=== PATIENT | male | born 1985 | race Caucasian/White ===

== ENCOUNTER → 2024-01-26 | Outpatient (CLI) | payer BC, SELFPAY ==
[2024-01-26 09:16] LABS: Absolute Lymphocyte Count 1.68 X10^3/uL (0.83-4.51); Absolute Neutrophil Count 4.3 X10^3/uL (2.0-7.7); Basophil# 0.05 X10^3/uL; Basophil% 0.7 % (0-1); Eosinophils% 2.9 % (0-5); Erythrocyte Sedimentation Rate 33 mm/hr (0-20); Hematocrit 37.2 % (40-54); Hemoglobin 11.2 g/dL (13.0-16.5); Lymphocyte # 1.68 X10^3/ul (0.83-4.51); Lymphocyte % 24.8 % (19-41); Mean Corp Hgb Conc 30.1 g/dL (32-36); Mean Corpuscular Volume 76.4 fL (80-94); Mean Platelet Vol. 9.8 fl (6.2-12.0); Monocyte# 0.53 X10^3/uL; Monocyte% 7.8 % (0-10); NRBC Flagged by Analyzer 0 % (0-5); Neutrophil # 4.29 X10^3/uL (2.7-7.7); Neutrophil % 63.4 % (47-70); Platelet Count 320 K/mm3 (150-450); RBC Distribution Width CV 13.9 % (11.6-14.6); RBC Distribution Width SD 38.4 fl (35.1-43.9); Red Blood Count 4.87 M/mm3 (4.6-6.2); White Blood Count 6.8 K/mm3 (4.4-11.0)
[2024-01-26 09:47] LABS: Vitamin B12 481 pg/mL (211-911); Vitamin D,25 Hydroxy 28.1 ng/mL
[2024-01-26 09:57] LABS: ALB/GLOB Ratio 0.8 RATIO (0.9-2.4); AST(SGOT) 20 U/L (15-37); Alanine Aminotransfer ALT/SGPT 22 U/L (16-61); Albumin, Serum 3.5 g/dL (3.2-5.0); Alkaline Phosphatase 97 U/L (45-117); Anion Gap 5 (5-15); BUN 12 mg/dL (7-18); BUN/Creat Ratio 10.9 RATIO (10-20); CRP 4.67 mg/L (0.0-3.0); Calcium,Total 9.1 mg/dL (8.5-10.1); Chloride 104 mmol/L (98-107); EST Glomerular Filtration Rate 79 mL/min (>60); Est Glom Filt Rate - Afr Amer 95 mL/min (>60); Ferritin 3 ng/mL (26-388); Globulin 4.4 g/dL (2.2-4.2); Glucose 112 mg/dL (74-106); Iron 34 ug/dL (65-175); Iron Binding Capacity,Total 415 ug/dL (250-450); Potassium 3.6 mmol/L (3.5-5.1); Protein, Total 7.9 g/dL (6.4-8.2); Sodium Level 139 mmol/L (136-145)
[2024-01-29 15:08] LABS: Vitamin D 1,25-Dihydroxy 61.1 pg/mL (24.8-81.5)
[2024-01-30 08:11] LABS: ACCA 247 units (0-90); ALCA 6 units (0-60); AMCA 60 units (0-100); Cytoplasmic Ab (C-ANCA) <1:20 titer (Neg:<1:20); Perinuclear Ab (P-ANCA) <1:20 titer (Neg:<1:20); gASCA 102 units (0-50)
== END | disposition home or self-care (01) ==
PROVIDERS: PCP Family Medicine; Referring Provider Student in an Organized Health Care Education/Training Program; Visit Provider Student in an Organized Health Care Education/Training Program
DX: K50.811 Crohn's disease of both small and large intestine with rectal bleeding (principal)
CPT/HCPCS: 36415; 80053; 82306; 82607; 82652; 82728; 82746; 83516; 83540; 83550; 85025; 85652; 86036; 86140; 86256; 86671

== ENCOUNTER 2024-08-26 09:21 | Day surgery (SDC) | payer BC, SELFPAY ==
[2024-08-26] VITALS (9 sets, daily range): BP systolic 103–140; BP diastolic 62–97; PULSE 64–85; RESP 16; TEMP 36.3–36.7; O2SAT 92–100; BMI 37.3
--- NOTE | 2024-08-26 09:47 | HP.PCM_ITS ---
HPI - General General Date of Admission: 08/26/24 Date of Service: 08/26/24 Chief Complaint: crohns HPI Narrative BARBIE FINK, is a 39 M who presents for the evaluation of Crohn's disease. Biochemical 2017 A1c, celiac WNL. IBD ([facility]) Crohn?s +, CRP H3.68 Colonoscopy 6.26.17 TI shallow ulcerations, active colitis with focal cryptitis and glandular distortion; internal hemorrhoids. OV 8..24 f/u for Crohns. Feeling weel with no symtosm. Notes a flare in November 2023. Not on medication for CRohns *Declined daily medications, blood work, stool testing, no hx of MR enterography Biochemical work up 8..24; hgb L 11.2, ESR 33 H, iron 34 L, CRp 4.67, IBD panel indicating aggressive Crohn Colonoscopy scheduled but not completed OV 2 Pt has been doing well since his last visit. He does not recall any flares of diarrhea. He is having 2-3 bm per day. He avoids foods that cause flares like lettuce and acidic foods. He has a colonoscopy coming up in August 2024. [facility] Medical History Alcohol use History of ulceration Gastric reflux Chewing tobacco dependence HTN (hypertension) PLEVA (pityriasis lichenoides et varioliformis acuta) Diminished hearing Anxiety Crohn disease Home Medications ?Medication ?Instructions ?Recorded ?Last Taken ?Type hydrochlorothiazide 25 mg tablet 25 mg PO DAILY Unknown History lisinopril 20 mg tablet 20 mg PO DAILY 11/09/2208/04 History omeprazole 40 mg capsule,delayed 40 mg PO QDAY #60 cap s 07/23/24 Unknown Rx release Allergy/AdvReac Type Severity Reaction Status Date / Time amoxicillin Allergy Intermediate Other Verified 08/26/24 09:39 cefaclor (From Ceclor) Allergy Intermediate Other Verified 08/26/24 09:39 Family History Father Hypertension Surgical History History of esophagogastroduodenoscopy (EGD) Hx of colonoscopy Hx of wisdom tooth extraction H/O inguinal hernia repair S/P orchiectomy Social History Smoking Status: Never smoker Smokeless tobacco user: chewing tobacco alcohol intake: current ROS Constitutional Constitutional: Denies fatigue, fever(s), poor appetite, weight gain or weight loss Gastrointestinal Gastrointestinal: Denies belching, bloating, change in bowel habits, change in stool character, chewing difficulty, coffee ground emesis, constipation, 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, diarrhea, dyspepsia, dysphagia, early satiety, excessive flatus, fecal incontinence, heartburn, hematemesis, hematochezia, hemorrhoids, loose stools, melena, nausea, odynophagia, rectal bleeding, tenesmus, vomiting or weight changes Vital Signs Vital Signs Vital Signs: 08/26/24 09:43 08/26/24 09:43 Temperature 98.1 F Temperature Source Temporal Pulse Rate 85 Respiratory Rate 16 Respiratory Pattern Normal Blood Pressure 140/97 H Blood Pressure Mean 111 Blood Pressure Source Monitor Blood Pressure Position Semi-Fowlers Blood Pressure Location Right Arm Pulse Ox 100 Oxygen Delivery Method Room Air Weight Weight: 290 lb 12.635 oz Body Mass Index (BMI) 37.3 Physical Exam Const alert, oriented x3, no apparent distress and healthy appearing General Appearance: cooperative GI normal to inspection, nondistended, normoactive bowel sounds, soft to palpation, non-tender and non-distended Percussion: normal to percussion Rectal Exam: deferred Assessment & Plan Assessment/Plan (1) Crohn disease: QUALIFIERS: Gastrointestinal tract location: small and large intestine Digestive disease complication type: with rectal bleeding Qualified Code(s): K50.811 - Crohn's disease of both small and large intestine with rectal bleeding PLAN: Assessment and Plan Assessment and Plan (1) Crohn disease: Status: Acute Qualifiers: Gastrointestinal tract location: small and large intestine Digestive disease complication type: with rectal bleeding Qualified Code(s): K50.811 - Crohn's disease of both small and large intestine with rectal bleeding Plan: Pt is a 39 yo male pt here today for f/u. Pt has a diagnosis of Crohns disease that is not treated medically due to his personal choice. He has not had a colonoscopy in over 5 years per his report. He is scheduled for one coming up in a month. Following this, will consider treatment for IBD. Blood work form 2023 showing inflammation in the blood. He has some heartburn lately. He will start omeprazole 40 mg daily. -Colonoscopy -Start omeprazole 40 mg daily -Consider treatment for Crohns Medications: New omeprazole 40 mg PO QDAY 60 caps 1RF
--- NOTE | 2024-08-26 10:02 | PRE.ANES_ITS ---
ASA Classification* ASA Classification ASA Classification: 2 Assessment & Plan Anesthesia* Anesthesia Assessment Anesthesia Assessment: Discussed sedation and/or anesthesia options, risks, benefits, and alternatives with patient/parents/legal guardian/POA. Questions invited. The patient/parents/legal guardian/POA seems to understand and agrees to proceed with anesthesia plan. Reviewed the physical assessment, medical history, allergy history and patient home medications list prior to surgery/procedure/anesthetic and documented any changes. Performed airway and anesthesia risk assessments. Anesthesia Type Anesthesia Type: MAC History Source History Obtained from:: Patient and Chart Anesthesia Focused Assessment* Temperature: 98.1 F Pulse Rate: 85 Blood Pressure: 140/97 Respiratory Rate: 16 Pulse Ox: 100 Oxygen Delivery Method: Room Air Airway Assessment Mouth opens: >3 cm Mallampati Score: III Teeth Condition: Chipped/Broken (Patient has a chipped right upper molar. Rest are tight.) Neck Range of motion (ROM): Full ROM Focused Labs Anesthesia Preop lab: CBC WBC 6.8 K/mm3 (4.4-11.0) 01/26/24 08:57 01/26/24 RBC 4.87 M/mm3 (4.6-6.2) 01/26/24 08:57 01/26/24 Hgb 11.2 g/dL (13.0-16.5) L 01/26/24 08:57 4 Hct 37.2 % (40-54) L 01/26/24 08:57 01/26/24 Plt Count 320 K/mm3 (150-450) 01/26/24 08:57 01/26/24 CHEMISTRY Potassium 3.6 mmol/L (3.5-5.1) 01/26/24 08:57 01/26/24 Sodium 139 mmol/L (136-145) 01/26/24 08:57 01/26/24 BUN 12 mg/dL (7-18) 01/26/24 08:57 01/26/24 Creatinine 1.10 mg/dL (0.70-1.30) 01/26/24 08:57 01/26/24 Glucose 112 mg/dL (74-106) H 01/26/24 08:57 01/26/24 COAG Pre-Assessment Diagnosis/Proposed Procedure Planned Operative Procedure(s): COLONOSCOPY Anesthesia History Anesthesia History - drafter electronic: Anesthesia History - drafter electronic Hx Hospitalization No 08/21/24 09:56 Any Problems With Anesthesia No 08/21/24 09:56 Cholinesterase deficiency No 08/21/24 09:56 You/Your Family Experience No 08/21/24 09:56 fever (hyperthermia) with Relationship Recent Exposure to Contagious No 08/26/24 09:43 Disease Does patient have nerve No 08/21/24 09:56 stimulator Patient instructed to have device shut off --Does patient have Pacemaker No 08/26/24 09:43 or ICD? When Was Last Pacemaker Check QUESTION #4 FULL TEXT: You/Your Family Experience fever (hyperthermia) with Anesthesia Last Oral Intake Last Oral intake: Last Oral Intake NPO since 07:00 08/26/24 09:43 Meds taken in AM with sips of water? Meds patient instructed to take am of surgery Any additional information?: Yes NPO since: 07:15 (Patient finished prep and some Sprite at 7:15 AM.) PONV PONV - drafter electronic: PONV - drafter electronic Female No 08/21/24 09:56 HX of Motion Sickness Yes 08/21/24 09:56 HX of N/V After Surgery No 08/21/24 09:56 Non-Smoker No 08/21/24 09:56 Duration of Surgery greater No 08/21/24 09:56 than 60 minutes Number of Risk Factors 1 08/21/24 09:56 PONV Score Low Risk 08/21/24 09:56 Height & Weight Height & Weight: Anesthesia: Height & Weight Height 6 ft 2 in 08/26/24 09:43 Weight: 131.9 kg 08/26/24 09:43 Body Mass Index (BMI) 37.3 08/26/24 09:43 Respiratory Assessment Respiratory Assessment - drafter electronic: Respiratory Tract Infection Hx - drafter electronic Hx Respiratory Tract Infection No 08/21/24 09:56 STOP Sleep Apnea STOP Sleep Apnea - drafter electronic: STOP Sleep Apnea - drafter electronic Hx Hypertension Yes: CONTROLLED ON MED 08/21/24 09:56 Hx Sleep Apnea No 08/21/24 09:56 CPAP BIPAP Do you snore loudly (louder No 08/21/24 09:56 than talking or can be heard Do you often feel tired/ No 08/21/24 09:56 fatigued/ sleepy during daytime? Has anyone observed you stop No 08/21/24 09:56 breathing during sleep? STOP Results Negative 08/21/24 09:56 QUESTION #5 FULL TEXT : Do you snore loudly (louder than talking or can be heard through closed doors)? 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 Specify any problems Hx of Preganancy in last 3 N/A 08/21/24 09:56 Months Nurse Filling Out Transfusion VCHRISTIN 08/21/24 09:56 & Questions: Date: 08/21/24 08/21/24 09:56 Time: 09:57 08/21/24 09:56 Patient unable to answer at this time (ie. confused, unrespo /Reproduction History /Reproductive History - drafter electronic: /Reproductive Hx- drafter electronic Hx Now Gestational Age (in weeks): EDC: Hx Hx Para Hx Section SAB PFSH Medical History Alcohol use History of ulceration Gastric reflux Chewing tobacco dependence HTN (hypertension) PLEVA (pityriasis lichenoides et varioliformis acuta) Diminished hearing Anxiety Crohn disease Home Medications ?Medication ?Instructions ?Recorded ?Last Taken ?Type hydrochlorothiazide 25 mg tablet 25 mg PO DAILY Unknown History lisinopril 20 mg tablet 20 mg PO DAILY 11/09/2208/04 History omeprazole 40 mg capsule,delayed 40 mg PO QDAY #60 cap s 07/23/24 Unknown Rx release Allergy/AdvReac Type Severity Reaction Status Date / Time amoxicillin Allergy Intermediate Other Verified 08/26/24 09:39 cefaclor (From Ceclor) Allergy Intermediate Other Verified 08/26/24 09:39 Family History Father Hypertension Surgical History History of esophagogastroduodenoscopy (EGD) Hx of colonoscopy Hx of wisdom tooth extraction H/O inguinal hernia repair S/P orchiectomy Social History Smoking Status: Never smoker Smokeless tobacco user: chewing tobacco alcohol intake: current Review of Systems (Anesthesia) ROS Narrative System reviewed and no additional complaints, except as documented.
--- NOTE | 2024-08-26 10:30 | COLBX_PTH ---
PATIENT: BARBIE FINK LOC: EN U#:[id number] AGE/SX: 39/M ROOM: RE08/26/[address]: Dr. Babar Hernández DO : 1985 BED: DIS: 08/26/2024 SPEC #: [id number] RECD: 08/27/24 13:59 STATUS: NIKA REAdams #: [id number] ETHEL: 08/26/24 10:[address]: Babar Hernández DEPT: SURGICAL PATHOLOGY RECD BY: Renato Charles ENTERED: 08/27/24 13:59 SP TYPE: COLON BX OTHR DR: Dr. Chris Mckeon MD Tissues: A - Ileum, NOS B - COLON BIOPSY C - Sigmoid colon biopsy D - Rectum, NOS Procedures: Surgery Specimen Level IV HEADER OPERATION: Colonoscopy with biopsies PRE-OP DIAGNOSIS: Crohn disease TISSUE SUBMITTED: A- Terminal ileum biopsy, B- Random colon biopsy, C- Sigmoid biopsy, D- Rectum biopsy MICROSCOPIC DIAGNOSIS A. TERMINAL ILEUM, BIOPSY: -ACTIVE CHRONIC ILEITIS. -NO GRANULOMAS OR DYSPLASIA SEEN. B. RANDOM COLON, COLON BIOPSY: -FOCAL ACTIVE COLITIS WITHOUT CRYPT DISTORTION. - NO GRANULOMAS OR DYSPLASIA SEEN. C. SIGMOID COLON, BIOPSY: -MILDLY ACTIVE CHRONIC COLITIS. - NO GRANULOMSASOR DYSPLASIA SEEN. D. RECTUM, BIOPSY: - MILDLY ACTIVE CHRONIC COLITIS. - NO GRANULOMAS OR DYSPLASIA SEEN. MICROSCOPIC DESCRIPTION Slides are reviewed. GROSS DESCRIPTION A. Received in fixative is one container labeled with the patient's name and designated Terminal ileum biopsy. The specimen consists of two irregular fragments of light [place] soft tissue that in aggregate measure 0.9 x 0.2 x 0.2 cm. The specimen is totally submitted in one cassette. B. Received in fixative is one container labeled with the patient's name and designated Random colon biopsy. The specimen consists of multiple irregular fragments of light [place] soft tissue that in aggregate measure 1.6 x 0.2 x 0.2 cm. The specimen is totally submitted in one cassette. C. Received in fixative is one container labeled with the patient's name and designated Sigmoid biopsy. The specimen consists of two irregular fragments of light [place] soft tissue that in aggregate measure 0.7 x 0.2 x 0.2 cm. The specimen is totally submitted in one cassette. D. Received in fixative is one container labeled with the patient's name and designated Rectum biopsy. The specimen consists of multiple irregular fragments of light [place] soft tissue that in aggregate measure 1.4 x 0.2 x 0.2 cm. The specimen is totally submitted in one cassette. [email or web address] 08/27/2024 CPT:30343r1
--- NOTE | 2024-08-26 11:15 | OP.CCLET_ITS ---
08/26/2024 Chris Mckeon Re : Colonoscopy procedure for Thien Levin Dear Mike This procedure was performed on Monday, August 26, 2024. My impressions and recommendations are as follows: Impressions : - Simple Endoscopic Score for Crohn's Disease: 10, mucosal inflammatory changes secondary to Crohn's disease. - No specimens collected. Recommendations : - Discharge patient to home. - Resume previous diet. - Continue present medications. - Await pathology results. - Repeat colonoscopy. - Return to GI office. My findings are described in the full procedure note, which is enclosed. If I can be of further assistance, please feel free to contact me at . Sincerely, Babar Hernández, 08/26/2024 11:14:51 AM This report has been signed electronically.
--- NOTE | 2024-08-26 11:15 | OP.COLON_ITS ---
Patient Name: Thien Levin Procedure Date: 08/26/2024 10:41 AM Date of : 1985 Age: 39 Procedure: Colonoscopy Indications: Crohn's disease of the small bowel and colon Providers: Babar Hernández DO Medicines: Monitored Anesthesia Care Patient Profile: This is a 39 year old male. Refer to note in patient chart for documentation of history and physical. Last Colonoscopy: 3 years ago. Complications: No immediate complications. Procedure: Pre-Anesthesia Assessment: - Prior to the procedure, a History and Physical was performed, and patient medications and allergies were reviewed. The patient is competent. The risks and benefits of the procedure and the sedation options and risks were discussed with the patient. All questions were answered and informed consent was obtained. Patient identification and proposed procedure were verified by the physician in the pre-procedure area. Mental Status Examination: alert and oriented. Airway Examination: normal oropharyngeal airway and neck mobility. Respiratory Examination: clear to auscultation. CV Examination: normal. ASA Grade Assessment: II - A patient with mild systemic disease. After reviewing the risks and benefits, the patient was deemed in satisfactory condition to undergo the procedure. The anesthesia plan was to use monitored anesthesia care (MAC). Immediately prior to administration of medications, the patient was re-assessed for adequacy to receive sedatives. The heart rate, respiratory rate, oxygen saturations, blood pressure, adequacy of pulmonary ventilation, and response to care were monitored throughout the procedure. The physical status of the patient was re-assessed after the procedure. After I obtained informed consent, the scope was passed under direct vision. Throughout the procedure, the patient's blood pressure, pulse, and oxygen saturations were monitored continuously. The Colonoscope was introduced through the anus and advanced to the terminal ileum. The colonoscopy was performed without difficulty. The patient tolerated the procedure well. The quality of the bowel preparation was adequate. The terminal ileum, ileocecal valve, appendiceal orifice, and rectum were photographed. Scope In: 10:51:38 AM Scope Withdrawal Time 0 hours 9 minutes 10 seconds Scope Out: 11:05:32 AM Total Procedure Duration Time 0 hours 13 minutes 54 seconds Findings: The perianal and digital rectal examinations were normal. The Simple Endoscopic Score for Crohn's Disease was determined based on the endoscopic appearance of the mucosa in the following segments: - Ileum: Findings include large ulcers 0.5-2 cm in size, 10-30% ulcerated surfaces, no affected surfaces, no narrowings and no ulcers present, no ulcerated surfaces, no affected surfaces and no narrowings. Segment score: 4. - Right Colon: Findings include no ulcers present, no ulcerated surfaces, no affected surfaces, no narrowings and no ulcers present, no ulcerated surfaces, no affected surfaces and no narrowings. Segment score: 0. - Transverse Colon: Findings include no ulcers present, no ulcerated surfaces, no affected surfaces and no narrowings. Segment score: 0. - Left Colon: Findings include aphthous ulcers less than 0.5 cm in size, less than 10% ulcerated surfaces, less than 50% of surfaces affected and no narrowings. Segment score: 3. - Rectum: Findings include aphthous ulcers less than 0.5 cm in size, less than 10% ulcerated surfaces, less than 50% of surfaces affected, no narrowings and no ulcers present, no ulcerated surfaces, no affected surfaces and no narrowings. Segment score: 3. - Total SES-CD aggregate score: 10. Impression: - Simple Endoscopic Score for Crohn's Disease: 10, mucosal inflammatory changes secondary to Crohn's disease. - No specimens collected. Recommendation: - Discharge patient to home. - Resume previous diet. - Continue present medications. - Await pathology results. - Repeat colonoscopy. - Return to GI office. Procedure Code(s): --- Professional --- 03885, Colonoscopy, flexible; diagnostic, including collection of specimen(s) by brushing or washing, when performed (separate procedure) CPT copyright 2021 [employer]. All rights reserved. The codes documented in this report are preliminary and upon braille coder review may be revised to meet current compliance requirements. Babar Hernández DO 08/26/2024 11:14:51 AM This report has been signed electronically. Number of Addenda: 0 Note Initiated On: 08/26/2024 10:41 AM
--- NOTE | 2024-08-26 11:15 | PCM.POST.ANE ---
Anesthesia: Postop Eval I Current Vital Signs Temperature: 97.4 F Pulse Rate: 74 Blood Pressure: 107/63 Respiratory Rate: 16 Pulse Ox: 94 Oxygen Delivery Method: Room Air Assessment Airway patent: Yes Spontaneous unlabored respirations: Yes Mental status: Asleep nausea: No Vomiting: No Anesthesia Complication: No Fluid Hydration Crystalloid volume administer (ml): 50 Total IV fluid infused: 50 Progress Note Anesthesia document: Postop Eval 1 completed: Yes
--- NOTE | 2024-08-26 13:52 | PCM.POSTANE2 ---
Anesthesia Postop Eval I Sum Postop Eval Completion status Anesthesia document: Postop Eval 1 completed: Yes Anesthesia Postop Eval I Summary Anesthesia Postop Eval I Summary: Anesthesia Postop Eval I: Assessment Summary Airway patent Yes 08/26/24 11:16 [email or web address] Spontaneous unlabored Yes 08/26/24 11:16 [email or web address] respirations Mental status Asleep 08/26/24 11:16 [email or web address] nausea No 08/26/24 11:16 [email or web address] Vomiting No 08/26/24 11:16 [email or web address] Anesthesia Postop Eval I: Fluid Summary Crystalloid volume administer 50 08/26/24 11:16 [email or web address] (ml) Colloids volume administered ( ml) Blood Product volume administered (ml) Total IV fluid infused 50 08/26/24 11:16 [email or web address] Anesthesia Postop Eval I: Summary Notes Anesthesia Complication No 08/26/24 11:16 [email or web address] Anesthesia Complication Comment: Post-operative progress note Anesthesia: Postop Eval II Evaluation Mental status: Awake Pain Level: 0 nausea: No Vomiting: No
== END 2024-08-26 12:11 | disposition home or self-care (01) ==
LOC: EN 09:24 → AC 09:25
PROVIDERS: PCP Family Medicine; Referring Provider Family Medicine; Visit Provider Internal Medicine Gastroenterology
PROC: 0DJD8ZZ Inspection of Lower Intestinal Tract, Via Natural or Artificial Opening Endoscopic (ICD-10-PCS; CPT 45378; principal; 2024-08-26 10:25)
DX: K50.811 Crohn's disease of both small and large intestine with rectal bleeding (principal); I10 Essential (primary) hypertension; K21.9 Gastro-esophageal reflux disease without esophagitis; K64.8 Other hemorrhoids; F17.220 Nicotine dependence, chewing tobacco, uncomplicated
CPT/HCPCS: 45378; 88305; A4216; J2405

== ENCOUNTER → 2024-12-13 | Outpatient (CLI) | payer BC, SELFPAY ==
[2024-12-13 16:27] LABS: Hematocrit 34.2 % (40-54); Hemoglobin 10.4 g/dL (13.0-16.5); Immature Granulocytes Count 0.020 X10^3/uL (0.0-0.0); Mean Corp Hgb Conc 30.4 g/dL (32-36); Mean Corpuscular Volume 77.2 fL (80-94); Mean Platelet Vol. 10.3 fl (6.2-12.0); NRBC Flagged by Analyzer 0 % (0-5); Platelet Count 320 K/mm3 (150-450); RBC Distribution Width CV 15.7 % (11.6-14.6); RBC Distribution Width SD 44.3 fl (35.1-43.9); Red Blood Count 4.43 M/mm3 (4.6-6.2); White Blood Count 9.1 K/mm3 (4.4-11.0)
[2024-12-13 17:06] LABS: AST(SGOT) 18 U/L (<=37); Alanine Aminotransfer ALT/SGPT 16 U/L (<=46); Albumin, Serum 3.8 g/dL (3.5-5.0); Alkaline Phosphatase 97 U/L (40-129); Anion Gap 12 (5-15); BUN 13 mg/dL (4-19); BUN/Creat Ratio 12.4 RATIO (10-20); CRP 32.40 mg/L (0.0-3.0); Calcium,Total 9.0 mg/dL (7.6-11.0); Carbon Dioxide 28.4 mmol/L (21.0-32.0); Chloride 100 mmol/L (98-108); Globulin 3.3 g/dL (2.2-4.2); Glucose 87 mg/dL (70-99); Potassium 3.4 mmol/L (3.3-5.1)
== END | disposition home or self-care (01) ==
LOC: LAB 15:27
PROVIDERS: PCP Family Medicine; Referring Provider Student in an Organized Health Care Education/Training Program; Visit Provider Student in an Organized Health Care Education/Training Program
DX: K50.811 Crohn's disease of both small and large intestine with rectal bleeding (principal)
CPT/HCPCS: 36415; 80053; 85025; 85652; 86140

== ENCOUNTER 2025-01-16 06:20 | Inpatient (IN) | payer BC, SELFPAY ==
[2025-01-16] VITALS (9 sets, daily range): BP systolic 113–137; BP diastolic 55–89; PULSE 60–103; RESP 14–30; TEMP 36.4–38.3; O2SAT 96–98; BMI 37.1; BMI 35.2
--- NOTE | 2025-01-16 06:29 | EX.ED.DYSGE1 ---
HPI <Dr. German Chavarria DO - Last Filed: 01/16/25 07:46> History of Present Illness Chief Complaint: Syncope Informant: patient Onset/Context/Timing Onset: Days Context: Gradual Onset Timing: Continuous Quality: Dull Location: Lower abdomen Worsened by: Nothing Relieved by: Passing gas Narrative Narrative: Patient presents with a near syncopal episode that occurred today. Patient states that he has been feeling hot and dizzy over the past couple days. Patient states he has been having some pain in his lower abdomen. Patient states it did get better after he was able to pass some gas. Patient states that this morning he felt dizzy and hot. Patient states he has some tinnitus in his ear. Patient states he felt like he was going to pass out. states patient nearly passed out but did not lose consciousness. Patient states she has been having a cough recently. Patient denies any sputum. Patient states he has been having some shortness of breath with this. [facility] <Dr. German Chavarria DO - Last Filed: 01/16/25 07:46> [facility] Medical History Alcohol use History of ulceration Gastric reflux Chewing tobacco dependence HTN (hypertension) PLEVA (pityriasis lichenoides et varioliformis acuta) Diminished hearing Anxiety Crohn disease Home Medications ?Medication ?Instructions ?Recorded ?Last Taken ?Type hydrochlorothiazide 25 mg tablet 25 mg PO DAILY 11/09/22 Unknown History lisinopril 20 mg tablet 20 mg PO DAILY 11/09/22 08/25/24 History omeprazole 40 mg capsule,delayed 40 mg PO QDAY #30 caps 12/13/24 Unknown Rx release Skyrizi 600 mg IV .COMPLEX #10 mL 01/03/25 Unknown Rx mesalamine 1.2 gram tablet,delayed 2.4 g PO BID 01/16/25 Unknown History release (Lialda) Allergy/AdvReac Type Severity Reaction Status Date / Time amoxicillin Allergy Intermediate Other Verified 01/16/25 06:21 cefaclor (From [facility]) Allergy Intermediate Other Verified 12/13/24 15:07 Family History Father Hypertension Surgical History History of esophagogastroduodenoscopy (EGD) Hx of colonoscopy Hx of wisdom tooth extraction H/O inguinal hernia repair S/P orchiectomy Social History Smoking Status: Never smoker Smokeless tobacco user: chewing tobacco alcohol intake: current ROS <Dr. German Chavarria DO - Last Filed: 01/16/25 07:46> ROS ED Constitutional Constitutional ED: Reports fever(s); Denies chills Eyes Eyes: Denies blurry vision or change in vision ENT ENT ED: Denies rhinorrhea or sore throat Cardiovascular Cardiovascular: Denies chest pain or palpitations Respiratory/Chest Respiratory/Chest: Reports cough and dyspnea; Denies sputum Gastrointestinal Gastrointestinal: Reports abdominal pain; Denies nausea or vomiting Genitourinary Genitourinary ED: Denies dysuria or hematuria Musculoskeletal Musculoskeletal: Denies back pain or neck pain Integumentary Denies abscess or rash Neurologic Neurologic: Denies headache(s) or weakness Allergic/Immunologic Allergic/Immunologic ED: Denies mouth swelling or urticaria EXAM <Dr. German Chavarria, - Last Filed: 01/16/25 07:46> Physical Exam Const Vital Signs: 01/16/25 06:22 01/16/25 07:20 01/16/25 08:00 Temperature 101.0 F H 98.1 F 99.4 F H Temperature Source Oral Oral Oral Pulse Rate 103 H 88 89 Pulse Rate [Lying] Pulse Rate [Sitting (for 1 minute prior to obtaining)] Pulse Rate [Standing (for 1 minute prior to obtaining)] Respiratory Rate 30 H 23 H 18 Blood Pressure 137/66 H 125/62 H 133/89 H Blood Pressure [Lying] Blood Pressure [Sitting (for 1 minute prior to obtaining)] Blood Pressure [Standing (for 1 minute prior to obtaining)] Blood Pressure Mean 89 83 103 Blood Pressure Mean [Lying] Blood Pressure Mean [Sitting (for 1 minute prior to obtaining)] Blood Pressure Mean [Standing (for 1 minute prior to obtaining)] Pulse Ox 97 97 97 Oxygen Delivery Method Room Air Room Air Room Air 01/16/25 08:46 01/16/25 09:00 Temperature 99.1 F Temperature Source Oral Pulse Rate 81 Pulse Rate [Lying] 79 Pulse Rate [Sitting (for 1 minute prior to obtaining)] 81 Pulse Rate [Standing (for 1 minute prior to obtaining)] 90 Respiratory Rate 16 Blood Pressure 130/73 H Blood Pressure [Lying] 122/65 H Blood Pressure [Sitting (for 1 minute prior to obtaining)] 129/74 H Blood Pressure [Standing (for 1 minute prior to obtaining)] 124/69 H Blood Pressure Mean 92 Blood Pressure Mean [Lying] 84 Blood Pressure Mean [Sitting (for 1 minute prior to obtaining)] 92 Blood Pressure Mean [Standing (for 1 minute prior to obtaining)] 87 Pulse Ox 98 Oxygen Delivery Method Room Air Positive well nourished and well developed General Appearance ED: well developed and NAD HEENT Reports moist mucous membranes Neck supple and no JVD Resp normal respiratory effort and clear to auscultation bilaterally Cardio regular rate and regular rhythm GI non-distended Palpation: soft and tender LLQ; Negative for guarding or rebound tenderness present Extremity normal to inspection Neuro oriented x3, CN's II-XII intact bilaterally and no sensory deficits noted Sensorium / Orientation: alert Motor Exam: strength 5/5 throughout Psych mental status grossly normal <Dr. Jarrod Herbert MD - Last Filed: 01/16/25 10:17> Physical Exam Const Vital Signs: 01/16/25 06:22 01/16/25 07:20 01/16/25 08:00 Temperature 101.0 F H 98.1 F 99.4 F H Temperature Source Oral Oral Oral Pulse Rate 103 H 88 89 Pulse Rate [Lying] Pulse Rate [Sitting (for 1 minute prior to obtaining)] Pulse Rate [Standing (for 1 minute prior to obtaining)] Respiratory Rate 30 H 23 H 18 Blood Pressure 137/66 H 125/62 H 133/89 H Blood Pressure [Lying] Blood Pressure [Sitting (for 1 minute prior to obtaining)] Blood Pressure [Standing (for 1 minute prior to obtaining)] Blood Pressure Mean 89 83 103 Blood Pressure Mean [Lying] Blood Pressure Mean [Sitting (for 1 minute prior to obtaining)] Blood Pressure Mean [Standing (for 1 minute prior to obtaining)] Pulse Ox 97 97 97 Oxygen Delivery Method Room Air Room Air Room Air 01/16/25 08:46 01/16/25 09:00 Temperature 99.1 F Temperature Source Oral Pulse Rate 81 Pulse Rate [Lying] 79 Pulse Rate [Sitting (for 1 minute prior to obtaining)] 81 Pulse Rate [Standing (for 1 minute prior to obtaining)] 90 Respiratory Rate 16 Blood Pressure 130/73 H Blood Pressure [Lying] 122/65 H Blood Pressure [Sitting (for 1 minute prior to obtaining)] 129/74 H Blood Pressure [Standing (for 1 minute prior to obtaining)] 124/69 H Blood Pressure Mean 92 Blood Pressure Mean [Lying] 84 Blood Pressure Mean [Sitting (for 1 minute prior to obtaining)] 92 Blood Pressure Mean [Standing (for 1 minute prior to obtaining)] 87 Pulse Ox 98 Oxygen Delivery Method Room Air MDM <Dr. German Chavarria, DO - Last Filed: 01/16/25 07:46> [facility] MDM Narrative Medical decision making narrative: Differential diagnosis includes pneumonia, bronchitis, electrolyte abnormality, sepsis, dehydration, Crohn's flareup, bowel obstruction, perforation, urinary tract infection, and viral illness. CT scan of the abdomen and pelvis will be obtained to assess for bowel obstruction or perforation. Chest x-ray will be obtained to assess for pneumonia and bronchitis. CBC will be obtained to assess for leukocytosis and anemia. Comprehensive metabolic profile will be obtained to assess for hepatic function, renal function, and electrolyte abnormality. Serum lactate will be obtained to assess for sepsis. PT with INR and PTT will be obtained to assess for coagulopathy. Urinalysis will be obtained to assess for urinary tract infection and hematuria. History & Record Review Additional record(s) reviewed:: Prior outpatient record and Prior labs Lab Data Attestation: I reviewed the patient's lab results. Lab results narrative: CBC was reviewed. There is a leukocytosis of 18.9. There is a mild anemia with a hemoglobin of 9.2 and hematocrit of 29.8. These are decreased from previous result of hemoglobin of 10.4 and hematocrit of 34.2 on 12/13/2024. Labs: Laboratory Results - last 24 hr 01/16/25 01/16/25 07:18 08:54 WBC 18.9 H RBC 3.98 L Hgb 9.2 L Hct 29.8 L MCV 74.9 L MCH 23.1 L MCHC 30.9 L RDW Std Deviation 36.9 RDW Coeff of [place]win 13.7 Plt Count 352 MPV 10.3 Immature Gran % (Auto) 0.700 Neut % (Auto) 86.9 H Lymph % (Auto) 5.5 L Emmons % (Auto) 6.3 Eos % (Auto) 0.4 Baso % (Auto) 0.2 Absolute Neuts (auto) 16.4 H Absolute Lymphs (auto) 1.03 Nucleated RBC % 0 PT 15.6 H INR 1.2 APTT 39.3 H Sodium 135 Potassium 3.0 L Chloride 94 L Carbon Dioxide 24.7 Anion Gap 16 H BUN 19 Creatinine 1.50 H Estim Creat Clear Calc 91.72 Est GFR (MDRD) Non-Af 60 BUN/Creatinine Ratio 12.8 Glucose 176 H Lactic Acid 1.6 Calcium 8.7 Total Bilirubin 1.97 H AST 26 ALT 16 Alkaline Phosphatase 147 H Total Protein 6.9 Albumin 3.3 L Globulin 3.6 Albumin/Globulin Ratio 0.9 Urine Color Yellow Urine Clarity Clear Urine pH 6.0 Ur Specific [place] 1.005 Urine Protein 15 H Urine Glucose (UA) Normal Urine Ketones Negative Urine Occult Blood Negative Urine Nitrite Negative Urine Bilirubin Negative Urine Urobilinogen 1 H Ur Leukocyte Esterase Negative Urine RBC 0 SEEN Urine WBC 0 SEEN Ur Squamous Epith Cells 0 SEEN Urine Bacteria 0 SEEN Urine Mucus 0 SEEN Radiography Diagnostic Testing: Clinical Impression(s) from Imaging Studies Abdomen/Pelvis CT 01/16/25 06:54 IMPRESSION: Circumferential wall thickening of several adjacent small bowel loops in the distal ileum with increased markings in the surrounding peritoneal fat. Mildly enlarged small lymph nodes in the deep mesenteric fat. Enteritis should be ruled out. Mild splenomegaly. Reading Location: [place] [id number] Chest X-Ray 01/16/25 07:05 IMPRESSION: NO ACUTE FINDINGS. Reading Location: [place] [address] Treatment and Re-Evaluation :: Patient was given IV fluids and Tylenol. Care of the patient was turned over to the oncoming physician pending results. <Dr. Jarrod Herbert MD - Last Filed: 01/16/25 10:17> [facility] Lab Data Lab results narrative: CBC was reviewed. There is a leukocytosis of 18.9. There is a mild anemia with a hemoglobin of 9.2 and hematocrit of 29.8. These are decreased from previous result of hemoglobin of 10.4 and hematocrit of 34.2 on 12/13/2024. Lactate is normal at 1.4. Labs: Laboratory Results - last 24 hr 01/16/25 01/16/25 07:18 08:54 WBC 18.9 H RBC 3.98 L Hgb 9.2 L Hct 29.8 L MCV 74.9 L MCH 23.1 L MCHC 30.9 L RDW Std Deviation 36.9 RDW Coeff of [place]win 13.7 Plt Count 352 MPV 10.3 Immature Gran % (Auto) 0.700 Neut % (Auto) 86.9 H Lymph % (Auto) 5.5 L Emmons % (Auto) 6.3 Eos % (Auto) 0.4 Baso % (Auto) 0.2 Absolute Neuts (auto) 16.4 H Absolute Lymphs (auto) 1.03 Nucleated RBC % 0 PT 15.6 H INR 1.2 APTT 39.3 H Sodium 135 Potassium 3.0 L Chloride 94 L Carbon Dioxide 24.7 Anion Gap 16 H BUN 19 Creatinine 1.50 H Estim Creat Clear Calc 91.72 Est GFR (MDRD) Non-Af 60 BUN/Creatinine Ratio 12.8 Glucose 176 H Lactic Acid 1.6 Calcium 8.7 Total Bilirubin 1.97 H AST 26 ALT 16 Alkaline Phosphatase 147 H Total Protein 6.9 Albumin 3.3 L Globulin 3.6 Albumin/Globulin Ratio 0.9 Urine Color Yellow Urine Clarity Clear Urine pH 6.0 Ur Specific [place] 1.005 Urine Protein 15 H Urine Glucose (UA) Normal Urine Ketones Negative Urine Occult Blood Negative Urine Nitrite Negative Urine Bilirubin Negative Urine Urobilinogen 1 H Ur Leukocyte Esterase Negative Urine RBC 0 SEEN Urine WBC 0 SEEN Ur Squamous Epith Cells 0 SEEN Urine Bacteria 0 SEEN Urine Mucus 0 SEEN Radiography Chest X-Ray - ED: 2 View and Read by ED Physician (Independently reviewed interpreted by me at 0845 as negative for any acute findings. Cardiac silhouette size normal. Lung parenchyma reveals no acute process i.e. infiltrate or effusion. Hilum appears unremarkable. Osseous structures with no acute process.) Diagnostic Testing: Clinical Impression(s) from Imaging Studies Abdomen/Pelvis CT 01/16/25 06:54 IMPRESSION: Circumferential wall thickening of several adjacent small bowel loops in the distal ileum with increased markings in the surrounding peritoneal fat. Mildly enlarged small lymph nodes in the deep mesenteric fat. Enteritis should be ruled out. Mild splenomegaly. Reading Location: [id number] Chest X-Ray 01/16/25 07:05 IMPRESSION: NO ACUTE FINDINGS. Reading Location: [facility]--1 CT of the abdomen pelvis was reviewed. There appears to be some inflammatory changes noted in the pelvis. Awaiting formal read by radiologist. Patient has evidence of regional enteritis she has a history of Crohn's. He was in contact with Dr. Hernández last week. He was told if he is not better to present to the emergency department. In light of this and the fact that he has a fever, white count and SIRS will contact Dr. Hernández to discuss case. He has allergy to both amoxicillin and Ceclor. His reaction is hives. On examination he has some slight peritoneal irritation right side mid abdomen and left lower quadrant. Management Discussion w/another healthcare provider: Hospitalist ([place] was asked to page hospitalist to discuss case for admission to [facility].) and Toy [employer] Supervisor (Spoke with Dr. Hernández at [phone]. He reviewed the scan. Recommended admission with IV antibiotics. In light of patient's allergy he was treated with ciprofloxacin metronidazole..) Treatment and Re-Evaluation Comments:: Case was discussed with hospitalist. He was informed that I spoke with Dr. Hernández. Antibiotics and I did place order for Solu-Medrol. Discharge Plan Triage Chief Complaint: Syncope ED Provider: German Chavarria Dx/Rx/DC Orders Clinical Impression: Exacerbation of Crohn's disease, SIRS (systemic inflammatory response syndrome), Microcytic anemia Prescriptions: No Action hydrochlorothiazide 25 mg tablet 25 mg PO DAILY lisinopril 20 mg tablet 20 mg PO DAILY omeprazole 40 mg capsule,delayed release(DR/EC) 40 mg PO QDAY Qty: 30 5RF mesalamine [Lialda] 1.2 gram tablet,delayed release (DR/EC) 2.4 g PO BID Skyrizi 600 mg IV .COMPLEX Qty: 10 0RF Patient Comments: needs to get blood work Rx Instructions: 600 mg intravenously week 0, 4, 8; 600 mg intravenously at week 0, 4, 8 for Crohn's Disease K50.90 Primary Care Provider: Chris Mckeon Referrals: Chris Mckeon MD [Primary Care Provider] - Print Language: Romansh Disposition Disposition: Acute Care Hospital [facility]
--- NOTE | 2025-01-16 06:54 | CT_ITS ---
PROCEDURE: ABDOMEN/PELVIS W IV CONT ONLY 01/16/2025 REASON FOR EXAM: LOWER ABDOMINAL PAIN History of Crohn's disease. TECHNIQUE: ABDOMEN/PELVIS W IV CONT ONLY Coronal and Sagittal reconstruction series were provided. CONTRAST: Isovue-300 VOLUME: 100 mL One or more dose reduction techniques were used (e.g., Automated exposure control, adjustment of the mA and/or kV according to patient size, use of iterative reconstruction technique. RADIATION DOSE SUMMARY: CTDlvol: 13.7 mGy DLP: 1157.17 mGycm COMPARISON: None FINDINGS: Lung bases: Lung bases are clear. Liver: Normal size. No mass. Gallbladder: Surgically absent. Spleen: Mild splenomegaly. Pancreas: Normal size without evidence of mass surrounding inflammation or ductal dilation. Adrenals: Unremarkable Kidneys: Normal renal sizes. No hydronephrosis. Bladder: Unremarkable Bowel: Diffuse circumferential wall thickening of several adjacent small bowel loops in the distal ileum with increased markings in the surrounding peritoneal fat. This may represent acute enteritis. Slight enlargement of deep mesenteric lymph nodes. No evidence of bowel obstruction. Sigmoid diverticulosis. Appendix: The appendix is not identified. There is no inflammatory process identified in the right lower quadrant to suggest appendicitis. Lymph nodes: Unremarkable. Vasculature: The abdominal aorta and IVC are normal. Peritoneum / Retroperitoneum: Small amount of free fluid in the pelvis. Bones: Unremarkable CT/Abdomen/Pelvis W IV Cont ONLY IMPRESSION: Circumferential wall thickening of several adjacent small bowel loops in the di stal ileum with increased markings in the surrounding peritoneal fat. Mildly enlarged small lymph nodes in the deep mese nteric fat. Enteritis should be ruled out. Mild splenomegaly. Reading Location: [facility]
--- NOTE | 2025-01-16 07:05 | RAD_ITS ---
PROCEDURE: CHEST PA AND LATERAL 01/16/2025 REASON FOR EXAM: FEVER TECHNIQUE: CHEST PA AND LATERAL COMPARISON: None FINDINGS: Hardware: EKG electrodes are seen. Heart: The heart size is normal. Mediastinum: The mediastinal contour is unremarkable. Lungs: The lungs are clear. Bones: The bones are unremarkable. RAD/Chest PA and Lateral IMPRESSION: NO ACUTE FINDINGS. Reading Location: [facility]
--- OUTSIDE RECORDS SUMMARY | 2025-01-16 07:11 | XMS RPT_ITS | CCD ---
Author Organization [facility] CliniSywv Care Team Providers Care Driftman Name Role Phone Milton Mckeon MD Primary Care Provider Dr. Milton Mckeon MD Primary Care Provider Dr. Milton Mckeon MD Referring Provider Anne-Marie Lyons Attending Provider Dr. Babar Hernández DO Attending Provider Dr. Babar Hernández DO Other Provider Milton Mckeon MD Primary Care Provider Katia ESCROW MANAGER.MANAGER CABLEMarah Unavailable Gibson ESCROW MANAGER.MANAGER CABLE, Tamy A Unavailable [phone] MILTON MCKEON Primary Care Unavailable MARAH MONTALVO Attending Unavailable Dr. Milton Mckeon MD Primary Care Provider Dr. Milton Mckeon MD Referring Provider Anne-Marie Lyons Attending Provider Anne-Marie Lyons Referring Provider Babar Hernández Consulting Unavailable Anne-Marie Fine Referring Unavailable Anne-Marie Fine Attending Unavailable Milton Mckeon Primary Care Unavailable Mike, Milton Primary Care Unavailable Anne-Marie Fine Attending Unavailable Anne-Marie Fine Referring Unavailable Mike, Milton Referring Unavailable Mike, Milton Primary Care Unavailable Anne-Marie Fine Attending Unavailable Anne-Marie Fine Attending Unavailable Mike, Milton Primary Care Unavailable Mike, Milton Referring Unavailable Anne-Marie Fine Attending Unavailable Mike, Milton Referring Unavailable [place], Milton Primary Care Unavailable Babar Hernández Attending Unavailable Babar Hernández Consulting Unavailable Milton Mckeon Referring Unavailable Milton Mckeon Primary Care Unavailable Anne-Marie Fine Attending Unavailable Milton Mckeon Referring Unavailable Milton Mckeon Primary Care Unavailable Friend, Babar Attending Unavailable Milton Mckeon Referring Unavailable Milton Mckeon Primary Care Unavailable Allergies Allergy Classification Reported Allergen(s) Allergy Type Date of Onset Reaction(s) Facility (9 sources) Cefaclor; Translations: [CEFACLOR] Drug Allergy 9 [facility] Work Phone: (2 sources) amoxilcillin [Other] Propensity to adverse reactions 1 [facility] (7 sources) Amoxicillin; Translations: [AMOXICILLIN] Drug Allergy 4 [facility] Work Phone: (1 source) Amoxicillin Drug Allergy 5 [facility] Repository (1 source) Cefaclor Drug Allergy 5 [facility] Repository Medications Current Medications Medication Drug Class(es) Dates Sig (Normalized) Sig (Original) B.breve-L.acid-L.rham-S. thermo (PROBIOTIC) 3 billion cell chew (5 sources) B.breve-L.acid-L .rham-S .thermo (PROBIOTIC) 3 billion cell chew Take by mouth. Active B.breve-L.acid-L .rham-S.thermo (PROBIOTIC) 3 billion cell chew Take by mouth. 0 Active Comment on above: Take by mouth. FLUoxetine 20 mg oral capsule (2 sources) Serotonin Reuptake Inhibitor Start: 2022 End: 2022 take 1 capsule by mouth once daily FLUoxetine (PROZAC) 20 mg capsule Indications: Anxiety Take 1 capsule by mouth once daily. 90 capsule 1 12/02/2022 01/01/2023 Active Comment on above: Take 1 capsule by mo [facility] once daily. hydroCHLOROthiazide 25 mg oral tablet (12 sources) Thiazide Diuretic Start: 2022 End: 2024 take 1 tablet by mouth once daily Hydrochlorothiazide 25 mg tablet Active 25 mg PO DAILY November 09, 2022 12:00am Start: 01-07-2022 take 1 tablet by [place] once daily hydroCHLOROthiazide (HYDRODIURIL, ESIDRIX) 25 mg tablet Indications: Essential hypertension Take 1 tablet by mouth once daily. 90 tablet 0 01/07/2022 Active Start: 09-17-2021 End: 01-07-2022 take 1 tablet by mouth once daily hydroCHLOROthiazide (HYDRODIURIL, ESIDRIX) 25 mg tablet Indications: Essential hypertension Take 1 tablet by mouth once daily. 90 tablet 0 09/17/2021 01/07/2022 Discontinued Comment on above: Take 1 tablet by [place] th once daily. lisinopril 20 mg oral tablet (12 sources) Angiotensin Converting Enzyme Inhibitor Start: 10-28-2022 End: 10-10-2024 take 1 tablet by mouth once daily Lisinopril 20 mg tablet Active 20 mg PO DAILY November 09, 2022 12:00am Start: 01-07-2022 take 1 tablet by [place] th once daily lisinopril (ZESTRIL, PRINIVIL) 20 mg tablet Indications: Essential hypertension Take 1 tablet by mouth once daily. 90 tablet 0 01/07/2022 Active Start: 09-17-2021 End: 01-07-2022 take 1 tablet by mouth once daily lisinopril (ZESTRIL, PRINIVIL) 20 mg tablet Indications: Essential hypertension Take 1 tablet by mouth once daily. 90 tablet 0 09/17/2021 01/07/2022 Discontinued Comment on above: Take 1 tablet by [place] th once daily. mesalamine 1200 mg delayed release oral tablet (7 sources) Aminosalicylate Start: take 2 tablets by mouth once daily Mesalamine (Lialda) 1.2 gram tablet,delayed release (DR/EC) Active 2.4 g PO daily 60 30 5 December 13, 2024 12:00am Start: 09-10-2024 End: 11-03-2024 take 2 tablets by mouth once daily Mesalamine 1.2 gram tablet,delayed release (DR/EC) Discontinued 2.4 g PO daily 60 30 0 October 04, 2024 11:23am November 02, 2024 12:00am November 03, 2024 12:11am multivit-min/vit C/herb no.1 24 (AIRBORNE GUMMY ORAL) (5 sources) multivit-min/vit C/herb no.124 (AIRBORNE GUMMY ORAL) Take by mouth. Active multivit-min/vit C/herb no.124 (AIRBORNE GUMMY ORAL) Take by mouth. 0 Active Comment on above: Take by mouth. omeprazole 40 mg delayed release oral capsule (6 sources) Proton Pump Inhibitor Start: 07-23-2024 End: 12-13-2024 take 1 capsule by mouth once daily Omeprazole 40 mg capsule,delayed release(DR/EC) Active 40 mg PO daily 30 5 December 13, 2024 3:19pm Completed/Discontinued Medications Medication Drug Class(es) Dates Sig (Normalized) Sig (Original) escitalopram 10 mg oral tablet (5 sources) Serotonin Reuptake Inhibitor Start: 06-12-2023 End: 09-23-2024 take 1 tablet by mouth once daily escitalopram oxalate (LEXAPRO) 10 mg tablet Indications: Anxiety reaction Take 1 tablet by mouth once daily. 90 tablet 1 06/12/2023 09/23/2024 Discontinued Start: 04-16-2021 End: 07-06-2022 take 1 tablet by mouth once daily escitalopram oxalate (LEXAPRO) 10 mg tablet Indications: Anxiety Take 1 tablet by mouth once daily. 30 tablet 01/07/2022 07/06/2022 Active Comment on above: Take 1 tablet by [place] once daily. Problems Active Problems Problem Classification Problem Date Documented Da te Episodic/Chronic Anxiety disorders (7 sources) Anxiety; Translations: [Anxiety disorder, unspecified] Chronic Disorders of lipid metabolism (2 sources) Raised low density lipoprotein cholesterol; Translations: [Pure hypercholesterolemia, unspecified] Onset: 5 09-23-2024 Chronic Esophageal disorders (2 sources) Gastroesophageal reflux disease without esophagitis; Translations: [Gastro-esophageal reflux disease without esophagitis] Onset: 5 09-23-2024 Chronic Essential hypertension (11 sources) Essential hypertension; Translations: [Essential (primary) hypertension] Onset: 1 Chronic Other ear and sense organ disorders (5 sources) Decreased hearing ; Translations: [Unspecified hearing loss, unspecified ear] 05-31-2021 Chronic Other gastrointestinal disorders (5 sources) Irritable bowel syndrome; Translations: [Irritable bowel syndrome without diarrhea] Onset: 1 05-31-2021 Chronic Other lower respiratory disease (1 source) Dry cough; Translations: [Dry cough] 09-23-2024 Episodic Regional enteritis and ulcerative colitis (20 sources) Crohn's disease; Translations: [Crohn's disease, unspecified, without complications] Onset: 1 05-31-2021 Chronic Unclassified (5 sources) Reflux; Translations: [Reflux] Onset: 1 04-30-2011 Unclassified (1 source) Dry cough; Translations: [Dry cough] Onset: Past or Other Problems Problem Classification Problem Date Documented Da te Episodic/Chronic Contraceptive and procreative management (13 sources) Encounter for other procreative management; Translations: [Other specified procreative management] Onset: 07-30-2009 Resolved: 06-12-2023 07-05-2011 Episodic Diabetes mellitus without complication (5 sources) Impaired fasting glycemia; Translations: [Impaired fasting glucose] Onset: 01-04-2011 04-30-2011 Episodic Residual codes; unclassified (5 sources) Tobacco user; Translations: [Tobacco use] Onset: 04-30-2011 05-31-2021 Episodic Results Test Name Value Interpretation Reference Range Facility Absolute lymphocyte countOrd ered By: Anne-Marie Fine on 12-13-2024 Lymphocytes Auto (Unsp spec) [#/Vol] 1.70 10*3/uL 0.83-4.51 [facility] Absolute neutrophil countOrd ered By: Anne-Marie Fine on 12-13-2024 Neutrophils (Bld) [#/Vol] 6.6 10*3/uL 2.0-7.7 [facility] Anion gap in Serum or Plasma Ordered By: Anne-Marie Fine on 12-13-2024 Anion gap [Moles/Vol] 12 mmol/L 5-15 [facility] Automated lymphocyte count a s percentage of total leukocytesOrdered By: Anne-Marie Fine on 12-13-2024 Lymphocytes/100 WBC Auto (Unsp spec) 18.8 % Low 19-41 [facility] BUN/creatinine ratioOrdered By: Anne-Marie Fine on 12-13-2024 Urea nitrogen/Creatinine [Mass ratio] 12.4 mg/mg 10-20 [facility] Basophil percentageOrdered B y: Anne-Marie Fine on 12-13-2024 Basophils/100 WBC (Bld) 0.2 % 0-1 [facility] Bilirubin, totalOrdered By: Anne-Marie Fine on 12-13-2024 Bilirubin [Mass/Vol] 0.41 mg/dL 0.00-1.30 [facility] CBC W/Diff, Automatedon 12-03 Absolute Lymph 1.70 X10 3/uL Normal 0.83-4.51 [facility] Comment on above: Performed By: #### L 100.0100, L500.4050, L101.9900, L501.6710 #### [facility] [address] [place], [address] Absolute Neut 6.6 X10 3/uL Normal 2.0-7.7 [facility] Comment on above: Performed By: #### L 100.0100, L500.4050, L101.9900, L501.6710 #### [facility] [address] [place], [address] Basophils/100 WBC (Bld) 0.2 % Normal 0-1 [facility] Comment on above: Performed By: #### L 100.0100, L500.4050, L101.9900, L501.6710 #### [facility] [address] [place], [address] Eosinophils/100 WBC (Bld) 1.7 % Normal 0-5 [facility] Comment on above: Performed By: #### L 100.0100, L500.4050, L101.9900, [id number] #### [facility] [address] [place], [address] Erythrocyte distribution width (RBC) [Ratio] 15.7 % High 11.6-14.6 [facility] Comment on above: Performed By: #### L 100.0100, L500.4050, L101.9900, L501.6710 #### [facility] [address] [place], [address] Hematocrit (Bld) [Volume fraction] 34.2 % Low 40-54 [facility] Comment on above: Performed By: #### L 100.0100, L500.4050, L101.9900, L501.6710 #### [facility] [address] [place], [address] Hemoglobin (Bld) [Mass/Vol] 10.4 g/dL Low 13.0-16.5 [facility] Comment on above: Performed By: #### L 100.0100, L500.4050, L101.9900, L501.6710 #### [facility] [address] [place], [address] IG% 0.200 Normal 0.0-0.9 [facility] Comment on above: Result Comment: IG% - Immature Granulocytes (promyelocytes, myelocytes and metamyelocytes) > 1% indicates that a LEFT SHIFT is Present. Performed By: #### L 100.0100, L500.4050, L101.9900, L501.6710 #### [facility] [address] [place], [address] Lymphocytes/100 WBC (Bld) 18.8 % Low 19-41 [facility] Comment on above: Performed By: #### L 100.0100, L500.4050, L101.9900, L501.6710 #### [facility] [address] [place], [address] MCH (RBC) [Entitic mass] 23.5 pg Low 27.0-32.0 [facility] Comment on above: Performed By: #### L 100.0100, L500.4050, L101.9900, L501.6710 #### [facility] [address] [place], [address] MCHC (RBC) [Mass/Vol] 30.4 g/dL Low 32-36 [facility] Comment on above: Performed By: #### L 100.0100, L500.4050, L101.9900, L501.6710 #### [facility] [address] [place], [address] MCV (RBC) [Entitic vol] 77.2 fL Low 80-94 [facility] Comment on above: Performed By: #### L 100.0100, L500.4050, L101.9900, L501.6710 #### [facility] [address] [place], [address] Monocytes/100 WBC (Bld) 6.7 % Normal 0-10 [facility] Comment on above: Performed By: #### L 100.0100, L500.4050, L101.9900, L501.6710 #### [facility] [address] [place], [address] Neutrophils/100 WBC (Bld) 72.4 % High 47-70 [facility] Comment on above: Performed By: #### L 100.0100, L500.4050, L101.9900, L501.6710 #### [facility] [address] [place], [address] Nucleated RBC (Bld) [#/Vol] 0 10*3/uL Normal 0-5 [facility] Comment on above: Performed By: #### L 100.0100, L500.4050, L101.9900, L501.6710 #### [facility] [address] [place], [address] Platelet mean volume (Bld) [Entitic vol] 10.3 fL Normal 6.2-12.0 [facility] Comment on above: Performed By: #### L 100.0100, L500.4050, L101.9900, L501.6710 #### [facility] [address] [place], [address] Platelets (Bld) [#/Vol] 320 10*3/uL Normal 150-450 [facility] Comment on above: Performed By: #### L 100.0100, L500.4050, L101.9900, L501.6710 #### [facility] [address] [place], [address] RBC (Bld) [#/Vol] 4.43 10*6/uL Low 4.6-6.2 [facility] Comment on above: Performed By: #### L 100.0100, L500.4050, L101.9900, L501.6710 #### [facility] [address] [place], [address] RDW SD 44.3 fl High 35.1-43.9 [facility] Comment on above: Performed By: #### L 100.0100, L500.4050, L101.9900, L501.6710 #### [facility] [address] [place], [address] WBC (Bld) [#/Vol] 9.1 10*3/uL Normal 4.4-11.0 [facility] Comment on above: Performed By: #### L 100.0100, L500.4050, L101.9900, L501.6710 #### [facility] [address] [place], [address] CRPon 12-13-2024 C-REACTIVE PROT 32.40 mg/L High 0.0-3.0 [facility] Comment on above: Performed By: #### L 100.0100, L500.4050, L101.9900, L501.6710 #### [facility] [address] [place], [address] Carbon dioxide, total [Moles /volume] in Central venous bloodOrdered By: Anne-Marie Fine on 12-13-2024 CO2 [Moles/Vol] 28.4 mmol/L 21.0-32.0 [facility] Chloride assayOrdered By: Radha Fine on 12-13-2024 Chloride [Moles/Vol] 100 mmol/L 98-108 [facility] Comprehensive Metabolic Prof ilon 12-13-2024 Albumin [Mass/Vol] 3.8 g/dL Normal 3.5-5.0 [facility] Comment on above: Performed By: #### L 100.0100, L500.4050, L101.9900, L501.6710 #### [facility] [address] [place], [address] Albumin/Globulin [Mass ratio] 1.1 {ratio} Normal 0.9-2.4 [facility] Comment on above: Performed By: #### L 100.0100, L500.4050, L101.9900, L501.6710 #### [facility] [address] [place], [address] ALK PHOS 97 U/L Normal 40-129 [facility] Comment on above: Performed By: #### L 100.0100, L500.4050, L101.9900, L501.6710 #### [facility] [address] [place], [address] ALT [Catalytic activity/Vol] 16 U/L Normal <=46 [facility] Comment on above: Performed By: #### L 100.0100, L500.4050, L101.9900, L501.6710 #### [facility] [address] [place], [address] AST [Catalytic activity/Vol] 18 U/L Normal <=37 [facility] Comment on above: Performed By: #### L 100.0100, L500.4050, L101.9900, L501.6710 #### [facility] [address] [place], [address] Bilirubin [Mass/Vol] 0.41 mg/dL Normal 0.00-1.30 [facility] Comment on above: Performed By: #### L 100.0100, L500.4050, L101.9900, L501.6710 #### [facility] [address] [place], [address] BUN/CRE 12.4 RATIO Normal 10-20 [facility] Comment on above: Performed By: #### L 100.0100, L500.4050, L101.9900, L501.6710 #### [facility] [address] [place], [address] Calcium [Mass/Vol] 9.0 mg/dL Normal 7.6-11.0 [facility] Comment on above: Performed By: #### L 100.0100, L500.4050, L101.9900, L501.6710 #### [facility] [address] [place], [address] Chloride [Moles/Vol] 100 mmol/L Normal 98-108 [facility] Comment on above: Performed By: #### L 100.0100, L500.4050, L101.9900, L501.6710 #### [facility] [address] [place], [address] CO2 [Moles/Vol] 28.4 mmol/L Normal 21.0-32.0 [facility] Comment on above: Performed By: #### L 100.0100, L500.4050, L101.9900, L501.6710 #### [facility] [address] [place], [address] Creatinine [Mass/Vol] 1.07 mg/dL Normal 0.70-1.20 [facility] Comment on above: Performed By: #### L 100.0100, L500.4050, L101.9900, L501.6710 #### [facility] [address] [place], [address] GAP 12 Normal 5-15 [facility] Comment on above: Performed By: #### L 100.0100, L500.4050, L101.9900, L501.6710 #### [facility] [address] [place], [address] GFR/1.73 sq M.predicted among non-blacks MDRD (S/P/Bld) [Vol rate/Area] 90 mL/min/{1.73_m2} Normal >60 [facility] Comment on above: Result Comment: mL/m in/1.73m2 CKD-EPI Creatinine Equation (2020) Performed By: #### L 100.0100, L500.4050, L101.9900, L501.6710 #### [facility] [address] [place], [address] Globulin (S) [Mass/Vol] 3.3 g/dL Normal 2.2-4.2 [facility] Comment on above: Performed By: #### L 100.0100, L500.4050, L101.9900, L501.6710 #### [facility] [address] [place], [address] Glucose [Mass/Vol] 87 mg/dL Normal 70-99 [facility] Comment on above: Performed By: #### L 100.0100, L500.4050, L101.9900, L501.6710 #### [facility] [address] [place], [address] Potassium [Moles/Vol] 3.4 mmol/L Normal 3.3-5.1 [facility] Comment on above: Performed By: #### L 100.0100, L500.4050, L101.9900, L501.6710 #### [facility] [address] [place], [address] Sodium [Moles/Vol] 140 mmol/L Normal 133-145 [facility] Comment on above: Performed By: #### L 100.0100, L500.4050, L101.9900, L501.6710 #### [facility] [address] [place], [address] T PROT 7.1 g/dL Normal 5.9-8.4 [facility] Comment on above: Performed By: #### L 100.0100, L500.4050, L101.9900, L501.6710 #### [facility] [address] [place], [address] Urea nitrogen [Mass/Vol] 13 mg/dL Normal 4-19 [facility] Comment on above: Performed By: #### L 100.0100, L500.4050, L101.9900, L501.6710 #### [facility] [address] [place], [address] Eosinophil percentageOrdered By: Anne-Marie Fine on 12-13-2024 Eosinophils/100 WBC (Bld) 1.7 % 0-5 [facility] Erythrocyte Sed Rateon 12-13 SED RATE 32 mm/hr High 0-20 [facility] Comment on above: Performed By: #### L 100.0100, L500.4050, L101.9900, L501.6710 #### [facility] [address] [place], [address] Erythrocyte distribution wid th ratioOrdered By: Anne-Marie Fine on 12-13-2024 Erythrocyte distribution width (RBC) [Ratio] 15.7 % High 11.6-14.6 [facility] Erythrocyte distribution wid th standard deviationOrdered By: Anne-Marie Fine on 12-13-2024 Erythrocyte distribution width (RBC) [Ratio] 44.3 fl High 35.1-43.9 [facility] Erythrocyte sedimentation ra teOrdered By: Anne-Marie Fine on 12-13-2024 ESR (Bld) [Velocity] 32 mm/h High 0-20 [facility] Gastroenterology Visit Repor ton 12-13-2024 Gastroenterology Visit Report [facility]astroenter[facility] [address] [place] [address] OFFICE VISIT Date of Service: 12/13/24 MR#: [id number] Acct: [id number] Name: BARBIE FINK Rep #: [id number] : 1985 Provider: GARRY Guerrero Age/Sex: 39/M Location: [facility] Status: Signed Intake Vital Signs 08/26/24 09:43 Height 6 ft 2 in Intake Visit Reasons: 3 M FU Chief Complaint: Crohns Allergies amoxicillin Allergy (Intermediate, Verified 12/13/24 15:07) Other cefaclor (From [facility]) Allergy (Intermediate, Verified 12/13/24 15:07) Other Medications ???Medication ???Instructions ???Recorded ???Confirmed ???Type hydrochlorothiazide 25 mg tablet 25 mg PO DAILY 11/09/22 12/13/24 H istory lisinopril 20 mg tablet 20 mg PO DAILY 11/09/22 12/13/24 H istory mesalamine 1.2 gram tablet,delayed 2.4 g (2 x 1.2 gram) PO QDAY 30 12/13/24 12/13/24 Rx release (Lialda) days #60 tabs omeprazole 40 mg capsule,delayed 40 mg PO QDAY #30 caps 12/13/24 Rx release Nurse's Note: Patient states he is feeling fine. Nothing has changed since he has been here last. Just here for a follow up. [facility] Medical History Alcohol use History of ulceration Gastric reflux Chewing tobacco dependence HTN (hypertension) PLEVA (pityriasis lichenoides et varioliformis acuta) Diminished hearing Anxiety Crohn disease Surgical History History of esophagogastroduodenoscopy (EGD) Hx of colonoscopy Hx of wisdom tooth extraction H/O inguinal hernia repair S/P orchiectomy Family History Father Hypertension Social History Smoking Status: Never smoker Smokeless tobacco user: chewing tobacco alcohol intake: current HPI HPI Chief Complaint: Crohns Details: BARBIE FINK, is a 39 M who presents to the office today for f/u. BGI established in 2022 with Crohns disease. Preovusly seeing Dr. Baltazar in 2026. Biochemical 2017 A1c, celiac WNL. IBD ([facility]) Crohn???s +, CRP H3.68 Colonoscopy 11.28. TI shallow ulcerations, active colitis with focal cryptitis and glandular distortion; internal hemorrhoids. Last OV 2 Doing well with no flares. 2-3 bm per day. Colonoscopy 08.26.24: - Simple Endoscopic Score for Crohn's Disease: 10, mucosal inflammatory changes secondary to Crohn's disease. - No specimens collected. OV 4.8.25; Pt is feeling well now however he had some issues following his scope. He felt unwell and had a fever. He continues to take Imodium on a daily basis. He has a few bm per day that do not feel complete. Today he has had about 3 bm. Start Mesalamine OV 7.11.25 Pt doing well. He denies loose stools or blood in his stool. He has 2-3 bm per day that are formed. He takes Imodium on occasion. He ran out of mesalamine so he is no longer taking. He felt it increased his stool frequency while on it. His only concern today is with fatigue. ROS Const Constitutional: No anorexia, fatigue, fever(s), weight change or sleep problems Eyes Eyes: No change in vision ENT ENT: No abnormal hearing, difficulty swallowing, mouth lesions, tongue swelling or throat swelling Resp Respiratory: No cough or shortness of breath Cardio Cardiology: No chest pain at rest, chest pain with exertion, shortness of breath or dyspnea on exertion Gastro GI: No difficulty swallowing Genitourinary Male: No difficulty urinating or burning urination Musc Musculoskeletal: No joint pain, joint swelling, muscle weakness or decreased muscle mass Skin Skin: No hair loss in leg, yellowing of the eye, itchy eyes, rash, skin ulcer or skin swelling Neuro Neurology: No abnormal hearing, abnormal movements, confusion, unsteady gait/balance or memory loss Psych Psychiatric: No anxiety, No confusion and No memory loss Endo Endocrine: No fatigue or weight change Aller/Imm Allergy/Immunologic: No itchy eyes, throat swelling or tongue swelling Carlos/Lymp Hematologic/Lymphatic: No easy bleeding, easy bruising or enlarged lymph nodes Exam Const General: cooperative, healthy appearing and comfortable Orientation: alert [facility] Head: normal to inspection Eyes General: appearance normal, both eyes and all related structures Neck Neck: normal visual inspection Chest Chest palpation inspection: normal inspection of the chest Resp Effort Inspection: normal respiratory effort Cardio Rate: regular rate Rhythm: regular rhythm GI Inspection: normal to inspection Auscultation: normal bowel sounds Palpation: soft and nontender Assessment and Plan Assessment and Plan (1) Crohn disease: Status: Acute Qualifiers: Digestive disease compl (more content not included)... Normal [facility] Glomerular filtration rate ( GFR) estimation/1.73 sq m using serum, plasma, or whole bOrdered By: Anne-Marie Fine on 12-13-2024 GFR/1.73 sq M.predicted among non-blacks MDRD (S/P/Bld) [Vol rate/Area] 90 mL/min/{1.73_m2} >60 [facility] Comment on above: mL/min/1.73m2 CKD-EP I Creatinine Equation (2020) Hematocrit Auto (Bld) [Volum e fraction]Ordered By: Anne-Marie Fine on 12-13-2024 Hematocrit (Bld) [Volume fraction] 34.2 % Low 40-54 [facility] Hemoglobin measurementOrdere d By: Anne-Marie Fine on 12-13-2024 Hemoglobin (Bld) [Mass/Vol] 10.4 g/dL Low 13.0-16.5 [facility] Immature granulocytes/100 WB C Auto (Bld)Ordered By: Anne-Marie Fine on 12-13-2024 Immature granulocytes/100 WBC (Bld) 0.200 % 0.0-0.9 [facility] Comment on above: IG% - Immature Granu locytes (promyelocytes, myelocytes and metamyelocytes) > 1% indicates that a LEFT SHIFT is Present. Laboratory - Chemistry and C hemistry - challengeOrdered By: Anne-Marie Fine on 12-13-2024 AST [Catalytic activity/Vol] 18 U/L <38 [facility] MCV (mean corpuscular volume ) determinationOrdered By: Anne-Marie Fine on 12-13-2024 MCV (RBC) [Entitic vol] 77.2 fL Low 80-94 [facility] Mean corpuscular hemoglobin (MCH) determinationOrdered By: Anne-Marie Fine on 12-13-2024 MCH (RBC) [Entitic mass] 23.5 pg Low 27.0-32.0 [facility] Mean corpuscular hemoglobin concentration (MCHC) determinationOrdered By: Anne-Marie Fine on 12-13-2024 MCHC (RBC) [Mass/Vol] 30.4 g/dL Low 32-36 [facility] Mean platelet volume determi nationOrdered By: Anne-Marie Fine on 12-13-2024 Platelet mean volume (Bld) [Entitic vol] 10.3 fL 6.2-12.0 [facility] Monocyte percentageOrdered B y: Anne-Marie Fine on 12-13-2024 Monocytes/100 WBC (Bld) 6.7 % 0-10 [facility] Neutrophil percentageOrdered By: Anne-Marie Fine on 12-13-2024 Neutrophils/100 WBC (Bld) 72.4 % High 47-70 [facility] Nucleated red blood cell per centageOrdered By: Anne-Marie Fine on 12-13-2024 Nucleated RBC/100 WBC (Bld) [Ratio] 0 % 0-5 [facility] Platelet countOrdered By: Radha Fine on 12-13-2024 Platelets (Bld) [#/Vol] 320 10*3/uL 150-450 [facility] Potassium measurement (mass/ volume)Ordered By: Anne-Marie Fine on 12-13-2024 Potassium (Unsp spec) [Mass/Vol] 3.4 mmol/L 3.3-5.1 [facility] RBC Auto (Bld) [#/Vol]Ordere d By: Anne-Marie Fine on 12-13-2024 RBC (Bld) [#/Vol] 4.43 10*6/uL Low 4.6-6.2 [facility] Serum creatinine measurement (mass/volume)Ordered By: Anne-Marie Fine on 12-13-2024 Creatinine [Mass/Vol] 1.07 mg/dL 0.70-1.20 [facility] Serum globulin measurementOr dered By: Anne-Marie Fine on 12-13-2024 Globulin (S) [Mass/Vol] 3.3 g/dL 2.2-4.2 [facility] Serum glucose measurement (m ass/volume)Ordered By: Anne-Marie Fine on 12-13-2024 Glucose [Mass/Vol] 87 mg/dL 70-99 [facility] Serum or plasma C reactive p rotein measurement (mass/volume)Ordered By: Anne-Marie Fine on 12-13-2024 CRP [Mass/Vol] 32.40 mg/L High 0.0-3.0 [facility] Serum or plasma alanine dillon otransferase (ALT) measurementOrdered By: Anne-Marie Fine on 12-13-2024 ALT [Catalytic activity/Vol] 16 U/L <47 [facility] Serum or plasma albumin luc urement (mass/volume)Ordered By: Anne-Marie Fine on 12-13-2024 Albumin [Mass/Vol] 3.8 g/dL 3.5-5.0 [facility] Serum or plasma albumin/glob ulin mass ratioOrdered By: Anne-Marie Fine on 12-13-2024 Albumin/Globulin [Mass ratio] 1.1 {ratio} 0.9-2.4 [facility] Serum or plasma alkaline chun sphatase measurementOrdered By: Anne-Marie Fine on 12-13-2024 ALP [Catalytic activity/Vol] 97 U/L 40-129 [facility] Serum or plasma calcium luc urement (mass/volume)Ordered By: Anne-Marie Fine on 12-13-2024 Calcium [Mass/Vol] 9.0 mg/dL 7.6-11.0 [facility] Serum or plasma urea nitroge n measurement (mass/volume)Ordered By: Anne-Marie Fine on 12-13-2024 Urea nitrogen [Mass/Vol] 13 mg/dL 4-19 [facility] Sodium levelOrdered By: Carrie Fine on 12-13-2024 Sodium [Moles/Vol] 140 mmol/L 133-145 [facility] Total proteinOrdered By: Cici Fine on 12-13-2024 Protein [Mass/Vol] 7.1 g/dL 5.9-8.4 [facility] White blood cell (WBC) count Ordered By: Anne-Marie Fine on 12-13-2024 WBC (Bld) [#/Vol] 9.1 10*3/uL 4.4-11.0 [facility] 09-23-2024 [facility] Office Visit (FAMPWS ) BARBIE FINK ([id number]) 1985 M Date Time Provider Department 09/23/24 6:00 PM [facility] During your visit today, we recorded the following information about you: Pulse Respiration Blood pressure Weight 102/minute 16/minute 118/78 131.5 kg Marah Montalvo APRN.CNP 09/23/2024 6:21 PM Signed Begin taking a generic loratadine (e.g., a [employer] brand equivalent) for your cough/allergy symptoms. Continue with your current medications: hydrochlorothiazide, lisinopril, mesalamine, Prilosec, multivitamins, and your probiotics as before. Your blood pressure medications (lisinopril and hydrochlorothiazide) have been refilled as a 90-day supply and will be sent to your [facility] pharmacy in [place]. Fasting blood work (CBC, CMP, and cholesterol panel) has been ordered. 10-12 hour fast (you can have water and black coffee). When cleaning your ears at home, avoid using Q-tips; use a washcloth instead. Recheck in 6 months. Marah Montalvo APRN.CNP 09/23/2024 7:48 PM Signed This is a 39 year old male who presents today with: Barbie is a 39-year-old male with a history of HTN and Crohn's disease, presenting for physical/ medication refills and evaluation of a dry cough. HISTORY OF PRESENT ILLNESS: Medication Refill: - Refill needed for lisinopril and hydrochlorothiazide. - Discontinued Lexapro due to feeling weird. - Currently taking mesalamine, multivitamins, Prilosec, and probiotics. Dry Cough: - Onset 2-3 weeks ago following colonoscopy. - Described as a dry cough with no productive sputum. - Associated with mild dyspnea during coughing episodes. 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 Crohn's Disease: - Managed by Dr. Hernández. - Recent colonoscopy 2-3 weeks ago with 50 biopsies taken. - Occasional diarrhea and constipation during flare-ups. - Denies hematochezia or melena. - Taking mesalamine for management. Hypertension: - Controlled with lisinopril and hydrochlorothiazide. - Denies chest pain or palpitations. PAST MEDICAL HISTORY: PAST MEDICAL HISTORY Diagnosis Date Anxiety reaction over dental visits Diminished hearing left ear Generalized anxiety disorder Anxiety, Generalized Left wrist fracture 1993 PLEVA (pityriasis lichenoides et varioliformis acuta) PMH - PAST MEDICAL HISTORY OF undescended rt testicle s/p orchiectomy age 7 y/o Ruptured tympanic membrane left age 54 years old Unspecified essential hypertension Varicella without mention of complication Chickenpox PAST SURGICAL HISTORY Procedure Laterality Date PAST SURGICAL HISTORY OF ing hernia repair at 1 month and age 7 y/o PAST SURGICAL HISTORY OF wisdom teeth extraction ALLERGIES Amoxil [Amoxicillin] and Ceclor [Cefaclor] MEDICATIONS Current Outpatient Medications Medication Sig omeprazole (PRILOSEC) 40 mg capsule Mesalamine (LIALDA) 1.2 gram EC tablet take 2 tablets by mouth once daily for 8 WEEKS hydroCHLOROthiazide 25 mg tablet Take 1 tablet by mouth once daily. lisinopril (ZESTRIL) 20 mg tablet Take 1 tablet by mouth once daily. B.breve-L.acid-L.rham-S.ther mo (PROBIOTIC) 3 billion cell chew Take by mouth. multivit-min/vit C/herb no.124 (AIRBORNE GUMMY ORAL) Take by mouth. No current facility-administered medications for this visit. FAMILY HISTORY Problem Relation Age of Onset Hypertension Father Hypertension Maternal Grandmother Cancer Maternal Grandfather leukemia Coronary Artery Disease Paternal Grandfather [place] at 53 Hypertension Paternal Grandfather Stroke Paternal Grandmother other (dementia) Paternal Grandmother Asthma Paternal Uncle Asthma Paternal Aunt Hypertension Paternal Uncle Hypertension Paternal Aunt Social History Tobacco Use Smoking status: Never Smokeless tobacco: Current Types: Chew Tobacco comments: Chewing tobacco since age 24 y/o on a daily basis Substance Use Topics Alcohol use: Yes Alcohol/week: 2.0 standard drinks of alcohol Types: 2 Cans of Beer (12oz) per week Comment: socially Drug use: No REVIEW OF SYSTEMS Constitutional: (-) weight loss, (-) weakness, (-) fatigue Head: (-) headaches Eyes: (-) visual disturbances Ears/Nose/Mouth/Throat: (-) swallowing difficulty Neck: (-) lumps Cardiovascular: (-) chest pain, (-) palpitations, (-) edema Respiratory: (+) dry cough, (+) shortness of breath with cough Gastrointestinal: (+) occasional diarrhea, (+) occasional constipation, (-) heartburn Genitourinary: (-) urinary complaints Musculoskeletal: (-) muscle pain, (-) joint pain Skin: (-) skin issues Neurological: (-) passing out, (-) seizures, (-) tremors Psychiatric: (-) depression Endocrine: (-) heat intolerance, (-) cold intolerance, (-) excessive thirst, (-) excessive urination Hematologic/Lymphatic: (no current symptoms mentioned in transcript) EX (more content not included)... Normal [facility] Gastroenterology Visit Repor ton 09-10-2024 Gastroenterology Visit Report [facility] Gastroenterology [address] [place] [address] OFFICE VISIT Date of Service: 09/10/24 MR#: [id number] Acct: [id number] Name: BARBIE FINK Rep #: [id number] : 1985 Provider: GARRY Guerrero Age/Sex: 39/M Location: [facility] Status: Signed Intake Vital Signs 08/26/24 09:43 Height 6 ft 2 in Intake Visit Reasons: Test Result Chief Complaint: Crohns Allergies amoxicillin Allergy (Intermediate, Verified 08/26/24 09:39) Other cefaclor (From Ceclor) Allergy (Intermediate, Verified 08/26/24 09:39) Other Nurse's Note: OV 09.10.24 Pt here for f/u and reports he is feeling well. Pt continues omeprazole daily and states it is working well. [facility] Medical History Alcohol use History of ulceration Gastric reflux Chewing tobacco dependence HTN (hypertension) PLEVA (pityriasis lichenoides et varioliformis acuta) Diminished hearing Anxiety Crohn disease Surgical History History of esophagogastroduodenoscopy (EGD) Hx of colonoscopy Hx of wisdom tooth extraction H/O inguinal hernia repair S/P orchiectomy Family History Father Hypertension Social History Smoking Status: Never smoker Smokeless tobacco user: chewing tobacco alcohol intake: current HPI HPI Chief Complaint: Crohns Details: BARBIE FINK, is a 39 M who presents to the office today for f/u. [facility]GI established in 2022 with Crohns disease. Preovusly seeing Dr. Baltazar in 2026. Biochemical 2017 A1c, celiac WNL. IBD ([facility]) Crohn???s +, CRP H3.68 Colonoscopy 6.26.17 TI shallow ulcerations, active colitis with focal cryptitis and glandular distortion; internal hemorrhoids. Last OV 2.18.25 Doing well with no flares. 2-3 bm per day. Colonoscopy ..25: - Simple Endoscopic Score for Crohn's Disease: 10, mucosal inflammatory changes secondary to Crohn's disease. - No specimens collected. OV 4.8.25; Pt is feeling well now however he had some issues following his scope. He felt unwell and had a fever. He continues to take Imodium on a daily basis. He has a few bm per day that do not feel complete. Today he has had about 3 bm. ROS Const Constitutional: No anorexia, fatigue, fever(s), weight change or sleep problems Eyes Eyes: No change in vision ENT ENT: No abnormal hearing, difficulty swallowing, mouth lesions, tongue swelling or throat swelling Resp Respiratory: No cough or shortness of breath Cardio Cardiology: No chest pain at rest, chest pain with exertion, shortness of breath or dyspnea on exertion Gastro GI: Positive for diarrhea; No difficulty swallowing Genitourinary Male: No difficulty urinating or burning urination Musc Musculoskeletal: No joint pain, joint swelling, muscle weakness or decreased muscle mass Skin Skin: No hair loss in leg, yellowing of the eye, itchy eyes, rash, skin ulcer or skin swelling Neuro Neurology: No abnormal hearing, abnormal movements, confusion, unsteady gait/balance or memory loss Psych Psychiatric: No anxiety, No confusion and No memory loss Endo Endocrine: No fatigue or weight change Aller/Imm Allergy/Immunologic: No itchy eyes, throat swelling or tongue swelling Carlos/Lymp Hematologic/Lymphatic: No easy bleeding, easy bruising or enlarged lymph nodes Assessment and Plan Assessment and Plan (1) Crohn disease: Status: Acute Qualifiers: Digestive disease complication type: with rectal bleeding Gastrointestinal tract location: small and large intestine Qualified Code(s): K50.811 - Crohn's disease of both small and large intestine with rectal bleeding Plan: This is a 39 yo male pt here today for f/u regarding his crohns disease. He recently underwent colonoscopy which showed a roblero score of 10. Pt has only ever been treated with oral steroids which made him gain weight and have agitation. I discusced treatment otption and he as willing to try oral medications. Will start him on Mesalamine 2.4 g daily. He will f/u in 3 months to re check his inflammation. He is willing to try injections if his disease is refractory to oral medications. -Mesalamine 2.4 g daily -Consider biologic therapy -f/u in 3 months Medications: New mesalamine 2.4 grams (2 x 1.2 gram) PO QDAY 112 tabs 0RF 8 weeks Coding Level of Care Code Off vis,est,level 3 Diagnoses Crohn's disease of both small and large intestine with rectal bleeding K50.811 Digestive disease complication type: with rectal bleeding Gastrointestinal tract location: small and large intestine 09/10/24 1637 Date Anne-Marie Peres (more content not included)... Normal [facility] Colonoscopy Reporton 025 Colonoscopy Report [facility] Medical Records Department [address] [place] [address] Colonoscopy Report MR#: [id number] Acct: [id number] Name: ALEKSBARBIE TAMIA Rep #: [id number] : 1985 39 From: Babar Hernández DO PCP: Dr. Milton Mckeon MD Status:REG [facility] Patient Name: Barbie Fink Procedure Date: 08/26/2024 10:41 AM Date of : 1985 Age: 39 Procedure: Colonoscopy Indications: Crohn's disease of the small bowel and colon Providers: Babar Hernández DO Medicines: Monitored Anesthesia Care Patient Profile: This is a 39 year old male. Refer to note in patient chart for documentation of history and physical. Last Colonoscopy: 3 years ago. Complications: No immediate complications. Procedure: Pre-Anesthesia Assessment: - Prior to the procedure, a History and Physical was performed, and patient medications and allergies were reviewed. The patient is competent. The risks and benefits of the procedure and the sedation options and risks were discussed with the patient. All questions were answered and informed consent was obtained. Patient identification and proposed procedure were verified by the physician in the pre-procedure area. Mental Status Examination: alert and oriented. Airway Examination: normal oropharyngeal airway and neck mobility. Respiratory Examination: clear to auscultation. CV Examination: normal. ASA Grade Assessment: II - A patient with mild systemic disease. After reviewing the risks and benefits, the patient was deemed in satisfactory condition to undergo the procedure. The anesthesia plan was to use monitored anesthesia care (MAC). Immediately prior to administration of medications, the patient was re-assessed for adequacy to receive sedatives. The heart rate, respiratory rate, oxygen saturations, blood pressure, adequacy of pulmonary ventilation, and response to care were monitored throughout the procedure. The physical status of the patient was re-assessed after the procedure. After I obtained informed consent, the scope was passed under direct vision. Throughout the procedure, the patient's blood pressure, pulse, and oxygen saturations were monitored continuously. The Colonoscope was introduced through the anus and advanced to the terminal ileum. The colonoscopy was performed without difficulty. The patient tolerated the procedure well. The quality of the bowel preparation was adequate. The terminal ileum, ileocecal valve, appendiceal orifice, and rectum were photographed. Scope In: 10:51:38 AM Scope Withdrawal Time 0 hours 9 minutes 10 seconds Scope Out: 11:05:32 AM Total Procedure Duration Time 0 hours 13 minutes 54 seconds Findings: The perianal and digital rectal examinations were normal. The Simple Endoscopic Score for Crohn's Disease was determined based on the endoscopic appearance of the mucosa in the following segments: - Ileum: Findings include large ulcers 0.5-2 cm in size, 10-30% ulcerated surfaces, no affected surfaces, no narrowings and no ulcers present, no ulcerated surfaces, no affected surfaces and no narrowings. Segment score: 4. - Right Colon: Findings include no ulcers present, no ulcerated surfaces, no affected surfaces, no narrowings and no ulcers present, no ulcerated surfaces, no affected surfaces and no narrowings. Segment score: 0. - Transverse Colon: Findings include no ulcers present, no ulcerated surfaces, no affected surfaces and no narrowings. Segment score: 0. - Left Colon: Findings include aphthous ulcers less than 0.5 cm in size, less than 10% ulcerated surfaces, less than 50% of surfaces affected and no narrowings. Segment score: 3. - Rectum: Findings include aphthous ulcers less than 0.5 cm in size, less than 10% ulcerated surfaces, less than 50% of surfaces affected, no narrowings and no ulcers present, no ulcerated surfaces, no affected surfaces and no narrowings. Segment score: 3. - Total SES-CD aggregate score: 10. Impression: - Simple Endoscopic Score for Crohn's Disease: 10, mucosal inflammatory changes secondary to Crohn's disease. - No specimens collected. Recommendation: - Discharge patient to home. - Resume previous diet. - Continue present medications. - Await pathology results. - Repeat colonoscopy. - Return to GI office. Procedure Code(s): --- Professional --- 63255, Colonoscopy, flexible; diagnostic, including collection of specimen(s) by brushing or washing, when performed (separate procedure) CPT copyright 2021 [employer]. All rights reserved. The codes documented in this report are preliminary and upon project construction assistant manager review may be revised to meet current compliance requirements. Babar Hernández DO 08/26/2024 11:14:51 AM This report has been signed electronically. Number of Addenda: 0 Note Initiated On: 08/26/2024 10:41 AM 08/26/24 1115 Jony (more content not included)... Normal [facility] MR/POSTOP.Corinne 08-26-2024 MR/POSTOP.ANDREWS [facility] Records Department [address] [place] [address] Anesthesia Postop Eval I 08/26/24 1115 MR#: [id number] Acct: [id number] Name: BARBIE FINK Rep #: [id number] : 1985 39 From: Yousuf Armando PCP: Dr. Milton Mckeon MD Status:[facility] Y Race: C Location: [place] [address] Anesthesia: Postop Eval I Current Vital Signs Temperature: 97.4 F Pulse Rate: 74 Blood Pressure: 107/63 Respiratory Rate: 16 Pulse Ox: 94 Oxygen Delivery Method: Room Air Assessment Airway patent: Yes Spontaneous unlabored respirations: Yes Mental status: Asleep nausea: No Vomiting: No Anesthesia Complication: No Fluid Hydration Crystalloid volume administer (ml): 50 Total IV fluid infused: 50 Progress Note Anesthesia document: Postop Eval 1 completed: Yes 08/26/241115 Date Yousuf Roberts Signature: Date CC: Signed Normal [facility] MR/[id number] 08-26-2024 [facility] Medical Records Department [address] [place] [address] Anesthesia Postop Eval II 08/26/24 1352 MR#: [id number] Acct: [id number] Name: BARBIE FINK Rep #: [id number] : 1985 39 From: Maria L Rueda PCP: Dr. Milton Mckeon MD Status:[facility] Y Race: C Location: [place] Anesthesia Postop Eval I Sum Postop Eval Completion status Anesthesia document: Postop Eval 1 completed: Yes Anesthesia Postop Eval I Summary Anesthesia Postop Eval I Summary: Anesthesia Postop Eval I: Assessment Summary Airway patent Yes 08/26/24 11:16 [email or web address] Spontaneous unlabored Yes 08/26/24 11:16 [email or web address] respirations Mental status Asleep 08/26/24 11:16 [email or web address] nausea No 08/26/24 11:16 [email or web address] Vomiting No 08/26/24 11:16 [email or web address] Anesthesia Postop Eval I: Fluid Summary Crystalloid volume administer 50 08/26/24 11:16 [email or web address] (ml) Colloids volume administered ( ml) Blood Product volume administered (ml) Total IV fluid infused 50 08/26/24 11:16 [email or web address] Anesthesia Postop Eval I: Summary Notes Anesthesia Complication No 08/26/24 11:16 [email or web address] Anesthesia Complication Comment: Post-operative progress note Anesthesia: Postop Eval II Evaluation Mental status: Awake Pain Level: 0 nausea: No Vomiting: No 08/26/24 1352 Date Maria L Roberts Signature: Date CC: Signed Normal [facility] Surgery Specimen Level Daniella 08-26-2024 Surgery Specimen Level IV -------- Patient Age/Sex Location Account Attending Physician -------- ROOT,BARBIE TAMIA 39/M EN [id number] Babar Hernández DO -------- Specimen: [id number] Received: 08/27/24 Status: NIKA Felton Num: [id number] Spec Type: COLON BX Subm Dr: Babar Hernández DO HEADER OPERATION: Colonoscopy with biopsies PRE-OP DIAGNOSIS: Crohn disease TISSUE SUBMITTED: A- Terminal ileum biopsy, B- Random colon biopsy, C- Sigmoid biopsy, D- Rectum biopsy -------- MICROSCOPIC DIAGNOSIS A. TERMINAL ILEUM, BIOPSY: -ACTIVE CHRONIC ILEITIS. -NO GRANULOMAS OR DYSPLASIA SEEN. B. RANDOM COLON, COLON BIOPSY: -FOCAL ACTIVE COLITIS WITHOUT CRYPT DISTORTION. - NO GRANULOMAS OR DYSPLASIA SEEN. C. SIGMOID COLON, BIOPSY: -MILDLY ACTIVE CHRONIC COLITIS. - NO GRANULOMSASOR DYSPLASIA SEEN. D. RECTUM, BIOPSY: - MILDLY ACTIVE CHRONIC COLITIS. - NO GRANULOMAS OR DYSPLASIA SEEN. MICROSCOPIC DESCRIPTION Slides are reviewed. GROSS DESCRIPTION A. Received in fixative is one container labeled with the patient's name and designated Terminal ileum biopsy. The specimen consists of two irregular fragments of light [place] soft tissue that in aggregate measure 0.9 x 0.2 x 0.2 cm. The specimen is totally submitted in one cassette. B. Received in fixative is one container labeled with the patient's name and designated Random colon biopsy. The specimen consists of multiple irregular fragments of light [place] soft tissue that in aggregate measure 1.6 x 0.2 x 0.2 cm. The specimen is totally submitted in one cassette. C. Received in fixative is one container labeled with the patient's name and designated Sigmoid biopsy. The specimen consists of two irregular fragments of light [place] soft tissue that in aggregate measure 0.7 x 0.2 x 0.2 cm. The specimen is totally submitted in one cassette. D. Received in fixative is one container labeled with the patient's name and designated Rectum biopsy. The specimen consists of multiple irregular fragments of light [place] soft tissue that in aggregate measure 1.4 x 0.2 x 0.2 cm. The specimen is totally submitted in one cassette. 08/27/2024 [facility]:[id number] -------- Patient Age/Sex Location Account Attending Physician -------- BARBIE FINK 39/M EN [id number] Babar Hernández DO -------- Signed (signature on file) Dr. Ivana Laguna MD 08/30/24 1747 -------- Normal [facility] Comment on above: Performed By: #### P SUIV ####[facility] [address] [place], [address] Gastroenterology Visit Repor ton 07-23-2024 Gastroenterology Visit Report [facility] Gastroenterology [address] [place] [address] OFFICE VISIT Date of Service: 07/23/24 MR#: [id number] Acct: [id number] Name: BARBIE FINK Rep #: [id number] : 1985 Provider: GARRY Guerrero Age/Sex: 39/M Location: [facility] Status: Signed Intake Intake Visit Reasons: 6 M FU Chief Complaint: Crohns Allergies amoxicillin Allergy (Intermediate, Verified 03/17/23 09:27) Other cefaclor (From Ceclor) Allergy (Intermediate, Verified 03/17/23 09:27) Other Have you fallen in the past year?: No Nurse's Note: OV 07.23.24 Pt here for f/u and reports heartburn after eating most meals. Has been trying OTC Prilosec and finds it helpful. [facility] Medical History (Updated 03/17/23 @ 10:[address] Eckert Friend, DO) HTN (hypertension) PLEVA (pityriasis lichenoides et varioliformis acuta) Diminished hearing Anxiety Crohn disease Surgical History H/O inguinal hernia repair S/P orchiectomy Family History Father Hypertension Social History Smoking Status: Never smoker Smokeless tobacco user: chewing tobacco alcohol intake: current HPI HPI Chief Complaint: Crohns Details: BARBIE FINK, is a 39 M who presents to the office today for f/u. Biochemical 2017 A1c, celiac WNL. IBD ([facility]) Crohn???s +, CRP H3.68 Colonoscopy 11.28.16 TI shallow ulcerations, active colitis with focal cryptitis and glandular distortion; internal hemorrhoids. OV 01.26.24 f/u for Crohns. Feeling weel with no symtosm. Notes a flare in November 2023. Not on medication for CRohns *Declined daily medications, blood work, stool testing, no hx of MR enterography Biochemical work up 02.02.24; hgb L 11.2, ESR 33 H, iron 34 L, CRp 4.67, IBD panel indicating aggressive Crohn Colonoscopy scheduled but not completed OV 07.23.24 Pt has been doing well since his last visit. He does not recall any flares of diarrhea. He is having 2-3 bm per day. He avoids foods that cause flares like lettuce and acidic foods. He has a colonoscopy coming up in August 2024. ROS Const Constitutional: No anorexia, fatigue, fever(s), weight change or sleep problems Eyes Eyes: No change in vision ENT ENT: No abnormal hearing, difficulty swallowing, mouth lesions, tongue swelling or throat swelling Resp Respiratory: No cough or shortness of breath Cardio Cardiology: No chest pain at rest, chest pain with exertion, shortness of breath or dyspnea on exertion Gastro GI: Positive for diarrhea and heartburn; No difficulty swallowing Genitourinary Male: No difficulty urinating or burning urination Musc Musculoskeletal: No joint pain, joint swelling, muscle weakness or decreased muscle mass Skin Skin: No hair loss in leg, yellowing of the eye, itchy eyes, rash, skin ulcer or skin swelling Neuro Neurology: No abnormal hearing, abnormal movements, confusion, unsteady gait/balance or memory loss Psych Psychiatric: Positive for anxiety, No confusion and No memory loss Endo Endocrine: No fatigue or weight change Aller/Imm Allergy/Immunologic: No itchy eyes, throat swelling or tongue swelling Carlos/Lymp Hematologic/Lymphatic: No easy bleeding, easy bruising or enlarged lymph nodes Exam Const General: cooperative and comfortable Nutritional Appearance: average body habitus and well nourished HENMT Head: normal to inspection Ears: hearing grossly normal bilaterally Nose: external nose normal Face and sinus: normal facial exam Eyes General: appearance normal, both eyes and all related structures Neck Neck: normal visual inspection Chest Chest palpation inspection: normal inspection of the chest and normal palpation of entire chest wall Resp Effort Inspection: normal respiratory effort Auscultation: Bilateral: Clear to Auscultation Cardio Palpation: normal PMI Rate: regular rate Rhythm: regular rhythm GI Inspection: normal to inspection Auscultation: normal bowel sounds Percussion: normal to percussion Palpation: no hepatosplenomegaly Skin General: no rashes or lesions noted Neuro General: patient alert Extrem General: normal to inspection Psych Affect: normal affect Assessment and Plan Assessment and Plan (1) Crohn disease: Status: Acute Qualifiers: Gastrointestinal tract location: small and large intestine Digestive disease complication type: with rectal bleeding Qualified Code(s): K50.811 - Crohn's disease of both small and large intestine with rectal bleeding Plan: Pt is a 39 yo male pt here today for f/u. Pt has a diagnosis of Crohns disease that is not treated medically due to his personal choice. He has not had a colonoscopy in over 5 years per his report. (more content not included)... Normal [facility] ANCAon 01-30-2024 Atypical pANCA <1:20 Normal Neg:<1:20 [facility] Comment on above: Result Comment: The atypical pANCA pattern has been observed in a significant percentage of patients with ulcerative colitis, primary sclerosing cholangitis and autoimmune hepatitis. Performed at: [facility] [address] [id number] Field Service Rep: Yoli Mtz MD, Phone: [phone] Performed at: [address] [id number] Field Service Rep: Jose Manuel Royal PhD, Phone: [phone] Performed By: #### L 501.0910, L503.6075, L503.6150, L3300.0960, L506.0250, L101.9900, L3300.1200, L2100.0000, L100.0100, L503.6550, L503.0105, L500.4050, L506.1000 ####[facility] [address] [place], [place], [id number] Cytoplasmic Ab <1:20 Normal Neg:<1:20 [facility] Comment on above: Performed By: #### L 501.6710, L503.6075, L503.6150, L3300.0960, L506.0250, L101.9900, L3300.1200, L2100.0000, L100.0100, L503.6550, L503.0105, L500.4050, L506.1000 ####[facility] [address] [facility] [address] [place], [place], [address] Perinuclear Ab. <1:20 Normal Neg:<1:20 [facility] Comment on above: Result Comment: The presence of positive fluorescence exhibiting P-ANCA or C-ANCA patterns alone is not specific for the diagnosis of Nora's Granulomatosis (WG) or microscopic polyangiitis. Decisions about treatment should not be based solely on ANCA IFA results. The International ANCA Group Consensus recommends follow up testing of positive sera with both VT- 3 and MPO-ANCA enzyme immunoassays. As many as 5% serum samples are positive only by EIA. Ref. AM J Clin Pathol 1999;111:507-513. Performed By: #### L 501.6710, L503.6075, L503.6150, L3300.0960, L506.0250, L101.9900, L3300.1200, L2100.0000, L100.0100, L503.6550, L503.0105, L500.4050, L506.1000 ####[facility] [address] [facility] [address] [place], [place], [address] L2100.0000on 01-30-2024 ACCA 247 units Abnormal 0-90 [facility] Comment on above: Result Comment: Nega tive: <80 Equivocal: 80-90 Positive: >90 Performed By: #### L 501.6710, L503.6075, L503.6150, L3300.0960, L506.0250, L101.9900, L3300.1200, L2100.0000, L100.0100, L503.6550, L503.0105, L500.4050, L506.1000 ####[facility] [address] [place], [place], [id number] ALCA 6 units Normal 0-60 [facility] Comment on above: Result Comment: Nega tive:<55 Equivocal: 55-60 Positive: >60 Performed By: #### L 501.6710, L503.6075, L503.6150, L3300.0960, L506.0250, L101.9900, L3300.1200, L2100.0000, L100.0100, L503.6550, L503.0105, L500.4050, L506.1000 ####[facility] [address] [place], [address] AMCA 60 units Normal 0-100 [facility] Comment on above: Result Comment: Nega tive: <90 Equivocal: 90-100 Positive: >100 This test was developed and its performance characteristics determined by [employer]. It has not been cleared or approved by the Food and Drug Administration. The FDA has determined that such clearance or approval is not necessary. Performed By: #### L 501.6710, L503.6075, L503.6150, L3300.0960, L506.0250, L101.9900, L3300.1200, L2100.0000, L100.0100, L503.6550, L503.0105, L500.4050, L506.1000 ####[facility] [address] [place], [address] Atypical pANCA Negative Normal Negative [facility] Comment on above: Performed By: #### L 501.6710, L503.6075, L503.6150, L3300.0960, L506.0250, L101.9900, L3300.1200, L2100.0000, L100.0100, L503.6550, L503.0105, L500.4050, L506.1000 ####[facility] [address] [place], [address] COMMENT Comment Abnormal . [facility] Comment on above: Result Comment: Sugg estive of Crohn's Disease with high risk of aggressive disease behavior (development of strictures or fistulae) Performed By: #### L 501.6710, L503.6075, L503.6150, L3300.0960, L506.0250, L101.9900, L3300.1200, L2100.0000, L100.0100, L503.6550, L503.0105, L500.4050, L506.1000 ####[facility] [address] [place], [place], [id number] Jeanine 102 units Abnormal 0-50 [facility] Comment on above: Result Comment: Nega tive: <45 Equivocal: 45-50 Positive: >50 Performed By: #### L 501.6710, L503.6075, L503.6150, L3300.0960, L506.0250, L101.9900, L3300.1200, L2100.0000, L100.0100, L503.6550, L503.0105, L500.4050, L506.1000 ####[facility] [address] [place], [address] Vitamin D 1,25-Dihydroxyon 0 01-29-2024 VIT D 1,25 DIHY 61.1 pg/mL Normal 24.8-81.5 [facility] Comment on above: Result Comment: Perf ormed at: - [facility] [id number] Field Service Rep: Yoli Mtz MD, Phone: [phone] Performed By: #### L 501.6710, L503.6075, L503.6150, L3300.0960, L506.0250, L101.9900, L3300.1200, L2100.0000, L100.0100, L503.6550, L503.0105, L500.4050, L506.1000 ####[facility] [address] [place], [place], [id number] CBC W/Diff, Automatedon 01-04 Absolute Lymph 1.68 X10 3/uL Normal 0.83-4.51 [facility] Comment on above: Performed By: #### L 501.6710, L503.6075, L503.6150, L3300.0960, L506.0250, L101.9900, L3300.1200, L2100.0000, L100.0100, L503.6550, L503.0105, L500.4050, L506.1000 #### [facility] [address] [place], [address] Absolute Neut 4.3 X10 3/uL Normal 2.0-7.7 [facility] Comment on above: Performed By: #### L 501.6710, L503.6075, L503.6150, L3300.0960, L506.0250, L101.9900, L3300.1200, L2100.0000, L100.0100, L503.6550, L503.0105, L500.4050, L506.1000 #### [facility] [address] [place], [address] Basophils/100 WBC (Bld) 0.7 % Normal 0-1 [facility] Comment on above: Performed By: #### L 501.6710, L503.6075, L503.6150, L3300.0960, L506.0250, L101.9900, L3300.1200, L2100.0000, L100.0100, L503.6550, L503.0105, L500.4050, L506.1000 #### [facility] [address] [place], [address] Eosinophils/100 WBC (Bld) 2.9 % Normal 0-5 [facility] Comment on above: Performed By: #### L 501.6710, L503.6075, L503.6150, L3300.0960, L506.0250, L101.9900, L3300.1200, L2100.0000, L100.0100, L503.6550, L503.0105, L500.4050, L506.1000 #### [facility] [address] [facility] [place], [address] (379) Erythrocyte distribution width (RBC) [Ratio] 13.9 % Normal 11.6-14.6 [facility] Comment on above: Performed By: #### L 501.6710, L503.6075, L503.6150, L3300.0960, L506.0250, L101.9900, L3300.1200, L2100.0000, L100.0100, L503.6550, L503.0105, L500.4050, L506.1000 #### [facility] [address] [place], [address] (659) Hematocrit (Bld) [Volume fraction] 37.2 % Low 40-54 [facility] Comment on above: Performed By: #### L 501.6710, L503.6075, L503.6150, L3300.0960, L506.0250, L101.9900, L3300.1200, L2100.0000, L100.0100, L503.6550, L503.0105, L500.4050, L506.1000 #### [facility] [address] [facility]. [place], [place], [id number] (122) Hemoglobin (Bld) [Mass/Vol] 11.2 g/dL Low 13.0-16.5 [facility] Comment on above: Performed By: #### L 501.6710, L503.6075, L503.6150, L3300.0960, L506.0250, L101.9900, L3300.1200, L2100.0000, L100.0100, L503.6550, L503.0105, L500.4050, L506.1000 #### [facility] [address] [facility] [place], [address] IG% 0.400 Normal 0.0-0.9 [facility] Comment on above: Result Comment: IG% - Immature Granulocytes (promyelocytes, myelocytes and metamyelocytes) > 1% indicates that a LEFT SHIFT is Present. Performed By: #### L 501.6710, L503.6075, L503.6150, L3300.0960, L506.0250, L101.9900, L3300.1200, L2100.0000, L100.0100, L503.6550, L503.0105, L500.4050, L506.1000 #### [facility] [address] [place], [address] Lymphocytes/100 WBC (Bld) 24.8 % Normal 19-41 [facility] Comment on above: Performed By: #### L 501.6710, L503.6075, L503.6150, L3300.0960, L506.0250, L101.9900, L3300.1200, L2100.0000, L100.0100, L503.6550, L503.0105, L500.4050, L506.1000 #### [facility] [address] [place], [address] MCH (RBC) [Entitic mass] 23.0 pg Low 27.0-32.0 [facility] Comment on above: Performed By: #### L 501.6710, L503.6075, L503.6150, L3300.0960, L506.0250, L101.9900, L3300.1200, L2100.0000, L100.0100, L503.6550, L503.0105, L500.4050, L506.1000 #### [facility] [address] [place], [address] MCHC (RBC) [Mass/Vol] 30.1 g/dL Low 32-36 [facility] Comment on above: Performed By: #### L 501.6710, L503.6075, L503.6150, L3300.0960, L506.0250, L101.9900, L3300.1200, L2100.0000, L100.0100, L503.6550, L503.0105, L500.4050, L506.1000 #### [facility] [address] [place], [address] MCV (RBC) [Entitic vol] 76.4 fL Low 80-94 [facility] Comment on above: Performed By: #### L 501.6710, L503.6075, L503.6150, L3300.0960, L506.0250, L101.9900, L3300.1200, L2100.0000, L100.0100, L503.6550, L503.0105, L500.4050, L506.1000 #### [facility] [address] [facility] [place], [address] Monocytes/100 WBC (Bld) 7.8 % Normal 0-10 [facility] Comment on above: Performed By: #### L 501.6710, L503.6075, L503.6150, L3300.0960, L506.0250, L101.9900, L3300.1200, L2100.0000, L100.0100, L503.6550, L503.0105, L500.4050, L506.1000 #### [facility] [address] [place], [address] Neutrophils/100 WBC (Bld) 63.4 % Normal 47-70 [facility] Comment on above: Performed By: #### L 501.6710, L503.6075, L503.6150, L3300.0960, L506.0250, L101.9900, L3300.1200, L2100.0000, L100.0100, L503.6550, L503.0105, L500.4050, L506.1000 #### [facility] [address] [place], [address] Nucleated RBC (Bld) [#/Vol] 0 10*3/uL Normal 0-5 [facility] Comment on above: Performed By: #### L 501.6710, L503.6075, L503.6150, L3300.0960, L506.0250, L101.9900, L3300.1200, L2100.0000, L100.0100, L503.6550, L503.0105, L500.4050, L506.1000 #### [facility] [address] [place], [address] Platelet mean volume (Bld) [Entitic vol] 9.8 fL Normal 6.2-12.0 [facility] Comment on above: Performed By: #### L 501.6710, L503.6075, L503.6150, L3300.0960, L506.0250, L101.9900, L3300.1200, L2100.0000, L100.0100, L503.6550, L503.0105, L500.4050, L506.1000 #### [facility] [facility] [place], [address] Platelets (Bld) [#/Vol] 320 10*3/uL Normal 150-450 [facility] Comment on above: Performed By: #### L 501.6710, L503.6075, L503.6150, L3300.0960, L506.0250, L101.9900, L3300.1200, L2100.0000, L100.0100, L503.6550, L503.0105, L500.4050, L506.1000 #### [facility] [address] [facility] [place], [address] RBC (Bld) [#/Vol] 4.87 10*6/uL Normal 4.6-6.2 [facility] Comment on above: Performed By: #### L 501.6710, L503.6075, L503.6150, L3300.0960, L506.0250, L101.9900, L3300.1200, L2100.0000, L100.0100, L503.6550, L503.0105, L500.4050, L506.1000 #### [facility] [address] [place], [address] RDW SD 38.4 fl Normal 35.1-43.9 [facility] Comment on above: Performed By: #### L 501.6710, L503.6075, L503.6150, L3300.0960, L506.0250, L101.9900, L3300.1200, L2100.0000, L100.0100, L503.6550, L503.0105, L500.4050, L506.1000 #### [facility] [address] [place], [address] WBC (Bld) [#/Vol] 6.8 10*3/uL Normal 4.4-11.0 [facility] Comment on above: Performed By: #### L 501.6710, L503.6075, L503.6150, L3300.0960, L506.0250, L101.9900, L3300.1200, L2100.0000, L100.0100, L503.6550, L503.0105, L500.4050, L506.1000 #### [facility] [address] [place], [address] CRPon 01-26-2024 C-REACTIVE PROT 4.67 mg/L High 0.0-3.0 [facility] Comment on above: Order Comment: N Result Comment: C-Re active Protein (CRP) provides useful information for the diagnosis, therapy and monitoring of inflammatory processes and associated diseases. For the evaluation of Relative Risk for Cardiovascular Disease, a High Sensitivity CRP (HSCRP) should be ordered. Performed By: #### L 501.6710, L503.6075, L503.6150, L3300.0960, L506.0250, L101.9900, L3300.1200, L2100.0000, L100.0100, L503.6550, L503.0105, L500.4050, L506.1000 ####[facility] [address] [place], [place], [id number] Comprehensive Metabolic Prof ilon 01-26-2024 Albumin [Mass/Vol] 3.5 g/dL Normal 3.2-5.0 [facility] Comment on above: Order Comment: N Performed By: #### L 501.6710, L503.6075, L503.6150, L3300.0960, L506.0250, L101.9900, L3300.1200, L2100.0000, L100.0100, L503.6550, L503.0105, L500.4050, L506.1000 ####[facility] [address] [place], [place], [id number] Albumin/Globulin [Mass ratio] 0.8 {ratio} Low 0.9-2.4 [facility] Comment on above: Order Comment: N Performed By: #### L 501.6710, L503.6075, L503.6150, L3300.0960, L506.0250, L101.9900, L3300.1200, L2100.0000, L100.0100, L503.6550, L503.0105, L500.4050, L506.1000 ####[facility] [address] [place], [place], [id number] ALK P 97 U/L Normal 45-117 [facility] Comment on above: Order Comment: N Performed By: #### L 501.6710, L503.6075, L503.6150, L3300.0960, L506.0250, L101.9900, L3300.1200, L2100.0000, L100.0100, L503.6550, L503.0105, L500.4050, L506.1000 ####[facility] [address] [place], [place], [id number] ALT [Catalytic activity/Vol] 22 U/L Normal 16-61 [facility] Comment on above: Order Comment: N Performed By: #### L 501.6710, L503.6075, L503.6150, L3300.0960, L506.0250, L101.9900, L3300.1200, L2100.0000, L100.0100, L503.6550, L503.0105, L500.4050, L506.1000 ####[facility] [address] [place], [place], [id number] AST [Catalytic activity/Vol] 20 U/L Normal 15-37 [facility] Comment on above: Order Comment: N Performed By: #### L 501.6710, L503.6075, L503.6150, L3300.0960, L506.0250, L101.9900, L3300.1200, L2100.0000, L100.0100, L503.6550, L503.0105, L500.4050, L506.1000 ####[facility] [address] [place], [place], [id number] Bilirubin [Mass/Vol] 0.70 mg/dL Normal 0.20-1.00 [facility] Comment on above: Order Comment: N Result Comment: For patients on eltrombopag therapy, use of Dimension [place] TBIL is not recommended. Performed By: #### L 501.6710, L503.6075, L503.6150, L3300.0960, L506.0250, L101.9900, L3300.1200, L2100.0000, L100.0100, L503.6550, L503.0105, L500.4050, L506.1000 ####[facility] [address] [place], [place], [id number] BUN/CRE 10.9 RATIO Normal 10-20 [facility] Comment on above: Order Comment: N Performed By: #### L 501.6710, L503.6075, L503.6150, L3300.0960, L506.0250, L101.9900, L3300.1200, L2100.0000, L100.0100, L503.6550, L503.0105, L500.4050, L506.1000 ####[facility] [address] [place], [address] CA,Total 9.1 mg/dL Normal 8.5-10.1 [facility] Comment on above: Order Comment: N Performed By: #### L 501.6710, L503.6075, L503.6150, L3300.0960, L506.0250, L101.9900, L3300.1200, L2100.0000, L100.0100, L503.6550, L503.0105, L500.4050, L506.1000 ####[facility] [address] [place], [address] Chloride [Moles/Vol] 104 mmol/L Normal 98-107 [facility] Comment on above: Order Comment: N Performed By: #### L 501.6710, L503.6075, L503.6150, L3300.0960, L506.0250, L101.9900, L3300.1200, L2100.0000, L100.0100, L503.6550, L503.0105, L500.4050, L506.1000 ####[facility] [address] [place], [address] CO2 [Moles/Vol] 30.0 mmol/L Normal 21.0-32.0 [facility] Comment on above: Order Comment: N Performed By: #### L 501.6710, L503.6075, L503.6150, L3300.0960, L506.0250, L101.9900, L3300.1200, L2100.0000, L100.0100, L503.6550, L503.0105, L500.4050, L506.1000 ####[facility] [address] [place], [address] Creatinine [Mass/Vol] 1.10 mg/dL Normal 0.70-1.30 [facility] Comment on above: Order Comment: N Result Comment: The validity of the calculated GFR GFRAA in patients over 70 years has not been determined. Clinical correlation is essential. Performed By: #### L 501.6710, L503.6075, L503.6150, L3300.0960, L506.0250, L101.9900, L3300.1200, L2100.0000, L100.0100, L503.6550, L503.0105, L500.4050, L506.1000 ####[facility] [address] [place], [place], [id number] EST GFR - AA 95 mL/min Normal >60 [facility] Comment on above: Order Comment: N Result Comment: Afri can Cameroonian GFR Calc Performed By: #### L 501.6710, L503.6075, L503.6150, L3300.0960, L506.0250, L101.9900, L3300.1200, L2100.0000, L100.0100, L503.6550, L503.0105, L500.4050, L506.1000 ####[facility] [address] [place], [place], [phone] GAP 5 Normal 5-15 [facility] Comment on above: Order Comment: N Performed By: #### L 501.6710, L503.6075, L503.6150, L3300.0960, L506.0250, L101.9900, L3300.1200, L2100.0000, L100.0100, L503.6550, L503.0105, L500.4050, L506.1000 ####[facility] [address] [place], [place], [phone] GFR/1.73 sq M.predicted among non-blacks MDRD (S/P/Bld) [Vol rate/Area] 79 mL/min/{1.73_m2} Normal >60 [facility] Comment on above: Order Comment: N Result Comment: Non- GFR Calc Performed By: #### L 501.6710, L503.6075, L503.6150, L3300.0960, L506.0250, L101.9900, L3300.1200, L2100.0000, L100.0100, L503.6550, L503.0105, L500.4050, L506.1000 ####[facility] [address] [place], [address] Globulin (S) [Mass/Vol] 4.4 g/dL High 2.2-4.2 [facility] Comment on above: Order Comment: N Performed By: #### L 501.6710, L503.6075, L503.6150, L3300.0960, L506.0250, L101.9900, L3300.1200, L2100.0000, L100.0100, L503.6550, L503.0105, L500.4050, L506.1000 ####[facility] [address] [facility] [address] [place], [place], [phone] Glucose [Mass/Vol] 112 mg/dL High 74-106 [facility] Comment on above: Order Comment: N Result Comment: Fast ing Glucose result from 100 to 125 mg/dL suggests IMPAIRED HOMEOSTASIS per A.D.A. criteria. Performed By: #### L 501.6710, L503.6075, L503.6150, L3300.0960, L506.0250, L101.9900, L3300.1200, L2100.0000, L100.0100, L503.6550, L503.0105, L500.4050, L506.1000 ####[facility] [address] [place], [place], [phone]) Potassium [Moles/Vol] 3.6 mmol/L Normal 3.5-5.1 [facility] Comment on above: Order Comment: N Performed By: #### L 501.6710, L503.6075, L503.6150, L3300.0960, L506.0250, L101.9900, L3300.1200, L2100.0000, L100.0100, L503.6550, L503.0105, L500.4050, L506.1000 ####[facility] [address] [place], [place], [phone] Sodium [Moles/Vol] 139 mmol/L Normal 136-145 [facility] Comment on above: Order Comment: N Performed By: #### L 501.6710, L503.6075, L503.6150, L3300.0960, L506.0250, L101.9900, L3300.1200, L2100.0000, L100.0100, L503.6550, L503.0105, L500.4050, L506.1000 ####[facility] [address] [place], [place], [phone](342) T PROT 7.9 g/dL Normal 6.4-8.2 [facility] Comment on above: Order Comment: N Performed By: #### L 501.6710, L503.6075, L503.6150, L3300.0960, L506.0250, L101.9900, L3300.1200, L2100.0000, L100.0100, L503.6550, L503.0105, L500.4050, L506.1000 ####[facility] [address] [place], [place], [phone] Urea nitrogen [Mass/Vol] 12 mg/dL Normal 7-18 [facility] Comment on above: Order Comment: N Performed By: #### L 501.6710, L503.6075, L503.6150, L3300.0960, L506.0250, L101.9900, L3300.1200, L2100.0000, L100.0100, L503.6550, L503.0105, L500.4050, L506.1000 ####[facility] [address] [place], [place], [phone] Erythrocyte Sed Rateon 01-25 SED RATE 33 mm/hr High 0-20 [facility] Comment on above: Performed By: #### L 501.6710, L503.6075, L503.6150, L3300.0960, L506.0250, L101.9900, L3300.1200, L2100.0000, L100.0100, L503.6550, L503.0105, L500.4050, L506.1000 #### [facility] [address] [place], [place], [address] Ferritinon 01-26-2024 Ferritin [Mass/Vol] 3 ng/mL Low 26-388 [facility] Comment on above: Order Comment: N Performed By: #### L 501.6710, L503.6075, L503.6150, L3300.0960, L506.0250, L101.9900, L3300.1200, L2100.0000, L100.0100, L503.6550, L503.0105, L500.4050, L506.1000 ####[facility] [address] [place], [address] Folates, (Folic Acid)on 01-04 FOLATES 11.50 ng/mL Normal 3.1-55.4 [facility] Comment on above: Order Comment: N Performed By: #### L 501.6710, L503.6075, L503.6150, L3300.0960, L506.0250, L101.9900, L3300.1200, L2100.0000, L100.0100, L503.6550, L503.0105, L500.4050, L506.1000 ####[facility] [address] [place], [address] Gastroenterology Visit Repor ton 01-26-2024 Gastroenterology Visit Report [facility] [address] [place] [address] OFFICE VISIT Date of Service: 01/26/24 MR#: [id number] Acct: [id number] Name: BARBIE FINK TAMIA Rep #: [id number] : 1985 Provider: GARRY Guerrero Age/Sex: 38/M Location: [email or web address] Status: Signed Intake Intake Visit Reasons: 6 MO FU Chief Complaint: Crohns Allergies amoxicillin Allergy (Intermediate, Verified 03/17/23 09:27) Other cefaclor (From Ceclor) Allergy (Intermediate, Verified 03/17/23 09:27) Other Medications ???Medication ???Instructions ???Recorded ???Confirmed ???Type hydrochlorothiazide 25 mg tablet 25 mg PO DAILY 11/09/22 01/26/24 History lisinopril 20 mg tablet 20 mg PO DAILY 11/09/22 01/26/24 History PFSH Medical History (Updated 03/17/23 @ 10:[address] Eckert Friend, DO) HTN (hypertension) PLEVA (pityriasis lichenoides et varioliformis acuta) Diminished hearing Anxiety Crohn disease Surgical History H/O inguinal hernia repair S/P orchiectomy Family History Father Hypertension Social History Smoking Status: Never smoker Smokeless tobacco user: chewing tobacco alcohol intake: current HPI HPI Chief Complaint: Crohns Details: BARBIE FINK, is a 38 M who presents to the office today for f/u ???Biochemical 2017???A1c, celiac WNL.? IBD ([facility]) Crohn???s +, CRP H3.68?Colonoscopy 11.28.16???TI shallow ulcerations, active colitis with focal cryptitis and glandular distortion; internal hemorrhoids.??? PCP OV 10.28.22 as f/u for HTN with concern for poison angel and anxiety. History of Crohn???s. ??? OV 01.26.24 Patient is here for f/u for his Crohns disease. He has been feeling well with no symptoms. He notes having a flare in November with diarrhea. He is aware that greasy foods and dairy can be a trigger so he does his best to avoid these foods. When he is in a flare he will take Imodium. He has tried daily medications for Crohns in the past and did not like how it made him feel. His last colonoscopy was in 2017 and does not wish to have another at this time. He has occasional heartburn that is relieved by Pepcid. He denies n/v, abdominal pain, diarrhea, melena or constipation. ROS Const Constitutional: No fatigue, fever(s) or weight change ENT ENT: No difficulty swallowing Gastro GI: No abdominal pain, belching, bloating, change in bowel habits, change in stool character, coffee ground emesis, constipation, cramping, diarrhea, heartburn, difficulty swallowing, feeling full early, excessive flatus, incontinent of stools, Vomiting blood/hematemesis, Blood in stool, loose stools, Black,tarry stools, nausea/dyspepsia, pain with swallowing, vomiting or other Musc Musculoskeletal: No joint pain Skin Skin: No yellowing of the eye or itchy eyes Psych Psychiatric: No anxiety and No depression Endo Endocrine: No fatigue or weight change Aller/Imm Allergy/Immunologic: No itchy eyes Carlos/Lymp Hematologic/Lymphatic: No easy bleeding or easy bruising Exam Const General: cooperative and comfortable Nutritional Appearance: average body habitus and well nourished [facility] Head: normal to inspection Ears: hearing grossly normal bilaterally Nose: external nose normal Face and sinus: normal facial exam Eyes General: appearance normal, both eyes and all related structures Neck Neck: normal visual inspection Chest Chest palpation inspection: normal inspection of the chest Resp Effort Inspection: normal respiratory effort Cardio Palpation: normal PMI GI Inspection: normal to inspection Palpation: no hepatosplenomegaly Skin General: no rashes or lesions noted Neuro General: patient alert Extrem General: normal to inspection Psych Affect: normal affect Assessment and Plan Assessment and Plan (1) Crohn disease: Status: Acute Qualifiers: Digestive disease complication type: with rectal bleeding Gastrointestinal tract location: small and large intestine Qualified Code(s): K50.811 - Crohn's disease of both small and large intestine with rectal bleeding Plan: Patient is here today for f/u for Crohns disease. He has been doing well. He does not take any daily medications for Crohns. During a flare he will take Imodium -He does not wish to be on daily medications at this time. Discussed that although he may feel well he still could have inflammation within his GI tract. Last colonoscopy was in 2017 but he not eager to have another one at this point. Told him we would discuss it at this next appointment -Will order lab work with CBC, CMP, ESR, CMP, IBD panel, i (more content not included)... Normal [facility] Ironon 01-26-2024 Iron [Mass/Vol] 34 ug/dL Low 65-175 [facility] Comment on above: Order Comment: N Performed By: #### L 501.6710, L503.6075, L503.6150, L3300.0960, L506.0250, L101.9900, L3300.1200, L2100.0000, L100.0100, L503.6550, L503.0105, L500.4050, L506.1000 ####[facility] [address] [place], [place], [phone] Iron Binding Capacity,Totalo n 01-26-2024 TIBC 415 ug/dL Normal 250-450 [facility] Comment on above: Order Comment: N Performed By: #### L 501.6710, L503.6075, L503.6150, L3300.0960, L506.0250, L101.9900, L3300.1200, L2100.0000, L100.0100, L503.6550, L503.0105, L500.4050, L506.1000 ####[facility] [address] [place], [place], [phone] Vitamin B12on 01-26-2024 Cobalamin (Vitamin B12) [Mass/Vol] 481 pg/mL Normal 211-911 [facility] Comment on above: Performed By: #### L 501.6710, L503.6075, L503.6150, L3300.0960, L506.0250, L101.9900, L3300.1200, L2100.0000, L100.0100, L503.6550, L503.0105, L500.4050, L506.1000 #### [facility] [address] [place], [place], [address] Vitamin D,25 Hydroxyon 01-25 Vitamin D 25-OH 28.1 ng/mL Normal [facility] Comment on above: Result Comment: Julissa min D 25(OH) Status Range Deficiency <20 ng/mL (50nmol/L) Insufficiency 20 - 30 ng/mL (50 - 75 nmol/L) Sufficiency 30 - 100 ng/mL (75 - 250 nmol/L) Toxicity >100 ng/mL (>250 nmol/L) Performed By: #### L 501.6710, L503.6075, L503.6150, L3300.0960, L506.0250, L101.9900, L3300.1200, L2100.0000, L100.0100, L503.6550, L503.0105, L500.4050, L506.1000 ####[facility] [address] [place], [place], [id number] Vital Signs Date Time Vital Sign Value Performing Clinician Clayton peralta 09-23-2024 17:49-0400 Body weight 131.54 kg Marah Montalvo APRN.CNP Work Phone: [facility] 09-23-2024 17:49-0400 Diastolic blood pressure 78 mm[Hg] Marah Montalvo APRN.MANAGER CABLE Work Phone: [facility] 09-23-2024 17:49-0400 Heart rate 102 /min Marah Montalvo APRN.MANAGER CABLE Work Phone: [facility] 09-23-2024 17:49-0400 Respiratory rate 16 /min Marah Montalvo APRN.MANAGER CABLE Work Phone: [facility] 09-23-2024 17:49-0400 SaO2% (BldA) [Mass fraction] 97 % Marah Montalvo APRN.CNP Work Phone: 0(320)879-144470 [place] [address] 09-23-2024 17:49-0400 Systolic blood pressure 118 mm[Hg] Marah Montalvo ESCROW MANAGER.MANAGER CABLE Work Phone: 6(443)815-163944 [place] [address] 08-26-2024 11:33-0400 Body temperature 97.8 [degF] Dr. Milton Mckeon MD Work Phone: 7(160)283-358423 [place] [address] 08-26-2024 11:33-0400 Diastolic blood pressure 69 mm[Hg] Dr. Milton Mckeon MD Work Phone: 6(432)870-556188 [place] [address] 08-26-2024 11:33-0400 Heart rate 66 /min Dr. Milton Mckeon MD Work Phone: 5(480)757-843323 [place] [address] 08-26-2024 11:33-0400 Respiratory rate 16 /min Dr. Milton Mckeon MD Work Phone: 4(054)065-647823 [place] [address] 08-26-2024 11:33-0400 SaO2% (BldA) [Mass fraction] 96 % Dr. Milton Mckeon MD Work Phone: 8(937)155-575488 [place] [address] 08-26-2024 11:33-0400 Systolic blood pressure 109 mm[Hg] Dr. Milton Mckeon MD Work Phone: 1(222)991-498788 [place] [address] 08-26-2024 09:43-0400 Body height 187.[address] Milton Mckeon MD Work Phone: 2(519)837-379988 [place] [address] 08-26-2024 09:43-0400 Body mass index (BMI) [Ratio] 37.3 kg/m2 Dr. Milton Mckeon MD Work Phone: 7(309)061-716888 [place] [address] 08-26-2024 09:43-0400 Body weight 131.[address] Milton Mckeon MD Work Phone: 0(953)735-361888 [place] [address] 12-02-2022 08:53-0400 Body temperature 97 [degF] Marah Montalvo ESCROW MANAGER.MANAGER CABLE Work Phone: 3(613)810-702744 [place] [address] 12-02-2022 08:53-0400 Body weight 139.71 kg Marah Montalvo ESCROW MANAGER.MANAGER CABLE Work Phone: 5(281)565-583444 [place] [address] 12-02-2022 08:53-0400 Diastolic blood pressure 80 mm[Hg] Marah Montalvo ESCROW MANAGER.MANAGER CABLE Work Phone: [facility] 12-02-2022 08:53-0400 Heart rate 76 /min Marah Montalvo ESCROW MANAGER.MANAGER CABLE Work Phone: [facility] 12-02-2022 08:53-0400 Respiratory rate 16 /min Marah Montalvo ESCROW MANAGER.MANAGER CABLE Work Phone: [facility] 12-02-2022 08:53-0400 Systolic blood pressure 120 mm[Hg] Marah Montalvo ESCROW MANAGER.MANAGER CABLE Work Phone: [facility] Encounters Encounter Date Encounter Type Care Provider Facility Start: 12-13-2024 End: 12-13-2024 Patient encounter procedure Anne-Marie CASTAÑEDA -[facility] Work Phone: Start: 12-13-2024 End: 12-13-[address] Milton Mckeon MD Work Phone: [facility] Start: 12-13-2024 End: 12-13-2024 ambulatory Milton Mckeon Facility:[facility] Start: 09-23-2024 End: 09-23-2024 Patient encounter procedure Marah Montalvo APRN.MANAGER CABLE Work Phone: [facility] Comment on above: Routine physical exa mination (Primary Dx); Essential hypertension; Elevated LDL cholesterol level; Crohn's disease without complication, unspecified gastrointestinal tract location (HCC); Gastro-esophageal reflux disease without esophagitis; Dry cough Start: 09-23-2024 End: 09-23-2024 ambulatory MILTON MCKEON Facility:[facility] Start: 09-23-2024 End: 09-23-2024 Physical examination Marah Montalvo APRN.MANAGER CABLE Work Phone: [facility] Work Phone: Start: 09-10-2024 End: 09-10-2024 Patient encounter procedure Anne-Marie CASTAÑEDA -[facility] Work Phone: Start: 09-10-2024 End: 09-10-2024 Refill Milton Mckeon MD Work Phone: [facility] Comment on above: Refill Request Start: 08-26-2024 Non-patient / Non-visit Babar Hill nd DO -[facility] Start: 08-26-2024 End: 08-26-2024 Admission to same day surgery center Babar Hernández DO -Endoscopy Work Phone: Start: 08-26-2024 End: 08-26-[address] Milton Mckeon MD Work Phone: [facility] Work Phone: Start: 07-23-2024 End: 07-23-2024 Patient encounter procedure Anne-Marie Fine [facility] Work Phone: Start: 07-23-2024 End: 07-23-2024 ambulatory Anne-Marie Fine Facility:[facility] Start: 01-26-2024 End: 01-26-2024 ambulatory Milton Mckeon Facility:[facility] Start: 01-26-2024 End: 01-26-2024 ambulatory [facility] Facility:[facility] Start: 01-18-2024 Refill Milton Mckeon MD Work Phone: [facility] Comment on above: Refill Request Start: 12-02-2022 End: 12-02-2022 Office outpatient visit 25 minutes Marah Katia AVILES Work Phone: [facility] Comment on above: Essential hypertensi on (Primary Dx); Anxiety Start: 01-07-2022 Refill Milton Mckeon MD Work Phone: [facility] Comment on above: Refill Request Start: 04-30-2011 End: 01-25-2012 Patient encounter status Milton Mckeon MD Work Phone: [facility] Procedures Date Procedure Procedure Detail Performing Clinician Start: 08-26-[address] Kenton Mckeon MD Work Phone: Start: 10-28-2022 Lipid 1996 panel - S umesh or Plasma Milton Mckeon MD Work Phone: Start: 12-22-2015 Adult depression scr eening assessment Milton Mckeon MD Work Phone: Plan of Treatment Date Care Activity Detail Author Start: 2044 HEPATITIS B (1 of 3 - Risk 3-dose series) HEPATITIS B (1 of 3 - Risk 3-dose series) [facility] Start: 10-29-2027 Lipid panel Lipid Screening [facility] Start: 10-29-2027 LIPID SCREEN LIPID SCREEN [facility] Start: 11-21-2025 LIPID SCREEN LIPID SCREEN [facility] Start: 09-23-[address] Collections Officer davida Disease Visit Annual PCP Team Chronic Disease Visit [facility] Start: 09-23-2025 BP Controlled (<130/80) BP Controlle d (<130/80) [facility] Start: 09-23-2025 Covid-19 Vaccine () Covid-19 Vaccine () [facility] Comment on above: Postponed from 02/03 (Declined at this time) Start: 09-23-2025 Hepatitis C screening Hepatitis C Sc [facility] Comment on above: Postponed from 02/17 (Declined at this time) Start: 09-23-2025 HIV screening HIV Screening [facility] Comment on above: Postponed from 02/17 (Declined at this time) Start: 12-02-2024 Influenza vaccination Influenza Vacc ine (#1) [facility] Comment on above: Postponed from 02/03 (Declined at this time) Start: 09-23-2024 End: 09-23-2024 Patient encounter procedure 09/23/2024 6:00 PM EDT Office Visit [facility] [address] [facility] [place] [address] Marah Montalvo, ESCROW MANAGER.MANAGER CABLE [address] [facility] [place] [address] medication refills/ physical [facility] Comment on above: medication refills/ physical Start: 09-23-2024 End: 12-23-2024 CBC W Auto Differential panel - Blood COMPLETE BLOOD COUNT AND DIFFERENTIAL Lab Routine Routine physical examination Expected: 09/23/2024, Expires: 12/23/2024 [facility] Comment on above: Expected: 09/23/2024 , Expires: 12/23/2024 Start: 09-23-2024 End: 12-23-2024 Comprehensive metabolic 2000 panel - Serum or Plasma COMPREHENSIVE METABOLIC PANEL Lab Routine Essential hypertension Expected: 09/23/2024, Expires: 12/23/2024 [facility] Comment on above: Expected: 09/23/2024 , Expires: 12/23/2024 Start: 09-23-2024 Depression Screening Depression Scre ening [facility] Comment on above: Postponed from 02/17 (Declined at this time) Start: 09-23-2024 End: 12-23-2024 Lipid 1996 panel - Serum or Plasma LIPID PANEL, FASTING Lab Routine Routine physical examination Elevated LDL cholesterol level Expected: 09/23/2024, Expires: 12/23/2024 [facility] Work Phone: Comment on above: Expected: 09/23/2024 , Expires: 12/23/2024 Start: 08-26-2024 Colonoscopy flx dx w/collj spec when pfrmd DIAGNOSTIC COLONOSCOPY [facility] Start: 08-26-2024 Patient discharge [facility] Start: 06-12-[address] Collections Officer davida Disease Visit Annual PCP Team Chronic Disease Visit [facility] Start: 02-04-2024 Covid-19 Vaccine ( season) Covid-19 Vaccine ( season) [facility] Start: 02-04-2024 Influenza vaccination Influenza Vacc ine (#1) [facility] Start: 12-03-2023 ANNUAL PCP TEAM AXLE BEARING POLISHER DAVIDA DISEASE VISIT ANNUAL PCP TEAM CHRONIC DISEASE VISIT [facility] Start: 10-29-2023 COVID-19 VACCINE (#1) COVID-19 VACCI NE (#1) [facility] Comment on above: Postponed from 08/17 (Declined at this time) Start: 10-29-2023 HEPATITIS A (1 of 2 - Risk 2-dose series) HEPATITIS A (1 of 2 - Risk 2-dose series) [facility] Comment on above: Postponed from 02/17 (Declined at this time) Start: 10-29-2023 HEPATITIS C SCREENING HEPATITIS C SC MICHELLE [facility] Comment on above: Postponed from 02/17 (Declined at this time) Start: 10-29-2023 HIV SCREENING HIV SCREENING [facility] Comment on above: Postponed from 02/17 (Declined at this time) Start: 10-29-2023 MENINGOCOCCAL B: Consider based on risk (1 of 4 - Increased Risk Bexsero 2-dose series) MENINGOCOCCAL B: Consider based on risk (1 of 4 - Increased Risk Bexsero 2-dose series) [facility] Comment on above: Postponed from 02/17 (Declined at this time) Start: 10-29-2023 MMR (1 of 2 - Risk 2-dose series) MMR (1 of 2 - Risk 2-dose series) [facility] Comment on above: Postponed from 02/17 (Declined at this time) Start: 10-29-2023 Urine microalbumin profile DTAP,TDAP,TD (1 - Tdap) [facility] Comment on above: Postponed from 02/17 (Declined at this time) Start: 02-03-2023 Covid-19 Vaccine ( season) Covid-19 Vaccine ( season) [facility] Start: 02-03-2023 Influenza vaccination INFLUENZ A (Season Ended) [facility] Start: 06-05-2022 DEPRESSION ASSESSMENT DEPRESSION ASS ESSMENT [facility] Start: 02-03-2022 Influenza vaccination INFLUENZA (#1) [facility] Start: 11-09-2021 ANNUAL PCP TEAM AXLE BEARING POLISHER DAVIDA DISEASE VISIT ANNUAL PCP TEAM CHRONIC DISEASE VISIT [facility] Start: 12-21-2016 Adult depression screening assessment DEPRESSION SCREENING [facility] Start: 02-17-2003 HEPATITIS B (1 of 3 - Risk 3-dose series) HEPATITIS B (1 of 3 - Risk 3-dose series) [facility] Start: 02-17-2003 Hepatitis B Vaccine (1 of 3 - 19+ 3-dose series) Hepatitis B Vaccine (1 of 3 - 19+ 3-dose series) [facility] Start: 02-17-2003 Urine microalbumin profile [facility] Start: 02-17-2002 BP CONTROLLED (<130/80) BP CONTROLLE D (<130/80) [facility] Start: 02-17-2002 Depression Screening Depression Scre ening [facility] Start: 02-17-2002 HEPATITIS C SCREENING HEPATITIS C [facility] Start: 02-17-2002 Hepatitis C screening Hepatitis C [facility] Start: 02-17-2002 HIV SCREENING HIV SCREENING [facility] Start: 02-17-2002 HIV screening HIV Screening [facility] Start: 02-17-2002 MMR (1 of 2 - Risk 2-dose series) MMR (1 of 2 - Risk 2-dose series) [facility] Start: 02-17-1994 MENINGOCOCCAL B: Consider based on risk (1 of 4 - Increased Risk Bexsero 2-dose series) MENINGOCOCCAL B: Consider based on risk (1 of 4 - Increased Risk Bexsero 2-dose series) [facility] Start: 02-17-1985 HEPATITIS A (1 of 2 - Risk 2-dose series) HEPATITIS A (1 of 2 - Risk 2-dose series) [facility] Start: 1984 COVID-19 VACCINE (#1) COVID-19 VACCI NE (#1) [facility] C reactive protein [Mass/volume] in Serum or Plasma [facility] CBC W Auto Different ial panel - Blood [facility] Comprehensive metabo lic 2000 panel - Serum or Plasma [facility] Erythrocyte sedimentation rate [facility] [facility] Patient referral [facility] Work Phone: [facility] c Immunizations Immunization Date Immunization Notes Care Provider Osvaldo jones 06-23-2016 influenza virus vacc ine, unspecified formulation Milton Mckeon MD Work Phone: [facility] Payers Date Payer Category Payer Self-pay 2021 [facility] PPO Member Subscriber Plan / Payer (Effective 2021-Present) Name: Aleks Barbie Relation to Subscriber: Self Name: Barbie Fink Payer ID: [id number] (NAIC) Type: PPO Address: [place] [id number] 2021 Unknown [facility] PPO [id number] 2021-Present [phone] [address] [place] [address] PPO [id number] 2021 Unknown [id number] 2018 Unknown [facility] PPO [id number] 2018-Present [phone] [address] [place] [address] PPO [id number] Unknown [id number] Unknown [id number] Unknown [id number] Unknown [id number] Unknown [id number] Unknown [id number] Unknown [id number] Unknown [id number] Social History Date Type Detail Facility Start: 04-30-2011 End: 10-28-2022 Tobacco smoking status NHIS Never smoked tobacco [facility] Work Phone: Start: 04-30-2011 End: 10-28-2022 Tobacco use and exposure User of smokeless tobacco [facility] Work Phone: History of tobacco use Chews Tobacco [facility] Work Phone: Start: 01-16-2021 End: 09-23-2024 Alcohol intake Current drinker of alcohol (finding) [facility] Start: 01-16-2021 End: 12-02-2022 Alcohol intake [facility] Start: 1985 Sex Assigned At Not on file C [facility] Start: 10-28-2022 Tobacco Comment Chewing tobacc o since age 24 y/o on a daily basis [facility] Start: 12-02-2022 End: 06-12-2023 Tobacco use panel [facility] Work Phone: National Score (1-100), lower number is lower risk 65 [facility] Start: 08-21-2024 [facility] some day smoker [facility] Start: 08-26-2024 Sex Male (finding) [facility] Start: 1985 Sex Assigned At Male [facility] Goals Date Patient Goal Desired Activity /State Functional Status Date Assessment Result Facility 12-15-2014 Are you deaf, or do you have serious difficulty hearing No 12/15/2014 6:31 PM Khushboo Vazquez LPN No [facility] 12-15-2014 Are you blind, or do you have serious difficulty seeing, even when wearing glasses No 12/15/2014 6:31 PM Khushboo Vazquez LPN No [facility] 12-15-2014 Do you have serious difficulty walking or climbing stairs No 12/15/2014 6:31 PM Khushboo Vazquez LPN No [facility] 12-15-2014 Do you have difficul ty dressing or bathing No 12/15/2014 6:31 PM Khushboo Vazquez LPN No [facility] 12-15-2014 Because of a physica l, mental, or emotional condition, do you have difficulty doing errands alone such as visiting a physician's office or shopping No 12/15/2014 6:31 PM Khushboo Vazquez LPN No [facility] Mental Status Date Assessment Result Facility 08-26-2024 Cognitive function Touch/Shaking [facility] Work Phone: 07-13-2015 Because of a physica l, mental, or emotional condition, do you have serious difficulty concentrating, remembering, or making decisions No 12/15/2014 6:31 PM EDT Khushboo Holguin LPN No [facility] Clinical Notes 04-30-2011 to 09-23-2024 Marah Montalvo APRN.MANAGER CABLE - 09/23/2024 7:13 PM EDTPatient InstructionsTelephone Encounter - Tony Stephens LPN - 09/10/2024 4:50 PM EDTTelephone Encounter - Tony Stephens LPN - 09/10/2024 4:50 PM EDT Note Date & Type Note Facility 09-23-2024 Note HNO ID: [id number] Author: MARAH MONTALVO APRN.MANAGER CABLE Service: ? Author Type: Nurse Practitioner Type: Progress Notes Filed: 09/23/2024 19:48 Note Text: This is a 39 year old male who presents today with: Barbie is a 39-year-old male with a history of HTN and Crohn's disease, presenting for physical/ medication refills and evaluation of a dry cough. HISTORY OF PRESENT ILLNESS: Medication Refill: - Refill needed for lisinopril and hydrochlorothiazide. - Discontinued Lexapro due to feeling weird. - Currently taking mesalamine, multivitamins, Prilosec, and probiotics. Dry Cough: - Onset 2-3 weeks ago following colonoscopy. - Described as a dry cough with no productive sputum. - Associated with mild dyspnea during coughing episodes. 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 Crohn's Disease: - Managed by Dr. Hernández. - Recent colonoscopy 2-3 weeks ago with 50 biopsies taken. - Occasional diarrhea and constipation during flare-ups. - Denies hematochezia or melena. - Taking mesalamine for management. Hypertension: - Controlled with lisinopril and hydrochlorothiazide. - Denies chest pain or palpitations. PAST MEDICAL HISTORY: PAST MEDICAL HISTORY Diagnosis Date Anxiety reaction over dental visits Diminished hearing left ear Generalized anxiety disorder Anxiety, Generalized Left wrist fracture 1993 PLEVA (pityriasis lichenoides et varioliformis acuta) PMH - PAST MEDICAL HISTORY OF undescended rt testicle s/p orchiectomy age 7 y/o Ruptured tympanic membrane left age 54 years old Unspecified essential hypertension Varicella without mention of complication Chickenpox PAST SURGICAL HISTORY Procedure Laterality Date PAST SURGICAL HISTORY OF ing hernia repair at 1 month and age 7 y/o PAST SURGICAL HISTORY OF wisdom teeth extraction ALLERGIES Amoxil [Amoxicillin] and Ceclor [Cefaclor] MEDICATIONS Current Outpatient Medications Medication Sig omeprazole (PRILOSEC) 40 mg capsule Mesalamine (LIALDA) 1.2 gram EC tablet take 2 tablets by mouth once daily for 8 WEEKS hydroCHLOROthiazide 25 mg tablet Take 1 tablet by mouth once daily. lisinopril (ZESTRIL) 20 mg tablet Take 1 tablet by mouth once daily. B.breve-L.acid-L.rham-S.thermo (PROBIOTIC) 3 billion cell chew Take by mouth. multivit-min/vit C/herb no.124 (AIRBORNE GUMMY ORAL) Take by mouth. No current facility-administered medications for this visit. FAMILY HISTORY Problem Relation Age of Onset Hypertension Father Hypertension Maternal Grandmother Cancer Maternal Grandfather leukemia Coronary Artery Disease Paternal Grandfather [place] at 53 Hypertension Paternal Grandfather Stroke Paternal Grandmother other (dementia) Paternal Grandmother Asthma Paternal Uncle Asthma Paternal Aunt Hypertension Paternal Uncle Hypertension Paternal Aunt Social History Tobacco Use Smoking status: Never Smokeless tobacco: Current Types: Chew Tobacco comments: Chewing tobacco since age 24 y/o on a daily basis Substance Use Topics Alcohol use: Yes Alcohol/week: 2.0 standard drinks of alcohol Types: 2 Cans of Beer (12oz) per week Comment: socially Drug use: No REVIEW OF SYSTEMS Constitutional: (-) weight loss, (-) weakness, (-) fatigue Head: (-) headaches Eyes: (-) visual disturbances Ears/Nose/Mouth/Throat: (-) swallowing difficulty Neck: (-) lumps Cardiovascular: (-) chest pain, (-) palpitations, (-) edema Respiratory: (+) dry cough, (+) shortness of breath with cough Gastrointestinal: (+) occasional diarrhea, (+) occasional constipation, (-) heartburn Genitourinary: (-) urinary complaints Musculoskeletal: (-) muscle pain, (-) joint pain Skin: (-) skin issues Neurological: (-) passing out, (-) seizures, (-) tremors Psychiatric: (-) depression Endocrine: (-) heat intolerance, (-) cold intolerance, (-) excessive thirst, (-) excessive urination Hematologic/Lymphatic: (no current symptoms mentioned in transcript) EXAM: BP 118/78 Pulse 102 Resp 16 Wt 131.5 kg (290 lb) SpO2 97% PHYSICAL EXAM: General Appearance: Well appearing, alert, in no acute distress, well-hydrated, well nourished.. Skin: Skin color, texture, turgor normal, no suspicious rashes or lesions. Head: Normocephalic, no masses, lesions, tenderness or abnormalities. Eyes: Anicteric sclera. Pupils are equally round and reactive to light. Extraocular movements are intact. . Ears: External ears normal, canals clear. Normal TMs bilaterally. Oropharynx: Lips, mucosa, and tongue normal, teeth and gums normal, oropharynx normal. Neck: Supple, no adenopathy; thyroid symmetric, normal size, no bruits. Lungs: Lungs clear to auscultation. No wheezing, rhonchi, rales.. Heart: RRR without murmur, gallop, or rubs. No ectopy. Abdomen: Abdomen soft, non-tender. Bowel sounds normal. No masses, organomegaly. Extremities: No deformities, edema, skin discoloration, clubbing or cyanosis. (more content not included)... [facility] 09-23-2024 History of Presen t illness Narrative This is a 39 year old male who presents today with: Barbie is a 39-year-old male with a history of HTN and Crohn's disease, presenting for physical/ medication refills and evaluation of a dry cough. HISTORY OF PRESENT ILLNESS: Medication Refill: - Refill needed for lisinopril and hydrochlorothiazide. - Discontinued Lexapro due to feeling weird. - Currently taking mesalamine, multivitamins, Prilosec, and probiotics. Dry Cough: - Onset 2-3 weeks ago following colonoscopy. - Described as a dry cough with no productive sputum. - Associated with mild dyspnea during coughing episodes. 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 Crohn's Disease: - Managed by Dr. Hernández. - Recent colonoscopy 2-3 weeks ago with 50 biopsies taken. - Occasional diarrhea and constipation during flare-ups. - Denies hematochezia or melena. - Taking mesalamine for management. Hypertension: - Controlled with lisinopril and hydrochlorothiazide. - Denies chest pain or palpitations. PAST MEDICAL HISTORY: PAST MEDICAL HISTORY Diagnosis Date Anxiety reaction over dental visits Diminished hearing left ear Generalized anxiety disorder Anxiety, Generalized Left wrist fracture 1993 PLEVA (pityriasis lichenoides et varioliformis acuta) PMH - PAST MEDICAL HISTORY OF undescended rt testicle s/p orchiectomy age 7 y/o Ruptured tympanic membrane left age 54 years old Unspecified essential hypertension Varicella without mention of complication Chickenpox PAST SURGICAL HISTORY Procedure Laterality Date PAST SURGICAL HISTORY OF ing hernia repair at 1 month and age 7 y/o PAST SURGICAL HISTORY OF wisdom teeth extraction ALLERGIES Amoxil [Amoxicillin] and Ceclor [Cefaclor] MEDICATIONS Current Outpatient Medications Medication Sig omeprazole (PRILOSEC) 40 mg capsule Mesalamine (LIALDA) 1.2 gram EC tablet take 2 tablets by mouth once daily for 8 WEEKS hydroCHLOROthiazide 25 mg tablet Take 1 tablet by mouth once daily. lisinopril (ZESTRIL) 20 mg tablet Take 1 tablet by mouth once daily. B.breve-L.acid-L.rham-S.thermo (PROBIOTIC) 3 billion cell chew Take by mouth. multivit-min/vit C/herb no.124 (AIRBORNE GUMMY ORAL) Take by mouth. No current facility-administered medications for this visit. FAMILY HISTORY Problem Relation Age of Onset Hypertension Father Hypertension Maternal Grandmother Cancer Maternal Grandfather leukemia Coronary Artery Disease Paternal Grandfather [place] at 53 Hypertension Paternal Grandfather Stroke Paternal Grandmother other (dementia) Paternal Grandmother Asthma Paternal Uncle Asthma Paternal Aunt Hypertension Paternal Uncle Hypertension Paternal Aunt Social History Tobacco Use Smoking status: Never Smokeless tobacco: Current Types: Chew Tobacco comments: Chewing tobacco since age 24 y/o on a daily basis Substance Use Topics Alcohol use: Yes Alcohol/week: 2.0 standard drinks of alcohol Types: 2 Cans of Beer (12oz) per week Comment: socially Drug use: No REVIEW OF SYSTEMS Constitutional: (-) weight loss, (-) weakness, (-) fatigue Head: (-) headaches Eyes: (-) visual disturbances Ears/Nose/Mouth/Throat: (-) swallowing difficulty Neck: (-) lumps Cardiovascular: (-) chest pain, (-) palpitations, (-) edema Respiratory: (+) dry cough, (+) shortness of breath with cough Gastrointestinal: (+) occasional diarrhea, (+) occasional constipation, (-) heartburn Genitourinary: (-) urinary complaints Musculoskeletal: (-) muscle pain, (-) joint pain Skin: (-) skin issues Neurological: (-) passing out, (-) seizures, (-) tremors Psychiatric: (-) depression Endocrine: (-) heat intolerance, (-) cold intolerance, (-) excessive thirst, (-) excessive urination Hematologic/Lymphatic: (no current symptoms mentioned in transcript) EXAM: BP 118/78 Pulse 102 Resp 16 Wt 131.5 kg (290 lb) SpO2 97% PHYSICAL EXAM: General Appearance: Well appearing, alert, in no acute distress, well-hydrated, well nourished.. Skin: Skin color, texture, turgor normal, no suspicious rashes or lesions. Head: Normocephalic, no masses, lesions, tenderness or abnormalities. Eyes: Anicteric sclera. Pupils are equally round and reactive to light. Extraocular movements are intact. . Ears: External ears normal, canals clear. Normal TMs bilaterally. Oropharynx: Lips, mucosa, and tongue normal, teeth and gums normal, oropharynx normal. Neck: Supple, no adenopathy; thyroid symmetric, normal size, no bruits. Lungs: Lungs clear to auscultation. No wheezing, rhonchi, rales.. Heart: RRR without murmur, gallop, or rubs. No ectopy. Abdomen: Abdomen soft, non-tender. Bowel sounds normal. No masses, organomegaly. Extremities: No deformities, edema, skin discoloration, clubbing or cyanosis. Good capillary refill. . Neurologic: Gait normal. ASSESSMENT/PLAN 1. Routine physical examination (Z00.00) - Comprehensive physical examination performed. - Ordered CBC, CMP, and lipid panel. - Discussed vaccination status; patient declined flu and COVID vaccines. - Advised patient to provide dates of previous vaccinations for record update. - Follow-up in 6 months. 2. Essential hypertension (I10) - Blood pressure well-controlled on current regimen. - Refilled lisinopril and hydrochlorothiazide, 90-day supply with refills, sent to [facility] pharmacy. 3. Elevated LDL cholesterol level (E78.00) - Ordered lipid panel to assess current cholesterol levels. 4. Crohn's disease without complication, unspecified gastrointestinal tract location (HCC) (K50.90) - Recent colonoscopy performed 2-[address] Hernández; patient reports no complications post-procedure. - Continues on mesalamine therapy. - Ordered CBC and CMP to monitor overall health and disease impact. 5. Gastro-esophageal reflux disease without esophagitis (K21.9) - Symptoms well-controlled with omeprazole. - Continue current medication regimen. 6. Dry cough - ICD9: 786.2, ICD10: R05.8 ? Allergies. Start loratadine. Notify provider if no better/worsening. Discussed treatment plan and patient voices understanding. Patient's questions answered appropriately. Medications and potential side effects were discussed and patient voices understanding. Return to the office as scheduled or as needed for worsening/no improvement. Marah Montalvo APRN.CNP Recording using Onit software for draft documentation of the visit was discussed with the patient/authorized teleservices representative; all questions welcomed and answered. Patient/authorized teleservices representative agreed to proceed documented in this encounter [facility] 09-23-2024 Instructions Marah Montalvo APRN.CNP - 09/23/2024 6:21 PM EDT Begin taking a generic loratadine (e.g., a [employer] brand equivalent) for your cough/allergy symptoms. Continue with your current medications: hydrochlorothiazide, lisinopril, mesalamine, Prilosec, multivitamins, and your probiotics as before. Your blood pressure medications (lisinopril and hydrochlorothiazide) have been refilled as a 90-day supply and will be sent to your [facility] pharmacy in [place]. Fasting blood work (CBC, CMP, and cholesterol panel) has been ordered. 10-12 hour fast (you can have water and black coffee). When cleaning your ears at home, avoid using Q-tips; use a washcloth instead. Recheck in 6 months. documented in this encounter [facility] 09-10-2024 Telephone encounter Note Last rx(s) written 01/18/24 #30 with 0 refills. Per pharm dispense report, med has not been filled in the last 4 months. [facility] 09-10-2024 Miscellaneous Notes Last rx(s) written 01/18/24 #30 with 0 refills. Per pharm dispense report, med has not been filled in the last 4 months. Prescription Refill Information The patient has been identified by name and date of : Yes Caregiver verified no other encounters exist for this prescription request: Yes Caregiver confirmed with patient/requestor that no other refills are due, in the near future, with this provider at this time: Yes The last office visit in the department: 06-12-23 Does the patient have a future office visit with this provider/department: Yes Requested Prescriptions Pending Prescriptions Disp Refills lisinopril (ZESTRIL) 20 mg tablet 30 tablet 0 Sig: Take 1 tablet by mouth once daily. hydroCHLOROthiazide 25 mg tablet 30 tablet 0 Sig: Take 1 tablet by mouth once daily. Jen Houser September 10, 2024 4:38 PM documented in this encounter [facility] 09-10-2024 Telephone encounter Note Prescription Refill Information The patient has been identified by name and date of : Yes Caregiver verified no other encounters exist for this prescription request: Yes Caregiver confirmed with patient/requestor that no other refills are due, in the near future, with this provider at this time: Yes The last office visit in the department: 06-12-23 Does the patient have a future office visit with this provider/department: Yes Requested Prescriptions Pending Prescriptions Disp Refills lisinopril (ZESTRIL) 20 mg tablet 30 tablet 0 Sig: Take 1 tablet by mouth once daily. hydroCHLOROthiazide 25 mg tablet 30 tablet 0 Sig: Take 1 tablet by mouth once daily. Jen Houser September 10, 2024 4:38 PM [facility] 08-26-2024 Consult note Note Date/Time August 26, 2024 10:09am [facility] Medical Records Department [address] [place] [address] Pre-Anesthesia Evaluation 08/26/24 1002 MR#: [id number] Acct: [id number] Name: BARBIE FINK Rep #:[id number] : 1985 39 From: Roberto Carlos Rascon MD PCP: Dr. Milton Mckeon MD Status:REG S DC Y Race: C Location: [place] [address] ASA Classification* ASA Classification ASA Classification: 2 Assessment & Plan Anesthesia* Anesthesia Assessment Anesthesia Assessment: Discussed sedation and/or anesthesia options, risks, benefits, and alternatives with patient/parents/legal guardian/POA. Questions invited. The patient/parents/legal guardian/POA seems to understand and agrees to proceedwith anesthesia plan. Reviewed the physical assessment, medical history, allergy history and patient home medications list prior to surgery/procedure/anesthetic and documented any changes. Performed airway and anesthesia risk assessments. Anesthesia Type Anesthesia Type: MAC History Source History Obtained from:: Patient and Chart Anesthesia Focused Assessment* Temperature: 98.1 F Pulse Rate: 85 Blood Pressure: 140/97 Respiratory Rate: 16 Pulse Ox: 100 Oxygen Delivery Method: Room Air Airway Assessment Mouth opens: >3 cm Mallampati Score: III Teeth Condition: Chipped/Broken (Patient has a chipped right upper molar. Rest are tight.) Neck Range of motion (ROM): Full ROM Focused Labs Anesthesia Preop lab: CBC WBC 6.8 K/mm3 (4.4-11.0) 01/26/24 08:57 01/26/24 RBC 4.87 M/mm3 (4.6-6.2) 01/26/24 08:57 01/26/24 Hgb 11.2 g/dL (13.0-16.5) L 01/26/24 08:57 4 Hct 37.2 % (40-54) L 01/26/24 08:57 01/26/24 Plt Count 320 K/mm3 (150-450) 01/26/24 08:57 01/26/24 CHEMISTRY Potassium 3.6 mmol/L (3.5-5.1) 01/26/24 08:57 01/26/24 Sodium 139 mmol/L (136-145) 01/26/24 08:57 01/26/24 BUN 12 mg/dL (7-18) 01/26/24 08:57 01/26/24 Creatinine 1.10 mg/dL (0.70-1.30) 01/26/24 08:57 01/26/24 Glucose 112 mg/dL (74-106) H 01/26/24 08:57 01/26/24 COAG Pre-Assessment Diagnosis/Proposed Procedure Planned Operative Procedure(s): COLONOSCOPY Anesthesia History Anesthesia History - box strapper: Anesthesia History - box strapper Hx Hospitalization No 08/21/24 09:56 Any Problems With Anesthesia No 08/21/24 09:56 Cholinesterase deficiency No 08/21/24 09:56 You/Your Family Experience No 08/21/24 09:56 fever (hyperthermia) with Relationship Recent Exposure to Contagious No 08/26/24 09:43 Disease Does patient have nerve No 08/21/24 09:56 stimulator Patient instructed to have device shut off --Does patient have Pacemaker No 08/26/24 09:43 or ICD? When Was Last Pacemaker Check QUESTION #4 FULL TEXT: You/Your Family Experience fever (hyperthermia) with Anesthesia Last Oral Intake Last Oral intake: Last Oral Intake NPO since 07:00 08/26/24 09:43 Meds taken in AM with sips of water? Meds patient instructed to take am of surgery Any additional information?: Yes NPO since: 07:15 (Patient finished prep and some Sprite at 7:15 AM.) PONV PONV - box strapper: PONV - box strapper Female No 08/21/24 09:56 HX of Motion Sickness Yes 08/21/24 09:56 HX of N/V After Surgery No 08/21/24 09:56 Non-Smoker No 08/21/24 09:56 Duration of Surgery greater No 08/21/24 09:56 than 60 minutes Number of Risk Factors 1 08/21/24 09:56 PONV Score Low Risk 08/21/24 09:56 Height & Weight Height & Weight: Anesthesia: Height & Weight Height 6 ft 2 in 08/26/24 09:43 Weight: 131.9 kg 08/26/24 09:43 Body Mass Index (BMI) 37.3 08/26/24 09:43 Respiratory Assessment Respiratory Assessment - box strapper: Respiratory Tract Infection Hx - box strapper Hx Respiratory Tract Infection No 08/21/24 09:56 STOP Sleep Apnea STOP Sleep Apnea - box strapper: STOP Sleep Apnea - box strapper Hx Hypertension Yes: CONTROLLED ON MED 08/21/24 09:56 Hx Sleep Apnea No 08/21/24 09:56 CPAP BIPAP Do you snore loudly (louder No 08/21/24 09:56 than talking or can be heard Do you often feel tired/ No 08/21/24 09:56 fatigued/ sleepy during daytime? Has anyone observed you stop No 08/21/24 09:56 breathing during sleep? STOP Results Negative 08/21/24 09:56 QUESTION #5 FULL TEXT : Do you snore loudly (louder than talking or can be heard through closed doors)? Tobacco Use History Tobacco Use History - box strapper: Tobacco Use History - box strapper Tobacco Use Smoking Status Current some day smoker 08/21/24 09:56 Hx Tobacco Use Yes 08/21/24 09:56 Years Smoking Packs Smoked per Day Smoking Cessation Date was within the last 15 years Hx Smoking Cessation Date Hx Smoking Cessation Counseling Hematologic Medial History Hematologic Hx - box strapper: Hematologic Medical Hx - mental health associate Hx of Blood Transfusion No 08/21/24 09:56 Hx of Transfusion in last 3 No 08/21/24 09:56 Months Date of Last Transfusion (if within last 3 months) Ever experience any problems No 08/21/24 09:56 with transfusion(s)? Specify any problems Hx of Preganancy in last 3 N/A 08/21/24 09:56 Months Nurse Filling Out Transfusion VCHRISTIN 08/21/24 09:56 & Questions: Date: 08/21/24 08/21/24 09:56 Time: 09:57 08/21/24 09:56 Patient unable to answer at this time (ie. confused, unrespo /Reproduction History /Reproductive History - box strapper: /Reproductive Hx- box strapper Hx Now Gestational Age (in weeks): EDC: Hx Hx Para Hx Section SAB PFSH Medical History Alcohol use History of ulceration Gastric reflux Chewing tobacco dependence HTN (hypertension) PLEVA (pityriasis lichenoides et varioliformis acuta) Diminished hearing Anxiety Crohn disease Home Medications ?Medication ?Instructions ?Recorded ?Last Taken ?Type hydrochlorothiazide 25 mg tablet 25 mg PO DAILY Unknown History lisinopril 20 mg tablet 20 mg PO DAILY 11/09/2208/04 History omeprazole 40 mg capsule,delayed 40 mg PO QDAY #60 cap s 07/23/24 Unknown Rx release Allergy/AdvReac Type Severity Reaction Status Date / Time amoxicillin Allergy Intermediate Other Verified 08/26/24 09:39 cefaclor (From Ceclor) Allergy Intermediate Other Verified 08/26/24 09:39 Family History Father Hypertension Surgical History History of esophagogastroduodenoscopy (EGD) Hx of colonoscopy Hx of wisdom tooth extraction H/O inguinal hernia repair S/P orchiectomy Social History Smoking Status: Never smoker Smokeless tobacco user: chewing tobacco alcohol intake: current Review of Systems (Anesthesia) ROS Narrative System reviewed and no additional complaints, except as documented. 08/26/24 1009 <Electronically signed by Roberto Carlos medina MD> Date _ Roberto Carlos Rascon MD Cosigner Signature: Date CC: ~ Signed [facility] Work Phone: 1(919) 616-689403-24-2025 History and physical note Author Babar Hernández [facility] Note Date/Time August 26, 2024 9:5 0am [facility] Medical Records Department [address] [place] [address] History & Physical Exam 08/26/24 0947 MR#: [id number] Acct: [id number] Name: BARBIE FINK Rep #:[id number] : 1985 39 From: Babar Hernández DO PCP: Dr. Milton Mckeon MD Status:REG S DC Location: [place] [address] HPI - General General Date of Admission: 08/26/24 Date of Service: 08/26/24 Chief Complaint: crohns HPI Narrative BARBIE FINK, is a 39 M who presents for the evaluation of Crohn's disease. Biochemical 2016 A1c, celiac WNL. IBD ([facility]) Crohn?s +, CRPH3.68 Colonoscopy 6.26.17 TI shallow ulcerations, active colitis with focal cryptitis and glandular distortion; internal hemorrhoids. OV 8.23.24 f/u for Crohns. Feeling weel with no symtosm. Notes a flare in November 2023. Not on medication for CRohns *Declined daily medications, blood work, stool testing, no hx of MR enterography Biochemical work up 8.30.24; hgb L 11.2, ESR 33 H, iron 34 L, CRp 4.67, IBD panel indicating aggressive Crohn Colonoscopy scheduled but not completed OV 2.18.25 Pt has been doing well since his last visit. He does not recall any flares of diarrhea. He is having 2-3 bm per day. He avoids foods that cause flares like lettuce and acidic foods. He has a colonoscopy coming up in August 2024. [facility] Medical History Alcohol use History of ulceration Gastric reflux Chewing tobacco dependence HTN (hypertension) PLEVA (pityriasis lichenoides et varioliformis acuta) Diminished hearing Anxiety Crohn disease Home Medications ?Medication ?Instructions ?Recorded ?Last Taken ?Type hydrochlorothiazide 25 mg tablet 25 mg PO DAILY Unknown History lisinopril 20 mg tablet 20 mg PO DAILY 11/09/2208/04 History omeprazole 40 mg capsule,delayed 40 mg PO QDAY #60 cap s 07/23/24 Unknown Rx release Allergy/AdvReac Type Severity Reaction Status Date / Time amoxicillin Allergy Intermediate Other Verified 08/26/24 09:39 cefaclor (From Ceclor) Allergy Intermediate Other Verified 08/26/24 09:39 Family History Father Hypertension Surgical History History of esophagogastroduodenoscopy (EGD) Hx of colonoscopy Hx of wisdom tooth extraction H/O inguinal hernia repair S/P orchiectomy Social History Smoking Status: Never smoker Smokeless tobacco user: chewing tobacco alcohol intake: current ROS Constitutional Constitutional: Denies fatigue, fever(s), poor appetite, weight gain or weight loss Gastrointestinal Gastrointestinal: Denies belching, bloating, change in bowel habits, change in stool character, chewing difficulty, coffee ground emesis, constipation, cramping, diarrhea, dyspepsia, dysphagia, early satiety, excessive flatus, fecal incontinence, heartburn, hematemesis, hematochezia, hemorrhoids, loose stools, melena, nausea, odynophagia, rectal bleeding, tenesmus, vomiting or weight changes Vital Signs Vital Signs Vital Signs: 08/26/24 09:43 08/26/24 09:43 Temperature 98.1 F Temperature Source Temporal Pulse Rate 85 Respiratory Rate 16 Respiratory Pattern Normal Blood Pressure 140/97 H Blood Pressure Mean 111 Blood Pressure Source Monitor Blood Pressure Position Semi-Fowlers Blood Pressure Location Right Arm Pulse Ox 100 Oxygen Delivery Method Room Air Weight Weight: 290 lb 12.635 oz Body Mass Index (BMI) 37.3 Physical Exam Const alert, oriented x3, no apparent distress and healthy appearing General Appearance: cooperative GI normal to inspection, nondistended, normoactive bowel sounds, soft to palpation,non-tender and non-distended Percussion: normal to percussion Rectal Exam: deferred Assessment & Plan Assessment/Plan (1) Crohn disease: QUALIFIERS: Gastrointestinal tract location: small and large intestine Digestive disease complication type: with rectal bleeding Qualified Code(s): K50.811 - Crohn's disease of both small and large intestine with rectalbleeding PLAN: Assessment and Plan Assessment and Plan (1) Crohn disease: Status: Acute Qualifiers: Gastrointestinal tract location: small and large intestine Digestive disease complication type: with rectal bleeding Qualified Code(s): K50.811 - Crohn's disease of both small and large intestine with rectal bleeding Plan: Pt is a 39 yo male pt here today for f/u. Pt has a diagnosis of Crohns disease that is not treated medically due to his personal choice. He has not had a colonoscopy in over 5 years per his report. He is scheduled for one coming up lino month. Following this, will consider treatment for IBD. Blood work form 2023 showing inflammation in the blood. He has some heartburn lately. He will start omeprazole 40 mg daily. -Colonoscopy -Start omeprazole 40 mg daily -Consider treatment for Crohns Medications: New omeprazole 40 mg PO QDAY 60 caps 1RF 08/26/24 0950 <Electronically signed by Babar Hernández DO> Cosigner Signature (if applicable): CC: Dr. Milton Mckeon MD; Babar Hernández DO~ Signed [facility] Work Phone: 1(461) 109-886003-24-2025 Evaluation note* Diagnosis Onset Date Resolution Status Admit Date Crohn disease acute August 26, 2024 9:21am Crohn disease acute September 10, 2024 4:02pm Crohn disease acute December 13, 2024 2:59pm [facility] Work Phone: 1(531) 768-892603-24-2025 Consult note [facility] Medical Records Department [address] [place] [address] Anesthesia Postop Eval I 08/26/24 1115 MR#: [id number] Acct: [id number] Name: BARBIE FINK Rep #:[id number] : 1985 39 From: Yousuf Armando PCP: Dr. Milton Mckeon MD Status:REG S DC Y Race: C Location: [place] [address] Anesthesia: Postop Eval I Current Vital Signs Temperature: 97.4 F Pulse Rate: 74 Blood Pressure: 107/63 Respiratory Rate: 16 Pulse Ox: 94 Oxygen Delivery Method: Room Air Assessment Airway patent: Yes Spontaneous unlabored respirations: Yes Mental status: Asleep nausea: No Vomiting: No Anesthesia Complication: No Fluid Hydration Crystalloid volume administer (ml): 50 Total IV fluid infused: 50 Progress Note Anesthesia document: Postop Eval 1 completed: Yes 08/26/24 1116 > Date _ Yousuf Tr Marcosfanta Signature: Date CC: ~ Signed [facility]03-24-2025 Procedure note [facility] Medical Records Department [address] [place] [address] Colonoscopy Report MR#: [id number] Acct: [id number] Name: BARBIE FINK Rep #:[id number] : 1985 39 From: Babar Hernández DO PCP: Dr. Milton Mckeon MD Status:REG S DC Patient Name: Barbie Fink Procedure Date: 08/26/2024 10:41 AM Date of : 1985 Age: 39 Procedure: Colonoscopy Indications: Crohn's disease of the small bowel and colon Providers: Babar Hernández DO Medicines: Monitored Anesthesia Care Patient Profile: This is a 39 year old male. Refer to note in patient chart for documentation of history and physical. Last Colonoscopy: 3 years ago. Complications: No immediate complications. Procedure: Pre-Anesthesia Assessment: - Prior to the procedure, a History and Physical was performed, and patient medications and allergies were reviewed. The patient is competent. The risks and benefits of the procedure and the sedation options and risks were discussed with the patient. All questions were answered and informed consent was obtained. Patient identification and proposed procedure were verified by the physician in the pre-procedure area. Mental Status Examination: alert and oriented. Airway Examination: normal oropharyngeal airway and neck mobility. Respiratory Examination: clear to auscultation. CV Examination: normal. ASA Grade Assessment: II - A patient with mild systemic disease. After reviewing the risks and benefits, the patient was deemed in satisfactory condition to undergo the procedure. The anesthesia plan was to use monitored anesthesia care (MAC). Immediately prior to administration of medications, the patient was re-assessed for adequacy to receive sedatives. The heart rate, respiratory rate, oxygen saturations, blood pressure, adequacy of pulmonary ventilation, and response to care were monitored throughout the procedure. The physical status of the patient was re-assessed after the procedure. After I obtained informed consent, the scope was passed under direct vision. Throughout the procedure, the patient's blood pressure, pulse, and oxygen saturations were monitored continuously. The Colonoscope was introduced through the anus and advanced to the terminal ileum. The colonoscopy was performed without difficulty. The patient tolerated the procedure well. The quality of the bowel preparation was adequate. The terminal ileum, ileocecal valve, appendiceal orifice, and rectum were photographed. Scope In: 10:51:38 AM Scope Withdrawal Time 0 hours 9 minutes 10 seconds Scope Out: 11:05:32 AM Total Procedure Duration Time 0 hours 13 minutes 54 seconds Findings: The perianal and digital rectal examinations were normal. The Simple Endoscopic Score for Crohn's Disease was determined based on the endoscopic appearance of the mucosa in the following segments: - Ileum: Findings include large ulcers 0.5-2 cm in size, 10-30% ulcerated surfaces, no affected surfaces, no narrowings and no ulcers present, no ulcerated surfaces, no affected surfaces and no narrowings. Segment score: 4. - Right Colon: Findings include no ulcers present, no ulcerated surfaces, no affected surfaces, no narrowings and no ulcers present, no ulcerated surfaces, no affected surfaces and no narrowings. Segment score: 0. - Transverse Colon: Findings include no ulcers present, no ulcerated surfaces, no affected surfaces and no narrowings. Segment score: 0. - Left Colon: Findings include aphthous ulcers less than 0.5 cm in size, less than 10% ulcerated surfaces, less than 50% of surfaces affected and no narrowings. Segment score: 3. - Rectum: Findings include aphthous ulcers less than 0.5 cm in size, less than 10% ulcerated surfaces, less than 50% of surfaces affected, no narrowings and no ulcers present, no ulcerated surfaces, no affected surfaces and no narrowings. Segment score: 3. - Total SES-CD aggregate score: 10. Impression: - Simple Endoscopic Score for Crohn's Disease: 10, mucosal inflammatory changes secondary to Crohn's disease. - No specimens collected. Recommendation: - Discharge patient to home. - Resume previous diet. - Continue present medications. - Await pathology results. - Repeat colonoscopy. - Return to GI office. Procedure Code(s): --- Professional --- 26102, Colonoscopy, flexible; diagnostic, including collection of specimen(s) by brushing or washing, when performed (separate procedure) CPT copyright 2021 [employer]. All rights reserved. The codes documented in this report are preliminary and upon project construction assistant manager review may be revised to meet current compliance requirements. Babar Hernández DO 08/26/2024 11:14:51 AM This report has been signed electronically. Number of Addenda: 0 Note Initiated On: 08/26/2024 10:41 AM 08/26/24 1115 Date _ Babar Hernández DO Cosigner Signature: Date (if indicated) CC: Dr. Milton Mckeon MD; Babar Hernández DO ~ Date Dictated: 08/26/24 1041 Date Transcribed: Information And Data Architect Analyst: RF Signed [facility]03-24-2025 Procedure note [facility] Medical Records Department [address] [place] [address] Operative Report - CC Letter MR#: [id number] Acct: [id number] Name: BARBIE FINK Rep #:[id number] : 1985 39 From: Babar Hernández DO PCP: Dr. Milton Mckeon MD Status:REG S DC 08/26/2024 Milton Mckeon Re : Colonoscopy procedure for Barbie Fink Dear Mike This procedure was performed on Monday, August 26, 2024. My impressions and recommendations are as follows: Impressions : - Simple Endoscopic Score for Crohn's Disease: 10, mucosal inflammatory changes secondary to Crohn's disease. - No specimens collected. Recommendations : - Discharge patient to home. - Resume previous diet. - Continue present medications. - Await pathology results. - Repeat colonoscopy. - Return to GI office. My findings are described in the full procedure note, which is enclosed. If I can be of further assistance, please feel free to contact me at . Sincerely, Babar Hernández DO 08/26/2024 11:14:51 AM This report has been signed electronically. 08/26/24 1115 Date _ Babar Hernández DO Cosigner Signature: Date (if indicated) CC: Dr. Milton Mckeon MD; Babar Hernández DO ~ Date Dictated: 08/26/24 1041 Date Transcribed: Information And Data Architect Analyst: RF Signed [facility]03-24-2025 Consult note [facility] Medical Records Department [address] [place] [address] Pre-Anesthesia Evaluation 08/26/24 1002 MR#: [id number] Acct: [id number] Name: BARBIE FINK Rep #:[id number] : 1985 39 From: Roberto Carlos Rascon MD PCP: Dr. Milton Mckeon MD Status:REG S DC Y Race: C Location: [place] [address] ASA Classification* ASA Classification ASA Classification: 2 Assessment & Plan Anesthesia* Anesthesia Assessment Anesthesia Assessment: Discussed sedation and/or anesthesia options, risks, benefits, and alternatives with patient/parents/legal guardian/POA. Questions invited. The patient/parents/legal guardian/POA seems to understand and agrees to proceedwith anesthesia plan. Reviewed the physical assessment, medical history, allergy history and patient home medications list prior to surgery/procedure/anesthetic and documented any changes. Performed airway and anesthesia risk assessments. Anesthesia Type Anesthesia Type: MAC History Source History Obtained from:: Patient and Chart Anesthesia Focused Assessment* Temperature: 98.1 F Pulse Rate: 85 Blood Pressure: 140/97 Respiratory Rate: 16 Pulse Ox: 100 Oxygen Delivery Method: Room Air Airway Assessment Mouth opens: >3 cm Mallampati Score: III Teeth Condition: Chipped/Broken (Patient has a chipped right upper molar. Rest are tight.) Neck Range of motion (ROM): Full ROM Focused Labs Anesthesia Preop lab: CBC WBC 6.8 K/mm3 (4.4-11.0) 01/26/24 08:57 01/26/24 RBC 4.87 M/mm3 (4.6-6.2) 01/26/24 08:57 01/26/24 Hgb 11.2 g/dL (13.0-16.5) L 01/26/24 08:57 4 Hct 37.2 % (40-54) L 01/26/24 08:57 01/26/24 Plt Count 320 K/mm3 (150-450) 01/26/24 08:57 01/26/24 CHEMISTRY Potassium 3.6 mmol/L (3.5-5.1) 01/26/24 08:57 01/26/24 Sodium 139 mmol/L (136-145) 01/26/24 08:57 01/26/24 BUN 12 mg/dL (7-18) 01/26/24 08:57 01/26/24 Creatinine 1.10 mg/dL (0.70-1.30) 01/26/24 08:57 01/26/24 Glucose 112 mg/dL (74-106) H 01/26/24 08:57 01/26/24 COAG Pre-Assessment Diagnosis/Proposed Procedure Planned Operative Procedure(s): COLONOSCOPY Anesthesia History Anesthesia History - box strapper: Anesthesia History - box strapper Hx Hospitalization No 08/21/24 09:56 Any Problems With Anesthesia No 08/21/24 09:56 Cholinesterase deficiency No 08/21/24 09:56 You/Your Family Experience No 08/21/24 09:56 fever (hyperthermia) with Relationship Recent Exposure to Contagious No 08/26/24 09:43 Disease Does patient have nerve No 08/21/24 09:56 stimulator Patient instructed to have device shut off --Does patient have Pacemaker No 08/26/24 09:43 or ICD? When Was Last Pacemaker Check QUESTION #4 FULL TEXT: You/Your Family Experience fever (hyperthermia) with Anesthesia Last Oral Intake Last Oral intake: Last Oral Intake NPO since 07:00 08/26/24 09:43 Meds taken in AM with sips of water? Meds patient instructed to take am of surgery Any additional information?: Yes NPO since: 07:15 (Patient finished prep and some Sprite at 7:15 AM.) PONV PONV - box strapper: PONV - box strapper Female No 08/21/24 09:56 HX of Motion Sickness Yes 08/21/24 09:56 HX of N/V After Surgery No 08/21/24 09:56 Non-Smoker No 08/21/24 09:56 Duration of Surgery greater No 08/21/24 09:56 than 60 minutes Number of Risk Factors 1 08/21/24 09:56 PONV Score Low Risk 08/21/24 09:56 Height & Weight Height & Weight: Anesthesia: Height & Weight Height 6 ft 2 in 08/26/24 09:43 Weight: 131.9 kg 08/26/24 09:43 Body Mass Index (BMI) 37.3 08/26/24 09:43 Respiratory Assessment Respiratory Assessment - box strapper: Respiratory Tract Infection Hx - box strapper Hx Respiratory Tract Infection No 08/21/24 09:56 STOP Sleep Apnea STOP Sleep Apnea - box strapper: STOP Sleep Apnea - box strapper Hx Hypertension Yes: CONTROLLED ON MED 08/21/24 09:56 Hx Sleep Apnea No 08/21/24 09:56 CPAP BIPAP Do you snore loudly (louder No 08/21/24 09:56 than talking or can be heard Do you often feel tired/ No 08/21/24 09:56 fatigued/ sleepy during daytime? Has anyone observed you stop No 08/21/24 09:56 breathing during sleep? STOP Results Negative 08/21/24 09:56 QUESTION #5 FULL TEXT : Do you snore loudly (louder than talking or can be heard through closeddoors)? Tobacco Use History Tobacco Use History - box strapper: Tobacco Use History - box strapper Tobacco Use Smoking Status Current some day smoker 08/21/24 09:56 Hx Tobacco Use Yes 08/21/24 09:56 Years Smoking Packs Smoked per Day Smoking Cessation Date was within the last 15 years Hx Smoking Cessation Date Hx Smoking Cessation Counseling Hematologic Medial History Hematologic Hx - box strapper: Hematologic Medical Hx - mental health associate Hx of Blood Transfusion No 08/21/24 09:56 Hx of Transfusion in last 3 No 08/21/24 09:56 Months Date of Last Transfusion (if within last 3 months) Ever experience any problems No 08/21/24 09:56 with transfusion(s)? Specify any problems Hx of Preganancy in last 3 N/A 08/21/24 09:56 Months Nurse Filling Out Transfusion VCHRISTIN 08/21/24 09:56 & Questions: Date: 08/21/24 08/21/24 09:56 Time: 09:57 08/21/24 09:56 Patient unable to answer at this time (ie. confused, unrespo /Reproduction History /Reproductive History - box strapper: /Reproductive Hx- box strapper Hx Now Gestational Age (in weeks): EDC: Hx Hx Para Hx Section SAB PFSH Medical History Alcohol use History of ulceration Gastric reflux Chewing tobacco dependence HTN (hypertension) PLEVA (pityriasis lichenoides et varioliformis acuta) Diminished hearing Anxiety Crohn disease Home Medications ?Medication ?Instructions ?Recorded ?Last Taken ?Type hydrochlorothiazide 25 mg tablet 25 mg PO DAILY Unknown History lisinopril 20 mg tablet 20 mg PO DAILY 11/09/2208/04 History omeprazole 40 mg capsule,delayed 40 mg PO QDAY #60 cap s 07/23/24 Unknown Rx release Allergy/AdvReac Type Severity Reaction Status Date / Time amoxicillin Allergy Intermediate Other Verified 08/26/24 09:39 cefaclor (From Ceclor) Allergy Intermediate Other Verified 08/26/24 09:39 Family History Father Hypertension Surgical History History of esophagogastroduodenoscopy (EGD) Hx of colonoscopy Hx of wisdom tooth extraction H/O inguinal hernia repair S/P orchiectomy Social History Smoking Status: Never smoker Smokeless tobacco user: chewing tobacco alcohol intake: current Review of Systems (Anesthesia) ROS Narrative System reviewed and no additional complaints, except as documented. 08/26/24 1009 adam MORLEY> Date _ Roberto Carlos Rascon MD Cosigner Signature: Date CC: ~ Signed [facility]03-24-2025 History and physical note [facility] Medical Records Department [address] [place] [id number] History & Physical Exam 08/26/24 0947 MR#: [id number] Acct: [id number] Name: BARBIE FINK Rep #:[id number] : 1985 39 From: Babar Hernández DO PCP: Dr. Milton Mckeon MD Status:REG S DC Location: [place] [address] HPI - General General Date of Admission: 08/26/24 Date of Service: 08/26/24 Chief Complaint: crohns HPI Narrative BARBIE FINK, is a 39 M who presents for the evaluation of Crohn's disease. Biochemical 2017 A1c, celiac WNL. IBD ([facility]) Crohn?s +, CRPH3.68 Colonoscopy 6.17 TI shallow ulcerations, active colitis with focal cryptitis and glandular distortion; internal hemorrhoids. OV 8.24 f/u for Crohns. Feeling weel with no symtosm. Notes a flare in November 2023. Not on medication for CRohns *Declined daily medications, blood work, stool testing, no hx of MR enterography Biochemical work up 8..24; hgb L 11.2, ESR 33 H, iron 34 L, CRp 4.67, IBD panel indicating aggressive Crohn Colonoscopy scheduled but not completed OV 2.. Pt has been doing well since his last visit. He does not recall any flares of diarrhea. He is having 2-3 bm per day. He avoids foods that cause flares like lettuce and acidic foods. He hasa colonoscopy coming up in August 2024. [facility] Medical History Alcohol use History of ulceration Gastric reflux Chewing tobacco dependence HTN (hypertension) PLEVA (pityriasis lichenoides et varioliformis acuta) Diminished hearing Anxiety Crohn disease Home Medications ?Medication ?Instructions ?Recorded ?Last Taken ?Type hydrochlorothiazide 25 mg tablet 25 mg PO DAILY Unknown History lisinopril 20 mg tablet 20 mg PO DAILY 11/09/2208/04 History omeprazole 40 mg capsule,delayed 40 mg PO QDAY #60 cap s 07/23/24 Unknown Rx release Allergy/AdvReac Type Severity Reaction Status Date / Time amoxicillin Allergy Intermediate Other Verified 08/26/24 09:39 cefaclor (From Ceclor) Allergy Intermediate Other Verified 08/26/24 09:39 Family History Father Hypertension Surgical History History of esophagogastroduodenoscopy (EGD) Hx of colonoscopy Hx of wisdom tooth extraction H/O inguinal hernia repair S/P orchiectomy Social History Smoking Status: Never smoker Smokeless tobacco user: chewing tobacco alcohol intake: current ROS Constitutional Constitutional: Denies fatigue, fever(s), poor appetite, weight gain or weight loss Gastrointestinal Gastrointestinal: Denies belching, bloating, change in bowel habits, change in stool character, chewing difficulty, coffee ground emesis, constipation, cramping, diarrhea, dyspepsia, dysphagia, earlysatiety, excessive flatus, fecal incontinence, heartburn, hematemesis, hematochezia, hemorrhoids, loose stools, melena, nausea, odynophagia, rectal bleeding, tenesmus, vomiting or weight changes Vital Signs Vital Signs Vital Signs: 08/26/24 09:43 08/26/24 09:43 Temperature 98.1 F Temperature Source Temporal Pulse Rate 85 Respiratory Rate 16 Respiratory Pattern Normal Blood Pressure 140/97 H Blood Pressure Mean 111 Blood Pressure Source Monitor Blood Pressure Position Semi-Fowlers Blood Pressure Location Right Arm Pulse Ox 100 Oxygen Delivery Method Room Air Weight Weight: 290 lb 12.635 oz Body Mass Index (BMI) 37.3 Physical Exam Const alert, oriented x3, no apparent distress and healthy appearing General Appearance: cooperative GI normal to inspection, nondistended, normoactive bowel sounds, soft to palpation,non-tender and non-distended Percussion: normal to percussion Rectal Exam: deferred Assessment & Plan Assessment/Plan (1) Crohn disease: QUALIFIERS: Gastrointestinal tract location: small and large intestine Digestive disease complication type: with rectal bleeding Qualified Code(s): K50.811 - Crohn's disease of both small and large intestine with rectalbleeding PLAN: Assessment and Plan Assessment and Plan (1) Crohn disease: Status: Acute Qualifiers: Gastrointestinal tract location: small and large intestine Digestive disease complication type: with rectal bleeding Qualified Code(s): K50.811 - Crohn's disease of both small and large intestine with rectal bleeding Plan: Pt is a 39 yo male pt here today for f/u. Pt has a diagnosis of Crohns disease that is not treated medically due to his personal choice. He has not had a colonoscopy in over 5 years per his report. He is scheduled for one coming up lino month. Following this, will consider treatment for IBD. Blood work form 2023 showing inflammation in the blood. He has some heartburn lately. He will start omeprazole 40 mg daily. -Colonoscopy -Start omeprazole 40 mg daily -Consider treatment for Crohns Medications: New omeprazole 40 mg PO QDAY 60 caps 1RF 08/26/24 0950 [facility]if applicable): CC: Dr. Milton Mckeon MD; Babar Hernández, ~ Signed [facility]03-24-2025 [facility] Medical Records Department [address] [place] [address] History Physical Exam 08/26/24 0947 MR#: [id number] Acct: [id number] Name: BARBIE FINK Rep #: [id number] : 1985 39 From: Babar Hernández DO PCP: Dr. Milton Mckeon MD Status:REG [facility] Location: [place] [address] HPI - General General Date of Admission: 08/26/24 Date of Service: 08/26/24 Chief Complaint: crohns HPI Narrative BARBIE FINK, is a 39 M who presents for the evaluation of Crohn's disease. Biochemical 2016 A1c, celiac WNL. IBD ([facility]) Crohn???s +, CRP H3.68 Colonoscopy 6.26.17 TI shallow ulcerations, active colitis with focal cryptitis and glandular distortion; internal hemorrhoids. OV 8.23.24 f/u for Crohns. Feeling weel with no symtosm. Notes a flare in November 2023. Not on medication for CRohns *Declined daily medications, blood work, stool testing, no hx of MR enterography Biochemical work up 8.30.24; hgb L 11.2, ESR 33 H, iron 34 L, CRp 4.67, IBD panel indicating aggressive Crohn Colonoscopy scheduled but not completed OV 2..25 Pt has been doing well since his last visit. He does not recall any flares of diarrhea. He is having 2-3 bm per day. He avoids foods that cause flares like lettuce and acidic foods. He has a colonoscopy coming up in August 2024. [facility] Medical History Alcohol use History of ulceration Gastric reflux Chewing tobacco dependence HTN (hypertension) PLEVA (pityriasis lichenoides et varioliformis acuta) Diminished hearing Anxiety Crohn disease Home Medications ???Medication ???Instructions ???Recorded ???Last Taken ???Type hydrochlorothiazide 25 mg tablet 25 mg PO DAILY 11/09/22 Unknown Hi story lisinopril 20 mg tablet 20 mg PO DAILY 11/09/22 08/25/24 H istory omeprazole 40 mg capsule,delayed 40 mg PO QDAY #60 caps 07/23/24 Un known Rx release Allergy/AdvReac Type Severity Reaction Status Date / Time amoxicillin Allergy Intermediate Other Verified 08/26/24 09:39 cefaclor (From Ceclor) Allergy Intermediate Other Verified 08/26/24 09:39 Family History Father Hypertension Surgical History History of esophagogastroduodenoscopy (EGD) Hx of colonoscopy Hx of wisdom tooth extraction H/O inguinal hernia repair S/P orchiectomy Social History Smoking Status: Never smoker Smokeless tobacco user: chewing tobacco alcohol intake: current ROS Constitutional Constitutional: Denies fatigue, fever(s), poor appetite, weight gain or weight loss Gastrointestinal Gastrointestinal: Denies belching, bloating, change in bowel habits, change in stool character, chewing difficulty, coffee ground emesis, constipation, cramping, diarrhea, dyspepsia, dysphagia, early satiety, excessive flatus, fecal incontinence, heartburn, hematemesis, hematochezia, hemorrhoids, loose stools, melena, nausea, odynophagia, rectal bleeding, tenesmus, vomiting or weight changes Vital Signs Vital Signs Vital Signs: 08/26/24 09:43 08/26/24 09:43 Temperature 98.1 F Temperature Source Temporal Pulse Rate 85 Respiratory Rate 16 Respiratory Pattern Normal Blood Pressure 140/97 H Blood Pressure Mean 111 Blood Pressure Source Monitor Blood Pressure Position Semi-Fowlers Blood Pressure Location Right Arm Pulse Ox 100 Oxygen Delivery Method Room Air Weight Weight: 290 lb 12.635 oz Body Mass Index (BMI) 37.3 Physical Exam Const alert, oriented x3, no apparent distress and healthy appearing General Appearance: cooperative GI normal to inspection, nondistended, normoactive bowel sounds, soft to palpation, non-tender and non- distended Percussion: normal to percussion Rectal Exam: deferred Assessment Plan Assessment/Plan (1) Crohn disease: QUALIFIERS: Gastrointestinal tract location: small and large intestine Digestive disease complication type: with rectal bleeding Qualified Code(s): K50.811 - Crohn's disease of both small and large intestine with rectal bleeding PLAN: Assessment and Plan Assessment and Plan (1) Crohn disease: Status: Acute Qualifiers: Gastrointestinal tract location: small and large intestine Digestive disease complication type: with rectal bleeding Qualified Code(s): K50.811 - Crohn's disease of both small and large intestine with rectal bleeding Plan: Pt is a 39 yo male pt here today for f/u. Pt has a diagnosis of Crohns disease that is not treated medically due to his personal choice. He has not had a colonoscopy in over 5 years per his report. He is scheduled for one coming up in a month. Following this, will co (more content not included)...[facility]2025 Evaluation note* Diagnosis Onset Date Resolution Status Admit Date Crohn disease acute July 232024 3:44pm Crohn disease acute August 26, 2024 9:21am [facility] Work Phone: [phone]) 610-969208-15-2024 Telephone encounter Note* Telephone Encounter - Tamy Arreaga APRN.CNP - 01/18/2024 5:33 PM EDT The following approved medication requests have been transmitted electronically. Requested Prescriptions Pending Prescriptions Disp Refills hydroCHLOROthiazide 25 mg tablet 30 tablet 0 Sig: Take 1 tablet by mouth once daily. lisinopril (ZESTRIL) 20 mg tablet 30 tablet 0 Sig: Take 1 tablet by mouth once daily. Tamy Arreaga APRN.CNP [facility]08-15-2024 Miscellaneous Notes* Telephone Encounter - Tamy Arreaga APRN.CNP - 01/18/2024 5:33 PM EDT The following approved medication requests have been transmitted electronically. Requested Prescriptions Pending Prescriptions Disp Refills hydroCHLOROthiazide 25 mg tablet 30 tablet 0 Sig: Take 1 tablet by mouth once daily. lisinopril (ZESTRIL) 20 mg tablet 30 tablet 0 Sig: Take 1 tablet by mouth once daily. Tamy Arreaga APRN.CNP * Telephone Encounter - Marla Holguin - 01/18/2024 1:44 PM EDT Prescription Refill Information The patient has been identified by name and date of : Yes Caregiver verified no other encounters exist for this prescription request: Yes Caregiver confirmed with patient/requestor that no other refills are due, in the near future, with this provider at this time: Yes The last office visit in the department: 06-12-23 Does the patient have a future office visit with this provider/department: No Requested Prescriptions Pending Prescriptions Disp Refills hydroCHLOROthiazide 25 mg tablet 90 tablet 1 Sig: Take 1 tablet by mouth once daily. lisinopril (ZESTRIL) 20 mg tablet 90 tablet 1 Sig: Take 1 tablet by mouth once daily. Marla Holguin January 18, 2024 1:45 PM [facility] Telephone encounter Note * Telephone Encounter - Marla Holguin - 01/18/2024 1:44 PM EDT Prescription Refill Information The patient has been identified by name and date of : Yes Caregiver verified no other encounters exist for this prescription request: Yes Caregiver confirmed with patient/requestor that no other refills are due, in the near future, with this provider at this time: Yes The last office visit in the department: 06-12-23 Does the patient have a future office visit with this provider/department: No Requested Prescriptions Pending Prescriptions Disp Refills hydroCHLOROthiazide 25 mg tablet 90 tablet 1 Sig: Take 1 tablet by mouth once daily. lisinopril (ZESTRIL) 20 mg tablet 90 tablet 1 Sig: Take 1 tablet by mouth once daily. Marla Holguin January 18, 2024 1:45 PM [facility]06-30-2023 Instructions* Patient Instructions* Marah Montalvo APRN.CNP - 12/02/2022 9:15 AM EDT Continue the same medications. Recheck in 6 months. documented in [facility]06[facility] History of Present illness Narrative* Marah Montalvo APRN.CNP - 12/02/2022 9:04 AM EDT This is a 37 year old male who presents today with: Patient presents with: Follow Up: 1 month HISTORY OF PRESENT ILLNESS: Barbie Fink is a 37 year old male. Patient presents with: Follow Up: 1 month Pt presents today for 1 month follow-up. HTN: Patient is compliant with meds Yes Denies side effects: Yes. Chest pain: Yes. Dyspnea: Yes. Edema: Yes. Palpitations: Yes. Syncope: Yes. Headache: Yes. Dizziness: Yes. Anxiety. Happy with prozac. Wouldn't change anything. PAST MEDICAL HISTORY: PAST MEDICAL HISTORY Diagnosis Date Anxiety reaction over dental visits Diminished hearing left ear Generalized anxiety disorder Anxiety, Generalized Left wrist fracture 1993 PLEVA (pityriasis lichenoides et varioliformis acuta) PMH - PAST MEDICAL HISTORY OF undescended rt testicle s/p orchiectomy age 7 y/o Ruptured tympanic membrane left age 54 years old Unspecified essential hypertension Varicella without mention of complication Chickenpox PAST SURGICAL HISTORY Procedure Laterality Date PAST SURGICAL HISTORY OF ing hernia repair at 1 month and age 7 y/o PAST SURGICAL HISTORY OF wisdom teeth extraction ALLERGIES Amoxilcillin [Other] and Ceclor [Cefaclor] MEDICATIONS Current Outpatient Medications Medication Sig FLUoxetine (PROZAC) 20 mg capsule Take 1 capsule by mouth once daily. hydroCHLOROthiazide 25 mg tablet Take 1 tablet by mouth once daily. lisinopril (ZESTRIL) 20 mg tablet Take 1 tablet by mouth once daily. B.breve-L.acid-L.rham-S.thermo (PROBIOTIC) 3 billion cell chew Take by mouth. multivit-min/vit C/herb no.124 (AIRBORNE GUMMY ORAL) Take by mouth. No current facility-administered medications for this visit. FAMILY HISTORY Problem Relation Age of Onset Hypertension Father Hypertension Maternal Grandmother Cancer Maternal Grandfather leukemia Coronary Artery Disease Paternal Grandfather [place] at 53 Hypertension Paternal Grandfather Stroke Paternal Grandmother other (dementia) Paternal Grandmother Asthma Paternal Uncle Asthma Paternal Aunt Hypertension Paternal Uncle Hypertension Paternal Aunt Social History Tobacco Use Smoking status: Never Smokeless tobacco: Current Types: Chew Tobacco comments: Chewing tobacco since age 24 y/o on a daily basis Substance Use Topics Alcohol use: Yes Alcohol/week: 5.0 standard drinks Types: 2 Cans of Beer (12oz) per week Comment: socially Drug use: No EXAM: BP 120/80 Pulse 76 Temp 36.1 C (97 F) (Left Tympanic) Resp 16 Wt (!) 139.7 kg (308 lb) PHYSICAL EXAM: General Appearance: Well appearing, alert, in no acute distress, well-hydrated, well nourished.. Skin: Skin color, texture, turgor normal, no suspicious rashes or lesions. Head: Normocephalic, no masses, lesions, tenderness or abnormalities. Eyes: Anicteric sclera. Extraocular movements are intact. . Lungs: Lungs clear to auscultation. No wheezing, rhonchi, rales.. Heart: RRR without murmur, gallop, or rubs. No ectopy. Neurologic: Gait normal. ASSESSMENT/PLAN: 1. Essential hypertension - ICD9: 401.9, ICD10: I10 (primary diagnosis) - Controlled - Continue current medications - Recommend home blood pressure monitoring, to bring results to next visit - Encouraged sodium restriction, DASH or Mediterranean diet - Recommend regular aerobic exercise 2. Anxiety - ICD9: 300.00, ICD10: F41.9 Happy with current regimen. Continue without change. Recheck in 6 months. - FLUOXETINE 20 MG CAPSULE Discussed treatment plan and patient voices understanding. Patient's questions answered appropriately. Medications and potential side effects were discussed and patient voices understanding. Return to the office as scheduled or as needed for worsening/no improvement. Marah Montalvo APRN.SNOW documented in this encounterThe [facility]08-[facility]-2022 Miscellaneous Notes* Telephone Encounter - Evangelina Vargas Ma - 01/07/2022 9:39 AM EDT Last office visit: 11/09/20 F/u scheduled: none Evangelina Vargas Ma * Telephone Encounter - Marisol Mcdermott - 01/07/2022 9:20 AM EDT Patient has been identified by name and date of : Yes Pending Prescriptions Disp Refills HYDROCHLOROTHIAZIDE 25 MG TABLET 90 tablet 0 Sig: Take 1 tablet by mouth once daily. JANNETTE: No LISINOPRIL 20 MG TABLET 90 tablet 0 Sig: Take 1 tablet by mouth once daily. JANNETTE: No ESCITALOPRAM 10 MG TABLET 30 tablet 11 Sig: Take 1 tablet by mouth once daily. JANNETTE: No RX INSTRUCTIONS: Patient is out of medication Patient aware RX will be sent to pharmacy. No need to notify patient. Marisol Mcdermott documented [facility]11-[facility] History of Past illness Narrative* Problem Noted Date Resolved Date Routine general medical exam ination at a health care facility 04/30/2011 01/25/2012 Overview: 04/30/2011, establish care Fertility testing 07/30/2009 01/25/2012 documented as of this encounter (statuses as of 01/07/2022) [facility] History of Past illness Narrative* Problem Noted Date Resolved Date Routine general medical exam ination at a health care facility 04/30/2011 01/25/2012 Overview: 04/30/2011, establish care Fertility testing 07/30/2009 01/25/2012 documented as of this encounter (statuses as of 12/03/2022) [facility] Author Yousuf Armando [facility] Note Date/Time August 26, 2024 11: 16[facility] Medical Records Department [address] [place] [address] Anesthesia Postop Eval I 08/26/24 1115 MR#: [id number] Acct: [id number] Name: BARBIE FINK Rep #:[id number] : 1985 39 From: Yousuf Armando PCP: Dr. Milton Mckeon MD Status:REG S DC Y Race: C Location: [place] [address] Anesthesia: Postop Eval I Current Vital Signs Temperature: 97.4 F Pulse Rate: 74 Blood Pressure: 107/63 Respiratory Rate: 16 Pulse Ox: 94 Oxygen Delivery Method: Room Air Assessment Airway patent: Yes Spontaneous unlabored respirations: Yes Mental status: Asleep nausea: No Vomiting: No Anesthesia Complication: No Fluid Hydration Crystalloid volume administer (ml): 50 Total IV fluid infused: 50 Progress Note Anesthesia document: Postop Eval 1 completed: Yes 08/26/24 1116 <Electronically signed by Yousuf Armando > Date _ Yousuf Marcosigner Signature: Date CC: ~ Signed [facility] Work Phone: Evaluation note* Diagnosis Essential hypertension Unspecified essential hypertension Anxiety Anxiety state, unspecified documented in this encounter [facility]* Diagnosis Essential hypertension- Primary Unspecified essential hypertension Anxiety Anxiety state, unspecified [facility]* Diagnosis Essential hypertension Unspecified essential hypertension documented in this encounter [facility] note* Diagnosis Essential hypertension Unspecified essential hypertension documented [facility] this [facility]* Diagnosis Routine physical examination- Primary Routine general medical examination at a health care facility Essential hypertension Unspecified essential hypertension Elevated LDL cholesterol level Pure hypercholesterolemia Crohn's disease without complication, unspecified gastrointestinal tract location (HCC) Gastro-esophageal reflux disease without esophagitis Esophageal reflux Dry cough Cough documented in this encounter [facility] for referral (narrative)No reason for referral information availableWSouthern [facility] Work Phone: Chief Complaint and Reason for Visit Chief Complaint Admit Date 6 M FU July 23, 2024 3:44pm Reason for Visit Admit Date Crohn disease July 23, 2024 3:44pm Crohn disease August 26, 2024 9:2 1am Chief Complaint Admit Date Test Result September 10, 2024 4:02 pm 3 M FU December 13, 2024 2:59 pm Reason for Visit Admit Date Crohn disease August 26, 2024 9:2 1am Crohn disease September 10, 2024 4:02 pm Crohn disease December 13, 2024 2:59 pm Chief Complaint Admit Date Test Result September 10, 2024 4:02 pm 3 M FU December 13, 2024 2:59 pm INT LAB ORDERS December 13, 2024 3:27 pm Advance Directives No Advanced Directives Records Found Advance Directive Response Recorded Date/ Time Living Will Yes August 21, 2024 9:56am Do you have a Healthcare Power of Industrial Truck Driver? Yes August 21, 2024 9:56am Name of Medical Power of Industrial Truck Driver KATINA FINK August 21, 2024 9:56am Summary Purpose Family History No Family History Records Found Additional Source Comments Source Comments (unrecognize d section and content) In the event this informatio n is protected by the Federal Confidentiality of Alcohol and Drug Abuse Patient Records regulations: The Federal rules restrict any use of the information to criminally investigate or prosecute any alcohol or drug abuse patient.[facility] the event this information is protected by the Federal Confidentiality of Alcohol and Drug Abuse Patient Records regulations: The Federal rules restrict any use of the information to criminally investigate or prosecute any alcohol or drug abuse patient.[facility] Hospital[facility] the event this information is protected by the Federal Confidentiality of Alcohol and Drug Abuse Patient Records regulations: The Federal rules restrict any use of the information to criminally investigate or prosecute any alcohol or drug abuse patient.[facility] HospitalIn the event this information is protected by the Federal Confidentiality of Alcohol and Drug Abuse Patient Records regulations: The Federal rules restrict any use of the information to criminally investigate or prosecute any alcohol or drug abuse patient.[facility] Hospital[facility] the event this information is protected by the Federal Confidentiality of Alcohol and Drug Abuse Patient Records regulations: The Federal rules restrict any use of the information to criminally investigate or prosecute any alcohol or drug abuse patient.[facility] Reason for Visit (unrecogniz ed section and content) Reason Onset Date Comments Refill Request 01/07/2022 Reason Comments Follow Up 1 month Reason Onset Date Comments Refill Request 01/18/2024 Reason Onset Date Comments Refill Request 09/10/2024 Reason Comments Yearly Exam Care Teams (unrecognized sec tion and content) Driftman Relationship Specialty Start Date End Date Milton Mckeon MD [address] [place], [place] [id number] PCP - General Family Practice 04/10/13 Driftman Relationship Specialty Start Date End Date Milton Mckeon MD [address] [place] [address] PCP - General Family Medicine 04/10/13 Driftman Relationship Specialty Start Date End Date Milton Mckeon MD [address] [place], [place] [id number] PCP - General Family Medicine 04/10/13 Team Status: Active Member Role Status Dates Dr. Milton Mckeon MD Primary Care Provider Active Team Status: Inactive Member Role Status Dates Dr. Milton Mckeon MD Primary Care Provider Active Start: July 23, 2024 End: July 23, 2024 Dr. Milton Mckeon MD Referring Provider Active Start: July 23, 2024 End: July 23, 2024 GARRY Guerrero Attending Provider Active Start: July 23, 2024 End: July 23, 2024 Team Status: Inactive Member Role Status Dates Dr. Milton Mckeon MD Primary Care Provider Active Start: August 26, 2024 End: August 26, 2024 Dr. Milton Mckeon MD Referring Provider Active Start: August 26, 2024 End: August 26, 2024 Dr. Babar Hernández DO Attending Provider Active Start: August 26, 2024 End: August 26, 2024 Team Status: Active Member Role Status Dates Dr. Milton Mckeon MD Primary Care Provider Active Start: August 26, 2024 Dr. Milton Mckeon MD Referring Provider Active Start: August 26, 2024 Dr. Babar Hernández DO Attending Provider Active Start: August 26, 2024 Dr. Babar Hernández DO Other Provider Active St art: August 26, 2024 Driftman Relationship Specialty Start Date End Date Milton Mckeon MD [address] [place], [place] [id number] PCP - General Family Medicine 04/10/13 Marah Montalvo, ESCROW MANAGER.MANAGER CABLE [address] [place], [place] [id number] [facility] Family [facility] 05/13/24 Tamy Arreaga, ESCROW MANAGER.MANAGER CABLE [address] [place], [place] [id number] [facility] 05/13/24 Driftman Relationship Specialty Start Date End Date Milton Mckeon MD [address] [place], [place] [id number] PCP - General Family Medicine 04/10/13 Marah Montalvo APRN.MANAGER CABLE [address] [place], [place] [id number] [employer] [facility] 05/13/24 Tamy Arreaga ESCROW MANAGER.MANAGER CABLE [address] [place], [place] [id number] [facility] 05/13/24 Team Status: Active Member Role/Relationship Status Dates Dr. Milton Mckeon MD Primary Care Provider Active Team Status: Inactive Member Role/Relationship Status Dates Dr. Milton Mckeon MD Primary Care Provider Active Start: August 26, 2024 End: August 26, 2024 Dr. Milton Mckeon MD Referring Provider Active Start: August 26, 2024 End: August 26, 2024 Dr. Babar Hernández DO Attending Provider Active Start: August 26, 2024 End: August 26, 2024 Team Status: Active Member Role/Relationship Status Dates Dr. Milton Mckeon MD Primary Care Provider Active Start: August 26, 2024 Dr. Milton Mckeon MD Referring Provider Active Start: August 26, 2024 Dr. Babar Hernández DO Attending Provider Active Start: August 26, 2024 Dr. Babar Hernández DO Other Provider Active St art: August 26, 2024 Team Status: Inactive Member Role/Relationship Status Dates Dr. Milton Mckeon MD Primary Care Provider Active Start: September 10, 2024 End: September 10, 2024 Dr. Milton Mckeon MD Referring Provider Active Start: September 10, 2024 End: September 10, 2024 GARRY Guerrero Attending Provider Active Start: September 10, 2024 End: September 10, 2024 Team Status: Inactive Member Role/Relationship Status Dates Dr. Milton Mckeon MD Primary Care Provider Active Start: December 13, 2024 End: December 13, 2024 Dr. Milton Mckeon MD Referring Provider Active Start: December 13, 2024 End: December 13, 2024 GARRY Guerrero Attending Provider Active Start: December 13, 2024 End: December 13, 2024 Team Status: Inactive Member Role/Relationship Status Dates Dr. Milton Mckeon MD Primary Care Provider Active Start: December 13, 2024 End: December 13, 2024 GARRY Guerrero Attending Provider Active Start: December 13, 2024 End: December 13, 2024 GARRY Guerrero Referring Provider Active Start: December 13, 2024 End: December 13, 2024 (unrecognized sect ion and content) No Status Records FoundNo Status Records Found INFORMATION SOURCE (unrecogn ized section and content) DATE CREATED AUTHOR 09/28/2024 [facility] DATE CREATED AUTHOR AUTHOR'S ORGANIZ ATION 12/23/2024 [facility] FOR RECORDS PERTAINING TO PATIENTS WHO ARE OR HAVE BEEN ENROLLED IN A CHEMICAL DEPENDENCY/SUBSTANCEABUSE PROGRAM, SOME INFORMATION MAY BE OMITTED. This clinical summary was aggregated from multiple sources. Caution should be exercised in using it in the provision of clinical care. This summary normalizes information from multiple sources, and as a consequence, information in this document may materially change the coding, format and clinical context of patient data. In addition, data may be omitted in some cases. CLINICAL DECISIONS SHOULD BE BASED ON THE PRIMARY CLINICAL RECORDS. [employer] provides no warranty or guarantee of the accuracy or completeness of information in this document.
[2025-01-16] MEDS: 0.9% Normal Saline (1000mL) 1,000 ML 1000 ML IV (07:12)
[2025-01-16 07:35] LABS: Hematocrit 29.8 % (40-54); Hemoglobin 9.2 g/dL (13.0-16.5); Immature Granulocytes Count 0.140 X10^3/uL (0.0-0.0); Mean Corp Hgb Conc 30.9 g/dL (32-36); Mean Corpuscular Volume 74.9 fL (80-94); Mean Platelet Vol. 10.3 fl (6.2-12.0); NRBC Flagged by Analyzer 0 % (0-5); Platelet Count 352 K/mm3 (150-450); RBC Distribution Width CV 13.7 % (11.6-14.6); RBC Distribution Width SD 36.9 fl (35.1-43.9); Red Blood Count 3.98 M/mm3 (4.6-6.2); White Blood Count 18.9 K/mm3 (4.4-11.0)
[2025-01-16 07:58] LABS: AST(SGOT) 26 U/L (<=37); Alanine Aminotransfer ALT/SGPT 16 U/L (<=46); Albumin, Serum 3.3 g/dL (3.5-5.0); Alkaline Phosphatase 147 U/L (40-129); Anion Gap 16 (5-15); BUN 19 mg/dL (4-19); BUN/Creat Ratio 12.8 RATIO (10-20); Calcium,Total 8.7 mg/dL (7.6-11.0); Carbon Dioxide 24.7 mmol/L (21.0-32.0); Chloride 94 mmol/L (98-108); Estimated Creatinine Clearance 91.72 ml/min (50-250); Globulin 3.6 g/dL (2.2-4.2); Glucose 176 mg/dL (70-99); Potassium 3.0 mmol/L (3.3-5.1)
[2025-01-16 08:58] LABS: Mucous, Urine 0 SEEN /hpf (<or=2+); Red Blood Cells-Urine 0 SEEN /hpf (0-5); Squamous Epithelial Cells - UA 0 SEEN /hpf (0-5)
[2025-01-16 08:58] LABS: Prothrombin Time (Protime)PT. 15.6 SECONDS (11.7-14.9)
[2025-01-16 08:59] LABS: Partial Thromboplast Time 39.3 Seconds (24.1-36.2)
[2025-01-16 09:18] LABS: Color, Urine Yellow (Yellow); Glucose, Dipstick Normal (Normal); Ketone-Dipstick Negative (Negative); Leukocyte Esterase-Dipstick Negative /ul (Negative); Nitrite-Dipstick Negative (Negative); Occult Blood-Urine Negative /ul (Negative); Protein-Dipstick 15 mg/dl (Negative); Specific Gravity, Urine 1.005 (1.002-1.030); Urine Bilirubin Dipstick Negative (Negative)
[2025-01-16] MEDS: metroNIDAZOLE 500 MG/100 ML BAG 100 MG IV ×2 (10:30→18:21)
[2025-01-16] MEDS: 0.9% Normal Saline (1000mL) 1,000 ML 100 ML IV ×2 (11:33→22:05)
--- NOTE | 2025-01-16 12:51 | PCM.HP.STD ---
HPI - General General Date of Admission: 01/16/25 HPI Narrative BARBIE FINK, is a 39 M who presents to the hospital with fevers and chills and a leukocytosis. He also had a episode of syncope or near syncope today. CT scan shows diffuse ileitis with no obvious signs of colitis currently though he had a colonoscopy several months ago that demonstrated significant Crohn's burden despite being on mesalamine. With his leukocytosis he was started on Cipro and Flagyl in the emergency room and blood cultures are pending. GI was able to order stool studies and blood cultures were obtained in the ER. He denies any diarrhea or melena. He endorses some left lower quadrant abdominal pain but nothing that he feels is significant and now that his fever is broken he says that he feels much better. [facility] Medical History Alcohol use History of ulceration Gastric reflux Chewing tobacco dependence HTN (hypertension) PLEVA (pityriasis lichenoides et varioliformis acuta) Diminished hearing Anxiety Crohn disease Home Medications ?Medication ?Instructions ?Recorded ?Last Taken ?Type hydrochlorothiazide 25 mg tablet 25 mg PO DAILY 11/09/22 Unknown History lisinopril 20 mg tablet 20 mg PO DAILY 11/09/22 08/25/24 History omeprazole 40 mg capsule,delayed 40 mg PO QDAY #30 caps 12/13/24 Unknown Rx release Skyrizi 600 mg IV .COMPLEX #10 mL 01/03/25 Unknown Rx mesalamine 1.2 gram tablet,delayed 2.4 g PO BID 01/16/25 Unknown History release (Lialda) Allergy/AdvReac Type Severity Reaction Status Date / Time amoxicillin Allergy Intermediate Other Verified 01/16/25 06:21 cefaclor (From Ceclor) Allergy Intermediate Other Verified 12/13/24 15:07 Family History Father Hypertension Surgical History History of esophagogastroduodenoscopy (EGD) Hx of colonoscopy Hx of wisdom tooth extraction H/O inguinal hernia repair S/P orchiectomy Social History Smoking Status: Never smoker Smokeless tobacco user: chewing tobacco alcohol intake: current ROS Constitutional Constitutional: Reports fever(s); Denies chills, fatigue or malaise Eyes Eyes: Denies blurry vision ENT HEENT: Denies headache(s) or nasal discharge Cardiovascular Cardiovascular: Denies chest pain, dyspnea on exertion or syncope Respiratory/Chest Respiratory/Chest: Denies cough, shortness of breath at rest or shortness of breath with exertion Gastrointestinal Gastrointestinal: Reports abdominal pain; Denies constipation, diarrhea, nausea or vomiting Genitourinary Genitourinary: Denies dysuria Neurologic Neurologic: Denies focal weakness, numbness or tremor(s) Psychiatric Psychiatric: Denies anxiety or depression Vital Signs Vital Signs Vital Signs: 01/16/25 06:22 01/16/25 07:20 01/16/25 08:00 Temperature 101.0 F H 98.1 F 99.4 F H Temperature Source Oral Oral Oral Pulse Rate 103 H 88 89 Pulse Rate [Lying] Pulse Rate [Sitting (for 1 minute prior to obtaining)] Pulse Rate [Standing (for 1 minute prior to obtaining)] Respiratory Rate 30 H 23 H 18 Blood Pressure 137/66 H 125/62 H 133/89 H Blood Pressure [Lying] Blood Pressure [Sitting (for 1 minute prior to obtaining)] Blood Pressure [Standing (for 1 minute prior to obtaining)] Blood Pressure Mean 89 83 103 Blood Pressure Mean [Lying] Blood Pressure Mean [Sitting (for 1 minute prior to obtaining)] Blood Pressure Mean [Standing (for 1 minute prior to obtaining)] Pulse Ox 97 97 97 Oxygen Delivery Method Room Air Room Air Room Air 01/16/25 08:46 01/16/25 09:00 01/16/25 10:44 Temperature 99.1 F 99.7 F H Temperature Source Oral Pulse Rate 81 88 Pulse Rate [Lying] 79 Pulse Rate [Sitting (for 1 minute prior to obtaining)] 81 Pulse Rate [Standing (for 1 minute prior to obtaining)] 90 Respiratory Rate 16 14 Blood Pressure 130/73 H 134/76 H Blood Pressure [Lying] 122/65 H Blood Pressure [Sitting (for 1 minute prior to obtaining)] 129/74 H Blood Pressure [Standing (for 1 minute prior to obtaining)] 124/69 H Blood Pressure Mean 92 95 Blood Pressure Mean [Lying] 84 Blood Pressure Mean [Sitting (for 1 minute prior to obtaining)] 92 Blood Pressure Mean [Standing (for 1 minute prior to obtaining)] 87 Pulse Ox 98 97 Oxygen Delivery Method Room Air 01/16/25 10:50 Temperature Temperature Source Pulse Rate Pulse Rate [Lying] Pulse Rate [Sitting (for 1 minute prior to obtaining)] Pulse Rate [Standing (for 1 minute prior to obtaining)] Respiratory Rate Blood Pressure Blood Pressure [Lying] Blood Pressure [Sitting (for 1 minute prior to obtaining)] Blood Pressure [Standing (for 1 minute prior to obtaining)] Blood Pressure Mean Blood Pressure Mean [Lying] Blood Pressure Mean [Sitting (for 1 minute prior to obtaining)] Blood Pressure Mean [Standing (for 1 minute prior to obtaining)] Pulse Ox Oxygen Delivery Method Room Air Weight Weight: 274 lb 8 oz Body Mass Index (BMI) 35.2 Physical Exam Narrative General: Alert, Oriented x3, Cooperative, No apparent distress HEENT: Atraumatic, PERRLA, EOMI, Normocephalic Oral: Moist Mucosa Neck: Supple, No JVD Lungs: Diminished, Normal air movement, No rhonchi, No wheeze, No rales Cardiovascular: Regular rate, Regular Rhythm, Normal S1, Normal S2, No murmurs Abdomen: Soft, mildly tender to palpation left lower quadrant, Non-Distended, No Hepato-splenomegaly Extremities: No edema, Capillary Refill Less than 3 Seconds Skin: No rashes, No breakdown Musculoskeletal: No Tenderness to Palpation of Joints or Extremities Neurological: No focal neurological deficits, moves all extremities Psych/Mental Status: Normal Affect, Appropriate Results Lab / Micro Data 01/16/25 07:18 01/16/25 07:18 Labs: Laboratory Results - last 24 hr 01/16/25 07:18: WBC 18.9 H, RBC 3.98 L, Hgb 9.2 L, Hct 29.8 L, MCV 74.9 L, MCH 23.1 L, MCHC 30.9 L, RDW Std Deviation 36.9, RDW Coeff of [place] 13.7, Plt Count 352, MPV 10.3, Immature Gran % (Auto) 0.700, Neut % (Auto) 86.9 H, Lymph % (Auto) 5.5 L, [place] % (Auto) 6.3, Eos % (Auto) 0.4, Baso % (Auto) 0.2, Absolute Neuts (auto) 16.4 H, Absolute Lymphs (auto) 1.03, Nucleated RBC % 0, ESR 65 H, PT 15.6 H, INR 1.2, APTT 39.3 H, Sodium 135, Potassium 3.0 L, Chloride 94 L, Carbon Dioxide 24.7, Anion Gap 16 H, BUN 19, Creatinine 1.50 H, Estim Creat Clear Calc 91.72, Est GFR (MDRD) Non-Af 60, BUN/Creatinine Ratio 12.8, Glucose 176 H, Lactic Acid 1.6, Calcium 8.7, Total Bilirubin 1.97 H, AST 26, ALT 16, Alkaline Phosphatase 147 H, Total Protein 6.9, Albumin 3.3 L, Globulin 3.6, Albumin/Globulin Ratio 0.9 01/16/25 08:54: Urine Color Yellow, Urine Clarity Clear, Urine pH 6.0, Ur Specific [place] 1.005, Urine Protein 15 H, Urine Glucose (UA) Normal, Urine Ketones Negative, Urine Occult Blood Negative, Urine Nitrite Negative, Urine Bilirubin Negative, Urine Urobilinogen 1 H, Ur Leukocyte Esterase Negative, Urine RBC 0 SEEN, Urine WBC 0 SEEN, Ur Squamous Epith Cells 0 SEEN, Urine Bacteria 0 SEEN, Urine Mucus 0 SEEN Imaging Radiology Impression Abdomen/Pelvis CT 01/16/25 06:54 IMPRESSION: Circumferential wall thickening of several adjacent small bowel loops in the distal ileum with increased markings in the surrounding peritoneal fat. Mildly enlarged small lymph nodes in the deep mesenteric fat. Enteritis should be ruled out. Mild splenomegaly. Reading Location: [facility]1 Chest X-Ray 01/16/25 07:05 IMPRESSION: NO ACUTE FINDINGS. Reading Location: [facility]IR[facility]1 Assessment & Plan Assessment/Plan (1) Exacerbation of Crohn's disease: PLAN: Plan 1. Ileitis in the setting of a Crohn's flare/hypokalemia ? Appreciate GIs assistance ? Continue with antibiotics ? Stool cultures and blood cultures are pending ? He did receive dose of steroids in the ER, will hold off of continuous steroids until culture data is obtained and negative ? Will likely need steroids on discharge pending outpatient follow-up with gastroenterology to steffi Pires as it appears that he has failed mesalamine ? Will recheck his potassium in the morning along with magnesium and phosphorus 2. Essential HTN ? Blood pressures are stable ? Will monitor and add as needed's if necessary ? Currently will hold his hydrochlorothiazide and lisinopril as he does have a slight creatinine elevation that does not quite meet the threshold for an NIURKA 3. GERD ? Stable ? Continue with Protonix DVT: Lovenox 75 minutes was spent on direct patient care, including documentation as well as chart review and collaboration with colleagues Charges/Coding Visit Charges Inpatient E&M: 99497 Init Hosp L3
[2025-01-16 13:06] LABS: CRP 188.00 mg/L (0.0-3.0)
--- NOTE | 2025-01-16 13:10 | EX.PCM.CON.G ---
HPI Consult Data Date of Consult: 01/16/25 HPI Narrative Reason for Consultation: Crohns disease HPI Narrative: BARBIE FINK, is a 39-year-old male with a history of Crohn's disease presenting with a fever, increased white blood cell count (WBC), and abdominal pain. He describes the pain as cramping and located in the lower right abdomen, which is a common location for pain in individuals with Crohn's, particularly those with ileitis and ileocolitis. He also reports diarrhea and a general feeling of being unwell. He denies any other symptoms at this time. The patient has been compliant with his Crohn's medications and hasn't made any recent dietary changes.? He has been on 5-ASA drugs. He has not been on steroids. He was scheduled to be started on Skyrizi therapy. In the emergency room he was discovered to be afebrile with a temperature of 101.4. He denied any sick contacts. He recently underwent colonoscopy which show active ileitis and colitis. CT/Abdomen/Pelvis W IV Cont ONLY IMPRESSION: Circumferential wall thickening of several adjacent small bowel loops in the distal ileum with increased markings in the surrounding peritoneal fat. Mildly enlarged small lymph nodes in the deep mesenteric fat. Enteritis should be ruled out. Mild splenomegaly. He was started on ciprofloxacin and Flagyl in the ED and he was given 1 dose of Solu-Medrol 125 mg PFSH Medical History Alcohol use History of ulceration Gastric reflux Chewing tobacco dependence HTN (hypertension) PLEVA (pityriasis lichenoides et varioliformis acuta) Diminished hearing Anxiety Crohn disease Home Medications ?Medication ?Instructions ?Recorded ?Last Taken ?Type hydrochlorothiazide 25 mg tablet 25 mg PO DAILY 11/09/22 Unknown History lisinopril 20 mg tablet 20 mg PO DAILY 11/09/22 08/25/24 History omeprazole 40 mg capsule,delayed 40 mg PO QDAY #30 caps 12/13/24 Unknown Rx release Skyrizi 600 mg IV .COMPLEX #10 mL 01/03/25 Unknown Rx mesalamine 1.2 gram tablet,delayed 2.4 g PO BID 01/16/25 Unknown History release (Lialda) Allergy/AdvReac Type Severity Reaction Status Date / Time amoxicillin Allergy Intermediate Other Verified 01/16/25 06:21 cefaclor (From Ceclor) Allergy Intermediate Other Verified 12/13/24 15:07 Family History Father Hypertension Surgical History History of esophagogastroduodenoscopy (EGD) Hx of colonoscopy Hx of wisdom tooth extraction H/O inguinal hernia repair S/P orchiectomy Social History Smoking Status: Never smoker Smokeless tobacco user: chewing tobacco alcohol intake: current ROS Constitutional Constitutional: Denies fatigue, fever(s), poor appetite, weight gain or weight loss Gastrointestinal Gastrointestinal: Denies belching, bloating, change in bowel habits, change in stool character, chewing difficulty, coffee ground emesis, constipation, cramping, diarrhea, dyspepsia, dysphagia, early satiety, excessive flatus, fecal incontinence, heartburn, hematemesis, hematochezia, hemorrhoids, loose stools, melena, nausea, odynophagia, rectal bleeding, tenesmus, vomiting or weight changes Physical Exam Const alert, oriented x3, no apparent distress and healthy appearing General Appearance: cooperative GI normal to inspection, nondistended, normoactive bowel sounds, soft to palpation, non-tender and non-distended Percussion: normal to percussion Rectal Exam: deferred Lab / Micro Data 01/16/25 07:18 01/16/25 07:18 Labs: Laboratory Results - last 24 hr 01/16/25 07:18: WBC 18.9 H, RBC 3.98 L, Hgb 9.2 L, Hct 29.8 L, MCV 74.9 L, MCH 23.1 L, MCHC 30.9 L, RDW Std Deviation 36.9, RDW Coeff of [place] 13.7, Plt Count 352, MPV 10.3, Immature Gran % (Auto) 0.700, Neut % (Auto) 86.9 H, Lymph % (Auto) 5.5 L, [place] % (Auto) 6.3, Eos % (Auto) 0.4, Baso % (Auto) 0.2, Absolute Neuts (auto) 16.4 H, Absolute Lymphs (auto) 1.03, Nucleated RBC % 0, ESR 65 H, PT 15.6 H, INR 1.2, APTT 39.3 H, Sodium 135, Potassium 3.0 L, Chloride 94 L, Carbon Dioxide 24.7, Anion Gap 16 H, BUN 19, Creatinine 1.50 H, Estim Creat Clear Calc 91.72, Est GFR (MDRD) Non-Af 60, BUN/Creatinine Ratio 12.8, Glucose 176 H, Lactic Acid 1.6, Calcium 8.7, Total Bilirubin 1.97 H, AST 26, ALT 16, Alkaline Phosphatase 147 H, C-React Prot Ext Range 188.00 H, Total Protein 6.9, Albumin 3.3 L, Globulin 3.6, Albumin/Globulin Ratio 0.9 01/16/25 08:54: Urine Color Yellow, Urine Clarity Clear, Urine pH 6.0, Ur Specific [place] 1.005, Urine Protein 15 H, Urine Glucose (UA) Normal, Urine Ketones Negative, Urine Occult Blood Negative, Urine Nitrite Negative, Urine Bilirubin Negative, Urine Urobilinogen 1 H, Ur Leukocyte Esterase Negative, Urine RBC 0 SEEN, Urine WBC 0 SEEN, Ur Squamous Epith Cells 0 SEEN, Urine Bacteria 0 SEEN, Urine Mucus 0 SEEN Imaging Radiology Impression Abdomen/Pelvis CT 01/16/25 06:54 IMPRESSION: Circumferential wall thickening of several adjacent small bowel loops in the distal ileum with increased markings in the surrounding peritoneal fat. Mildly enlarged small lymph nodes in the deep mesenteric fat. Enteritis should be ruled out. Mild splenomegaly. Reading Location: [facility]1 Chest X-Ray 01/16/25 07:05 IMPRESSION: NO ACUTE FINDINGS. Reading Location: [facility] Assessment & Plan Assessment/Plan (1) Exacerbation of Crohn's disease: (2) SIRS (systemic inflammatory response syndrome): (3) Microcytic anemia: PLAN: This patient is experiencing a Crohn's disease flare-up, potentially complicated by an infection, given the combination of fever, increased WBC, and abdominal pain. While fever can be a symptom of Crohn's itself, a high-grade fever may indicate a complicating infection. The location of the abdominal pain in the right lower quadrant suggests possible involvement of the ileum or ileocecal region, common sites for Crohn's disease inflammation.? Crohn's disease flare-up:?The patient's history of Crohn's disease and current symptoms are consistent with a flare. Intra-abdominal abscess:?This is not seen with imaging and it is not consistent with his current symptoms. However an abscess is a pus-filled pocket that can develop due to Crohn's inflammation, and it can cause fever, abdominal pain, and an elevated WBC. Fistula:?A fistula is an abnormal connection that can form between different parts of the intestines or between the intestine and other organs, or the skin. It can lead to infection and pain. He is also about this) however he does have significant lymphadenopathy and fat stranding. Bowel obstruction:?This complication occurs when inflammation or scar tissue narrows the bowel, leading to blockage. Abdominal pain, nausea, and vomiting may be present Continue antibiotics without steroids and she continues to have pain but is afebrile, they can start up steroids tomorrow. Charges/Coding Visit Charges Inpatient E&M: 35535 Init Hosp L3
--- OUTSIDE RECORDS SUMMARY | 2025-01-16 18:15 | XMS RPT_ITS | CCD ---
Author Organization [facility] [employer]iniSyaz Care Team Providers Care School Examiner Name Role Phone Chris Mckeon MD Primary Care Provider Dr. Chris Mckeon MD Primary Care Provider Dr. Chris Mckeon MD Referring Provider Anne-Marie Lyons Attending Provider Dr. Babar Hernández DO Attending Provider Dr. Babar Hernández DO Other Provider Chris Mckeon MD Primary Care Provider Katia BIOCHEMICAL DEVELOPMENT ENGINEER.TRANSFORMATION LEADMarah Unavailable Gibson BIOCHEMICAL DEVELOPMENT ENGINEER.TRANSFORMATION LEAD, Tamy A Unavailable [phone] CHRIS MCKEON Primary Care Unavailable MARAH MONTALVO Attending Unavailable Dr. Chris Mckeon MD Primary Care Provider Dr. Chris Mckeon MD Referring Provider Anne-Marie Lyons Attending Provider Anne-Marie Lyons Referring Provider Babar Hernández Consulting Unavailable Anne-Marie Fine Referring Unavailable Anne-Marie Fine Attending Unavailable Chris Mckeon Primary Care Unavailable Mike, Chris Primary Care Unavailable Anne-Marie Fine Attending Unavailable Anne-Marie Fine Referring Unavailable Mike, Chris Referring Unavailable Mike, Chris Primary Care Unavailable Anne-Marie Fine Attending Unavailable Anne-Marie Fine Attending Unavailable Mike, Chris Primary Care Unavailable Mike, Chris Referring Unavailable Anne-Marie Fine Attending Unavailable Mike, Chris Referring Unavailable [place], Chris Primary Care Unavailable Babar Hernández Attending Unavailable Babar Hernández Consulting Unavailable Chris Mckeon Referring Unavailable Chris Mckeon Primary Care Unavailable Anne-Marie Fine Attending Unavailable hCris Mckeon Referring Unavailable Chris Mckeon Primary Care Unavailable Ra Bettyhsaan Attending Unavailable Chris Mckeon Referring Unavailable Chris Mckeon Primary Care Unavailable Dr. Chris Mckeon MD Primary Care Provider Dr. Chris Mckeon MD Referring Provider Anne-Marie Lyons Attending Provider Dr. German Chavarria DO Emergency Provider Polina MORLEY, Dr. Obed Cooper Admit Provider [phone] Polina MORLEY, Dr. Obed Cooper Attending Provider Allergies Allergy Classification Reported Allergen(s) Allergy Type Date of Onset Reaction(s) Facility (10 sources) Cefaclor; Translations: [CEFACLOR] Drug Allergy 9 [facility] Work Phone: (2 sources) amoxilcillin [Other] Propensity to adverse reactions 1 [facility] (8 sources) Amoxicillin; Translations: [AMOXICILLIN] Drug Allergy 4 [facility] Work Phone: (1 source) Amoxicillin Drug Allergy 5 [facility] Repository (1 source) Cefaclor Drug Allergy 5 [facility] Repository Medications Current Medications Medication Drug Class(es) [...] on above: Take 1 capsule by mo [facility] once daily. hydroCHLOROthiazide 25 mg oral tablet (13 sources) Thiazide Diuretic Start: 2022 End: 2024 [...] Take 1 tablet by [facility] once daily. lisinopril 20 mg oral tablet (13 sources) Angiotensin Converting Enzyme Inhibitor Start: 10-28-2022 End: 10-10-2024 take 1 tablet by mouth once daily Lisinopril 20 mg tablet Active 20 mg PO DAILY November 09, 2022 12:00am Start: 01-07-2022 take 1 tablet by [facility] once daily lisinopril (ZESTRIL, PRINIVIL) 20 mg [...] Take 1 tablet by [facility] once daily. mesalamine 1200 mg delayed release oral tablet (11 sources) Aminosalicylate Start: take 2 tablets by mouth twice daily Mesalamine (Lialda) 1.2 gram tablet,delayed release (DR/EC) Active 2.4 g PO TWICE A DAY January 16, 2025 12:00am Start: 12-13-2024 End: 01-16-2025 take 2 tablets by mouth once daily Mesalamine (Lialda) 1.2 gram tablet,delayed release (DR/EC) Discontinued 2.4 g PO daily 60 30 5 December 13, 2024 12:00am January 16, 2025 6:26am Start: 09-10-2024 End: 11-03-2024 take 2 tablets [...] omeprazole 40 mg delayed release oral capsule (8 sources) Proton Pump Inhibitor Start: End: take 1 capsule by mouth once daily Omeprazole 40 mg capsule,delayed release(DR/EC) Active 40 mg PO daily 30 5 December 13, 2024 3:19pm Skyrizi (1 source) Start: 5 Skyrizi Active 600 mg IV .COMPLEX 10 0 January 03, 2025 12:00am 600 mg intravenously week 0, 4, 8; 600 mg intravenously at week 0, 4, 8 for Crohn's Disease K50.90 Completed/Discontinued Medications Medication Drug Class(es) Dates Sig [...] tablet by mouth once daily. 30 tablet 11 01/07/2022 07/06/2022 Active Comment on above: Take 1 tablet by [facility] th once daily. Problems Active Problems Problem Classification Problem Date Documented Da te Episodic/Chronic Anxiety disorders (7 sources) Anxiety; Translations: [Anxiety disorder, unspecified] Chronic Deficiency and other anemia (1 source) Microcytic anemia; Translations: [Iron deficiency anemia, unspecified] 01-16-2025 Episodic Disorders of lipid metabolism (2 sources) Raised [...] without diarrhea] Onset: 1 05-31-2021 Chronic Other injuries and conditions due to external causes (1 source) Systemic inflammatory response syndrome; Translations: [Systemic inflammatory response syndrome (SIRS) of non-infectious origin without acute organ dysfunction] 01-16-2025 Episodic Other lower respiratory disease (1 source) Dry cough; Translations: [Dry cough] 09-23-2024 Episodic Regional enteritis and ulcerative colitis (20 sources) Crohn's disease; Translations: [Crohn's disease, unspecified, without complications] Onset: 1 05-31-2021 Chronic Unclassified (5 sources) Reflux; Translations: [Reflux] Onset: 1 04-30-2011 Unclassified (1 source) Dry cough; Translations: [Dry cough] Onset: 5 Past or Other Problems Problem Classification Problem [...] Range Facility Absolute lymphocyte countOrd ered By: German Chavarria on 01-16-2025 Lymphocytes Auto (Unsp spec) [#/Vol] 1.03 10*3/uL 0.83-4.51 [facility] Absolute neutrophil countOrd ered By: German Chavarria on 01-16-2025 Neutrophils (Bld) [#/Vol] 16.4 10*3/uL High 2.0-7.7 [facility] Activated partial thrombopla stin time (aPTT) in platelet poor plasma by coagulation aOrdered By: German Chavarria on 01-16-2025 aPTT Coag (PPP) [Time] 39.3 s High 24.1-36.2 [facility] Anion gap in Serum or Plasma Ordered By: German Chavarria on 01-16-2025 Anion gap [Moles/Vol] 16 mmol/L High 5-15 [facility] Automated lymphocyte count a s percentage of total leukocytesOrdered By: German Chavarria on 01-16-2025 Lymphocytes/100 WBC Auto (Unsp spec) 5.5 % Low 19-41 [facility] BUN/creatinine ratioOrdered By: German Chavarria on 01-16-2025 Urea nitrogen/Creatinine [Mass ratio] 12.8 mg/mg 10-20 [facility] Basophil percentageOrdered B y: German Chavarria on 01-16-2025 Basophils/100 WBC (Bld) 0.2 % 0-1 [facility] Bilirubin Test strip Ql (U)O rdered By: German Chavarria on 01-16-2025 Bilirubin Ql (U) Negative Negative [facility] Bilirubin, totalOrdered By: German Chavarria on 01-16-2025 Bilirubin [Mass/Vol] 1.97 mg/dL High 0.00-1.30 [facility] Carbon dioxide, total [Moles /volume] in Central venous bloodOrdered By: German Chavarria on 01-16-2025 CO2 [Moles/Vol] 24.7 mmol/L 21.0-32.0 [facility] Chloride assayOrdered By: Marco Chavarria on 01-16-2025 Chloride [Moles/Vol] 94 mmol/L Low 98-108 [facility] Eosinophil percentageOrdered By: German Chavarria on 01-16-2025 Eosinophils/100 WBC (Bld) 0.4 % 0-5 [facility] Erythrocyte distribution wid th ratioOrdered By: German Chavarria on 01-16-2025 Erythrocyte distribution width (RBC) [Ratio] 13.7 % 11.6-14.6 [facility] Erythrocyte distribution wid th standard deviationOrdered By: German Chavarria on 01-16-2025 Erythrocyte distribution width (RBC) [Ratio] 36.9 fl 35.1-43.9 [facility] Glomerular filtration rate ( GFR) estimation/1.73 sq m using serum, plasma, or whole bOrdered By: German Chavarria on 01-16-2025 GFR/1.73 sq M.predicted among non-blacks MDRD (S/P/Bld) [Vol rate/Area] 60 mL/min/{1.73_m2} >60 [facility] Comment on above: mL/min/1.73m2 CKD-EP I Creatinine Equation (2020) Hematocrit Auto (Bld) [Volum e fraction]Ordered By: German Chavarria on 01-16-2025 Hematocrit (Bld) [Volume fraction] 29.8 % Low 40-54 [facility] Hemoglobin measurementOrdere d By: German Chavarria on 01-16-2025 Hemoglobin (Bld) [Mass/Vol] 9.2 g/dL Low 13.0-16.5 [facility] Immature granulocytes/100 WB C Auto (Bld)Ordered By: German Chavarria 01-16-2025 Immature granulocytes/100 WBC (Bld) 0.700 % 0.0-0.9 [facility] Comment on above: IG% - Immature Granu locytes (promyelocytes, myelocytes and metamyelocytes) > 1% indicates that a LEFT SHIFT is Present. International normalized rat io (INR) calculationOrdered By: German Chavarria on 01-16-2025 INR Coag (Bld) [Relative time] 1.2 {INR} [facility] Ketones Test strip Ql (U)Ord ered By: German Chavarria on 01-16-2025 Ketones Ql (U) Negative Negative [facility] Laboratory - Chemistry and C hemistry - challengeOrdered By: German Chavarria on 01-16-2025 AST [Catalytic activity/Vol] 26 U/L <38 [facility] Lactic acid measurementOrder ed By: German Chavarria on 01-16-2025 Lactate [Moles/Vol] 1.6 mmol/L 0.0-2.0 [facility] MCV (mean corpuscular volume ) determinationOrdered By: German Chavarria on 01-16-2025 MCV (RBC) [Entitic vol] 74.9 fL Low 80-94 [facility] Mean corpuscular hemoglobin (MCH) determinationOrdered By: German Chavarria on 01-16-2025 MCH (RBC) [Entitic mass] 23.1 pg Low 27.0-32.0 [facility] Mean corpuscular hemoglobin concentration (MCHC) determinationOrdered By: German Chavarria on 01-16-2025 MCHC (RBC) [Mass/Vol] 30.9 g/dL Low 32-36 [facility] Mean platelet volume determi nationOrdered By: German Chavarria on 01-16-2025 Platelet mean volume (Bld) [Entitic vol] 10.3 fL 6.2-12.0 [facility] Microscopic analysis of urin e for red blood cells (RBC)Ordered By: German Chavarria on 01-16-2025 Microscopic analysis of urine for red blood cells (RBC) 0 SEEN /hpf 0-5 [facility] Monocyte percentageOrdered B y: German Chavarria on 01-16-2025 Monocytes/100 WBC (Bld) 6.3 % 0-10 [facility] Mucus LM Ql (Urine sed)Order ed By: German Chavarria on 01-16-2025 Mucus Ql (Urine sed) 0 SEEN /hpf [facility] Neutrophil percentageOrdered By: German Chavarria on 01-16-2025 Neutrophils/100 WBC (Bld) 86.9 % High 47-70 [facility] Nitrite Test strip Ql (U)Ord ered By: German Chavarria on 01-16-2025 Nitrite Ql (U) Negative Negative [facility] Nucleated red blood cell per centageOrdered By: German Chavarria on 01-16-2025 Nucleated RBC/100 WBC (Bld) [Ratio] 0 % 0-5 [facility] Platelet countOrdered By: Marco Chavarria on 01-16-2025 Platelets (Bld) [#/Vol] 352 10*3/uL 150-450 [facility] Potassium measurement (mass/ volume)Ordered By: German Chavarria on 01-16-2025 Potassium (Unsp spec) [Mass/Vol] 3.0 mmol/L Low 3.3-5.1 [facility] Protein Test strip Ql (U)Ord ered By: German Chavarria on 01-16-2025 Protein Ql (U) 15 mg/dl High Negative [facility] Prothrombin timeOrdered By: German Chavarria on 01-16-2025 PT Coag (PPP) [Time] 15.6 s High 11.7-14.9 [facility] RBC Auto (Bld) [#/Vol]Ordere d By: German Chavarria on 01-16-2025 RBC (Bld) [#/Vol] 3.98 10*6/uL Low 4.6-6.2 [facility] Serum creatinine measurement (mass/volume)Ordered By: German Chavarria on 01-16-2025 Creatinine [Mass/Vol] 1.50 mg/dL High 0.70-1.20 [facility] Serum globulin measurementOr dered By: German Chavarria on 01-16-2025 Globulin (S) [Mass/Vol] 3.6 g/dL 2.2-4.2 [facility] Serum glucose measurement (m ass/volume)Ordered By: German Chavarria on 01-16-2025 Glucose [Mass/Vol] 176 mg/dL High 70-99 [facility] Serum or plasma alanine dillon otransferase (ALT) measurementOrdered By: German Chavarria on 01-16-2025 ALT [Catalytic activity/Vol] 16 U/L <47 [facility] Serum or plasma albumin luc urement (mass/volume)Ordered By: Greman Chavarria on 01-16-2025 Albumin [Mass/Vol] 3.3 g/dL Low 3.5-5.0 [facility] Serum or plasma albumin/glob ulin mass ratioOrdered By: German Chavarria on 01-16-2025 Albumin/Globulin [Mass ratio] 0.9 {ratio} 0.9-2.4 [facility] Serum or plasma alkaline chun sphatase measurementOrdered By: German Chavarria on 01-16-2025 ALP [Catalytic activity/Vol] 147 U/L High 40-129 [facility] Serum or plasma calcium luc urement (mass/volume)Ordered By: German Chavarria on 01-16-2025 Calcium [Mass/Vol] 8.7 mg/dL 7.6-11.0 [facility] Serum or plasma urea nitroge n measurement (mass/volume)Ordered By: German Chavarria on 01-16-2025 Urea nitrogen [Mass/Vol] 19 mg/dL 4-19 [facility] Sodium levelOrdered By: German Chavarria on 01-16-2025 Sodium [Moles/Vol] 135 mmol/L 133-145 [facility] Squamous epithelial cells de tection in urine sediment by light microscopyOrdered By: German Chavarria on 01-16-2025 Epithelial cells.squamous LM Ql (Urine sed) 0 SEEN /hpf 0-5 [facility] Total proteinOrdered By: Miranda Chavarria on 01-16-2025 Protein [Mass/Vol] 6.9 g/dL 5.9-8.4 [facility] Urine clarityOrdered By: Miranda Chavarria on 01-16-2025 Clarity (U) Clear Clear [facility] Urine color determinationOrd ered By: German Chavarria on 01-16-2025 Color (U) Yellow Yellow [facility] Urine glucose detectionOrder ed By: German Chavarria on 01-16-2025 Glucose Ql (U) Normal mg/dl Normal [facility] Urine leukocyte esterase det ection by dipstickOrdered By: German Chavarria on 01-16-2025 Leukocyte esterase Test strip Ql (U) Negative Negative [facility] Urine pHOrdered By: German carmona on 01-16-2025 pH (U) 6.0 [pH] 5.0 - 8.0 [facility] Urine sediment bacteria coun t by microscopy (number/high power field)Ordered By: German Chavarria on 01-16-2025 Bacteria LM.HPF (Urine sed) [#/Area] 0 /[HPF] None Seen [facility] Urine specific gravity measu rementOrdered By: German Chavarria on 01-16-2025 Specific gravity (U) [Rel density] 1.005 1.002-1.03 0 [facility] Urine urobilinogen measureme ntOrdered By: German Chavarria on 01-16-2025 Urobilinogen Ql (U) 1 mg/dl High Normal [facility] White blood cell (WBC) count Ordered By: German Chavarria on 01-16-2025 WBC (Bld) [#/Vol] 18.9 10*3/uL High 4.4-11.0 [facility] White blood cell countOrdere d By: German Chavarria on 01-16-2025 White blood cell count 0 SEEN /hpf 0-5 [facility] Absolute lymphocyte countOrd ered By: Anne-Marie Fine on 12-13-2024 Lymphocytes Auto (Unsp spec) [#/Vol] 1.70 10*3/uL 0.83-4.51 [facility] Absolute neutrophil countOrd ered By: Anne-Marie Fine on 12-13-2024 Neutrophils (Bld) [#/Vol] 6.6 10*3/uL 2.0-7.7 [facility] Anion gap in Serum or Plasma Ordered By: Anne-Marie Fine on 12-13-2024 Anion gap [Moles/Vol] 12 mmol/L 5-15 [facility] Automated lymphocyte count a s percentage of total leukocytesOrdered By: Anne-Marie Fine on 12-13-2024 Lymphocytes/100 WBC Auto (Unsp spec) 18.8 % Low 19-41 [facility] BUN/creatinine ratioOrdered By: Anne-Marie Fine on 12-13-2024 Urea nitrogen/Creatinine [Mass ratio] 12.4 mg/mg 10-20 [facility] Basophil percentageOrdered B y: Anne-Marie Fine on 12-13-2024 Basophils/100 WBC (Bld) 0.2 % 0-1 [facility] Bilirubin, totalOrdered By: Anne-Marie Fine on 12-13-2024 Bilirubin [Mass/Vol] 0.41 mg/dL 0.00-1.30 [facility] CBC W/Diff, Automatedon 12-03 Absolute Lymph 1.70 X10 3/uL Normal 0.83-4.51 [facility] Comment on above: Performed By: #### L 100.0100, L500.4050, L101.9900, L501.6710 #### [facility] [address] [place], [address] Absolute Neut 6.6 X10 3/uL Normal 2.0-7.7 [facility] Comment on above: Performed By: #### L 100.0100, L500.4050, L101.9900, L501.6710 #### [facility] [address] [place], [address] Basophils/100 WBC (Bld) 0.2 % Normal 0-1 [facility] Comment on above: Performed By: #### L 100.0100, L500.4050, L101.9900, L501.6710 #### [facility] [address] [place], [address] Eosinophils/100 WBC (Bld) 1.7 % Normal 0-5 [facility] Comment on above: Performed By: #### L 100.0100, L500.4050, L101.9900, L501.6710 #### [facility] [address] [place], [address] Erythrocyte distribution width (RBC) [Ratio] 15.7 % High 11.6-14.6 [facility] Comment on above: Performed By: #### L 100.0100, L500.4050, L101.9900, L501.6710 #### [facility] [address] [place], [address] Hematocrit (Bld) [Volume fraction] 34.2 % Low 40-54 [facility] Comment on above: Performed By: #### L 100.0100, L500.4050, L101.9900, L501.6710 #### [facility] [address] [place], [address] Hemoglobin (Bld) [Mass/Vol] 10.4 g/dL Low 13.0-16.5 [facility] Comment on above: Performed By: #### L 100.0100, L500.4050, L101.9900, L501.6710 #### [facility] [address] [place], [address] IG% 0.200 Normal 0.0-0.9 [facility] Comment on above: Result Comment: IG% - Immature Granulocytes (promyelocytes, myelocytes and metamyelocytes) > 1% indicates that a LEFT SHIFT is Present. Performed By: #### L 100.0100, L500.4050, L101.9900, L501.6710 #### [facility] [address] [place], [address] Lymphocytes/100 WBC (Bld) 18.8 % Low 19-41 [facility] Comment on above: Performed By: #### L 100.0100, L500.4050, L101.9900, L501.6710 #### [facility] [address] [place], [address] MCH (RBC) [Entitic mass] 23.5 pg Low 27.0-32.0 [facility] Comment on above: Performed By: #### L 100.0100, L500.4050, L101.9900, L501.6710 #### [facility] [address] [place], [address] MCHC (RBC) [Mass/Vol] 30.4 g/dL Low 32-36 [facility] Comment on above: Performed By: #### L 100.0100, L500.4050, L101.9900, L501.6710 #### [facility] [address] [place], [address] MCV (RBC) [Entitic vol] 77.2 fL Low 80-94 [facility] Comment on above: Performed By: #### L 100.0100, L500.4050, L101.9900, L501.6710 #### [facility] [address] [place], [address] Monocytes/100 WBC (Bld) 6.7 % Normal 0-10 [facility] Comment on above: Performed By: #### L 100.0100, L500.4050, L101.9900, L501.6710 #### [facility] [address] [place], [address] Neutrophils/100 WBC (Bld) 72.4 % High 47-70 [facility] Comment on above: Performed By: #### L 100.0100, L500.4050, L101.9900, [id number] #### [facility] [address] [place], [address] Nucleated RBC (Bld) [#/Vol] 0 10*3/uL Normal 0-5 [facility] Comment on above: Performed By: #### L 100.0100, L500.4050, L101.9900, [id number] #### [facility] [address] [place], [address] Platelet mean volume (Bld) [Entitic vol] 10.3 fL Normal 6.2-12.0 [facility] Comment on above: Performed By: #### L 100.0100, L500.4050, L101.9900, L501.6710 #### [facility] [address] [place], [address] Platelets (Bld) [#/Vol] 320 10*3/uL Normal 150-450 [facility] Comment on above: Performed By: #### L 100.0100, L500.4050, L101.9900, L501.6710 #### [facility] [address] [place], [address] RBC (Bld) [#/Vol] 4.43 10*6/uL Low 4.6-6.2 [facility] Comment on above: Performed By: #### L 100.0100, L500.4050, L101.9900, [id number] #### [facility] [address] [place], [address] RDW SD 44.3 fl High 35.1-43.9 [facility] Comment on above: Performed By: #### L 100.0100, L500.4050, L101.9900, [id number] #### [facility] [address] [place], [address] WBC (Bld) [#/Vol] 9.1 10*3/uL Normal 4.4-11.0 [facility] Comment on above: Performed By: #### L 100.0100, L500.4050, L101.9900, [id number] #### [facility] [address] [place], [address] CRPon 12-13-2024 C-REACTIVE PROT 32.40 mg/L High 0.0-3.0 [facility] Comment on above: Performed By: #### L 100.0100, L500.4050, L101.9900, [id number] #### [facility] [address] [place], [address] Carbon dioxide, total [Moles /volume] in Central venous bloodOrdered By: Anne-Marie Fine on 12-13-2024 CO2 [Moles/Vol] 28.4 mmol/L 21.0-32.0 [facility] Chloride assayOrdered By: Radha Fine on 12-13-2024 Chloride [Moles/Vol] 100 mmol/L 98-108 [facility] Comprehensive Metabolic Prof ilon 12-13-2024 Albumin [Mass/Vol] 3.8 g/dL Normal 3.5-5.0 [facility] Comment on above: Performed By: #### L 100.0100, L500.4050, L101.9900, L501.6710 #### [facility] [address] [place], [address] Albumin/Globulin [Mass ratio] 1.1 {ratio} Normal 0.9-2.4 [facility] Comment on above: Performed By: #### L 100.0100, L500.4050, L101.9900, L501.6710 #### [facility] [address] [place], [address] ALK PHOS 97 U/L Normal 40-129 [facility] Comment on above: Performed By: #### L 100.0100, L500.4050, L101.9900, [id number] #### [facility] [address] [place], [address] ALT [Catalytic activity/Vol] 16 U/L Normal <=46 [facility] Comment on above: Performed By: #### L 100.0100, L500.4050, L101.9900, [id number] #### [facility] [address] [place], [address] AST [Catalytic activity/Vol] 18 U/L Normal <=37 [facility] Comment on above: Performed By: #### L 100.0100, L500.4050, L101.9900, [id number] #### [facility] [address] [place], [address] Bilirubin [Mass/Vol] 0.41 mg/dL Normal 0.00-1.30 [facility] Comment on above: Performed By: #### L 100.0100, L500.4050, L101.9900, [id number] #### [facility] [address] [place], [address] BUN/CRE 12.4 RATIO Normal 10-20 [facility] Comment on above: Performed By: #### L 100.0100, L500.4050, L101.9900, [id number] #### [facility] [address] [place], [address] Calcium [Mass/Vol] 9.0 mg/dL Normal 7.6-11.0 [facility] Comment on above: Performed By: #### L 100.0100, L500.4050, L101.9900, L501.6710 #### [facility] [address] [place], [address] Chloride [Moles/Vol] 100 mmol/L Normal 98-108 [facility] Comment on above: Performed By: #### L 100.0100, L500.4050, L101.9900, L501.6710 #### [facility] [address] [place], [address] CO2 [Moles/Vol] 28.4 mmol/L Normal 21.0-32.0 [facility] Comment on above: Performed By: #### L 100.0100, L500.4050, L101.9900, L501.6710 #### [facility] [address] [place], [address] Creatinine [Mass/Vol] 1.07 mg/dL Normal 0.70-1.20 [facility] Comment on above: Performed By: #### L 100.0100, L500.4050, L101.9900, L501.6710 #### [facility] [address] [place], [address] GAP 12 Normal 5-15 [facility] Comment on above: Performed By: #### L 100.0100, L500.4050, L101.9900, L501.6710 #### [facility] [address] [place], [address] GFR/1.73 sq M.predicted among non-blacks MDRD (S/P/Bld) [Vol rate/Area] 90 mL/min/{1.73_m2} Normal >60 [facility] Comment on above: Result Comment: mL/m in/1.73m2 CKD-EPI Creatinine Equation (2020) Performed By: #### L 100.0100, L500.4050, L101.9900, L501.6710 #### [facility] [address] [place], [address] Globulin (S) [Mass/Vol] 3.3 g/dL Normal 2.2-4.2 [facility] Comment on above: Performed By: #### L 100.0100, L500.4050, L101.9900, L501.6710 #### [facility] [address] [place], [address] Glucose [Mass/Vol] 87 mg/dL Normal 70-99 [facility] Comment on above: Performed By: #### L 100.0100, L500.4050, L101.9900, L501.6710 #### [facility] [address] [place], [address] Potassium [Moles/Vol] 3.4 mmol/L Normal 3.3-5.1 [facility] Comment on above: Performed By: #### L 100.0100, L500.4050, L101.9900, L501.6710 #### [facility] [address] [place], [address] Sodium [Moles/Vol] 140 mmol/L Normal 133-145 [facility] Comment on above: Performed By: #### L 100.0100, L500.4050, L101.9900, L501.6710 #### [facility] [address] [place], [address] T PROT 7.1 g/dL Normal 5.9-8.4 [facility] Comment on above: Performed By: #### L 100.0100, L500.4050, L101.9900, L501.6710 #### [facility] [address] [place], [address] Urea nitrogen [Mass/Vol] 13 mg/dL Normal 4-19 [facility] Comment on above: Performed By: #### L 100.0100, L500.4050, L101.9900, L501.6710 #### [facility] [address] [place], [address] Eosinophil percentageOrdered By: Anne-Marie Fine on 12-13-2024 Eosinophils/100 WBC (Bld) 1.7 % 0-5 [facility] Erythrocyte Sed Rateon 12-13 SED RATE 32 mm/hr High 0-20 [facility] Comment on above: Performed By: #### L 100.0100, L500.4050, L101.9900, L501.6710 #### [facility] [address] [place], [address] Erythrocyte distribution wid th ratioOrdered By: Anne-Marie Fine on 12-13-2024 Erythrocyte distribution width (RBC) [Ratio] 15.7 % High 11.6-14.6 [facility] Erythrocyte distribution wid th standard deviationOrdered By: Anne-Marie Fine on 12-13-2024 Erythrocyte distribution width (RBC) [Ratio] 44.3 fl High 35.1-43.9 [facility] Erythrocyte sedimentation ra teOrdered By: Anne-Marie Fine on 12-13-2024 ESR (Bld) [Velocity] 32 mm/h High 0-20 [facility] Gastroenterology Visit Repor ton 12-13-2024 Gastroenterology Visit Report [facility] Gastroenterology [address] [place] [address] OFFICE VISIT Date of Service: 12/13/24 MR#: [id number] Acct: [id number] Name: BARBIE FINK Rep #: [id number] : 1985 Provider: GARRY Guerrero Age/Sex: 39/M [place] [facility] [place] Status: Signed Intake Vital Signs 08/26/24 09:43 Height 6 ft 2 in Intake Visit Reasons: 3 M FU Chief Complaint: Crohns Allergies amoxicillin Allergy (Intermediate, Verified 12/13/24 15:07) Other cefaclor (From [facility]) Allergy (Intermediate, Verified 12/13/24 15:07) Other Medications [...] last. Just [facility] follow up[facility] Medical History Alcohol use History of ulceration [...] IBD ([facility]) Crohn???s +, CRP H3.68 Colonoscopy 6.17 TI shallow ulcerations, active colitis with focal cryptitis and glandular distortion; internal hemorrhoids. Last OV 07.23.24 Doing well with no flares. 2-3 bm [...] cooperative, healthy appearing and comfortable Orientation: alert HENMS Head: normal to inspection Eyes General: appearance [...] disease compl (more content not included)... Normal [facility] Glomerular filtration rate ( GFR) estimation/1.73 sq m using serum, plasma, or whole bOrdered By: Anne-Marie Fine on 12-13-2024 GFR/1.73 sq M.predicted among non-blacks MDRD (S/P/Bld) [Vol rate/Area] 90 mL/min/{1.73_m2} >60 [facility] Comment on above: mL/min/1.73m2 CKD-EP I Creatinine Equation (2020) Hematocrit Auto (Bld) [Volum e fraction]Ordered By: Anne-Marie Fine on 12-13-2024 Hematocrit (Bld) [Volume fraction] 34.2 % Low 40-54 [facility] Hemoglobin measurementOrdere d By: Anne-Marie Fine on 12-13-2024 Hemoglobin (Bld) [Mass/Vol] 10.4 g/dL Low 13.0-16.5 [facility] Immature granulocytes/100 WB C Auto (Bld)Ordered By: Anne-Marie Fine on 12-13-2024 Immature granulocytes/100 WBC (Bld) 0.200 % 0.0-0.9 [facility] Comment on above: IG% - Immature Granu locytes (promyelocytes, myelocytes and metamyelocytes) > 1% indicates that a LEFT SHIFT is Present. Laboratory - Chemistry and C hemistry - challengeOrdered By: Anne-Marie Fine on 12-13-2024 AST [Catalytic activity/Vol] 18 U/L <38 [facility] MCV (mean corpuscular volume ) determinationOrdered By: Anne-Marie Fine on 12-13-2024 MCV (RBC) [Entitic vol] 77.2 fL Low 80-94 [facility] Mean corpuscular hemoglobin (MCH) determinationOrdered By: Anne-Marie Fine on 12-13-2024 MCH (RBC) [Entitic mass] 23.5 pg Low 27.0-32.0 [facility] Mean corpuscular hemoglobin concentration (MCHC) determinationOrdered By: Anne-Marie Fine on 12-13-2024 MCHC (RBC) [Mass/Vol] 30.4 g/dL Low 32-36 [facility] Mean platelet volume determi nationOrdered By: Anne-Marie Fine on 12-13-2024 Platelet mean volume (Bld) [Entitic vol] 10.3 fL 6.2-12.0 [facility] Monocyte percentageOrdered B y: Anne-Marie Fine on 12-13-2024 Monocytes/100 WBC (Bld) 6.7 % 0-10 [facility] Neutrophil percentageOrdered By: Anne-Marie Fine on 12-13-2024 Neutrophils/100 WBC (Bld) 72.4 % High 47-70 [facility] Nucleated red blood cell per centageOrdered By: Anne-Marie Fine on 12-13-2024 Nucleated RBC/100 WBC (Bld) [Ratio] 0 % 0-5 [facility] Platelet countOrdered By: Radha Fine on 12-13-2024 Platelets (Bld) [#/Vol] 320 10*3/uL 150-450 [facility] Potassium measurement (mass/ volume)Ordered By: Anne-Marie Fine on 12-13-2024 Potassium (Unsp spec) [Mass/Vol] 3.4 mmol/L 3.3-5.1 [facility] RBC Auto (Bld) [#/Vol]Ordere d By: Anne-Marie Fine on 12-13-2024 RBC (Bld) [#/Vol] 4.43 10*6/uL Low 4.6-6.2 [facility] Serum creatinine measurement (mass/volume)Ordered By: Anne-Marie Fine on 12-13-2024 Creatinine [Mass/Vol] 1.07 mg/dL 0.70-1.20 [facility] Serum globulin measurementOr dered By: Anne-Marie Fine on 12-13-2024 Globulin (S) [Mass/Vol] 3.3 g/dL 2.2-4.2 [facility] Serum glucose measurement (m ass/volume)Ordered By: Anne-Marie Fine on 12-13-2024 Glucose [Mass/Vol] 87 mg/dL 70-99 [facility] Serum or plasma C reactive p rotein measurement (mass/volume)Ordered By: Anne-Marie Fine on 12-13-2024 CRP [Mass/Vol] 32.40 mg/L High 0.0-3.0 [facility] Serum or plasma alanine dillon otransferase (ALT) measurementOrdered By: Anne-Marie Fine on 12-13-2024 ALT [Catalytic activity/Vol] 16 U/L <47 [facility] Serum or plasma albumin ulc urement (mass/volume)Ordered By: Anne-Marie Fine on 12-13-2024 Albumin [Mass/Vol] 3.8 g/dL 3.5-5.0 [facility] Serum or plasma albumin/glob ulin mass ratioOrdered By: Anne-Marie Fine on 12-13-2024 Albumin/Globulin [Mass ratio] 1.1 {ratio} 0.9-2.4 [facility] Serum or plasma alkaline chun sphatase measurementOrdered By: Anne-Marie Fine on 12-13-2024 ALP [Catalytic activity/Vol] 97 U/L 40-129 [facility] Serum or plasma calcium luc urement (mass/volume)Ordered By: Anne-Marie Fine on 12-13-2024 Calcium [Mass/Vol] 9.0 mg/dL 7.6-11.0 [facility] Serum or plasma urea nitroge n measurement (mass/volume)Ordered By: Anne-Marie Fine on 12-13-2024 Urea nitrogen [Mass/Vol] 13 mg/dL 4-19 [facility] Sodium levelOrdered By: Carrie Fine on 12-13-2024 Sodium [Moles/Vol] 140 mmol/L 133-145 [facility] Total proteinOrdered By: Cici Fine on 12-13-2024 Protein [Mass/Vol] 7.1 g/dL 5.9-8.4 [facility] White blood cell (WBC) count Ordered By: Anne-Marie Fine on 12-13-2024 WBC (Bld) [#/Vol] 9.1 10*3/uL 4.4-11.0 [facility] 09-23-2024 CNOV Office Visit (FAMPWS ) BARBIE FINK ([id number]) 1985 M Date Time Provider Department 09/23/24 6:00 PM MARAH MONTALVO During your visit today, we recorded the [...] supply and will be sent to your [facility] pharmacy in [place]. Fasting blood work (CBC, CMP, and cholesterol [...] Grandfather leukemia Coronary Artery Disease Paternal Grandfather CA at 53 Hypertension Paternal Grandfather Stroke Paternal [...] transcript) EX (more content not included)... Normal [facility] Gastroenterology Visit Repor ton 09-10-2024 Gastroenterology Visit Report [facility] Gastroenterology [address] [place] [address] OFFICE VISIT Date of Service: 09/10/24 MR#: [id number] Acct: [id number] Name: BARBIE FINK Rep #: [id number] : 1985 Provider: GARRY Guerrero Age/Sex: 39/M [place] [facility] [place]: Signed Intake Vital Signs 08/26/24 09:43 Height 6 ft 2 in Intake Visit Reasons: Test Result Chief Complaint: Crohns Allergies amoxicillin Allergy (Intermediate, Verified 08/26/24 09:39) Other cefaclor (From Ceclor) Allergy (Intermediate, Verified 08/26/24 09:39) Other Nurse's Note: OV 09.10.24 Pt here for f/u and reports he is feeling well. Pt continues omeprazole daily and states it is working well. [facility] Medical History Alcohol use History of ulceration [...] IBD ([facility]) Crohn???s +, CRP H3.68 Colonoscopy 6..17 TI shallow ulcerations, active colitis with focal cryptitis and glandular distortion; internal hemorrhoids. Last OV 2.18.25 Doing well with no flares. 2-3 bm per day. Colonoscopy 08.26.25: - Simple Endoscopic Score for Crohn's Disease: [...] Anne-Marie Peres (more content not included)... Normal [facility] Colonoscopy Reporton 025 Colonoscopy Report [facility] Medical Records Department [address] [place] [address] Colonoscopy Report MR#: [id number] Acct: [id number] Name: POONAMBARBIE TAMIA Rep #: [id number] : 1985 39 From: Babar Hernández DO PCP: Dr. Chris Mckeon MD Status:[facility] [place] Patient Name: Barbie Fink Procedure Date: 08/26/2024 [...] GI office. Procedure Code(s): --- Professional --- 05258, Colonoscopy, flexible; diagnostic, including collection of specimen(s) by brushing or washing, when performed (separate procedure) CPT copyright 2021 [employer]. All rights reserved. The codes documented in this report are preliminary and upon knitting machine operator automatic review may be revised to meet current compliance requirements. Babar Hernández DO 08/26/2024 11:14:51 AM This report has been signed electronically. Number of Addenda: 0 Note Initiated On: 08/26/2024 10:41 AM 08/26/24 1115 Jony (more content not included)... Normal [facility] MR/POSTOP.Corinne 08-26-2024 MR/POSTOP.ANDREWS [facility] Medical Records Department [address] [place] [address] Anesthesia Postop Eval I 08/26/24 1115 MR#: [id number] Acct: [id number] Name: BARBIE FINK Rep #: [id number] : 1985 39 From: Yousuf Armando PCP: Dr. Chris Mckeon MD Status:[facility] Y Race: C Location: [place] [address] Anesthesia: Postop Eval I Current Vital Signs [...] Postop Eval 1 completed: Yes 08/26/24 1116 Date Yousuf Roberts Signature: Date CC: Signed Normal [facility] MR/[id number] 08-26-2024 [facility] Medical Records Department [address] [facility] [place] [address] Anesthesia Postop Eval II 08/26/24 1352 MR#: [id number] Acct: [id number] Name: BARBIE FINK Rep #: [id number] : 1985 39 From: Maria L Rueda PCP: Dr. Chris Mckeon MD Status:[facility] [place] Y Race: C Location: [place] Anesthesia Postop [...] Level: 0 nausea: No Vomiting: No 08/26/24 1212 Date Maria L Roberts Signature: Date CC: Signed Normal [facility] Surgery Specimen Level Daniella 08-26-2024 Surgery Specimen Level IV -------- Patient Age/Sex Location Account Attending Physician -------- BARBIE FINK 39/M EN [id number] Babar Hernández DO -------- Specimen: [id number] Received: 08/27/24 Status: NIKA Felton Num: [id number] Spec Type: COLON BX Subm Dr: Babar [...] is totally submitted in one cassette. 08/27/2024 [facility]:[id number] -------- Patient Age/Sex Location Account Attending Physician -------- BARBIE FINK 39/M EN [id number] Babar Hernández DO -------- Signed (signature on file) Dr. Ivana Laguna MD 08/30/24 1747 -------- Normal [facility] Comment on above: Performed By: #### P SUIV ####[facility] [address] [place], [address] Gastroenterology Visit Repor ton 07-23-2024 Gastroenterology Visit Report [facility] Gastroenterology [address] [place] [place] [address] OFFICE VISIT Date of Service: 07/23/24 MR#: [id number] Acct: [id number] Name: BARBIE FINK Rep #: [id number] : 1985 Provider: GARRY Guerrero Age/Sex: 39/M [place] [facility] [place] Status: Signed Intake Intake Visit Reasons: 6 M FU Chief Complaint: Crohns Allergies amoxicillin Allergy (Intermediate, Verified 03/17/23 09:27) Other cefaclor (From Ceclor) Allergy (Intermediate, Verified 03/17/23 09:27) Other Have you fallen in the past year?: No Nurse's Note: OV 07.23.24 Pt here for f/u and reports heartburn after eating most meals. Has been trying OTC Prilosec and finds it helpful. [facility] Medical History (Updated 03/17/23 @ 10:36 by [...] IBD ([facility]) Crohn???s +, CRP H3.68 Colonoscopy 6. TI shallow ulcerations, active colitis with focal [...] Appearance: average body habitus and well nourished HENMS Head: normal to inspection Ears: hearing grossly [...] his report. (more content not included)... Normal [facility] ANCAon 01-30-2024 Atypical pANCA <1:20 Normal Neg:<1:20 [facility] Comment on above: Result Comment: The atypical pANCA pattern has been observed in a significant percentage of patients with ulcerative colitis, primary sclerosing cholangitis and autoimmune hepatitis. Performed at: [facility] [address] [id number] Traffic Worker: Yoli Mtz MD, Phone: [phone] Performed at: [address] [id number] Traffic Worker: Jose Manuel Royal PhD, Phone: [phone] Performed By: #### L 501.9710, L503.6075, L503.6150, L3300.0960, L506.0250, L101.9900, L3300.1200, L2100.0000, L100.0100, L503.6550, L503.0105, L500.4050, L506.1000 ####[facility] [address] [place], [address] Cytoplasmic Ab <1:20 Normal Neg:<1:20 [facility] Comment on above: Performed By: #### L 501.6710, L503.6075, L503.6150, L3300.0960, L506.0250, L101.9900, L3300.1200, L2100.0000, L100.0100, L503.6550, L503.0105, L500.4050, L506.1000 ####[facility] [address] [place], [place], [address] Perinuclear Ab. <1:20 Normal Neg:<1:20 [facility] Comment on above: Result Comment: The presence of positive fluorescence exhibiting P-ANCA or C-ANCA patterns alone is not specific for the diagnosis of Nora's Granulomatosis (WG) or microscopic polyangiitis. Decisions about treatment should not be based solely on ANCA IFA results. The [employer] ANCA [employer] Consensus recommends follow up testing of positive sera with both AK- 3 and MPO-ANCA enzyme immunoassays. As many as 5% serum samples are positive only by EIA. Ref. AM J Clin Pathol 1999;111:507-513. Performed By: #### L 501.6710, L503.6075, L503.6150, L3300.0960, L506.0250, L101.9900, L3300.1200, L2100.0000, L100.0100, L503.6550, L503.0105, L500.4050, L506.1000 ####[facility] [address] [place], [address] L2100.0000on 01-30-2024 ACCA 247 units Abnormal 0-90 [facility] Comment on above: Result Comment: Nega tive: <80 Equivocal: 80-90 Positive: >90 Performed By: #### L 501.6710, L503.6075, L503.6150, L3300.0960, L506.0250, L101.9900, L3300.1200, L2100.0000, L100.0100, L503.6550, L503.0105, L500.4050, L506.1000 ####[facility] [address] [place], [place], [address] ALCA 6 units Normal 0-60 [facility] Comment on above: Result Comment: Nega tive:<55 Equivocal: 55-60 Positive: >60 Performed By: #### L 501.6710, L503.6075, L503.6150, L3300.0960, L506.0250, L101.9900, L3300.1200, L2100.0000, L100.0100, L503.6550, L503.0105, L500.4050, L506.1000 ####[facility] [address] [place], [address] AMCA 60 units Normal 0-100 [facility] Comment on above: Result Comment: Nega tive: <90 Equivocal: 90-100 Positive: >100 This test was developed and its performance characteristics determined by [facility]. It has not been cleared or approved by the Food and Drug Administration. The FDA has determined that such clearance or approval is not necessary. Performed By: #### L 501.6710, L503.6075, L503.6150, L3300.0960, L506.0250, L101.9900, L3300.1200, L2100.0000, L100.0100, L503.6550, L503.0105, L500.4050, L506.1000 ####[facility] [address] [place], [address] Atypical pANCA Negative Normal Negative [facility] Comment on above: Performed By: #### L 501.6710, L503.6075, L503.6150, L3300.0960, L506.0250, L101.9900, L3300.1200, L2100.0000, L100.0100, L503.6550, L503.0105, L500.4050, L506.1000 ####[facility] [address] [place], [address] COMMENT Comment Abnormal . [facility] Comment on above: Result Comment: Sugg estive of Crohn's Disease with high risk of aggressive disease behavior (development of strictures or fistulae) Performed By: #### L 501.6710, L503.6075, L503.6150, L3300.0960, L506.0250, L101.9900, L3300.1200, L2100.0000, L100.0100, L503.6550, L503.0105, L500.4050, L506.1000 ####[facility] [address] [place], [place], [address] Jeanine 102 units Abnormal 0-50 [facility] Comment on above: Result Comment: Nega tive: <45 Equivocal: 45-50 Positive: >50 Performed By: #### L 501.6710, L503.6075, L503.6150, L3300.0960, L506.0250, L101.9900, L3300.1200, L2100.0000, L100.0100, L503.6550, L503.0105, L500.4050, L506.1000 ####[facility] [address] [place], [place], [address] Vitamin D 1,25-Dihydroxyon 0 01-29-2024 VIT D 1,25 DIHY 61.1 pg/mL Normal 24.8-81.5 [facility] Comment on above: Result Comment: Perf ormed at: [facility] [id number] Traffic Worker: Yoli Mtz MD, Phone: [phone] Performed By: #### L 501.6710, L503.6075, L503.6150, L3300.0960, L506.0250, L101.9900, L3300.1200, L2100.0000, L100.0100, L503.6550, L503.0105, L500.4050, L506.1000 ####[facility] [address] [place], [place], [address] CBC W/Diff, Automatedon 08-2 Absolute Lymph 1.68 X10 3/uL Normal 0.83-4.51 [facility] Comment on above: Performed By: #### L 501.6710, L503.6075, L503.6150, L3300.0960, L506.0250, L101.9900, L3300.1200, L2100.0000, L100.0100, L503.6550, L503.0105, L500.4050, L506.1000 #### [facility] [address] [place], [address] Absolute Neut 4.3 X10 3/uL Normal 2.0-7.7 [facility] Comment on above: Performed By: #### L 501.6710, L503.6075, L503.6150, L3300.0960, L506.0250, L101.9900, L3300.1200, L2100.0000, L100.0100, L503.6550, L503.0105, L500.4050, L506.1000 #### [facility] [address] [place], [place], [id number] ([address] Basophils/100 WBC (Bld) 0.7 % Normal 0-1 [facility] Comment on above: Performed By: #### L 501.6710, L503.6075, L503.6150, L3300.0960, L506.0250, L101.9900, L3300.1200, L2100.0000, L100.0100, L503.6550, L503.0105, L500.4050, L506.1000 #### [facility] [address] [place], [address] Eosinophils/100 WBC (Bld) 2.9 % Normal 0-5 [facility] Comment on above: Performed By: #### L 501.6710, L503.6075, L503.6150, L3300.0960, L506.0250, L101.9900, L3300.1200, L2100.0000, L100.0100, L503.6550, L503.0105, L500.4050, L506.1000 #### [facility] [address] [facility] [place], [address] Erythrocyte distribution width (RBC) [Ratio] 13.9 % Normal 11.6-14.6 [facility] Comment on above: Performed By: #### L 501.6710, L503.6075, L503.6150, L3300.0960, L506.0250, L101.9900, L3300.1200, L2100.0000, L100.0100, L503.6550, L503.0105, L500.4050, L506.1000 #### [facility] [address] [place], [place], [id number] (589) Hematocrit (Bld) [Volume fraction] 37.2 % Low 40-54 [facility] Comment on above: Performed By: #### L 501.6710, L503.6075, L503.6150, L3300.0960, L506.0250, L101.9900, L3300.1200, L2100.0000, L100.0100, L503.6550, L503.0105, L500.4050, L506.1000 #### [facility] [address] [place], [place], [id number] (763) Hemoglobin (Bld) [Mass/Vol] 11.2 g/dL Low 13.0-16.5 [facility] Comment on above: Performed By: #### L 501.6710, L503.6075, L503.6150, L3300.0960, L506.0250, L101.9900, L3300.1200, L2100.0000, L100.0100, L503.6550, L503.0105, L500.4050, L506.1000 #### [facility] [address] [facility] [place], [address] IG% 0.400 Normal 0.0-0.9 [facility] [facility] Comment on above: Result Comment: IG% - Immature Granulocytes (promyelocytes, myelocytes and metamyelocytes) > 1% indicates that a LEFT SHIFT is Present. Performed By: #### L 501.6710, L503.6075, L503.6150, L3300.0960, L506.0250, L101.9900, L3300.1200, L2100.0000, L100.0100, L503.6550, L503.0105, L500.4050, L506.1000 #### [facility] [address] [place], [address] Lymphocytes/100 WBC (Bld) 24.8 % Normal 19-41 [facility] Comment on above: Performed By: #### L 501.6710, L503.6075, L503.6150, L3300.0960, L506.0250, L101.9900, L3300.1200, L2100.0000, L100.0100, L503.6550, L503.0105, L500.4050, L506.1000 #### [facility] [address] [place], [address] MCH (RBC) [Entitic mass] 23.0 pg Low 27.0-32.0 [facility] Comment on above: Performed By: #### L 501.6710, L503.6075, L503.6150, L3300.0960, L506.0250, L101.9900, L3300.1200, L2100.0000, L100.0100, L503.6550, L503.0105, L500.4050, L506.1000 #### [facility] [address] [place], [address] MCHC (RBC) [Mass/Vol] 30.1 g/dL Low 32-36 [facility] Comment on above: Performed By: #### L 501.6710, L503.6075, L503.6150, L3300.0960, L506.0250, L101.9900, L3300.1200, L2100.0000, L100.0100, L503.6550, L503.0105, L500.4050, L506.1000 #### [facility] [address] [place], [address] MCV (RBC) [Entitic vol] 76.4 fL Low 80-94 [facility] Comment on above: Performed By: #### L 501.6710, L503.6075, L503.6150, L3300.0960, L506.0250, L101.9900, L3300.1200, L2100.0000, L100.0100, L503.6550, L503.0105, L500.4050, L506.1000 #### [facility] [address] [place], [address] Monocytes/100 WBC (Bld) 7.8 % Normal 0-10 [facility] Comment on above: Performed By: #### L 501.6710, L503.6075, L503.6150, L3300.0960, L506.0250, L101.9900, L3300.1200, L2100.0000, L100.0100, L503.6550, L503.0105, L500.4050, L506.1000 #### [facility] [address] [place], [address] Neutrophils/100 WBC (Bld) 63.4 % Normal 47-70 [facility] Comment on above: Performed By: #### L 501.6710, L503.6075, L503.6150, L3300.0960, L506.0250, L101.9900, L3300.1200, L2100.0000, L100.0100, L503.6550, L503.0105, L500.4050, L506.1000 #### [facility] [address] [place], [address] Nucleated RBC (Bld) [#/Vol] 0 10*3/uL Normal 0-5 [facility] Comment on above: Performed By: #### L 501.6710, L503.6075, L503.6150, L3300.0960, L506.0250, L101.9900, L3300.1200, L2100.0000, L100.0100, L503.6550, L503.0105, L500.4050, L506.1000 #### [facility] [address] [place], [address] Platelet mean volume (Bld) [Entitic vol] 9.8 fL Normal 6.2-12.0 [facility] Comment on above: Performed By: #### L 501.6710, L503.6075, L503.6150, L3300.0960, L506.0250, L101.9900, L3300.1200, L2100.0000, L100.0100, L503.6550, L503.0105, L500.4050, L506.1000 #### [facility] [address] [address] [place], [address] Platelets (Bld) [#/Vol] 320 10*3/uL Normal 150-450 [facility] Comment on above: Performed By: #### L 501.6710, L503.6075, L503.6150, L3300.0960, L506.0250, L101.9900, L3300.1200, L2100.0000, L100.0100, L503.6550, L503.0105, L500.4050, L506.1000 #### [facility] [address] [facility] [place], [address] RBC (Bld) [#/Vol] 4.87 10*6/uL Normal 4.6-6.2 [facility] Comment on above: Performed By: #### L 501.6710, L503.6075, L503.6150, L3300.0960, L506.0250, L101.9900, L3300.1200, L2100.0000, L100.0100, L503.6550, L503.0105, L500.4050, L506.1000 #### [facility] [address] [place], [address] RDW SD 38.4 fl Normal 35.1-43.9 [facility] Comment on above: Performed By: #### L 501.6710, L503.6075, L503.6150, L3300.0960, L506.0250, L101.9900, L3300.1200, L2100.0000, L100.0100, L503.6550, L503.0105, L500.4050, L506.1000 #### [facility] [address] [place], [address] WBC (Bld) [#/Vol] 6.8 10*3/uL Normal 4.4-11.0 [facility] Comment on above: Performed By: #### L 501.6710, L503.6075, L503.6150, L3300.0960, L506.0250, L101.9900, L3300.1200, L2100.0000, L100.0100, L503.6550, L503.0105, L500.4050, L506.1000 #### [facility] [address] [place], [address] CRPon 01-26-2024 C-REACTIVE PROT 4.67 mg/L High 0.0-3.0 [facility] Comment on above: Order Comment: N Result Comment: C-Re active Protein (CRP) provides useful information for the diagnosis, therapy and monitoring of inflammatory processes and associated diseases. For the evaluation of Relative Risk for Cardiovascular Disease, a High Sensitivity CRP (HSCRP) should be ordered. Performed By: #### L 501.6710, L503.6075, L503.6150, L3300.0960, L506.0250, L101.9900, L3300.1200, L2100.0000, L100.0100, L503.6550, L503.0105, L500.4050, L506.1000 ####[facility] [address] [place], [place], [id number] Comprehensive Metabolic Prof ilon 01-26-2024 Albumin [Mass/Vol] 3.5 g/dL Normal 3.2-5.0 [facility] Comment on above: Order Comment: N Performed By: #### L 501.6710, L503.6075, L503.6150, L3300.0960, L506.0250, L101.9900, L3300.1200, L2100.0000, L100.0100, L503.6550, L503.0105, L500.4050, L506.1000 ####[facility] [address] [place], [address] Albumin/Globulin [Mass ratio] 0.8 {ratio} Low 0.9-2.4 [facility] Comment on above: Order Comment: N Performed By: #### L 501.6710, L503.6075, L503.6150, L3300.0960, L506.0250, L101.9900, L3300.1200, L2100.0000, L100.0100, L503.6550, L503.0105, L500.4050, L506.1000 ####[facility] [address] [place], [place], [id number] ALK P 97 U/L Normal 45-117 [facility] Comment on above: Order Comment: N Performed By: #### L 501.6710, L503.6075, L503.6150, L3300.0960, L506.0250, L101.9900, L3300.1200, L2100.0000, L100.0100, L503.6550, L503.0105, L500.4050, L506.1000 ####[facility] [address] [place], [address] ALT [Catalytic activity/Vol] 22 U/L Normal 16-61 [facility] Comment on above: Order Comment: N Performed By: #### L 501.6710, L503.6075, L503.6150, L3300.0960, L506.0250, L101.9900, L3300.1200, L2100.0000, L100.0100, L503.6550, L503.0105, L500.4050, L506.1000 ####[facility] [address] [place], [address] AST [Catalytic activity/Vol] 20 U/L Normal 15-37 [facility] Comment on above: Order Comment: N Performed By: #### L 501.6710, L503.6075, L503.6150, L3300.0960, L506.0250, L101.9900, L3300.1200, L2100.0000, L100.0100, L503.6550, L503.0105, L500.4050, L506.1000 ####[facility] [address] [place], [place], [phone] Bilirubin [Mass/Vol] 0.70 mg/dL Normal 0.20-1.00 [facility] Comment on above: Order Comment: N Result Comment: For patients on eltrombopag therapy, use of Dimension Herman TBIL is not recommended. Performed By: #### L 501.6710, L503.6075, L503.6150, L3300.0960, L506.0250, L101.9900, L3300.1200, L2100.0000, L100.0100, L503.6550, L503.0105, L500.4050, L506.1000 ####[facility] [address] [place], [place], [phone] BUN/CRE 10.9 RATIO Normal 10-20 [facility] Comment on above: Order Comment: N Performed By: #### L 501.6710, L503.6075, L503.6150, L3300.0960, L506.0250, L101.9900, L3300.1200, L2100.0000, L100.0100, L503.6550, L503.0105, L500.4050, L506.1000 ####[facility] [address] [place], [address] CA,Total 9.1 mg/dL Normal 8.5-10.1 [facility] Comment on above: Order Comment: N Performed By: #### L 501.6710, L503.6075, L503.6150, L3300.0960, L506.0250, L101.9900, L3300.1200, L2100.0000, L100.0100, L503.6550, L503.0105, L500.4050, L506.1000 ####[facility] [address] [place], [place], [phone] Chloride [Moles/Vol] 104 mmol/L Normal 98-107 [facility] Comment on above: Order Comment: N Performed By: #### L 501.6710, L503.6075, L503.6150, L3300.0960, L506.0250, L101.9900, L3300.1200, L2100.0000, L100.0100, L503.6550, L503.0105, L500.4050, L506.1000 ####[facility] [address] [place], [place], [phone]([phone]) CO2 [Moles/Vol] 30.0 mmol/L Normal 21.0-32.0 [facility] Comment on above: Order Comment: N Performed By: #### L 501.6710, L503.6075, L503.6150, L3300.0960, L506.0250, L101.9900, L3300.1200, L2100.0000, L100.0100, L503.6550, L503.0105, L500.4050, L506.1000 ####[facility] [address] [place], [place], [phone]) Creatinine [Mass/Vol] 1.10 mg/dL Normal 0.70-1.30 [facility] Comment on above: Order Comment: N Result Comment: The validity of the calculated GFR GFRAA in patients over 70 years has not been determined. Clinical correlation is essential. Performed By: #### L 501.6710, L503.6075, L503.6150, L3300.0960, L506.0250, L101.9900, L3300.1200, L2100.0000, L100.0100, L503.6550, L503.0105, L500.4050, L506.1000 ####[facility] [address] [place], [place], [phone] EST GFR - AA 95 mL/min Normal >60 [facility] Comment on above: Order Comment: N Result Comment: Afri can Fijian GFR Calc Performed By: #### L 501.6710, L503.6075, L503.6150, L3300.0960, L506.0250, L101.9900, L3300.1200, L2100.0000, L100.0100, L503.6550, L503.0105, L500.4050, L506.1000 ####[facility] [address] [place], [place], [phone] GAP 5 Normal 5-15 [facility] Comment on above: Order Comment: N Performed By: #### L 501.6710, L503.6075, L503.6150, L3300.0960, L506.0250, L101.9900, L3300.1200, L2100.0000, L100.0100, L503.6550, L503.0105, L500.4050, L506.1000 ####[facility] [address] [place], [place], [phone]) GFR/1.73 sq M.predicted among non-blacks MDRD (S/P/Bld) [Vol rate/Area] 79 mL/min/{1.73_m2} Normal >60 [facility] Comment on above: Order Comment: N Result Comment: Non- GFR Calc Performed By: #### L 501.6710, L503.6075, L503.6150, L3300.0960, L506.0250, L101.9900, L3300.1200, L2100.0000, L100.0100, L503.6550, L503.0105, L500.4050, L506.1000 ####[facility] [address] [place], [place], [phone] Globulin (S) [Mass/Vol] 4.4 g/dL High 2.2-4.2 [facility] Comment on above: Order Comment: N Performed By: #### L 501.6710, L503.6075, L503.6150, L3300.0960, L506.0250, L101.9900, L3300.1200, L2100.0000, L100.0100, L503.6550, L503.0105, L500.4050, L506.1000 ####[facility] [address] [place], [place], [phone] Glucose [Mass/Vol] 112 mg/dL High 74-106 [facility] Comment on above: Order Comment: N Result Comment: Fast ing Glucose result from 100 to 125 mg/dL suggests IMPAIRED HOMEOSTASIS per A.D.A. criteria. Performed By: #### L 501.6710, L503.6075, L503.6150, L3300.0960, L506.0250, L101.9900, L3300.1200, L2100.0000, L100.0100, L503.6550, L503.0105, L500.4050, L506.1000 ####[facility] [address] [place], [place], [phone] Potassium [Moles/Vol] 3.6 mmol/L Normal 3.5-5.1 [facility] Comment on above: Order Comment: N Performed By: #### L 501.6710, L503.6075, L503.6150, L3300.0960, L506.0250, L101.9900, L3300.1200, L2100.0000, L100.0100, L503.6550, L503.0105, L500.4050, L506.1000 ####[facility] [address] [place], [place], [phone] Sodium [Moles/Vol] 139 mmol/L Normal 136-145 [facility] Comment on above: Order Comment: N Performed By: #### L 501.6710, L503.6075, L503.6150, L3300.0960, L506.0250, L101.9900, L3300.1200, L2100.0000, L100.0100, L503.6550, L503.0105, L500.4050, L506.1000 ####[facility] [address] [place], [address] T PROT 7.9 g/dL Normal 6.4-8.2 [facility] Comment on above: Order Comment: N Performed By: #### L 501.6710, L503.6075, L503.6150, L3300.0960, L506.0250, L101.9900, L3300.1200, L2100.0000, L100.0100, L503.6550, L503.0105, L500.4050, L506.1000 ####[facility] [address] [place], [place], [phone] Urea nitrogen [Mass/Vol] 12 mg/dL Normal 7-18 [facility] Comment on above: Order Comment: N Performed By: #### L 501.6710, L503.6075, L503.6150, L3300.0960, L506.0250, L101.9900, L3300.1200, L2100.0000, L100.0100, L503.6550, L503.0105, L500.4050, L506.1000 ####[facility] [address] [place], [place], [phone] Erythrocyte Sed Rateon 01-25 SED RATE 33 mm/hr High 0-20 [facility] Comment on above: Performed By: #### L 501.6710, L503.6075, L503.6150, L3300.0960, L506.0250, L101.9900, L3300.1200, L2100.0000, L100.0100, L503.6550, L503.0105, L500.4050, L506.1000 #### [facility] [address] [place], [place], [address] [phone] Ferritinon 01-26-2024 Ferritin [Mass/Vol] 3 ng/mL Low 26-388 [facility] Comment on above: Order Comment: N Performed By: #### L 501.6710, L503.6075, L503.6150, L3300.0960, L506.0250, L101.9900, L3300.1200, L2100.0000, L100.0100, L503.6550, L503.0105, L500.4050, L506.1000 ####[facility] [address] [place], [address] Folates, (Folic Acid)on 01-04 FOLATES 11.50 ng/mL Normal 3.1-55.4 [facility] Comment on above: Order Comment: N Performed By: #### L 501.6710, L503.6075, L503.6150, L3300.0960, L506.0250, L101.9900, L3300.1200, L2100.0000, L100.0100, L503.6550, L503.0105, L500.4050, L506.1000 ####[facility] [address], [address] Gastroenterology Visit Repor ton 01-26-2024 Gastroenterology Visit Report [facility] [address] [place] [address] OFFICE VISIT Date of Service: 01/26/24 MR#: [id number] Acct: [id number] Name: BARBIE FINK Rep #: [id number] : 1985 Provider: GARRY Guerrero Age/Sex: 38/M Location: [facility] Status: Signed Intake Intake Visit Reasons: 6 [...] Appearance: average body habitus and well nourished [facility] Head: normal to inspection Ears: hearing [...] panel, i (more content not included)... Normal [facility] Ironon 01-26-2024 Iron [Mass/Vol] 34 ug/dL Low 65-175 [facility] Comment on above: Order Comment: N Performed By: #### L 501.6710, L503.6075, L503.6150, L3300.0960, L506.0250, L101.9900, L3300.1200, L2100.0000, L100.0100, L503.6550, L503.0105, L500.4050, L506.1000 ####[facility] [address] [place], [place], [address] Iron Binding Capacity,Totalo n 01-26-2024 TIBC 415 ug/dL Normal 250-450 [facility] Comment on above: Order Comment: N Performed By: #### L 501.6710, L503.6075, L503.6150, L3300.0960, L506.0250, L101.9900, L3300.1200, L2100.0000, L100.0100, L503.6550, L503.0105, L500.4050, L506.1000 ####[facility] [address] [place], [address] Vitamin B12on 01-26-2024 Cobalamin (Vitamin B12) [Mass/Vol] 481 pg/mL Normal 211-911 [facility] Comment on above: Performed By: #### L 501.6710, L503.6075, L503.6150, L3300.0960, L506.0250, L101.9900, L3300.1200, L2100.0000, L100.0100, L503.6550, L503.0105, L500.4050, L506.1000 #### [facility] [address] [place], [place], [id number] Vitamin D,25 Hydroxyon 01-25 Vitamin D 25-OH 28.1 ng/mL Normal [facility] Comment on above: Result Comment: Julissa min D 25(OH) Status Range Deficiency <20 ng/mL (50nmol/L) Insufficiency 20 - 30 ng/mL (50 - 75 nmol/L) Sufficiency 30 - 100 ng/mL (75 - 250 nmol/L) Toxicity >100 ng/mL (>250 nmol/L) Performed By: #### L 501.6710, L503.6075, L503.6150, L3300.0960, L506.0250, L101.9900, L3300.1200, L2100.0000, L100.0100, L503.6550, L503.0105, L500.4050, L506.1000 ####[facility] [address] [place], [place], [id number] Vital Signs Date Time Vital Sign Value Performing Clinician Clayton peralta 01-16-2025 10:44-0400 Body temperature 99.7 [degF] Dr. Chris Mckeon MD Work Phone: [facility] 01-16-2025 10:44-0400 Diastolic blood pressure 76 mm[Hg] Dr. Chris Mckeon MD Work Phone: [facility] 01-16-2025 10:44-0400 Heart rate 88 /min Dr. Chris Mckeon MD Work Phone: [facility] 01-16-2025 10:44-0400 Respiratory rate 14 /min Dr. Chris Mckeon MD Work Phone: [facility] 01-16-2025 10:44-0400 SaO2% (BldA) [Mass fraction] 97 % Dr. Chris Mckeon MD Work Phone: [facility] 01-16-2025 10:44-0400 Systolic blood pressure 134 mm[Hg] Dr. Chris Mckeon MD Work Phone: [facility] 01-16-2025 06:22-0400 Body height 185.[address] Chris Mckeon MD Work Phone: [facility] 01-16-2025 06:22-0400 Body mass index (BMI) [Ratio] 37.1 kg/m2 Dr. Chris Mckeon MD Work Phone: [facility] 01-16-2025 06:22-0400 Body weight 127.[address] Chris Mckeon MD Work Phone: [facility] 09-23-2024 17:49-0400 Body weight 131.54 kg Marah Montalvo BIOCHEMICAL DEVELOPMENT ENGINEER.TRANSFORMATION LEAD Work Phone: [facility] 09-23-2024 17:49-0400 Diastolic blood pressure 78 mm[Hg] Marah Montalvo BIOCHEMICAL DEVELOPMENT ENGINEER.TRANSFORMATION LEAD Work Phone: [facility] 09-23-2024 17:49-0400 Heart rate 102 /min Marah Ellisonagen BIOCHEMICAL DEVELOPMENT ENGINEER.TRANSFORMATION LEAD Work Phone: [facility] 09-23-2024 17:49-0400 Respiratory rate 16 /min Marah Montalvo BIOCHEMICAL DEVELOPMENT ENGINEER.TRANSFORMATION LEAD Work Phone: [facility] 09-23-2024 17:49-0400 SaO2% (BldA) [Mass fraction] 97 % Marah Montalvo BIOCHEMICAL DEVELOPMENT ENGINEER.TRANSFORMATION LEAD Work Phone: [facility] 09-23-2024 17:49-0400 Systolic blood pressure 118 mm[Hg] Marah Montalvo BIOCHEMICAL DEVELOPMENT ENGINEER.TRANSFORMATION LEAD Work Phone: [facility] 08-26-2024 11:33-0400 Body temperature 97.8 [degF] Dr. Chris Mckeon MD Work Phone: [facility] 08-26-2024 11:33-0400 Diastolic blood pressure 69 mm[Hg] Dr. Chris Mckeon MD Work Phone: [facility] 08-26-2024 11:33-0400 Heart rate 66 /min Dr. Chris Mckeon MD Work Phone: 4(225)280-680053 [place] [address] 08-26-2024 11:33-0400 Respiratory rate 16 /min Dr. Chris Mckeon MD Work Phone: 3(477)405-825053 [place] [address] 08-26-2024 11:33-0400 SaO2% (BldA) [Mass fraction] 96 % Dr. Chris Mckeon MD Work Phone: 8(060)902-048553 [place] [address] 08-26-2024 11:33-0400 Systolic blood pressure 109 mm[Hg] Dr. Chris Mckeon MD Work Phone: 7(461)271-788670 [place] [address] 08-26-2024 09:43-0400 Body height 187.[address] Chris Mckeon MD Work Phone: 0(620)774-326070 [place] [address] 08-26-2024 09:43-0400 Body mass index (BMI) [Ratio] 37.3 kg/m2 Dr. Chris Mckeon MD Work Phone: 8(085)283-618170 [place] [address] 08-26-2024 09:43-0400 Body weight 131.[address] Chris Mckeon MD Work Phone: 1(143)414-953470 [place] [address] 12-02-2022 08:53-0400 Body temperature 97 [degF] Marah Haagen BIOCHEMICAL DEVELOPMENT ENGINEER.TRANSFORMATION LEAD Work Phone: [facility] 12-02-2022 08:53-0400 Body weight 139.71 kg Marah Haagen BIOCHEMICAL DEVELOPMENT ENGINEER.TRANSFORMATION LEAD Work Phone: [facility] 12-02-2022 08:53-0400 Diastolic blood pressure 80 mm[Hg] Marah Haagen BIOCHEMICAL DEVELOPMENT ENGINEER.TRANSFORMATION LEAD Work Phone: [facility] 12-02-2022 08:53-0400 Heart rate 76 /min Marah Haagen BIOCHEMICAL DEVELOPMENT ENGINEER.TRANSFORMATION LEAD Work Phone: [facility] 12-02-2022 08:53-0400 Respiratory rate 16 /min Marah Haagen BIOCHEMICAL DEVELOPMENT ENGINEER.TRANSFORMATION LEAD Work Phone: [facility] 12-02-2022 08:53-0400 Systolic blood pressure 120 mm[Hg] Marah Haagen BIOCHEMICAL DEVELOPMENT ENGINEER.TRANSFORMATION LEAD Work Phone: [facility] Encounters Encounter Date Encounter Type Care Provider Facility Start: 01-16-2025 Evaluation and manag ement of inpatient Dr. Obed Fish MD -[facility] Work Phone: Start: 12-13-2024 End: 12-13-2024 Patient encounter procedure Anne-Marie CASTAÑEDA -[facility] Work Phone: Start: 12-13-2024 End: 12-13-[address] Chris Mckeon MD Work Phone: -[facility] Start: 12-13-2024 End: 12-13-2024 ambulatory Chris Mckeon Facility:[facility] Start: 09-23-2024 End: 09-23-2024 Patient encounter procedure Marah Montalvo APRN.TRANSFORMATION LEAD Work Phone: [facility] Comment on above: Routine physical exa mination (Primary Dx); Essential hypertension; Elevated LDL cholesterol level; Crohn's disease without complication, unspecified gastrointestinal tract location (HCC); Gastro-esophageal reflux disease without esophagitis; Dry cough Start: 09-23-2024 End: 09-23-2024 ambulatory CHRIS MCKEON Facility:[facility] Start: 09-23-2024 End: 09-23-2024 Physical examination Marah Montalvo APRN.TRANSFORMATION LEAD Work Phone: [facility] Work Phone: Start: 09-10-2024 End: 09-10-2024 Patient encounter procedure Anne-Marie CASTAÑEDA -[facility] Work Phone: Start: 09-10-2024 End: 09-10-2024 Refill Chris Mckeon MD Work Phone: [facility] [place] Comment on above: Refill Request Start: 08-26-2024 Non-patient / Non-visit Babar Hill nd DO -[facility] Start: 08-26-2024 End: 08-26-2024 Admission to same day surgery center Babar Hernández DO -Endoscopy Work Phone: Start: 08-26-2024 End: 08-26-[address] Chris Mckeon MD Work Phone: [facility] Work Phone: Start: 07-23-2024 End: 07-23-2024 Patient encounter procedure Anne-Marie CASTAÑEDA -[facility] Work Phone: Start: 07-23-2024 End: 07-23-2024 ambulatory Anne-Marie Fine Facility:[facility] Start: 01-26-2024 End: 01-26-2024 ambulatory Chris Mckeon Facility:[facility] Start: 01-26-2024 End: 01-26-2024 ambulatory Babar Hernández Facility:[facility] Start: 01-18-2024 Refill Chris Mckeon MD Work Phone: [facility] Comment on above: Refill Request Start: 12-02-2022 End: 12-02-2022 Office outpatient visit 25 minutes Marah Montalvo APRN.CNP Work Phone: [facility] Comment on above: Essential hypertensi on (Primary Dx); Anxiety Start: 01-07-2022 Refill Chris Mckeon MD Work Phone: [facility] Comment on above: Refill Request Start: 04-30-2011 End: 01-25-2012 Patient encounter status hCris Mckeon MD Work Phone: [facility] Procedures Date Procedure Procedure Detail Performing Clinician Start: 01-16-2025 Urnls dip stick/tabl et reagent auto microscopy Dr. Chris Mckeon MD Work Phone: Start: 01-16-[address] Chris Mckeon MD Work Phone: Start: 01-16-2025 X-ray of chest, PA a nd lateral views Dr. Chris Mckeon MD Work Phone: Start: 01-16-2025 Computed tomography of abdomen and pelvis with intravenous contrast Dr. Chris Mckeon MD Work Phone: Start: 08-26-[address] Kenton Mckeon MD Work Phone: Start: 10-28-2022 Lipid 1996 panel - S umesh or Plasma Chris Mckeon MD Work Phone: Start: 12-22-2015 Adult depression scr eening assessment Chris Mckeon MD Work Phone: Plan of Treatment Date Care Activity Detail Author Start: 2044 HEPATITIS B (1 of 3 - Risk 3-dose series) HEPATITIS B (1 of 3 - Risk 3-dose series) [facility] Start: 10-29-2027 Lipid panel Lipid Screening [facility] Start: 10-29-2027 LIPID SCREEN LIPID SCREEN [facility] Start: 11-21-2025 LIPID SCREEN LIPID SCREEN [facility] Start: 09-23-2025 Annual PCP Team Hand Printed Circuit Board Assembler davida Disease Visit Annual PCP Team Chronic Disease Visit [facility] Start: 09-23-2025 BP Controlled (<130/80) BP Controlle d (<130/80) [facility] Start: 09-23-2025 Covid-19 Vaccine () Covid-19 Vaccine () [facility] Comment on above: Postponed from 02/03 (Declined at this time) Start: 09-23-2025 Hepatitis C screening Hepatitis C Sc reening [facility] Comment on above: Postponed from 02/17 (Declined at this time) Start: 09-23-2025 HIV screening HIV Screening [facility] Comment on above: Postponed from 02/17 (Declined at this time) Start: 01-16-2025 Bacteria identified in Blood by Culture Blood Culture [facility] Start: 01-16-2025 Bacteria identified in Urine by Culture Urine Culture [facility] Start: 01-16-2025 Verification routine [facility] Start: 01-16-2025 Admission procedure [facility] Start: 01-16-2025 Clostridioides diffi cile DNA [Presence] in Unspecified specimen by RAMON with probe detection [facility] Start: 01-16-2025 Enteric precautions [facility] Start: 01-16-2025 Lactoferrin [Presenc e] in Stool by Immunoassay [facility] Start: 01-16-[address] [facility] Start: 01-16-2025 Protein measurement [facility] Start: 01-16-2025 Hospital admission, emergency, from emergency room, medical nature [facility] Start: 01-16-2025 [facility] Start: 01-16-2025 [facility] Start: 12-02-2024 Influenza vaccination Influenza Vacc ine (#1) [facility] Comment on above: Postponed from 02/03 (Declined at this time) Start: 09-23-2024 End: 09-23-2024 Patient encounter procedure 09/23/2024 6:00 PM EDT Office Visit [facility] [place] [address] [place], [place] [id number] Marah Montalvo APRN.TRANSFORMATION LEAD [address] [place] [address] medication refills/ physical [facility] [place] Comment on above: medication refills/ physical Start: 09-23-2024 End: 12-23-2024 CBC W Auto Differential panel - Blood COMPLETE BLOOD COUNT AND DIFFERENTIAL Lab Routine Routine physical examination Expected: 09/23/2024, Expires: 12/23/2024 [facility] Comment on above: Expected: 09/23/2024 , Expires: 12/23/2024 Start: 09-23-2024 End: 12-23-2024 Comprehensive metabolic 2000 panel - Serum or Plasma COMPREHENSIVE METABOLIC PANEL Lab Routine Essential hypertension Expected: 09/23/2024, Expires: 12/23/2024 [facility] Comment on above: Expected: 09/23/2024 , Expires: 12/23/2024 Start: 09-23-2024 Depression Screening Depression [facility] Comment on above: Postponed from 02/17 (Declined at this time) Start: 09-23-2024 End: 12-23-2024 Lipid 1996 panel - Serum or Plasma LIPID PANEL, FASTING Lab Routine Routine physical examination Elevated LDL cholesterol level Expected: 09/23/2024, Expires: 12/23/2024 [facility] Work Phone: Comment on above: Expected: 09/23/2024 , Expires: 12/23/2024 Start: 08-26-2024 Colonoscopy flx dx w/collj spec when pfrmd DIAGNOSTIC COLONOSCOPY [facility] Start: 08-26-2024 Patient discharge [facility] Start: 06-12-2024 Annual PCP Team Hand Printed Circuit Board Assembler davida Disease Visit Annual PCP Team Chronic Disease Visit [facility] Start: 02-04-2024 Covid-19 Vaccine ( season) Covid-19 Vaccine () [facility] Start: 02-04-2024 Influenza vaccination Influenza Vacc ine (#1) [facility] Start: 12-03-2023 ANNUAL PCP TEAM PANTOGRAPH II ENGRAVER DAVIDA DISEASE VISIT ANNUAL PCP TEAM CHRONIC DISEASE VISIT [facility] Start: 10-29-2023 COVID-19 VACCINE (#1) COVID-19 VACCI NE (#1) [facility] Comment on above: Postponed from 08/17 (Declined at this time) Start: 10-29-2023 HEPATITIS A (1 of 2 - Risk 2-dose series) HEPATITIS A (1 of 2 - Risk 2-dose series) [facility] Comment on above: Postponed from 02/17 (Declined at this time) Start: 10-29-2023 HEPATITIS C SCREENING HEPATITIS C [facility] Comment on above: Postponed from 02/17 (Declined at this time) Start: 10-29-2023 HIV SCREENING HIV SCREENING [facility] Comment on above: Postponed from 02/17 (Declined at this time) Start: 10-29-2023 MENINGOCOCCAL B: Consider based on risk (1 of 4 - Increased Risk Bexsero 2-dose series) MENINGOCOCCAL B: Consider based on risk (1 of 4 - Increased Risk Bexsero 2-dose series) [facility] Comment on above: Postponed from 02/17 (Declined at this time) Start: 10-29-2023 MMR (1 of 2 - Risk 2-dose series) MMR (1 of 2 - Risk 2-dose series) [facility] Comment on above: Postponed from 02/17 (Declined at this time) Start: 10-29-2023 Urine microalbumin profile DTAP,TDAP,TD (1 - Tdap) [facility] Comment on above: Postponed from 02/17 (Declined at this time) Start: 02-03-2023 Covid-19 Vaccine ( season) Covid-19 Vaccine ( season) [facility] Start: 02-03-2023 Influenza vaccination INFLUENZ A (Season Ended) [facility] Start: 06-05-2022 DEPRESSION ASSESSMENT DEPRESSION ASS ESSMENT [facility] Start: 02-03-2022 Influenza vaccination INFLUENZA (#1) [facility] Start: 11-09-2021 ANNUAL PCP TEAM PANTOGRAPH II ENGRAVER DAVIDA DISEASE VISIT ANNUAL PCP TEAM CHRONIC DISEASE VISIT [facility] Start: 12-21-2016 Adult depression screening assessment DEPRESSION SCREENING [facility] Start: 02-17-2003 HEPATITIS B (1 of 3 - Risk 3-dose series) HEPATITIS B (1 of 3 - Risk 3-dose series) [facility] Start: 02-17-2003 Hepatitis B Vaccine (1 of 3 - 19+ 3-dose series) Hepatitis B Vaccine (1 of 3 - 19+ 3-dose series) [facility] Start: 02-17-2003 Urine microalbumin profile [facility] Start: 02-17-2002 BP CONTROLLED (<130/80) BP CONTROLLE D (<130/80) [facility] Start: 02-17-2002 Depression Screening Depression Scre ening [facility] Start: 02-17-2002 HEPATITIS C SCREENING HEPATITIS C [facility] Start: 02-17-2002 Hepatitis C screening Hepatitis C [facility] Start: 02-17-2002 HIV SCREENING HIV SCREENING [facility] Start: 02-17-2002 HIV screening HIV Screening [facility] Start: 02-17-2002 MMR (1 of 2 - Risk 2-dose series) MMR (1 of 2 - Risk 2-dose series) [facility] Start: 02-17-1994 MENINGOCOCCAL B: Consider based on risk (1 of 4 - Increased Risk Bexsero 2-dose series) MENINGOCOCCAL B: Consider based on risk (1 of 4 - Increased Risk Bexsero 2-dose series) [facility] Start: 02-17-1985 HEPATITIS A (1 of 2 - Risk 2-dose series) HEPATITIS A (1 of 2 - Risk 2-dose series) [facility] Start: 1984 COVID-19 VACCINE (#1) COVID-19 VACCI NE (#1) [facility] C reactive protein [Mass/volume] in Serum or Plasma [facility] C reactive protein [Mass/volume] in Serum or Plasma [facility] CBC W Auto Different ial panel - Blood [facility] Comprehensive metabo lic 2000 panel - Serum or Plasma [facility] Erythrocyte sedimentation rate [facility] Erythrocyte sedimentation rate [facility] Lactic acid measurement [facility] Ova OR parasites identification [facility] Patient referral [facility] Work Phone: Urine culture [facility] Immunizations Immunization Date Immunization Notes Care Provider Osvaldo jones 06-23-2016 influenza virus vacc ine, unspecified formulation Chris Mckeon MD Work Phone: [facility] Payers Date Payer Category Payer Self-pay 2021 [employer] Blue [facility] BLUE ACCE PPO [id number] 2021 Unknown [employer] ACCE PPO [id number] 2021-Present [phone] [place] [id number] PPO [id number] 2021 Unknown [id number] 2018 Unknown [employer] ACCE PPO [id number] 2018-Present [phone] [place], [place] [address] PPO [id number] Unknown [id number] Unknown [id number] Unknown [id number] Unknown [id number] Unknown [id number] Unknown [id number] Unknown [id number] Unknown [id number] Social History Date Type Detail Facility Start: 04-30-2011 End: 01-16-2025 Tobacco smoking status NHIS Never smoked tobacco [facility] Work Phone: Start: 04-30-2011 End: 10-28-2022 Tobacco use and exposure User of smokeless tobacco [facility] Work Phone: History of tobacco use Chews Tobacco [facility] Work Phone: Start: 01-16-2021 End: 09-23-2024 Alcohol intake Current drinker of alcohol (finding) [facility] Start: 01-16-2021 End: 12-02-2022 Alcohol intake [facility] Start: 1985 Sex Assigned At Not on file [facility] Start: 10-28-2022 Tobacco Comment Chewing tobacc o since age 24 y/o on a daily basis [facility] Start: 12-02-2022 End: 06-12-2023 Tobacco use panel [facility] Work Phone: National Score (1-100), lower number is lower risk 65 [facility] Start: 08-21-2024 Tobacco smoking stat us NHIS Current some day smoker [facility] Start: 08-26-2024 Sex Male (finding) [facility] Start: 1985 Sex Assigned At Male W [facility] Goals Date Patient Goal Desired Activity /State Functional Status Date Assessment Result Facility 12-15-2014 Are you deaf, or do you have serious difficulty hearing No 12/15/2014 6:31 PM EDT Khushboo Holguin LPN No [facility] 12-15-2014 Are you blind, or do you have serious difficulty seeing, even when wearing glasses No 12/15/2014 6:31 PM EDT Khushboo Holguin LPN No [facility] 12-15-2014 Do you have serious difficulty walking or climbing stairs No 12/15/2014 6:31 PM EDT Khushboo Holguin LPN No [facility] 12-15-2014 Do you have difficul ty dressing or bathing No 12/15/2014 6:31 PM EDT Khushboo Holguin LPN No [facility] 12-15-2014 Because of a physica l, mental, or emotional condition, do you have difficulty doing errands alone such as visiting a physician's office or shopping No 12/15/2014 6:31 PM EDT Khushboo Holguin LPN No [facility] Mental Status Date Assessment Result Facility 01-16-2025 Cognitive function Level Of Cons ciousness Awake;Alert;Appropriate;Fol lows Commands [facility] Work Phone: 08-26-2024 Cognitive function Touch/Shaking [facility] Work Phone: 12-15-2014 Because of a physica l, mental, or emotional condition, do you have serious difficulty concentrating, remembering, or making decisions No 12/15/2014 6:31 PM EDT Khushboo Holguin LPN No [facility] Clinical Notes 04-30-2011 to 01-16-2025 Note Date & Type Note Facility 01-16-2025 Radiology Diagnostic study note [facility] Imaging Services [address] [place] [address] Chest PA and Lateral MR#: [id number] Acct: [id number] Name: POONAMBARBIE TAMIA Rep #: [id number] : 1985 M 39 From: Jaovn Casillas MD PCP: Dr. Chris Mckeon MD Status: REG E R Study:Chest PA and Lateral Date of Exam: 01/16/25 Exam# [id number] Ordering Dr: German Chavarria DO PROCEDURE: CHEST PA AND LATERAL 01/16/2025 REASON FOR EXAM: FEVER TECHNIQUE: CHEST PA AND LATERAL COMPARISON: None FINDINGS: Hardware: EKG electrodes are seen. Heart: The heart size is normal. Mediastinum: The mediastinal contour is unremarkable. Lungs: The lungs are clear. Bones: The bones are unremarkable. RAD/Chest PA and Lateral IMPRESSION: NO ACUTE FINDINGS. Reading Location: [place] [address] CC: Dr. German Chavarria DO; Dr. Chris Mckeon MD ~ Clerical Receptionist: Signed [facility] 01-16-2025 Radiology Diagnostic study note [facility] Imaging Services [address] [place], [place] [id number] Abdomen/Pelvis W IV Cont ONLY MR#: [id number] Acct: [id number] Name: BARBIE FINK Rep #: [id number] : 1985 M 39 From: Javon Casillas MD PCP: Dr. Chris Mckeon MD Status: REG E R Study:Abdomen/Pelvis W IV Cont ONLY Date of E xam: 01/16/25 Exam# [id number] Ordering Dr: German Chavarria DO PROCEDURE: ABDOMEN/PELVIS W IV CONT ONLY 01/16/2025 REASON FOR EXAM: LOWER ABDOMINAL PAIN History of Crohn's disease. TECHNIQUE: ABDOMEN/PELVIS W IV CONT ONLY Coronal and Sagittal reconstruction series were provided. CONTRAST: Isovue-300 VOLUME: 100 mL One or more dose reduction techniques were used (e.g., Automated exposure control, adjustment of the mA and/or kV according to patient size, use of iterative reconstruction technique. RADIATION DOSE SUMMARY: CTDlvol: 13.7 mGy DLP: 1157.17 mGycm COMPARISON: None FINDINGS: Lung bases: Lung bases are clear. Liver: Normal size. No mass. Gallbladder: Surgically absent. Spleen: Mild splenomegaly. Pancreas: Normal size without evidence of mass surrounding inflammation or ductal dilation. Adrenals: Unremarkable Kidneys: Normal renal sizes. No hydronephrosis. Bladder: Unremarkable Bowel: Diffuse circumferential wall thickening of several adjacent small bowel loops in the distal ileum with increased markings in the surrounding peritoneal fat. This may represent acute enteritis. Slight enlargement of deep mesenteric lymph nodes. No evidence of bowel obstruction. Sigmoid diverticulosis. Appendix: The appendix is not identified. There is no inflammatory process identified in the right lower quadrant to suggest appendicitis. Lymph nodes: Unremarkable. Vasculature: The abdominal aorta and IVC are normal. Peritoneum / Retroperitoneum: Small amount of free fluid in the pelvis. Bones: Unremarkable CT/Abdomen/Pelvis W IV Cont ONLY IMPRESSION: Circumferential wall thickening of several adjacent small bowel loops in the distal ileum with increased markings in the surrounding peritoneal fat. Mildly enlarged small lymph nodes in the deep mesenteric fat. Enteritis should be ruled out. Mild splenomegaly. Reading Location: [place] [address] CC: Dr. German Chavarria DO; Dr. Chris Mckeon MD ~ Clerical Receptionist: Signed [facility] 12-13-2024 Evaluation note Diagnosis Onset Date Resolution Crohn disease acute December 13, 2024 2:59pm [facility] Work Phone: 1(492) 440-834604-21-2025 NoteHNO ID: [id number] Author: MARAH MONTALVO APRN.TRANSFORMATION LEAD Service: ? Author Type: Nurse Practitioner Type: [...] Grandfather leukemia Coronary Artery Disease Paternal Grandfather CA at 53 Hypertension Paternal Grandfather Stroke Paternal [...] discoloration, clubbing or cyanosis. (more content not included)...[facility]04-21-2025 History of Present illness Narrative* Marah Montalvo APRN.TRANSFORMATION LEAD - 09/23/2024 7:13 PM EDT This is a 39 year old male [...] Grandfather leukemia Coronary Artery Disease Paternal Grandfather CA at 53 Hypertension Paternal Grandfather Stroke Paternal [...] hydrochlorothiazide, 90-day supply with refills, sent to [facility] pharmacy. 3. Elevated LDL cholesterol level (E78.00) [...] as needed for worsening/no improvement. Marah Montalvo APRN.TRANSFORMATION LEAD Recording using [employer] software for draft documentation of the visit was discussed with the patient/authorized physician representative; all questions welcomed and answered. Patient/authorized physician representative agreed to proceed [facility] Instructions* Patient Instructions* Marah Montalvo APRN.TRANSFORMATION LEAD - 09/23/2024 6:21 PM EDT Begin taking a generic loratadine (e.g., a [employer] brand equivalent) for your cough/allergy symptoms. Continue with your current medications: hydrochlorothiazide, lisinopril, mesalamine, Prilosec, multivitamins, and your probiotics as before. Your blood pressure medications (lisinopril and hydrochlorothiazide) have been refilled as a 90-daysupply and will be sent to your [facility] pharmacy in [place]. Fasting blood work (CBC, CMP, and cholesterol panel) has been ordered. 10-12 hour fast (you can have water and black coffee). When cleaning your ears at home, avoid using Q-tips; use a washcloth instead. Recheck in 6 months. [facility] Telephone encounter Note * Telephone Encounter - Tony Stephens LPN - 09/10/2024 4:50 PM EDT Last rx(s) written 01/18/24 #30 with 0 refills. Per pharm dispense report, med has not been filled in the last 4 months. [facility]04-08-2025 Miscellaneous Notes* Telephone Encounter - Tony Stephens LPN - 09/10/2024 4:50 PM EDT Last rx(s) written 01/18/24 #30 with 0 refills. Per pharm dispense report, med has not been filled in the last 4 months. * Telephone Encounter - Jen Davalos - 09/10/2024 4:37 PM EDT Prescription Refill Information The patient [...] 10, 2024 4:38 PM [facility]25 Telephone encounter Note * Telephone Encounter - Jen Davalos - 09/10/2024 4:37 PM EDT Prescription Refill Information The patient [...] Jen Houser September 10, 2024 4:38 PM [facility]03-24-2025 Consult note Author Roberto Carlos Rascon [facility] Note Date/Time August 26, 2024 10: 09am [facility] Medical Records Department [address] [place] [address] Pre-Anesthesia Evaluation 08/26/24 1002 MR#: [id number] Acct: [id number] Name: BARBIE FINK Rep #:[id number] : 1985 39 From: Roberto Carlos Rascon MD PCP: Dr. Chris Mckeon MD Status:REG S DC Y Race: C Location: [place] [address] ASA Classification* ASA Classification ASA Classification: 2 [...] Procedure(s): COLONOSCOPY Anesthesia History Anesthesia History - arabic professor: Anesthesia History - arabic professor Hx Hospitalization No 08/21/24 09:56 Any Problems [...] Sprite at 7:15 AM.) PONV PONV - arabic professor: PONV - arabic professor Female No 08/21/24 09:56 HX of Motion [...] 08/26/24 09:43 Respiratory Assessment Respiratory Assessment - arabic professor: Respiratory Tract Infection Hx - arabic professor Hx Respiratory Tract Infection No 08/21/24 09:56 STOP Sleep Apnea STOP Sleep Apnea - arabic professor: STOP Sleep Apnea - arabic professor Hx Hypertension Yes: CONTROLLED ON MED 08/21/24 [...] Tobacco Use History Tobacco Use History - arabic professor: Tobacco Use History - arabic professor Tobacco Use Smoking Status Current some day smoker 08/21/24 09:56 Hx Tobacco Use Yes 08/21/24 09:56 Years Smoking Packs Smoked per Day Smoking Cessation Date was within the last 15 years Hx Smoking Cessation Date Hx Smoking Cessation Counseling Hematologic Medial History Hematologic Hx - arabic professor: Hematologic 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 Hx of Blood Transfusion No 08/21/24 09:56 [...] confused, unrespo /Reproduction History /Reproductive History - arabic professor: /Reproductive Hx- arabic professor Hx Now Gestational Age (in weeks): EDC: [...] Intermediate Other Verified 08/26/24 09:39 cefaclor (From [facility]) Allergy Intermediate Other Verified 08/26/24 09:39 Family [...] MD Cosigner Signature: Date CC: ~ Signed [facility] Work Phone: 1(574) 124-678903-24-2025 History and physical note Author Babar Hernández [facility] Note Date/Time August 26, 2024 9:5 0am [facility] Medical Records Department [address] [place] [address] History & Physical Exam 08/26/24 0947 MR#: [id number] Acct: [id number] Name: BARBIE FINK Rep #:[id number] : 1985 39 From: Babar Hernández DO PCP: Dr. Chris Mckeon MD Status:REG S DC Location: [place] [address] HPI - General General Date of Admission: 08/26/24 Date of Service: 08/26/24 Chief Complaint: crohns HPI Narrative BARBIE FINK, is a 39 M who presents for the evaluation of Crohn's disease. Biochemical 2017 A1c, celiac WNL. IBD ([employer]) Crohn?s +, CRPH3.68 Colonoscopy 6..17 TI shallow ulcerations, active colitis with focal cryptitis and glandular distortion; internal hemorrhoids. OV 8..24 f/u for Crohns. Feeling weel with no [...] a colonoscopy coming up in August 2024. [facility] Medical History Alcohol use History of ulceration [...] DO> Cosigner Signature (if applicable): CC: Dr. Chris Mckeon MD; Babar Hernández DO~ Signed [facility] Work Phone: 1(672) 453-586903-24-2025 Evaluation note* Diagnosis Onset Date Resolution Status Admit Date Crohn disease acute August 26, 2024 9:21am Crohn disease acute September 10, 2024 4:02pm Crohn disease acute December 13, 2024 2:59pm [facility] Work Phone: 1(823) 534-106403-24-2025 Consult note [facility] Medical Records Department [address] [place] [address] Anesthesia Postop Eval I 08/26/241114 MR#: [id number] Acct: [id number] Name: BARBIE FINK Rep #:[id number] : 1985 39 From: Yousuf Armando PCP: Dr. Chris Mckeon MD Status:REG S DC Y Race: C Location: [place] [address] Anesthesia: Postop Eval I Current Vital Signs [...] Yes 08/26/24 1116 > Date _ Yousuf Roberts Signature: Date CC: ~ Signed [facility]03-24-2025 Procedure note [facility] Medical Records Department [address] [place] [address] Colonoscopy Report MR#: [id number] Acct: [id number] Name: BARBIE FINK Rep #:[id number] : 1985 39 From: Babar Hernández DO PCP: Dr. Chris Mckeon MD Status:REG S DC Patient Name: [...] GI office. Procedure Code(s): --- Professional --- 91401, Colonoscopy, flexible; diagnostic, including collection of specimen(s) by brushing or washing, when performed (separate procedure) CPT copyright 2021 [employer]. All rights reserved. The codes documented in this report are preliminary and upon knitting machine operator automatic review may be revised to meet current compliance requirements. Babar Hernández DO 08/26/2024 11:14:51 AM This report has been signed electronically. Number of Addenda: 0 Note Initiated On: 08/26/2024 10:41 AM 08/26/24 1115 Date _ Babar Duarte Signature: Date (if indicated) CC: Dr. Chris Mckeon MD; Babar Hernández DO ~ Date Dictated: 08/26/24 1041 Date Transcribed: Clerical Receptionist: RF Signed [facility]03-24-2025 Procedure note [facility] Medical Records Department [address] [place] [address] Operative Report - CC Letter MR#: [id number] Acct: [id number] Name: BARBIE FINK Rep #:[id number] : 1985 39 From: Babar Hernández DO PCP: Dr. Chris Mckeon MD Status:REG S DC 08/26/2024 Chris Mckeon Re : Colonoscopy procedure for Barbie [...] signed electronically. 08/26/24 1115 Date _ Babar Duarte Signature: Date (if indicated) CC: Dr. Chris Mckeon MD; Babar Friend, DO ~ Date Dictated: 08/26/24 1041 Date Transcribed: Clerical Receptionist: MIKEY Signed [facility]03-24-2025 Consult note [facility] Medical Records Department [address] [place] [address] Pre-Anesthesia Evaluation 08/26/24 1002 MR#: [id number] Acct: [id number] Name: BARBIE FINK Rep #:[id number] : 1985 39 From: Roberto Carlos Rascon MD PCP: Dr. Chris Mckeon MD Status:REG S DC Y Race: C Location: [place] [address] ASA Classification* ASA Classification ASA Classification: 2 [...] Procedure(s): COLONOSCOPY Anesthesia History Anesthesia History - arabic professor: Anesthesia History - arabic professor Hx Hospitalization No 08/21/24 09:56 Any Problems [...] Sprite at 7:15 AM.) PONV PONV - arabic professor: PONV - arabic professor Female No 08/21/24 09:56 HX of Motion [...] 08/26/24 09:43 Respiratory Assessment Respiratory Assessment - arabic professor: Respiratory Tract Infection Hx - arabic professor Hx Respiratory Tract Infection No 08/21/24 09:56 STOP Sleep Apnea STOP Sleep Apnea - arabic professor: STOP Sleep Apnea - arabic professor Hx Hypertension Yes: CONTROLLED ON MED 08/21/24 [...] Tobacco Use History Tobacco Use History - arabic professor: Tobacco Use History - arabic professor Tobacco Use Smoking Status Current some day smoker 08/21/24 09:56 Hx Tobacco Use Yes 08/21/24 09:56 Years Smoking Packs Smoked per Day Smoking Cessation Date was within the last 15 years Hx Smoking Cessation Date Hx Smoking Cessation Counseling Hematologic Medial History Hematologic Hx - arabic professor: Hematologic 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 Hx of Blood Transfusion No 08/21/24 09:56 [...] confused, unrespo /Reproduction History /Reproductive History - arabic professor: /Reproductive Hx- arabic professor Hx Now Gestational Age (in weeks): EDC: Hx Hx Para Hx Section SAB [facility] Medical History Alcohol use History of ulceration [...] MORLEY> Date _ Roberto Carlos Rascon MD Cosignmarco Signature: Date CC: ~ Signed [facility]03-24-2025 History and physical note [facility] Medical Records Department [address] [place] [address] History & Physical Exam 08/26/24 0947 MR#: [id number] Acct: [id number] Name: BARBIE FINK Rep #:[id number] : 1985 39 From: Babar Hernández DO PCP: Dr. Chris Mckeon MD Status:REG S DC Location: [place] [address] HPI - General General Date of Admission: [...] hasa colonoscopy coming up in August 2024. [facility] Medical History Alcohol use History of ulceration [...] PO QDAY 60 caps 1RF 08/26/24 0950 Cosigner Signature (if applicable): CC: Dr. Chris Mckeon MD; Babar Hernández, ~ Signed [facility]03-24-2025 [facility] Medical Records Department [address] [place] [id number] History Physical Exam 08/26/24 0947 MR#: [id number] Acct: [id number] Name: BARBIE FINK Rep #: [id number] : 1985 39 From: Babar Hernández DO PCP: Dr. Chris Mckeon MD Status:[facility] Location: [place] [address] HPI - General General Date of Admission: 08/26/24 Date of Service: 08/26/24 Chief Complaint: crohns HPI Narrative BARBIE FINK, is a 39 M who presents for the evaluation of Crohn's disease. Biochemical 2017 A1c, celiac WNL. IBD ([facility]) Crohn???s +, CRP H3.68 Colonoscopy 6..17 TI shallow ulcerations, active colitis with focal cryptitis and glandular distortion; internal hemorrhoids. OV 8..24 f/u for Crohns. Feeling weel with no [...] a colonoscopy coming up in August 2024. [facility] Medical History Alcohol use History of ulceration [...] Following this, will co (more content not included)...[facility]2025 Evaluation note* Diagnosis Onset Date Resolution Status Admit Date Crohn disease acute July 232024 3:44pm Crohn disease acute August 26, 2024 9:21am [facility] Work Phone: [phone]) 521-881208-15-2024 Telephone encounter Note* Telephone Encounter - Tamy Arreaga APRN.CNP - 01/18/2024 5:33 PM EDT The following approved medication requests have been transmitted electronically. Requested Prescriptions Pending Prescriptions Disp Refills hydroCHLOROthiazide 25 mg tablet 30 tablet 0 Sig: Take 1 tablet by mouth once daily. lisinopril (ZESTRIL) 20 mg tablet 30 tablet 0 Sig: Take 1 tablet by mouth once daily. Tamy Arreaga APRN.CNP [facility]08-15-2024 Miscellaneous Notes* Telephone Encounter - Tamy [...] 18, 2024 1:45 PM [facility] Telephone encounter Note * Telephone Encounter [...] Marla Holguin January 18, 2024 1:45 PM [facility]06-30-2023 Instructions* Patient Instructions* Marah Montalvo APRN.CNP - 12/02/2022 9:15 AM EDT Continue the same medications. Recheck in 6 months. documented in [facility] encounter[facility]06-30-2023 History of Present illness Narrative* Marah [...] Grandfather leukemia Coronary Artery Disease Paternal Grandfather CA at 53 Hypertension Paternal Grandfather Stroke Paternal [...] needed for worsening/no improvement. Marah Montalvo APRN.CNP documented in [facility] encounterMer[facility]08-05-2022 Miscellaneous Notes* Telephone Encounter - Evangelina [...] notify patient. Marisol Mcdermott documented in [facility] encounterMer[facility]11-26-2011 History of Past illness Narrative* Problem Noted Date Resolved Date Routine general medical exam ination at a health care facility 04/30/2011 01/25/2012 Overview: 04/30/2011, establish care Fertility testing 07/30/2009 01/25/2012 documented as of this encounter (statuses as of 01/07/2022) [facility]11-26-[facility] History of Past illness Narrative* Problem Noted Date Resolved Date Routine general medical exam ination at a health care facility 04/30/2011 01/25/2012 Overview: 04/30/2011, establish care Fertility testing 07/30/2009 01/25/2012 documented as of this encounter (statuses as of 12/03/2022) [facility] Yousuf Armando [facility] Note Date/Time August 26, 2024 11: 16[facility] Medical Records Department [address] [place] [address] Anesthesia Postop Eval I 08/26/24 1115 MR#: [id number] Acct: [id number] Name: BARBIE FINK Rep #:[id number] : 1985 39 From: Yousuf Armando PCP: Dr. Chris Mckeon MD Status:REG S DC Y Race: C Location: [place] [address] Anesthesia: Postop Eval I Current Vital Signs [...] document: Postop Eval 1 completed: Yes 08/26/24 111 <Electronically signed by Yousuf Armando > Date _ Yousuf Roberts Signature: Date CC: ~ Signed [facility] Work Phone: Evaluation note* Diagnosis Essential hypertension Unspecified essential hypertension Anxiety Anxiety state, unspecified [facility] encounter [facility]* Diagnosis Essential hypertension- Primary Unspecified essential hypertension Anxiety Anxiety state, unspecified [facility]* Diagnosis Essential hypertension Unspecified essential hypertension [facility]* Diagnosis Essential hypertension Unspecified essential hypertension documented in this encounter [facility] note* Diagnosis Routine physical examination- Primary Routine general medical examination at a health care facility Essential hypertension Unspecified essential hypertension Elevated LDL cholesterol level Pure hypercholesterolemia Crohn's disease without complication, unspecified gastrointestinal tract location (HCC) Gastro-esophageal reflux disease without esophagitis Esophageal reflux Dry cough Cough documented in this encounter [facility] for referral (narrative)No reason for referral information availableWOhioHealth [facility] Work Phone: Chief Complaint and Reason for [...] LAB ORDERS December 13, 2024 3:27 pm Chief Complaint Admit Date 3 M FU December 13, 2024 2:59 pm INT LAB ORDERS December 13, 2024 3:27 pm SIRS January 16, 2025 10 :15am Reason for Visit Admit Date Crohn disease December 13, 2024 2:59 pm Advance Directives Advance Directive Response Recorded Date/ Time Living Will Yes August 21, 2024 9:56am Do you have a Healthcare Power of Clock Smith? Yes August 21, 2024 9:56am Name of Medical Power of Clock Smith KATINA FINK August 21, 2024 9:56am Advance Directive Response Recorded Date/ Time Do you have a Healthcare Power of Clock Smith? Yes January 16, 2025 6:21am Name of Medical Power of Clock Smith January 16, 2025 6:21am Summary Purpose Family History No Family History Records Found Additional Source Comments Source Comments (unrecognize d section and content) In the event this informatio n is protected by the Federal Confidentiality of Alcohol and Drug Abuse Patient Records regulations: The Federal rules restrict any use of the information to criminally investigate or prosecute any alcohol or drug abuse patient.[facility] HospitalIn the event this information is protected by the Federal Confidentiality of Alcohol and Drug Abuse Patient Records regulations: The Federal rules restrict any use of the information to criminally investigate or prosecute any alcohol or drug abuse patient.[facility] HospitalIn the event this information is protected by the Federal Confidentiality of Alcohol and Drug Abuse Patient Records regulations: The Federal rules restrict any use of the information to criminally investigate or prosecute any alcohol or drug abuse patient.[facility] HospitalIn the event this information is protected by the Federal Confidentiality of Alcohol and Drug Abuse Patient Records regulations: The Federal rules restrict any use of the information to criminally investigate or prosecute any alcohol or drug abuse patient.[facility] HospitalIn the event this information is protected by the Federal Confidentiality of Alcohol and Drug Abuse Patient Records regulations: The Federal rules restrict any use of the information to criminally investigate or prosecute any alcohol or drug abuse patient.[facility] Reason for Visit (unrecogniz ed section and content) Reason Onset Date Comments Refill Request 01/07/2022 Reason Comments Follow Up 1 month Reason Onset Date Comments Refill Request 01/18/2024 Reason Onset Date Comments Refill Request 09/10/2024 Reason Comments Yearly Exam Care Teams (unrecognized sec tion and content) School Examiner Relationship Specialty Start Date End Date Chris Mckeon MD [address] [place], [place] [address] PCP - General Family Practice 04/10/13 School Examiner Relationship Specialty Start Date End Date Chris Mckeon MD [address] [place], [place] [id number] PCP - General Family Medicine 04/10/13 School Examiner Relationship Specialty Start Date End Date Chris Mckeon MD [address] [place], [place] [id number] PCP - General Family Medicine 04/10/13 Team Status: Active Member Role Status Dates Dr. Chris Mckeon MD Primary Care Provider Active Team Status: Inactive Member Role Status Dates Dr. Chris Mckeon MD Primary Care Provider Active Start: July 23, 2024 End: July 23, 2024 Dr. Chris Mckeon MD Referring Provider Active Start: July 23, 2024 End: July 23, 2024 GARRY Guerrero Attending Provider Active Start: July 23, 2024 End: July 23, 2024 Team Status: Inactive Member Role Status Dates Dr. Chris Mckeon MD Primary Care Provider Active Start: August 26, 2024 End: August 26, 2024 Dr. Chris Mckeon MD Referring Provider Active Start: August 26, 2024 End: August 26, 2024 Dr. Babar Hernández DO Attending Provider Active Start: August 26, 2024 End: August 26, 2024 Team Status: Active Member Role Status Dates Dr. Chris Mckeon MD Primary Care Provider Active Start: August 26, 2024 Dr. Chris Mckeon MD Referring Provider Active Start: August 26, 2024 Dr. Babar Hernández DO Attending Provider Active Start: August 26, 2024 Dr. Babar Hernández DO Other Provider Active St art: August 26, 2024 School Examiner Relationship Specialty Start Date End Date Chris Mckeon MD [address] [facility] [place] [address] PCP - General Family Medicine 04/10/13 Marah Montalvo APRN.TRANSFORMATION LEAD [address] [facility] [place] [address] Director Social Service Family Medicine 05/13/24 Tamy Arreaga APRN.TRANSFORMATION LEAD [address] [facility] [place] [address] [facility] 05/13/24 School Examiner Relationship Specialty Start Date End Date Chris Mckeon MD [address] [facility] [place] [address] PCP - General Family Medicine 04/10/13 Marah Montalvo APRN.TRANSFORMATION LEAD [address] [facility] [place] [address] Director [facility] 05/13/24 Tamy Arreaga BIOCHEMICAL DEVELOPMENT ENGINEER.TRANSFORMATION LEAD [address] [place] [address] Director Social Service Family Medicine 05/13/24 Team Status: Active Member Role/Relationship Status Dates Dr. Chris Mckeon MD Primary Care Provider Active Team Status: Inactive Member Role/Relationship Status Dates Dr. Chris Mckeon MD Primary Care Provider Active Start: August 26, 2024 End: August 26, 2024 Dr. Chris Mckeon MD Referring Provider Active Start: August 26, 2024 End: August 26, 2024 Dr. Babar Hernández DO Attending Provider Active Start: August 26, 2024 End: August 26, 2024 Team Status: Active Member Role/Relationship Status Dates Dr. Chris Mckeon MD Primary Care Provider Active Start: August 26, 2024 Dr. Chris Mckeon MD Referring Provider Active Start: August 26, 2024 Dr. Babar Hernández DO Attending Provider Active Start: August 26, 2024 Dr. Babar Hernández DO Other Provider Active St art: August 26, 2024 Team Status: Inactive Member Role/Relationship Status Dates Dr. Chris Mckeon MD Primary Care Provider Active Start: September 10, 2024 End: September 10, 2024 Dr. Chris Mckeon MD Referring Provider Active Start: September 10, 2024 End: September 10, 2024 GARRY Guerrero Attending Provider Active Start: September 10, 2024 End: September 10, 2024 Team Status: Inactive Member Role/Relationship Status Dates Dr. Chris Mckeon MD Primary Care Provider Active Start: December 13, 2024 End: December 13, 2024 Dr. Chris Mckeon MD Referring Provider Active Start: December 13, 2024 End: December 13, 2024 GARRY Guerrero Attending Provider Active Start: December 13, 2024 End: December 13, 2024 Team Status: Inactive Member Role/Relationship Status Dates Dr. Chris Mckeon MD Primary Care Provider Active Start: December 13, 2024 End: December 13, 2024 GARRY Guerrero Attending Provider Active Start: December 13, 2024 End: December 13, 2024 GARRY Guerrero Referring Provider Active Start: December 13, 2024 End: December 13, 2024 Team Status: Inactive Member Role/Relationship Status Dates Dr. Chris Mckeon MD Primary Care Provider Active Start: December 13, 2024 End: December 13, 2024 Dr. Chris Mckeon MD Referring Provider Active Start: December 13, 2024 End: December 13, 2024 GARRY Guerrero Attending Provider Active Start: December 13, 2024 End: December 13, 2024 Team Status: Inactive Member Role/Relationship Status Dates Dr. Chris Mckeon MD Primary Care Provider Active Start: December 13, 2024 End: December 13, 2024 GARRY Guerrero Attending Provider Active Start: December 13, 2024 End: December 13, 2024 GARRY Guerrero Referring Provider Active Start: December 13, 2024 End: December 13, 2024 Team Status: Active Member Role/Relationship Status Dates Dr. Chris Mckeon MD Primary Care Provider Active Start: January 16, 2025 Dr. German Chavarria DO Emergency Provider Active Start: January 16, 2025 Dr. Obed Fish MD Admit Provider Active Start: January 16, 2025 Dr. Obed Fish MD Attending Provider Active Start: January 16, 2025 (unrecognized sect ion and content) No Status Records FoundNo Status Records Found INFORMATION SOURCE (unrecogn ized section and content) DATE CREATED AUTHOR 09/28/2024 [facility] DATE CREATED AUTHOR AUTHOR'S ORGANIZ ATMOOK 12/23/2024 [facility] Goals (unrecognized section and content) Goals may be documented in a n alternate section FOR RECORDS PERTAINING TO PATIENTS WHO ARE [...] BE BASED ON THE PRIMARY CLINICAL RECORDS. [facility]. provides no warranty or guarantee of the accuracy or completeness of information in this document.
[2025-01-17] MEDS: metroNIDAZOLE 500 MG/100 ML BAG 100 MG IV ×3 (01:58→17:42)
[2025-01-17 02:00] VITALS: BP 123/80; PULSE 67; RESP 16; TEMP 36.4; O2SAT 100
[2025-01-17 06:07] LABS: Hematocrit 30.4 % (40-54); Hemoglobin 9.5 g/dL (13.0-16.5); Immature Granulocytes Count 0.210 X10^3/uL (0.0-0.0); Mean Corp Hgb Conc 31.3 g/dL (32-36); Mean Corpuscular Volume 75.1 fL (80-94); Mean Platelet Vol. 10.0 fl (6.2-12.0); NRBC Flagged by Analyzer 0 % (0-5); POSITIVE DIFFERENTIAL YES; Platelet Count 338 K/mm3 (150-450); RBC Distribution Width CV 13.4 % (11.6-14.6); RBC Distribution Width SD 36.2 fl (35.1-43.9); Red Blood Count 4.05 M/mm3 (4.6-6.2); White Blood Count 24.1 K/mm3 (4.4-11.0)
[2025-01-17 06:19] LABS: Differential Indicated SCAN CRITERIA MET
[2025-01-17 06:36] LABS: Anion Gap 13 (5-15); BUN 14 mg/dL (4-19); BUN/Creat Ratio 16.9 RATIO (10-20); Calcium,Total 9.2 mg/dL (7.6-11.0); Carbon Dioxide 25.2 mmol/L (21.0-32.0); Chloride 101 mmol/L (98-108); Estimated Creatinine Clearance 163.90 ml/min (50-250); Glucose 141 mg/dL (70-99); Magnesium 2.5 mg/dL (1.5-2.2); Potassium 3.1 mmol/L (3.3-5.1)
[2025-01-17 06:58] LABS: Differential Comment SCANNED
[2025-01-17 08:07] VITALS: BP 119/78; PULSE 71; RESP 18; TEMP 36.4; O2SAT 97
[2025-01-17 08:09] VITALS: PULSE 90
[2025-01-17] MEDS: Potassium Chloride 10mEq/100mL 10 MEQ/100 ML IV.SOLN. 100 MEQ IV BOLUS ×4 (09:10→15:23)
[2025-01-17] MEDS: 0.9% Normal Saline (1000mL) 1,000 ML 100 ML IV ×2 (09:10→20:09)
--- NOTE | 2025-01-17 09:34 | CASEMGMT ---
Dx: Ileitis in the setting of a Crohn's flare/hypokalemia LACE: 1 6-Clicks: 24 Medical record reviewed and patient evaluated for identification of discharge planning needs. Based on this review, at this time criteria are not present to indicate a need for discharge planning. Will remain available to assist with discharge planning needs as identified or requested.
--- NOTE | 2025-01-17 11:06 | PCM.PN.HOSP ---
Subjective Subjective Feels much better today than he did yesterday. Has not had a bowel movement yet so unlikely to have any type of infectious etiology in his intestines. Urine cultures no growth and blood cultures are still pending Objective Data Objective Data Vital Signs: Vital Signs Temp Pulse Resp BP Pulse Ox O2 Del Method 97.5 F L 90 18 119/78 97 Room Air 01/17/25 08:07 01/17/25 08:09 01/17/25 08:07 01/17/25 08:07 01/17/25 08:07 01/17/25 08:07 Oxygen Delivery Method Room Air Weight: 274 lb 7.996 oz Body Mass Index (BMI) 35.2 Intake & Output: Intake and Output for Last 24 Hours 01/16/25 01/17/25 01/18/25 03:59 03:59 03:59 Intake Total 4250 / 4250 1300 / 1300 Balance 4250 / 4250 1300 / 1300 Lab / Micro Data 01/17/25 05:53 01/17/25 05:53 Labs: Laboratory Results - last 24 hr 01/16/25 07:18: ESR 65 H, C-React Prot Ext Range 188.00 H 01/16/25 12:45: Lactic Acid 1.1 01/17/25 05:53: WBC 24.1 H, RBC 4.05 L, Hgb 9.5 L, Hct 30.4 L, MCV 75.1 L, MCH 23.5 L, MCHC 31.3 L, RDW Std Deviation 36.2, RDW Coeff of Irwin 13.4, Plt Count 338, MPV 10.0, Immature Gran % (Auto) 0.900, Neut % (Auto) 93.6 H, Lymph % (Auto) 3.4 L, Whitfield % (Auto) 2.0, Eos % (Auto) 0.0, Baso % (Auto) 0.1, Absolute Neuts (auto) 22.5 H, Absolute Lymphs (auto) 0.81 L, Nucleated RBC % 0, Differential Comment SCANNED, Sodium 139, Potassium 3.1 L, Chloride 101, Carbon Dioxide 25.2, Anion Gap 13, BUN 14, Creatinine 0.84, Estim Creat Clear Calc 163.90, Est GFR (MDRD) Non-Af 113, BUN/Creatinine Ratio 16.9, Glucose 141 H, Calcium 9.2, Phosphorus 2.6 L, Magnesium 2.5 H Micro: Microbiology 01/16/25 08:54 Urine, Clean Catch Urine Culture - Preliminary Culture exhibits no growth. Physical Exam Narrative General: Alert, Oriented x3, Cooperative, No apparent distress HEENT: Atraumatic, PERRLA, EOMI, Normocephalic Oral: Moist Mucosa Neck: Supple, No JVD Lungs: Diminished, Normal air movement, No rhonchi, No wheeze, No rales Cardiovascular: Regular rate, Regular Rhythm, Normal S1, Normal S2, No murmurs Abdomen: Soft, nontender, Non-Distended, No Hepato-splenomegaly Extremities: No edema, Capillary Refill Less than 3 Seconds Skin: No rashes, No breakdown Musculoskeletal: No Tenderness to Palpation of Joints or Extremities Neurological: No focal neurological deficits, moves all extremities Psych/Mental Status: Normal Affect, Appropriate Assessment & Plan Assessment/Plan (1) Exacerbation of Crohn's disease: PLAN: Plan 1. Ileitis in the setting of a Crohn's flare/hypokalemia ? Appreciate GIs assistance ? Continue with antibiotics ? Has not had a bowel movement for stool cultures, blood cultures are pending and urine cultures negative ? He did receive dose of steroids in the ER, will hold off of continuous steroids until culture data is obtained and negative ? Will likely need steroids on discharge pending outpatient follow-up with gastroenterology to start Skyrizi as it appears that he has failed mesalamine ? Order potassium replacement 2. Essential HTN ? Blood pressures are stable ? Will monitor and add as needed's if necessary ? Currently will hold his hydrochlorothiazide and lisinopril as he does have a slight creatinine elevation that does not quite meet the threshold for an NIURKA 3. GERD ? Stable ? Continue with Protonix DVT: Lovenox Charges/Coding Visit Charges Inpatient E&M: 77563 Subs Hosp L2
[2025-01-17] MEDS: Pantoprazole Sodium 40 MG in 0.9% Normal Saline (100mL MB+) 100 ML 300 MG IV (11:36)
[2025-01-17 14:23] VITALS: BP 117/77; PULSE 70; RESP 18; TEMP 37.1; O2SAT 96
[2025-01-17 14:29] VITALS: PULSE 80
[2025-01-17 20:03] VITALS: BP 120/67; PULSE 70; RESP 18; TEMP 36.4; O2SAT 97
[2025-01-18 02:44] VITALS: BP 130/80; PULSE 69; RESP 18; TEMP 36.6; O2SAT 100
[2025-01-18] MEDS: metroNIDAZOLE 500 MG/100 ML BAG 100 MG IV ×2 (02:46→11:30)
[2025-01-18 07:00] LABS: Hematocrit 27.3 % (40-54); Hemoglobin 8.3 g/dL (13.0-16.5); Immature Granulocytes Count 0.080 X10^3/uL (0.0-0.0); Mean Corp Hgb Conc 30.4 g/dL (32-36); Mean Corpuscular Volume 75.4 fL (80-94); Mean Platelet Vol. 10.5 fl (6.2-12.0); NRBC Flagged by Analyzer 0 % (0-5); Platelet Count 284 K/mm3 (150-450); RBC Distribution Width CV 13.6 % (11.6-14.6); RBC Distribution Width SD 37.0 fl (35.1-43.9); Red Blood Count 3.62 M/mm3 (4.6-6.2); White Blood Count 13.5 K/mm3 (4.4-11.0)
[2025-01-18 07:55] LABS: Anion Gap 11 (5-15); BUN 17 mg/dL (4-19); BUN/Creat Ratio 19.6 RATIO (10-20); Calcium,Total 8.7 mg/dL (7.6-11.0); Carbon Dioxide 26.6 mmol/L (21.0-32.0); Chloride 106 mmol/L (98-108); Estimated Creatinine Clearance 161.97 ml/min (50-250); Glucose 94 mg/dL (70-99); Potassium 3.4 mmol/L (3.3-5.1)
[2025-01-18] MEDS: 0.9% Normal Saline (1000mL) 1,000 ML 100 ML IV (07:58)
[2025-01-18 08:25] VITALS: BP 135/87; PULSE 76; RESP 16; TEMP 36.6; O2SAT 100
[2025-01-18] MEDS: Pantoprazole Sodium 40 MG in 0.9% Normal Saline (100mL MB+) 100 ML 330 MG IV (09:59)
[2025-01-18 11:26] LABS: Ferritin 152 ng/mL (37-417)
[2025-01-18 11:40] LABS: Iron 40 ug/dL (65-175); Iron Binding Capacity,Unsat 148 ug/dL (228-428)
[2025-01-18 11:44] LABS: Iron Binding Capacity,Total 188 ug/dL (250-450)
--- NOTE | 2025-01-18 12:05 | DCINST_ITS ---
Discharge Instructions DC O2, CPAP, BIPAP needs Home O2 Discharge instructions: No Dressing / Incision Discharge Activity: Return to Normal Activity Dressing / Incision Call your doctor if you observe: Fever of 101 or Higher, Shortness of breath, Dizziness, Fainting spells, Swelling in the ankles, Chest pain and Increased palpitations (irregular heartbeat) Follow Up Care Test Results: Test results from this visit will be discussed in further detail at your follow- up appointment, if applicable. Discharge Plan Admission Admit Date/Time: 01/16/25 10:35 Attending Provider: Obed Fish Primary Care Provider: Chris Mckeon Discharge Orders/Prescriptions Prescriptions: New prednisone 20 mg Tablet 40 mg PO BREAKFAST 30 Days Qty: 60 0RF ciprofloxacin HCl [Cipro] 500 mg tablet 500 mg PO BID Qty: 10 0RF metronidazole 500 mg tablet 500 mg PO TID 5 Days Qty: 15 0RF Continued hydrochlorothiazide 25 mg tablet 25 mg PO DAILY lisinopril 20 mg tablet 20 mg PO DAILY omeprazole 40 mg capsule,delayed release(DR/EC) 40 mg PO QDAY Qty: 30 5RF Skyrizi 600 mg IV .COMPLEX Qty: 10 0RF Patient Comments: needs to get blood work Rx Instructions: 600 mg intravenously week 0, 4, 8; 600 mg intravenously at week 0, 4, 8 for Crohn's Disease K50.90 Discontinued mesalamine [Lialda] 1.2 gram tablet,delayed release (DR/EC) 2.4 g PO BID Referrals / Follow Up: Babar Hernández DO [Med Staff - Active Staff] - Within 2 Weeks Chris Mckeon MD [Primary Care Provider] - Within 1 Week Disposition Disposition (needs filled in before D/C Order can be placed): Home, Self Care
--- NOTE | 2025-01-18 12:43 | PN_ITS ---
Progress Note Patient has been able to tolerate a diet. He is feeling a lot better. He has been afebrile for the last 24 hours. Physical Exam Narrative General: Alert, Oriented x3, Cooperative, No apparent distress HEENT: Atraumatic, PERRLA, EOMI, Normocephalic Oral: Moist Mucosa Neck: Supple, No JVD Lungs: Diminished, Normal air movement, No rhonchi, No wheeze, No rales Cardiovascular: Regular rate, Regular Rhythm, Normal S1, Normal S2, No murmurs Abdomen: Soft, nontender, Non-Distended, No Hepato-splenomegaly Extremities: No edema, Capillary Refill Less than 3 Seconds Skin: No rashes, No breakdown Musculoskeletal: No Tenderness to Palpation of Joints or Extremities Neurological: No focal neurological deficits, moves all extremities Psych/Mental Status: Normal Affect, Appropriate Assessment & Plan Assessment/Plan (1) Exacerbation of Crohn's disease: (2) SIRS (systemic inflammatory response syndrome): (3) Microcytic anemia: PLAN: This patient is experiencing a Crohn's disease flare-up, potentially complicated by an infection, given the combination of fever, increased WBC, and abdominal pain. While fever can be a symptom of Crohn's itself, a high-grade fever may indicate a complicating infection. The location of the abdominal pain in the right lower quadrant suggests possible involvement of the ileum or ileocecal region, common sites for Crohn's disease inflammation.? * Crohn's disease flare-up:?The patient's history of Crohn's disease and current symptoms are consistent with a flare. * Intra-abdominal abscess:?This is not seen with imaging and it is not consistent with his current symptoms. However an abscess is a pus-filled pocket that can develop due to Crohn's inflammation, and it can cause fever, abdominal pain, and an elevated WBC. * Fistula:?A fistula is an abnormal connection that can form between different parts of the intestines or between the intestine and other organs, or the skin. It can lead to infection and pain. He is also about this) however he does have significant lymphadenopathy and fat stranding. * Bowel obstruction:?This complication occurs when inflammation or scar tissue narrows the bowel, leading to blockage. Abdominal pain, nausea, and vomiting may be present Continue antibiotics without steroids and she continues to have pain but is afebrile, they can start up steroids tomorrow. 01/18/2025-patient is doing better clinically. His white blood cell count is down from 24,000-16,000. He seems to be responding well to antibiotic therapy. I also suspect that this is mostly inflammatory reaction from severe Crohn's ex acerbation. He has not shown any signs of stricturing. He would need MR enterography to rule out fistulizing disease. We discussed possible treatment therapies in the future. He likely will need Skyrizi or Tremfya therapy. He is okay with going on steroids at this time and antibiotic therapy. If he continues to do well patient can be discharged to home with early follow-up in office. Visit Charges Inpatient E&M: 26955 Subs Hosp L3
[2025-01-18 12:54] VITALS: BP 132/75; PULSE 77; RESP 16; TEMP 36.8; O2SAT 100
--- NOTE | 2025-01-18 13:14 | DS.PCM_ITS ---
Providers Date of Admission: 01/16/25 Primary Care Physician: Dr. Chris Mckeon MD Consultations 01/16/25 10:49 Consult: Gastroenterology Routine Consulting Provider: [facility] Reason for Consult: Crohns EMERGENT Consult: No MD Notified: Yes Date Notified: 01/16/25 Time Notified: 10:37 Method of Notification: ED Physician Initiated Reason For Visit: SIRS Diagnosis Discharge Diagnosis (1) Exacerbation of Crohn's disease: Status: Acute Code(s): K50.90 - Crohn's disease, unspecified, without complications (2) SIRS (systemic inflammatory response syndrome): Status: Acute Code(s): R65.10 - Systemic inflammatory response syndrome (SIRS) of non-infectious origin without acute organ dysfunction (3) Microcytic anemia: Status: Acute Code(s): D50.9 - Iron deficiency anemia, unspecified Medications at Discharge Home Medications hydrochlorothiazide 25 mg tablet 25 mg PO DAILY 11/09/22 lisinopril 20 mg tablet 20 mg PO DAILY 11/09/22 omeprazole 40 mg capsule,delayed release 40 mg PO QDAY #30 caps 12/13/24 Skyrizi 600 mg IV .COMPLEX #10 mL 01/03/25 ciprofloxacin HCl 500 mg tablet (Cipro) 500 mg PO BID #10 tabs 01/18/25 metronidazole 500 mg tablet 500 mg PO TID 5 days #15 tabs 01/18/25 prednisone 20 mg tablet 40 mg (2 x 20 mg) PO BREAKFAST 30 days #60 tabs 01/18/25 Hospital Course Operations None Procedures None Summary of Care Provided Minutes Spent on Discharge: 40 Hospital Course: Per HPI: BARBIE FINK, is a 39 M who presents to the hospital with fevers and chills and a leukocytosis. He also had a episode of syncope or near syncope today. CT scan shows diffuse ileitis with no obvious signs of colitis currently though he had a colonoscopy several months ago that demonstrated significant Crohn's burden despite being on mesalamine. With his leukocytosis he was started on Cipro and Flagyl in the emergency room and blood cultures are pending. GI was able to order stool studies and blood cultures were obtained in the ER. He denies any diarrhea or melena. He endorses some left lower quadrant abdominal pain but nothing that he feels is significant and now that his fever is broken he says that he feels much better. Hospital Course: 1. Crohn's exacerbation with terminal ileitis?39-year-old male with history of Crohn's presents to the hospital with fevers and chills and near syncope. White count was slightly elevated on admission which worsened because he got a dose of steroids in the ER. Today it is down to 13. He is feeling much better and blood cultures were negative as were stool cultures and urine cultures. I discussed the case with gastroenterology who recommended continuing with antibiotics for 5 more days and will start him on prednisone 40 mg p.o. daily for the next 30 days pending treatment initiation with Skyrizi or Tremfya. I discussed with him the plan for discharge today he expressed understanding of the risk and benefits of going home and would like to go home today. 2. Essential hypertension, GERD are all chronic medical conditions which complicate his care. His home medications were continued where appropriate Physical Exam Narrative General: Alert, Oriented x3, Cooperative, No apparent distress HEENT: Atraumatic, PERRLA, EOMI, Normocephalic Oral: Moist Mucosa Neck: Supple, No JVD Lungs: Diminished, Normal air movement, No rhonchi, No wheeze, No rales Cardiovascular: Regular rate, Regular Rhythm, Normal S1, Normal S2, No murmurs Abdomen: Soft, nontender, Non-Distended, No Hepato-splenomegaly Extremities: No edema, Capillary Refill Less than 3 Seconds Skin: No rashes, No breakdown Musculoskeletal: No Tenderness to Palpation of Joints or Extremities Neurological: No focal neurological deficits, moves all extremities Psych/Mental Status: Normal Affect, Appropriate Weight / BMI Weight Weight: 274 lb 7.996 oz Body Mass Index (BMI) 35.2 ABG / Lab / Microbiology Data 01/18/25 06:00 01/18/25 06:00 Laboratory: Laboratory Results - last 24 hr 01/18/25 06:00: WBC 13.5 H, RBC 3.62 L, Hgb 8.3 L, Hct 27.3 L, MCV 75.4 L, MCH 22.9 L, MCHC 30.4 L, RDW Std Deviation 37.0, RDW Coeff of Irwin 13.6, Plt Count 284, MPV 10.5, Immature Gran % (Auto) 0.600, Neut % (Auto) 82.4 H, Lymph % (Auto) 11.9 L, Gibson % (Auto) 4.7, Eos % (Auto) 0.3, Baso % (Auto) 0.1, Absolute Neuts (auto) 11.1 H, Absolute Lymphs (auto) 1.61, Nucleated RBC % 0, Sodium 143, Potassium 3.4, Chloride 106, Carbon Dioxide 26.6, Anion Gap 11, BUN 17, Creatinine 0.85, Estim Creat Clear Calc 161.97, Est GFR (MDRD) Non-Af 113, BUN/Creatinine Ratio 19.6, Glucose 94, Calcium 8.7, Iron 40 L, TIBC 188 L, Iron Saturation 21.3, Unsaturated IBC 148 L, Ferritin 152 Microbiology: Microbiology 01/16/25 08:12 Blood Culture (Wb) - Anticubital Right Blood Culture - Preliminary No growth in 48 hours. 01/16/25 07:18 Blood Culture (Wb) - Anticubital Right Blood Culture - Preliminary No growth in 48 hours. 01/16/25 08:54 Urine, Clean Catch Urine Culture - Final Culture exhibits no growth. D/C Instructions Call your doctor if you observe: Fever of 101 or Higher, Shortness of breath, Dizziness, Fainting spells, Swelling in the ankles, Chest pain and Increased palpitations (irregular heartbeat) DC O2, CPAP, BIPAP Needs Home O2 Discharge instructions: No Meaningful Use Info Meaningful Use Meaningful Use Diagnoses (Choose all that apply): None applicable Discharge Plan Admission Admit Date/Time: 01/16/25 10:35 Primary Reason for Your Visit: SIRS Attending Provider: Obed Fish Primary Care Provider: Chris Mckeon Discharge Orders/Prescriptions Prescriptions: New prednisone 20 mg Tablet 40 mg PO BREAKFAST 30 Days Qty: 60 0RF ciprofloxacin HCl [Cipro] 500 mg tablet 500 mg PO BID Qty: 10 0RF metronidazole 500 mg tablet 500 mg PO TID 5 Days Qty: 15 0RF Continued hydrochlorothiazide 25 mg tablet 25 mg PO DAILY lisinopril 20 mg tablet 20 mg PO DAILY omeprazole 40 mg capsule,delayed release(DR/EC) 40 mg PO QDAY Qty: 30 5RF Skyrizi 600 mg IV .COMPLEX Qty: 10 0RF Patient Comments: needs to get blood work Rx Instructions: 600 mg intravenously week 0, 4, 8; 600 mg intravenously at week 0, 4, 8 for Crohn's Disease K50.90 Discontinued mesalamine [Lialda] 1.2 gram tablet,delayed release (DR/EC) 2.4 g PO BID Referrals / Follow Up: Babar Hernández DO [Med Staff - Active Staff] - Within 2 Weeks Chris Mckeon MD [Primary Care Provider] - Within 1 Week Disposition Disposition (needs filled in before D/C Order can be placed): Home, Self Care Charges/Coding Visit Charges Inpatient E&M: 84461 Disch Hosp >30min
== END 2025-01-18 13:40 | disposition home or self-care (01) | DRG 386 ==
LOC: ED 10:17 → MS3 10:50
PROVIDERS: Internal Medicine Gastroenterology; Admitting Provider Family Medicine; Emergency Provider Emergency Medicine; PCP Family Medicine; Visit Provider Family Medicine
DX: K50.00 Crohn's disease of small intestine without complications (principal); N17.9 Acute kidney failure, unspecified; R65.10 Systemic inflammatory response syndrome (SIRS) of non-infectious origin without acute organ dysfunction; D50.9 Iron deficiency anemia, unspecified; I10 Essential (primary) hypertension; K21.9 Gastro-esophageal reflux disease without esophagitis; E87.6 Hypokalemia; Z79.899 Other long term (current) drug therapy; R16.1 Splenomegaly, not elsewhere classified; R59.0 Localized enlarged lymph nodes
CPT/HCPCS: 36415; 71046; 74177; 80048; 80053; 81001; 82728; 83540; 83550; 83605; 83735; 84100; 85025; 85610; 85652; 85730; 86140; 87040; 87086; 97802; 99285; Q9967; A4216; J0744

== ENCOUNTER → 2025-02-14 | Outpatient (CLI) | payer BC, SELFPAY ==
[2025-02-14 16:32] LABS: Hematocrit 31.7 % (40-54); Hemoglobin 9.5 g/dL (13.0-16.5); Immature Granulocytes Count 0.090 X10^3/uL (0.0-0.0); Mean Corp Hgb Conc 30.0 g/dL (32-36); Mean Corpuscular Volume 78.1 fL (80-94); Mean Platelet Vol. 9.6 fl (6.2-12.0); NRBC Flagged by Analyzer 0 % (0-5); Platelet Count 318 K/mm3 (150-450); RBC Distribution Width CV 16.5 % (11.6-14.6); RBC Distribution Width SD 46.4 fl (35.1-43.9); Red Blood Count 4.06 M/mm3 (4.6-6.2); White Blood Count 13.1 K/mm3 (4.4-11.0)
[2025-02-14 17:15] LABS: AST(SGOT) 13 U/L (<=37); Alanine Aminotransfer ALT/SGPT 16 U/L (<=46); Albumin, Serum 3.5 g/dL (3.5-5.0); Alkaline Phosphatase 84 U/L (40-129); Anion Gap 10 (5-15); BUN 19 mg/dL (4-19); BUN/Creat Ratio 20.7 RATIO (10-20); Calcium,Total 8.9 mg/dL (7.6-11.0); Carbon Dioxide 28.5 mmol/L (21.0-32.0); Chloride 102 mmol/L (98-108); Globulin 3.1 g/dL (2.2-4.2); Glucose 78 mg/dL (70-99); Potassium 3.4 mmol/L (3.3-5.1)
[2025-02-18 13:08] LABS: HEPATITIS B SURFACE AG Negative (Negative); Hep C Antibodies Non Reactive (Non Reactive); QNTFERON TB Mitogen Value > 10.00 IU/mL (.); QNTFERON TB Nil Value 0.13 IU/mL (.); QNTFERON TB1+ Ag Value 0.13 IU/mL (.); QNTFERON TB2+ Ag Value 0.13 IU/mL (.); QNTIFERON TB Positive Criteria Negative (Negative)
== END | disposition home or self-care (01) ==
LOC: LAB 15:30
PROVIDERS: PCP Family Medicine; Referring Provider Student in an Organized Health Care Education/Training Program; Visit Provider Student in an Organized Health Care Education/Training Program
DX: K50.811 Crohn's disease of both small and large intestine with rectal bleeding (principal)
CPT/HCPCS: 36415; 80053; 80074; 85025; 86480

== ENCOUNTER → 2025-05-16 | Outpatient (CLI) | payer BC, SELFPAY ==
--- OUTSIDE RECORDS SUMMARY | 2025-05-16 16:08 | XMS RPT_ITS | CCD ---
Author Organization [facility] Cl[facility] Care Team Providers Care 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 Examiner Name Role Phone Chris Mckeon MD Primary Care Provider Dr. Chris Mckeon MD Primary Care Provider Dr. Chris Mckeon MD Referring Provider Anne-Marie Lyons Attending Provider Betty CURIEL, Dr. Eckert Attending Provider Betty CURIEL, Dr. Eckert Other Provider Chris Mckeon MD Primary Care Provider Haagen CROSSTIE INSPECTOR.MANAGER OCCUPATIONAL, Marah Unavailable Suppan CROSSTIE INSPECTOR.MANAGER OCCUPATIONAL, Tamy A Unavailable [phone] Dr. Chris Mckeon MD Primary Care Provider Dr. Chris Mckeon MD Referring Provider Anne-Marie Lyons Attending Provider Anne-Marie Lyons Referring Provider Dr. Chris Mckeon MD Primary Care Provider Dr. Chris Mckeon MD Referring Provider Anne-Marie Lyons Attending Provider Dr. German Chavarria DO Emergency Provider [phone] Polina MORLEY, Dr. Obed Cooper Admit Provider Dr. Obed Fish MD Attending Provider Dr. German Chavarria DO Emergency Provider Dr. Obed Fish MD Admit Provider Polina MORLEY, Dr. Obed Cooper Attending Provider Polina MORLEY, Dr. Obed Cooper Other Provider Friend , Dr. Eckert Attending Provider SELF Referring Unavailable TAMY ARREAGA Attending Unavailable GET, CHRIS Primary Care Unavailable GET, CHRIS Primary Care Unavailable MARAH MONTALVO Attending Unavailable Polina MORLEY, Dr. Obed Cooper Referring Provider Obed Fish Consulting Unavailable Obed Fish Admitting Unavailable Obed Fish Attending Unavailable Get, Chris Primary Care Unavailable FriendBabar Attending Unavailable [place], Chris Referring Unavailable [place], Chris Primary Care Unavailable AtanasAnne-Marie dodson Attending Unavailable AtanasAnne-Marie dodson Referring Unavailable Get, Chris Primary Care Unavailable Atanasov, Anne-Marie Referring Unavailable AtanasAnne-Marie dodson Attending Unavailable Gte, Chris Primary Care Unavailable Obed Fish Admitting Unavailable Obed Fish Attending Unavailable [place], Chris Primary Care Unavailable Obed Fish Referring Unavailable Babar Hernández Attending Unavailable AtanasovAnne-Marie Attending Unavailable Get, Chris Referring Unavailable [place], Chris Primary Care Unavailable Atanasov, Anne-Marie Attending Unavailable Get, Chris Referring Unavailable [place], Chris Primary Care Unavailable Atanasov, Anne-Marie Attending Unavailable [place], Chris Primary Care Unavailable Get, Chris Referring Unavailable AtanasovAnne-Marie Attending Unavailable [place], Chris Referring Unavailable Get, Chris Primary Care Unavailable Babar Hernández Attending Unavailable Get, Chris Referring Unavailable Get, Chris Primary Care Unavailable Babar Hernández Consulting Unavailable Get MORLEY, Dr. Perez Primary Care Physician Anne-Marie Lyons Attending Physician [phone] Dr. German Chavarria DO Emergency Department Physi tee Polina MORLEY, Dr. Obed Cooper Admitting Physician Polina MORLEY, Dr. Obed Cooper Attending Physician Polina MORLEY, Dr. Obed Cooper Nurse Practitioner Friend Dr. Babar CURIEL Attending Physician Allergies Allergy Classification Reported Allergen(s) Allergy Type Date of Onset Reaction(s) Facility (14 sources) Cefaclor; Translations: [CEFACLOR] Drug Allergy 9 Other [facility] Work Phone: (2 sources) amoxilcillin [Other] Propensity to adverse reactions 1 [facility] (12 sources) Amoxicillin; Translations: [AMOXICILLIN] Drug Allergy 4 [facility] Work Phone: (1 source) Amoxicillin Drug Allergy 5 [facility] (1 source) Cefaclor Drug Allergy 5 [facility] Medications Current Medications Medication Drug Class(es) Dates Sig (Normalized) Sig (Original) B.breve-L.acid-L.rham-S. thermo (PROBIOTIC) 3 billion cell chew (6 sources) B.breve-L.acid-L .rham-S .thermo (PROBIOTIC) 3 billion cell chew Take by mouth. Active B.breve-L.acid-L .rham-S.thermo (PROBIOTIC) 3 billion cell chew Take by mouth. 0 Active Comment on above: Take by mouth. FLUoxetine 20 mg oral capsule (2 sources) Serotonin Reuptake Inhibitor Start: 023 End: 023 take 1 capsule by mouth once daily FLUoxetine (PROZAC) 20 mg capsule Indications: Anxiety Take 1 capsule by mouth once daily. 90 capsule 1 12/02/2022 01/01/2023 Active Comment on above: Take 1 capsule by [facility] once daily. glimepiride 2 mg oral tablet (1 source) Sulfonylurea Start: 025 End: 025 take 1 tablet by mouth once daily at breakfast glimepiride (AMARYL) 2 mg tablet Indications: Impaired fasting blood sugar Take 1 tablet by mouth daily with breakfast. 30 tablet 1 01/31/2025 04/01/2025 Active hydroCHLOROthiazide 25 mg oral tablet (17 sources) Thiazide Diuretic Start: 023 End: 025 take 1 tablet by mouth once daily Start: 01-07-2022 take 1 tablet by [facility] once daily hydroCHLOROthiazide (HYDRODIURIL, ESIDRIX) 25 mg [...] once daily. lisinopril 20 mg oral tablet (17 sources) Angiotensin Converting Enzyme Inhibitor Start: 10-28-2022 End: 01-31-2025 take 1 tablet by mouth once daily Start: 01-07-2022 take 1 tablet by [facility] [...] 1 tablet by [facility] once daily. losartan potassium 50 mg oral tablet (1 source) Angiotensin 2 Receptor Jessica Start: 5 End: 6 take 1 tablet by mouth once daily losartan (COZAAR) 50 mg tablet Indications: Primary hypertension Take 1 tablet by mouth once daily. 90 tablet 3 01/31/2025 01/31/2026 Active multivit-min/vit C/herb no.124 (AIRBORNE GUMMY ORAL) (6 sources) multivit-min/vit C/herb no.124 (AIRBORNE GUMMY ORAL) Take by mouth. Active multivit-min/vit C/herb no.124 (AIRBORNE GUMMY ORAL) Take by mouth. 0 Active Comment on above: Take by mouth. omeprazole 40 mg delayed release oral capsule (15 sources) Proton Pump Inhibitor Start: 07-23-2024 End: 12-13-2024 take 1 capsule by mouth once daily predniSONE 10 mg oral tablet (5 sources) Start: 02-20-2025 take 2 tablets by mouth once daily, then take 1 tablet by mouth once daily Start: 01-18-2025 End: 02-14-2025 take 2 tablets by mouth at breakfast Prednisone 20 mg Tablet Discontinued 40 mg PO WITH BREAKFAST 60 30 January 18, 2025 12:00am February 14, 2025 3:13pm risankizumab-rzaa (SKYRIZI) 60 mg/mL injection (1 source) Start: 01-31-2025 End: 05-01-2025 risankizumab-rzaa (SKYRIZI) 60 mg/mL injection Indications: Crohn's disease of large intestine with other complication (HCC) Inject 10 mL intravenously every 4 weeks. 10 mL 2 01/31/2025 05/01/2025 Active Skyrizi (4 sources) Start: 01-03-2025 Start: 01-03-2025 Skyrizi Active 600 mg IV .COMPLEX 10 January 03, 2025 12:00am 600 mg intravenously week 0, 4, 8; 600 mg intravenously at week 0, 4, 8 for Crohn's Disease K50.90 Completed/Discontinued Medications Medication Drug Class(es) Dates Sig (Normalized) Sig (Original) ciprofloxacin 500 mg oral tablet (3 sources) Quinolone Antimicrobial Start: 01-18-2025 End: 02-14-2025 take 1 tablet by mouth twice daily Ciprofloxacin Hcl (Cipro) 500 mg tablet Discontinued 500 mg PO TWICE A DAY 10 January 18, 2025 12:00am February 14, 2025 3:13pm escitalopram 10 mg oral tablet (5 sources) [...] mesalamine 1200 mg delayed release oral tablet (20 sources) Aminosalicylate Start: 01-17-20 End: 01-19-20 take 2 tablets by mouth twice daily Mesalamine (Lialda) 1.2 gram tablet,delayed release (DR/EC) Discontinued 2.4 g PO TWICE A DAY January 16, 2025 12:00am January 18, 2025 12:07pm Start: 09-10-2024 End: 01-31-2025 take 2 tablets by mouth once daily Mesalamine 1.2 gram tablet,delayed release (DR/EC) Discontinued 2.4 g PO daily 60 30 0 October 04, 2024 11:23am November 02, 2024 12:00am November 03, 2024 12:11am metroNIDAZOLE 500 mg oral tablet (3 sources) Nitroimidazole Antimicrobial Start: 01-18-2025 End: 02-14-2025 take 1 tablet by mouth three times daily Metronidazole 500 mg tablet Discontinued 500 mg PO THREE TIMES A DAY 15 5 0 January 18, 2025 12:00am February 14, 2025 3:14pm Problems Active Problems Problem Classification Problem Date Documented Da te Episodic/Chronic Anxiety disorders (8 sources) Anxiety; Translations: [Anxiety disorder, unspecified] Chronic Deficiency and other anemia (7 sources) Microcytic anemia; Translations: [Iron deficiency anemia, unspecified] 01-16-2025 Episodic Deficiency and other anemia (1 source) Iron deficiency anemia, unspecified; Translations: [Iron deficiency anemia, unspecified] Onset: 5 Episodic Disorders of lipid metabolism (2 sources) Raised low density lipoprotein cholesterol; Translations: [Pure hypercholesterolemia, unspecified] Onset: 5 09-23-2024 Chronic Esophageal disorders (2 sources) Gastroesophageal reflux disease without esophagitis; Translations: [Gastro-esophageal reflux disease without esophagitis] Onset: 5 09-23-2024 Chronic Essential hypertension (14 sources) Essential hypertension; Translations: [Essential (primary) hypertension] Onset: 1 Chronic Noninfectious gastroenteritis (1 source) Noninfective gastroenteritis and colitis, unspecified; Translations: [Noninfective gastroenteritis and colitis, unspecified] Onset: 5 Episodic Other ear and sense organ disorders (6 sources) Decreased hearing ; Translations: [Unspecified hearing loss, unspecified ear] 05-31-2021 Chronic Other gastrointestinal disorders (6 sources) Irritable bowel syndrome; Translations: [Irritable bowel syndrome without diarrhea] Onset: 1 05-31-2021 Chronic Other injuries and conditions due to external causes (7 sources) Systemic inflammatory response syndrome; Translations: [Systemic inflammatory response syndrome (SIRS) of non-infectious origin without acute organ dysfunction] 01-16-2025 Episodic Other injuries and conditions due to external causes (1 source) Systemic inflammatory response syndrome (SIRS) of non-infectious origin without acute organ dysfunction; Translations: [Systemic inflammatory response syndrome (SIRS) of non-infectious origin without acute organ dysfunction] Onset: 5 Episodic Other lower respiratory disease (1 source) Dry cough; Translations: [Dry cough] 09-23-2024 Episodic Regional enteritis and ulcerative colitis (20 sources) Crohn's disease; Translations: [Crohn's disease, unspecified, without complications] Onset: 1 05-31-2021 Chronic Unclassified (6 sources) Reflux; Translations: [Reflux] Onset: 1 04-30-2011 Unclassified (1 source) Dry cough; Translations: [Dry cough] Onset: 5 Past or Other Problems Problem Classification Problem Date Documented Da te Episodic/Chronic Contraceptive and procreative management (16 sources) Encounter for other procreative management; Translations: [Other specified procreative management] Onset: 07-30-2009 Resolved: 06-12-2023 07-05-2011 Episodic Diabetes mellitus without complication (8 sources) Impaired fasting glycemia; Translations: [Impaired fasting glucose] Onset: 01-04-2011 04-30-2011 Episodic Residual codes; unclassified (6 sources) Tobacco user; Translations: [Tobacco use] Onset: 04-30-2011 05-31-2021 Episodic Results Test Name Value Interpretation Reference Range Facility Hepatitis Panel Acuteon 02-03 COMMENT Comment Normal . [facility] Comment on above: Result Comment: Not infected with HCV unless early or acute infection is suspected (which may be delayed in an immunocompromised individual), or other evidence exists to indicate HCV infection. Performed at: [address] [id number] Scientific Illustrator: Jose Manuel Royal PhD, Phone: [phone] Performed By: #### L 100.0100, L500.4050, L300.3900, L300.4310, L503.6005 #### [facility] [address] [place], [place], [id number] HEP B CORE,IgM Negative Normal Negative [facility] Comment on above: Performed By: #### L 100.0100, L500.4050, L300.3900, L300.4310, L503.6005 #### [facility] [address] [place], [place], [id number] HEP B SURF AG Negative Normal Negative [facility] Comment on above: Performed By: #### L 100.0100, L500.4050, L300.3900, L300.4310, L503.6005 #### [facility] [address] [place], [address] HEP C VIRUS AB Non-Reactive Normal Non Reactive [facility] Comment on above: Performed By: #### L 100.0100, L500.4050, L300.3900, L300.4310, L503.6005 #### [facility] [address] [place], [address] HEPATITIS A-IgM Negative Normal Negative [facility] Comment on above: Result Comment: A ne gative anti-HAV IgM result suggests no recent or current HAV infection. Performed By: #### L 100.0100, L500.4050, L300.3900, L300.4310, L503.6005 #### [facility] [address] [place], [place], [id number] Quantiferon TB-Gold+on 02-18 QFT MITOGEN KARUNA > 10.00 Normal . [facility] Comment on above: Performed By: #### L 100.0100, L500.4050, L300.3900, L300.4310, L503.6005 #### [facility] [address] [facility] [address] QFT NIL VALUE 0.13 IU/mL Normal . [facility] Comment on above: Performed By: #### L 100.0100, L500.4050, L300.3900, L300.4310, L503.6005 #### [facility] [address] [place] [id number] QFT TB GOLD+ Comment Normal . [facility] Comment on above: Result Comment: Sushant tiFERON-TB Gold Plus is a qualitative indirect test for M tuberculosis infection (including disease) and is intended for use in conjunction with risk assessment, radiography, and other medical and diagnostic evaluations. The QuantiFERON-TB Gold Plus result is determined by subtracting the Nil value from either TB antigen (Ag) value. The Mitogen tube serves as a control for the test. Performed By: #### L 100.0100, L500.4050, L300.3900, L300.4310, L503.6005 #### [facility] [address] [facility]. [place] [id number] QFT TB POS CRIT Negative Normal Negative [facility] Comment on above: Result Comment: No r esponse to M tuberculosis antigens detected. Infection with M tuberculosis is unlikely, but high risk individuals should be considered for additional testing (ATS/IDSA/CDC Clinical Practice Guidelines, 2017). The reference range is an Antigen minus Nil result of <0.35 IU/mL. The specimen received for QuantiFERON testing was incubated by the ordering institution. Specific procedures outlined in our Directory of Services and in the package insert for the QuantiFERON Gold (In Tube) test must be followed to enable for proper stimulation of cells for the production of interferon gamma. Chemiluminescence immunoassay methodology Performed By: #### L 100.0100, L500.4050, L300.3900, L300.4310, L503.6005 #### [facility] [address] [place] [id number] QFT TB1+ AG KARUNA 0.13 IU/mL Normal . [facility] Comment on above: Performed By: #### L 100.0100, L500.4050, L300.3900, L300.4310, L503.6005 #### [facility] [address] [place], [address] QFT TB2+ AG KARUNA 0.13 IU/mL Normal . [facility] Comment on above: Performed By: #### L 100.0100, L500.4050, L300.3900, L300.4310, L503.6005 #### [facility] [address] [place], [address] Absolute lymphocyte countOrd ered By: Anne-Marie Fine on 02-14-2025 Lymphocytes Auto (Unsp spec) [#/Vol] 2.01 10*3/uL 0.83-4.51 [facility] Absolute neutrophil countOrd ered By: Anne-Marie Fine on 02-14-2025 Neutrophils (Bld) [#/Vol] 9.9 10*3/uL High 2.0-7.7 [facility] Anion gap in Serum or Plasma Ordered By: Anne-Marie Fine on 02-14-2025 Anion gap [Moles/Vol] 10 mmol/L 5-15 [facility] Automated lymphocyte count a s percentage of total leukocytesOrdered By: Anne-Marie Fine on 02-14-2025 Lymphocytes/100 WBC Auto (Unsp spec) 15.4 % Low 19-41 [facility] BUN/creatinine ratioOrdered By: Anne-Marie Fine on 02-14-2025 Urea nitrogen/Creatinine [Mass ratio] 20.7 mg/mg High 10-20 [facility] Basophil percentageOrdered B y: Anne-Marie Fine on 02-14-2025 Basophils/100 WBC (Bld) 0.2 % 0-1 [facility] Bilirubin, totalOrdered By: Anne-Marie Fine on 02-14-2025 Bilirubin [Mass/Vol] 0.46 mg/dL 0.00-1.30 [facility] CBC W/Diff, Automatedon -06 06-2024 Absolute Lymph 2.01 X10 3/uL Normal 0.83-4.51 [facility] Comment on above: Performed By: #### L 500.4050, L100.0100, L3400.8000, L3000.0375 #### [facility] [address] [place], [address] Absolute Neut 9.9 X10 3/uL High 2.0-7.7 [facility] Comment on above: Performed By: #### L 500.4050, L100.0100, L3400.8000, L3000.0375 #### [facility] [address] [place], [address] Basophils/100 WBC (Bld) 0.2 % Normal 0-1 [facility] Comment on above: Performed By: #### L 500.4050, L100.0100, L3400.8000, L3000.0375 #### [facility] [address] [place], [address] Eosinophils/100 WBC (Bld) 1.6 % Normal 0-5 [facility] Comment on above: Performed By: #### L 500.4050, L100.0100, L3400.8000, L3000.0375 #### [facility] [address] [place], [address] Erythrocyte distribution width (RBC) [Ratio] 16.5 % High 11.6-14.6 [facility] Comment on above: Performed By: #### L 500.4050, L100.0100, L3400.8000, L3000.0375 #### [facility] [address] [place], [address] Hematocrit (Bld) [Volume fraction] 31.7 % Low 40-54 [facility] Comment on above: Performed By: #### L 500.4050, L100.0100, L3400.8000, L3000.0375 #### [facility] [address] [place], [address] Hemoglobin (Bld) [Mass/Vol] 9.5 g/dL Low 13.0-16.5 [facility] Comment on above: Performed By: #### L 500.4050, L100.0100, L3400.8000, L3000.0375 #### [facility] [address] [place], [address] IG% 0.700 Normal 0.0-0.9 [facility] Comment on above: Result Comment: IG% - Immature Granulocytes (promyelocytes, myelocytes and metamyelocytes) > 1% indicates that a LEFT SHIFT is Present. Performed By: #### L 500.4050, L100.0100, L3400.8000, L3000.0375 #### [facility] [address] [place], [address] Lymphocytes/100 WBC (Bld) 15.4 % Low 19-41 [facility] Comment on above: Performed By: #### L 500.4050, L100.0100, L3400.8000, L3000.0375 #### [facility] [address] [place], [address] MCH (RBC) [Entitic mass] 23.4 pg Low 27.0-32.0 [facility] Comment on above: Performed By: #### L 500.4050, L100.0100, L3400.8000, L3000.0375 #### [facility] [address] [place], [address] MCHC (RBC) [Mass/Vol] 30.0 g/dL Low 32-36 [facility] Comment on above: Performed By: #### L 500.4050, L100.0100, L3400.8000, L3000.0375 #### [facility] [address] [place], [address] MCV (RBC) [Entitic vol] 78.1 fL Low 80-94 [facility] Comment on above: Performed By: #### L 500.4050, L100.0100, L3400.8000, L3000.0375 #### [facility] [address] [place], [address] Monocytes/100 WBC (Bld) 6.1 % Normal 0-10 [facility] Comment on above: Performed By: #### L 500.4050, L100.0100, L3400.8000, L3000.0375 #### [facility] [address] [place], [address] Neutrophils/100 WBC (Bld) 76.0 % High 47-70 [facility] Comment on above: Performed By: #### L 500.4050, L100.0100, L3400.8000, L3000.0375 #### [facility] [address] [place], [address] Nucleated RBC (Bld) [#/Vol] 0 10*3/uL Normal 0-5 [facility] Comment on above: Performed By: #### L 500.4050, L100.0100, L3400.8000, L3000.0375 #### [facility] [address] [place], [address] Platelet mean volume (Bld) [Entitic vol] 9.6 fL Normal 6.2-12.0 [facility] Comment on above: Performed By: #### L 500.4050, L100.0100, L3400.8000, L3000.0375 #### [facility] [address] [place], [address] Platelets (Bld) [#/Vol] 318 10*3/uL Normal 150-450 [facility] Comment on above: Performed By: #### L 500.4050, L100.0100, L3400.8000, L3000.0375 #### [facility] [address] [place], [address] RBC (Bld) [#/Vol] 4.06 10*6/uL Low 4.6-6.2 [facility] Comment on above: Performed By: #### L 500.4050, L100.0100, L3400.8000, L3000.0375 #### [facility] [address] [place], [address] RDW SD 46.4 fl High 35.1-43.9 [facility] Comment on above: Performed By: #### L 500.4050, L100.0100, L3400.8000, L3000.0375 #### [facility] [address] [place], [address] WBC (Bld) [#/Vol] 13.1 10*3/uL High 4.4-11.0 [facility] Comment on above: Performed By: #### L 500.4050, L100.0100, L3400.8000, L3000.0375 #### [facility] [address] [place], [address] Carbon dioxide, total [Moles /volume] in Central venous bloodOrdered By: Anne-Marie Fine on 02-14-2025 CO2 [Moles/Vol] 28.5 mmol/L 21.0-32.0 [facility] Chloride assayOrdered By: Radha Fine on 02-14-2025 Chloride [Moles/Vol] 102 mmol/L 98-108 [facility] Comprehensive Metabolic Prof ilon 02-14-2025 Albumin [Mass/Vol] 3.5 g/dL Normal 3.5-5.0 [facility] Comment on above: Performed By: #### L 100.0100, L500.4050, L300.3900, L300.4310, L503.6005 #### [facility] [address] [place], [address] Albumin/Globulin [Mass ratio] 1.1 {ratio} Normal 0.9-2.4 [facility] Comment on above: Performed By: #### L 100.0100, L500.4050, L300.3900, L300.4310, L503.6005 #### [facility] [address] [place], [address] ALK PHOS 84 U/L Normal 40-129 [facility] Comment on above: Performed By: #### L 100.0100, L500.4050, L300.3900, L300.4310, L503.6005 #### [facility] [address] [place], [address] ALT [Catalytic activity/Vol] 16 U/L Normal <=46 [facility] Comment on above: Performed By: #### L 100.0100, L500.4050, L300.3900, L300.4310, L503.6005 #### [facility] [address] [place], [address] AST [Catalytic activity/Vol] 13 U/L Normal <=37 [facility] Comment on above: Performed By: #### L 100.0100, L500.4050, L300.3900, L300.4310, L503.6005 #### [facility] [address] [place], [address] Bilirubin [Mass/Vol] 0.46 mg/dL Normal 0.00-1.30 [facility] Comment on above: Performed By: #### L 100.0100, L500.4050, L300.3900, L300.4310, L503.6005 #### [facility] [address] [place], [address] BUN/CRE 20.7 RATIO High 10-20 [facility] Comment on above: Performed By: #### L 100.0100, L500.4050, L300.3900, L300.4310, L503.6005 #### [facility] [address] [place], [address] Calcium [Mass/Vol] 8.9 mg/dL Normal 7.6-11.0 [facility] Comment on above: Performed By: #### L 100.0100, L500.4050, L300.3900, L300.4310, L503.6005 #### [facility] [address] [place], [address] Chloride [Moles/Vol] 102 mmol/L Normal 98-108 [facility] Comment on above: Performed By: #### L 100.0100, L500.4050, L300.3900, L300.4310, L503.6005 #### [facility] [address] [place], [address] CO2 [Moles/Vol] 28.5 mmol/L Normal 21.0-32.0 [facility] Comment on above: Performed By: #### L 100.0100, L500.4050, L300.3900, L300.4310, L503.6005 #### [facility] [address] [place], [address] Creatinine [Mass/Vol] 0.94 mg/dL Normal 0.70-1.20 [facility] Comment on above: Performed By: #### L 100.0100, L500.4050, L300.3900, L300.4310, L503.6005 #### [facility] [address] [place], [address] GAP 10 Normal 5-15 [facility] Comment on above: Performed By: #### L 100.0100, L500.4050, L300.3900, L300.4310, L503.6005 #### [facility] [address] [place], [address] GFR/1.73 sq M.predicted among non-blacks MDRD (S/P/Bld) [Vol rate/Area] 105 mL/min/{1.73_m2} Normal >60 [facility] Comment on above: Result Comment: mL/m in/1.73m2 CKD-EPI Creatinine Equation (2020) Performed By: #### L 100.0100, L500.4050, L300.3900, L300.4310, L503.6005 #### [facility] [address] [place], [address] Globulin (S) [Mass/Vol] 3.1 g/dL Normal 2.2-4.2 [facility] Comment on above: Performed By: #### L 100.0100, L500.4050, L300.3900, L300.4310, L503.6005 #### [facility] [address] [place], [address] Glucose [Mass/Vol] 78 mg/dL Normal 70-99 [facility] Comment on above: Performed By: #### L 100.0100, L500.4050, L300.3900, L300.4310, L503.6005 #### [facility] [address] [place], [address] Potassium [Moles/Vol] 3.4 mmol/L Normal 3.3-5.1 [facility] Comment on above: Performed By: #### L 100.0100, L500.4050, L300.3900, L300.4310, L503.6005 #### [facility] [address] [place], [address] Sodium [Moles/Vol] 141 mmol/L Normal 133-145 [facility] Comment on above: Performed By: #### L 100.0100, L500.4050, L300.3900, L300.4310, L503.6005 #### [facility] [address] [place], [address] T PROT 6.6 g/dL Normal 5.9-8.4 [facility] Comment on above: Performed By: #### L 100.0100, L500.4050, L300.3900, L300.4310, L503.6005 #### [facility] [address] [place], [address] Urea nitrogen [Mass/Vol] 19 mg/dL Normal 4-19 [facility] Comment on above: Performed By: #### L 100.0100, L500.4050, L300.3900, L300.4310, L503.6005 #### [facility] [address] [place], [address] Eosinophil percentageOrdered By: Anne-Marie Fine on 02-14-2025 Eosinophils/100 WBC (Bld) 1.6 % 0-5 [facility] Erythrocyte distribution wid th ratioOrdered By: Anne-Marie Fine on 02-14-2025 Erythrocyte distribution width (RBC) [Ratio] 16.5 % High 11.6-14.6 [facility] Erythrocyte distribution wid th standard deviationOrdered By: Anne-Marie Fine on 02-14-2025 Erythrocyte distribution width (RBC) [Ratio] 46.4 fl High 35.1-43.9 [facility] Gastroenterology Visit Repor ton 02-14-2025 Gastroenterology Visit Report [facility] [address] [place] [address] OFFICE VISIT Date of Service: 02/14/25 MR#: [id number] Acct: [id number] Name: BARBIE FINK Rep #: [id number] : 1985 Provider: GARRY Guerrero Age/Sex: 39/M [place] [facility] [place]: Signed Intake Vital Signs 01/16/25 14:46 Height 6 ft 2 in Intake Visit Reasons: Hospital FU Chief Complaint: Crohns Wood Casket [employer] Required: No Accompanied by: Self Is patient in pain?: No Allergies amoxicillin Allergy (Intermediate, Verified 01/16/25 06:21) Other cefaclor (From Ceclor) Allergy (Intermediate, Verified 12/13/24 15:07) Other Medications ???Medication ???Instructions ???Recorded ???Confirmed ???Type hydrochlorothiazide 25 mg tablet 25 mg PO DAILY 11/09/22 02/14/25 H istory lisinopril 20 mg tablet 20 mg PO DAILY 11/09/22 02/14/25 H istory omeprazole 40 mg capsule,delayed 40 mg PO QDAY #30 caps 12/13/24 Rx release Skyrizi 600 mg IV .COMPLEX #10 mL 01/03/25 02/14/25 Rx PFSH Medical History Alcohol use History of [...] who presents to the office today for follow-up. [facility]GI established in 2022 with Crohns disease. Preovusly seeing Dr. Baltazar in 2017. Biochemical 2017 A1c, celiac WNL. IBD ([facility]) Crohn???s +, CRP H3.68 Colonoscopy 6..17 TI shallow ulcerations, active colitis with focal cryptitis and glandular distortion; internal hemorrhoids. Last OV 2..25 Doing well with no flares. 2-3 bm [...] His only concern today is with fatigue. Discussed starting biologic therapy. TB ordered. [facility] admission 8.14.25 through 16 for fever, chills, leukocytosis and near syncope admitted and started on Cipro and Flagyl. [facility] ED 8.17.25 for near syncope OV 9.12.25 patient feeling better since being on antibiotics and prednisone. He is finished with his antibiotic course but has a few days left of his prednisone. He is having less episodes of diarrhea. No blood in his stool at this time. He is having more energy and is able to eat more. Denies any recent fevers. ROS Const Constitutional: Positive for weight change (gain); No fatigue or fever(s) ENT ENT: No difficulty swallowing Gastro GI: Positive for change in bowel habits and diarrhea; No abdominal pain, belching, bloating, change in stool character, coffee ground emesis, constipation, cramping, heartburn, difficulty swallowing, feeling full early, excessive flatus, incontinent of stools, Vomiting blood/hematemesis, Blood in stool, loose stools, Black,tarry stools, nausea/dyspepsia, pain with swallowing, vomiting or other Musc Musculoskeletal: Positive for joint pain and back pain Skin Skin: No yellowing of the eye or itchy eyes Psych Psychiatric: No anxiety and No depression Endo Endocrine: Positive for weight change (gain); No fatigue Aller/Imm Allergy/Immunologic: No itchy eyes Carlos/Lymp Hematologic/Lymphatic: No easy bleeding or easy bruising Exam Const General: cooperative and comfortable Nutritional Appearance: overweight Orientation: alert [facility] Head: normal to inspection Eyes General: appearance normal, both eyes and all related structures Neck Neck: normal visual inspection Chest Chest palpation inspection: normal inspection of the chest Resp Effort Inspection: no (more content not included)... Normal [facility] Glomerular filtration rate ( GFR) estimation/1.73 sq m using serum, plasma, or whole bOrdered By: Anne-Marie Fine on 02-14-2025 GFR/1.73 sq M.predicted among non-blacks MDRD (S/P/Bld) [Vol rate/Area] 105 mL/min/{1.73_m2} >60 [facility] Comment on above: mL/min/1.73m2 CKD-EP I Creatinine Equation (2020) Hematocrit Auto (Bld) [Volum e fraction]Ordered By: Anne-Marie Fine on 02-14-2025 Hematocrit (Bld) [Volume fraction] 31.7 % Low 40-54 [facility] Hemoglobin measurementOrdere d By: Anne-Marie Fine on 02-14-2025 Hemoglobin (Bld) [Mass/Vol] 9.5 g/dL Low 13.0-16.5 [facility] Immature granulocytes/100 WB C Auto (Bld)Ordered By: Anne-Marie Fine on 02-14-2025 Immature granulocytes/100 WBC (Bld) 0.700 % 0.0-0.9 [facility] Comment on above: IG% - Immature Granu locytes (promyelocytes, myelocytes and metamyelocytes) > 1% indicates that a LEFT SHIFT is Present. Laboratory - Chemistry and C hemistry - challengeOrdered By: Anne-Marie Fine on 02-14-2025 AST [Catalytic activity/Vol] 13 U/L <38 [facility] MCV (mean corpuscular volume ) determinationOrdered By: Anne-Marie Fine on 02-14-2025 MCV (RBC) [Entitic vol] 78.1 fL Low 80-94 [facility] Mean corpuscular hemoglobin (MCH) determinationOrdered By: Anne-Marie Fine on 02-14-2025 MCH (RBC) [Entitic mass] 23.4 pg Low 27.0-32.0 [facility] Mean corpuscular hemoglobin concentration (MCHC) determinationOrdered By: Anne-Marie Fine on 02-14-2025 MCHC (RBC) [Mass/Vol] 30.0 g/dL Low 32-36 [facility] Mean platelet volume determi nationOrdered By: Anne-Marie Fine on 02-14-2025 Platelet mean volume (Bld) [Entitic vol] 9.6 fL 6.2-12.0 [facility] Monocyte percentageOrdered B y: Anne-Marie Fine on 02-14-2025 Monocytes/100 WBC (Bld) 6.1 % 0-10 [facility] Neutrophil percentageOrdered By: Anne-Marie Fine on 02-14-2025 Neutrophils/100 WBC (Bld) 76.0 % High 47-70 [facility] No Panel InformationOrdered By: Anne-Marie Fine on 02-14-2025 Hepatitis C Antibody Comment Comment . [facility] Comment on above: Not infected with HC V unless early or acute infection issuspected (which may be delayed in an immunocompromisedindividual), or other evidence exists to indicate HCVinfection.Performed at: [facility] [address] [id number] Director: Jose Manuel Royal PhD, Phone: [phone] Nucleated red blood cell per centageOrdered By: Anne-Marie Fine on 02-14-2025 Nucleated RBC/100 WBC (Bld) [Ratio] 0 % 0-5 [facility] Platelet countOrdered By: Radha Fine on 02-14-2025 Platelets (Bld) [#/Vol] 318 10*3/uL 150-450 [facility] Potassium measurement (mass/ volume)Ordered By: Anne-Marie Fine on 02-14-2025 Potassium (Unsp spec) [Mass/Vol] 3.4 mmol/L 3.3-5.1 [facility] Qualitative QuantiFERON-TB g old in tube testOrdered By: Anne-Marie Fine on 02-14-2025 M. tuberculosis tuberculin stim IFN-g Ql (Bld) 0.13 IU/mL . [facility] RBC Auto (Bld) [#/Vol]Ordere d By: Anne-Marie Fine on 02-14-2025 RBC (Bld) [#/Vol] 4.06 10*6/uL Low 4.6-6.2 [facility] Serum creatinine measurement (mass/volume)Ordered By: Anne-Marie Fine on 02-14-2025 Creatinine [Mass/Vol] 0.94 mg/dL 0.70-1.20 [facility] Serum globulin measurementOr dered By: Anne-Marie Fine on 02-14-2025 Globulin (S) [Mass/Vol] 3.1 g/dL 2.2-4.2 [facility] Serum glucose measurement (m ass/volume)Ordered By: Anne-Marie Fine on 02-14-2025 Glucose [Mass/Vol] 78 mg/dL 70-99 [facility] Serum or plasma alanine dillon otransferase (ALT) measurementOrdered By: Anne-Marie Fine on 02-14-2025 ALT [Catalytic activity/Vol] 16 U/L <47 [facility] Serum or plasma albumin luc urement (mass/volume)Ordered By: Anne-aMrie Fine on 02-14-2025 Albumin [Mass/Vol] 3.5 g/dL 3.5-5.0 [facility] Serum or plasma albumin/glob ulin mass ratioOrdered By: Anne-Marie Fine on 02-14-2025 Albumin/Globulin [Mass ratio] 1.1 {ratio} 0.9-2.4 [facility] Serum or plasma alkaline chun sphatase measurementOrdered By: Anne-Marie Fine on 02-14-2025 ALP [Catalytic activity/Vol] 84 U/L 40-129 [facility] Serum or plasma calcium luc urement (mass/volume)Ordered By: Anne-Marie Fine on 02-14-2025 Calcium [Mass/Vol] 8.9 mg/dL 7.6-11.0 [facility] Serum or plasma hepatitis B virus surface antigen detection by immunoassayOrdered By: Anne-Marie Fine on 02-14-2025 HBV surface Ag IA Ql Negative Negative [facility] Serum or plasma urea nitroge n measurement (mass/volume)Ordered By: Anne-Marie Fine on 02-14-2025 Urea nitrogen [Mass/Vol] 19 mg/dL 4-19 [facility] Sodium levelOrdered By: Carrie Fine on 02-14-2025 Sodium [Moles/Vol] 141 mmol/L 133-145 [facility] Total proteinOrdered By: Cici Fine on 02-14-2025 Protein [Mass/Vol] 6.6 g/dL 5.9-8.4 [facility] White blood cell (WBC) count Ordered By: Anne-Marie Fine on 02-14-2025 WBC (Bld) [#/Vol] 13.1 10*3/uL High 4.4-11.0 [facility] CNOVon 01-31-2025 CNOV Office Visit (FAMPWS ) BARBIE FINK ([id number]) 1985 M Date Time Provider Department 01/31/25 4:00 PM [facility] During your visit today, we recorded the following information about you: Pulse Blood pressure Weight 87/minute 116/72 126.1 kg Tamy Arreaga APRN.MANAGER OCCUPATIONAL 01/31/2025 4:47 PM Signed This is a 39 year old male who presents today with: No chief complaint on file. HISTORY OF PRESENT ILLNESS: Barbie Fink is a 39 year old male. No chief complaint on file. Patient was seen at [facility] on January 16, 2025 and discharged on January 18, 2025 for exacerbation of his Crohn's disease and systemic inflammatory response syndrome. He did have microcytic anemia that resulted as iron deficiency. Patient presented with fever and chills and leukocytosis. He had an episode of syncope or near syncope today. CT shows diffuse ileitis with no obvious signs of colitis currently though he had a colonoscopy several months ago that demonstrated significant Crohn's burden despite being on mesalamine. With leukocytosis he was started on Cipro Flagyl in the emergency room and blood cultures are pending. GI was able to order stool studies and blood cultures were obtained in the emergency room. He denies diarrhea or melena. He endorses some left lower quadrant abdominal pain but nothing that he feels is significant and now his fever has broke and he feels much better. Crohn's exacerbation with terminal ileitis. White count was slightly elevated on admission and worsened because he had a dose of steroids in the emergency room. Today it is down to 13 and he is feeling much better. Blood cultures were negative and stool cultures and urine cultures were also negative. He discussed the case with gastroenterology who recommended continuing with antibiotics for 5 more days and start him on prednisone 40 mg daily for 30 days pending treatment initiation with Skyrizi or Tremfya. I discussed with him the plan and he was discharged today expressing understanding of the risk and benefits going home and would like to go home today. Essential hypertension, GERD and all chronic medical conditions which are complicating his care. Home medications continued where appropriate. White count 13.5, hemoglobin 8.3, hematocrit 27.3, platelet count 283 Sodium 143, potassium 3.4, BUN 17, creatinine 0.85, glucose 94 Mesalamine was discontinued and patient was given Skyrizi 600 mg IV complex. Needs to get blood work. He will get routine infusions at week 0, 4, and 8. The patient is a 39-year-old male with Crohn?s disease and hypertension, presenting for evaluation of a persistent dry cough and prednisone-related side effects. Crohn's Disease: - Recent hospitalization for Crohn's disease exacerbation. - Currently on a 30-day course of prednisone; fdc through the regimen. - Barbie missed a dose yesterday, resulting in feeling pretty bad last night. - Reports feeling clammy and sweaty and experiencing increased appetite. - Denies hematochezia. - Occasionally experiences fevers. - Nocturnal insomnia and restless legs since starting prednisone. - Denies nausea or emesis. - Preparing for a fair with his daughter, leading to irregular meals. Cough: - Dry cough, onset after recent hospitalization. - Similar cough occurred after a colonoscopy in June or July. - Denies productive cough, rhinorrhea, or sore throat. - Reports sinus pressure, attributing it to pollen allergies. - Describes cough as dry wheezy. - Barbie's comments that he sounds like he smoked a pack of cigarettes. - Denies pedal edema. Hypertension: - Currently taking lisinopril. PAST MEDICAL HISTORY: PAST MEDICAL HISTORY Diagnosis [...] [Cefaclor] MEDICATIONS Current Outpatient Medications Medication Sig predniSONE (DELTASONE) 20 mg tablet Take 40 mg by mouth once daily. omeprazole (PRILOSEC) 40 mg capsule hydroCHLOROthiazide 25 mg tablet Take 1 tablet by mouth once daily. lisinopril (ZESTRIL) 20 mg tablet Take 1 tablet by mouth once daily. multivit-min/vit C/herb no.124 (AIRBORNE GUMMY ORAL) Take by mouth. Mesalamine (LIALDA) 1.2 gram EC tablet take 2 tablets by m (more content not included)... Normal [facility] GLUCOSE, BLOOD (POC)on 01-31 Glucose [Mass/Vol] 185 mg/dL Abnormal 74 - 99 mg/dL [facility] Comment on above: Location:[address], [place], [address] The Accu-Chek Inform II glucose meter has not been approved for testing on patients receiving intensive medical intervention or therapy and results from this point of care glucose test should not be used for patient management decisions in these cases. Inaccurate results may also occur from other interfering factors, such as N-acetylcysteine (blood concentrations of greater than 5mg/dL), galactose, extremes of hematocrit (<10 or >65), or high doses of ascorbic acid (vitamin C) greater than 3mg/dL. Consider alternate testing mechanisms (e.g. core lab, blood gas instrument) in the above situations. Interpretation and review of laboratory results Abnormal [facility] Absolute lymphocyte countOrd ered By: Obed Fish on 01-18-2025 Lymphocytes Auto (Unsp spec) [#/Vol] 1.61 10*3/uL 0.83-4.51 [facility] Absolute neutrophil countOrd ered By: Obed Fish on 01-18-2025 Neutrophils (Bld) [#/Vol] 11.1 10*3/uL High 2.0-7.7 [facility] Anion gap in Serum or Plasma Ordered By: Obed Fish on 01-18-2025 Anion gap [Moles/Vol] 11 mmol/L 5-15 [facility] Automated blood erythrocyte countOrdered By: Obed Fish on 01-18-2025 RBC (Bld) [#/Vol] 3.62 10*6/uL Low 4.6-6.2 [facility] Comment on above: Performed By: #### L 100.0100, L500.4050, L300.3900, L300.4310, L503.6005 #### [facility] [address] [place], [address] Automated blood hematocrit ( percentage)Ordered By: Obed Fish on 01-18-2025 Hematocrit (Bld) [Volume fraction] 27.3 % Low 40-54 [facility] Comment on above: Performed By: #### L 100.0100, L500.4050, L300.3900, L300.4310, L503.6005 #### [facility] [address] [place], [address] Automated lymphocyte count a s percentage of total leukocytesOrdered By: Obed Fish on 01-18-2025 Lymphocytes/100 WBC Auto (Unsp spec) 11.9 % Low 19-41 [facility] BUN/creatinine ratioOrdered By: Obed Fish on 01-18-2025 Urea nitrogen/Creatinine [Mass ratio] 19.6 mg/mg 10- [facility] Basic Metabolic Profile (BMP )on 01-18-2025 BUN/CRE 19.6 RATIO Normal - [facility] Comment on above: Performed By: #### L 100.0100, L500.4050, L300.3900, L300.4310, L503.6005 #### [facility] [address] [place], [address] ECRCL 161.97 ml/min Normal 50-250 [facility] Comment on above: Performed By: #### L 100.0100, L500.4050, L300.3900, L300.4310, L503.6005 #### [facility] [address] [place], [address] GAP 11 Normal 5-15 [facility] Comment on above: Performed By: #### L 100.0100, L500.4050, L300.3900, L300.4310, L503.6005 #### [facility] [address] [place], [address] Potassium [Moles/Vol] 3.4 mmol/L Normal 3.3-5.1 [facility] Comment on above: Performed By: #### L 100.0100, L500.4050, L300.3900, L300.4310, L503.6005 #### [facility] [address] [place], [place], [id number] Basophil percentageOrdered B y: Obed Fish on 01-18-2025 Basophils/100 WBC (Bld) 0.1 % Normal 0-1 [facility] Comment on above: Performed By: #### L 100.0100, L500.4050, L300.3900, L300.4310, L503.6005 #### [facility] [address] [place], [place], [id number] CBC W/Diff, Automatedon 01-03 Absolute Lymph 1.61 X10 3/uL Normal 0.83-4.51 [facility] Comment on above: Performed By: #### L 100.0100, L500.4050, L300.3900, L300.4310, L503.6005 #### [facility] [address] [place], [address] Absolute Neut 11.1 X10 3/uL High 2.0-7.7 [facility] Comment on above: Performed By: #### L 100.0100, L500.4050, L300.3900, L300.4310, L503.6005 #### [facility] [address] [place], [address] IG% 0.600 Normal 0.0-0.9 [facility] Comment on above: Result Comment: IG% - Immature Granulocytes (promyelocytes, myelocytes and metamyelocytes) > 1% indicates that a LEFT SHIFT is Present. Performed By: #### L 100.0100, L500.4050, L300.3900, L300.4310, L503.6005 #### [facility] [address] [place], [address] Lymphocytes/100 WBC (Bld) 11.9 % Low 19-41 [facility] Comment on above: Performed By: #### L 100.0100, L500.4050, L300.3900, L300.4310, L503.6005 #### [facility] [address] [place], [address] Nucleated RBC (Bld) [#/Vol] 0 10*3/uL Normal 0-5 [facility] Comment on above: Performed By: #### L 100.0100, L500.4050, L300.3900, L300.4310, L503.6005 #### [facility] [address] [place], [address] RDW SD 37.0 fl Normal 35.1-43.9 [facility] Comment on above: Performed By: #### L 100.0100, L500.4050, L300.3900, L300.4310, L503.6005 #### [facility] [address] [place], [address] Carbon dioxide, total [Moles /volume] in Central venous bloodOrdered By: Obed Fish on 01-18-2025 CO2 [Moles/Vol] 26.6 mmol/L Normal 21.0-32.0 [facility] Comment on above: Performed By: #### L 100.0100, L500.4050, L300.3900, L300.4310, L503.6005 #### [facility] [address] [place], [address] Chloride assayOrdered By: Rachel Fish on 01-18-2025 Chloride [Moles/Vol] 106 mmol/L Normal 98-108 [facility] Comment on above: Performed By: #### L 100.0100, L500.4050, L300.3900, L300.4310, L503.6005 #### [facility] [address] [place], [address] Culture, Blood (WB)on 2024 CUB Blood cultures x2, f rom two different sites No growth in 5 days. Normal [facility] Comment on above: Performed By: #### M 200.1000 #### [facility] [address] [place], [address] Performed By: #### L 100.0100, L500.4050, L300.3900, L300.4310, L503.6005 #### [facility] [address] [place], [address] Discharge Instructionon 01-03 Discharge Instruction [facility] Medical Records Department [address] [place] [address] Instructions for Home/Discharge Instructions 01/18/25 1205 MR#: [id number] Acct: [id number] Name: BARBIE FINK Rep #: [id number] : 1985 39 From: Obed Fish MD PCP: Dr. Chris Mckeon MD Status:ADM IN Discharge Instructions DC O2, CPAP, BIPAP needs Home O2 Discharge instructions: No Dressing / Incision Discharge Activity: Return to Normal Activity Dressing / Incision Call your doctor if you observe: Fever of 101 or Higher, Shortness of breath, Dizziness, Fainting spells, Swelling in the ankles, Chest pain and Increased palpitations (irregular heartbeat) Follow Up Care Test Results: Test results from this visit will be discussed in further detail at your follow-up appointment, if applicable. Discharge Plan Admission Admit Date/Time: 01/16/25 10:35 Attending Provider: Obed Fish Primary Care Provider: Chris Mckeon Discharge Orders/Prescriptions Prescriptions: New prednisone 20 mg Tablet 40 mg PO BREAKFAST 30 Days Qty: 60 0RF ciprofloxacin HCl [Cipro] 500 mg tablet 500 mg PO BID Qty: 10 0RF metronidazole 500 mg tablet 500 mg PO TID 5 Days Qty: 15 0RF Continued hydrochlorothiazide 25 mg tablet 25 mg PO DAILY lisinopril 20 mg tablet 20 mg PO DAILY omeprazole 40 mg capsule,delayed release(DR/EC) 40 mg PO QDAY Qty: 30 5RF Skyrizi 600 mg IV .COMPLEX Qty: 10 0RF Patient Comments: needs to get blood work Rx Instructions: 600 mg intravenously week 0, 4, 8; 600 mg intravenously at week 0, 4, 8 for Crohn's Disease K50.90 Discontinued mesalamine [Lialda] 1.2 gram tablet,delayed release (DR/EC) 2.4 g PO BID Referrals / Follow Up: Babar Hernández DO [Med Staff - Active Staff] - Within 2 Weeks Chris Mckeon MD [Primary Care Provider] - Within 1 Week Disposition Disposition (needs filled in before D/C Order can be placed): Home, Self Care 01/18/25 1210 Obed Fish MD CC: Dr. Chris Mckeon MD Signed Normal [facility] Eosinophil percentageOrdered By: Obed Fish on 01-18-2025 Eosinophils/100 WBC (Bld) 0.3 % Normal 0-5 [facility] Comment on above: Performed By: #### L 100.0100, L500.4050, L300.3900, L300.4310, L503.6005 #### [facility] [address] [place], [address] Erythrocyte distribution wid th ratioOrdered By: Obed Fish on 01-18-2025 Erythrocyte distribution width (RBC) [Ratio] 13.6 % Normal 11.6-14.6 [facility] Comment on above: Performed By: #### L 100.0100, L500.4050, L300.3900, L300.4310, L503.6005 #### [facility] [address] [place], [place], [id number] Erythrocyte distribution wid th standard deviationOrdered By: Oebd Fish on 01-18-2025 Erythrocyte distribution width (RBC) [Ratio] 37.0 fl 35.1-43.9 [facility] Glomerular filtration rate ( GFR) estimation/1.73 sq m using serum, plasma, or whole bOrdered By: Obed Fish on 01-18-2025 GFR/1.73 sq M.predicted among non-blacks MDRD (S/P/Bld) [Vol rate/Area] 113 mL/min/{1.73_m2} Normal >60 [facility] Comment on above: mL/min/1.73m2 CKD-EP I Creatinine Equation (2020) Result Comment: mL/m in/1.73m2 CKD-EPI Creatinine Equation (2020) Performed By: #### L 100.0100, L500.4050, L300.3900, L300.4310, L503.6005 #### [facility] [address], [place], [id number] ([phone]) Hemoglobin measurementOrdere d By: Obed Fish on 01-18-2025 Hemoglobin (Bld) [Mass/Vol] 8.3 g/dL Low 13.0-16.5 [facility] Comment on above: Performed By: #### L 100.0100, L500.4050, L300.3900, L300.4310, L503.6005 #### [facility] [address] [place], [address] Immature granulocytes/100 WB C Auto (Bld)Ordered By: Obed Fish on 01-18-2025 Immature granulocytes/100 WBC (Bld) 0.600 % 0.0-0.9 [facility] Comment on above: IG% - Immature Granu locytes (promyelocytes, myelocytes and metamyelocytes) > 1% indicates that a LEFT SHIFT is Present. Iron measurement (mass/mass) Ordered By: Obed Fish on 01-18-2025 Iron (Unsp spec) [Mass/Mass] 40 ug/dL Low 65-175 [facility] Iron+Iron Binding Capacityon 01-18-2025 TIBC 188 ug/dL Low 250-450 [facility] Comment on above: Performed By: #### L 100.0100, L500.4050, L300.3900, L300.4310, L503.6005 #### [facility] [address] [place], [address] MCV (mean corpuscular volume ) determinationOrdered By: Obed Fish on 01-18-2025 MCV (RBC) [Entitic vol] 75.4 fL Low 80-94 [facility] Comment on above: Performed By: #### L 100.0100, L500.4050, L300.3900, L300.4310, L503.6005 #### [facility] [address] [place], [address] Mean corpuscular hemoglobin (MCH) determinationOrdered By: Obed Fish on 01-18-2025 MCH (RBC) [Entitic mass] 22.9 pg Low 27.0-32.0 [facility] Comment on above: Performed By: #### L 100.0100, L500.4050, L300.3900, L300.4310, L503.6005 #### [facility] [address] [place], [address] Mean corpuscular hemoglobin concentration (MCHC) determinationOrdered By: Obed Fish on 01-18-2025 MCHC (RBC) [Mass/Vol] 30.4 g/dL Low 32-36 [facility] Comment on above: Performed By: #### L 100.0100, L500.4050, L300.3900, L300.4310, L503.6005 #### [facility] [address] [place], [place], [id number] Mean platelet volume determi nationOrdered By: Obed Fish on 01-18-2025 Platelet mean volume (Bld) [Entitic vol] 10.5 fL Normal 6.2-12.0 [facility] Comment on above: Performed By: #### L 100.0100, L500.4050, L300.3900, L300.4310, L503.6005 #### [facility] [address] [place], [address] Monocyte percentageOrdered B y: Obed Fish on 01-18-2025 Monocytes/100 WBC (Bld) 4.7 % Normal 0-10 [facility] Comment on above: Performed By: #### L 100.0100, L500.4050, L300.3900, L300.4310, L503.6005 #### [facility] [address] [place], [address] Neutrophil percentageOrdered By: Obed Fish on 01-18-2025 Neutrophils/100 WBC (Bld) 82.4 % High 47-70 [facility] Comment on above: Performed By: #### L 100.0100, L500.4050, L300.3900, L300.4310, L503.6005 #### [facility] [address] [place], [place], [id number] No Panel InformationOrdered By: Obed Fish on 01-18-2025 Unsaturated Iron Binding Capacity 148 ug/dL Low 228-428 [facility] Nucleated red blood cell per centageOrdered By: Obed Fish on 01-18-2025 Nucleated RBC/100 WBC (Bld) [Ratio] 0 % 0-5 [facility] Platelet countOrdered By: Rachel Fish on 01-18-2025 Platelets (Bld) [#/Vol] 284 10*3/uL Normal 150-450 [facility] Comment on above: Performed By: #### L 100.0100, L500.4050, L300.3900, L300.4310, L503.6005 #### [facility] [address] [place], [address] Potassium measurement (mass/ volume)Ordered By: Obed Fish on 01-18-2025 Potassium (Unsp spec) [Mass/Vol] 3.4 mmol/L 3.3-5.1 [facility] Serum creatinine measurement (mass/volume)Ordered By: Obed Fish on 01-18-2025 Creatinine [Mass/Vol] 0.85 mg/dL Normal 0.70-1.20 [facility] Comment on above: Performed By: #### L 100.0100, L500.4050, L300.3900, L300.4310, L503.6005 #### [facility] [address] [place], [address] Serum glucose measurement (m ass/volume)Ordered By: Obed Fish on 01-18-2025 Glucose [Mass/Vol] 94 mg/dL Normal 70-99 [facility] Comment on above: Performed By: #### L 100.0100, L500.4050, L300.3900, L300.4310, L503.6005 #### [facility] [address] [place], [address] Serum or plasma calcium luc urement (mass/volume)Ordered By: Obed Fish on 01-18-2025 Calcium [Mass/Vol] 8.7 mg/dL Normal 7.6-11.0 [facility] Comment on above: Performed By: #### L 100.0100, L500.4050, L300.3900, L300.4310, L503.6005 #### [facility] [address] [place], [address] Serum or plasma ferritin theron surement (mass/volume)Ordered By: Obed Fish on 01-18-2025 Ferritin [Mass/Vol] 152 ng/mL Normal 37-417 [facility] Comment on above: Performed By: #### L 100.0100, L500.4050, L300.3900, L300.4310, L503.6005 #### [facility] [address] [place], [address] Serum or plasma iron saturat ion measurement (mass fraction)Ordered By: Obed Fish on 01-18-2025 Iron saturation [Mass fraction] 21.3 % 9-55 [facility] Comment on above: Previous reported re sult: 21.0 %Edited by: ANTWON on 01/18/25:1144 AMENDED REPORT 01/18/25 1144 IRON SATURATION previously reported as: 21.0 % Serum or plasma urea nitroge n measurement (mass/volume)Ordered By: Obed Fish on 01-18-2025 Urea nitrogen [Mass/Vol] 17 mg/dL Normal 4-19 [facility] Comment on above: Performed By: #### L 100.0100, L500.4050, L300.3900, L300.4310, L503.6005 #### [facility] [address] [place], [address] Sodium levelOrdered By: Truong Fish on 01-18-2025 Sodium [Moles/Vol] 143 mmol/L Normal 133-145 [facility] Comment on above: Performed By: #### L 100.0100, L500.4050, L300.3900, L300.4310, L503.6005 #### [facility] [address] [place], [address] White blood cell (WBC) count Ordered By: Obed Fish on 01-18-2025 WBC (Bld) [#/Vol] 13.5 10*3/uL High 4.4-11.0 [facility] Comment on above: Performed By: #### L 100.0100, L500.4050, L300.3900, L300.4310, L503.6005 #### [facility] [address] [place], [address] Basic Metabolic Profile (BMP )on 01-17-2025 BUN/CRE 16.9 RATIO Normal 10-20 [facility] Comment on above: Performed By: #### L 100.0100, L500.4050, L300.3900, L300.4310, L503.6005 #### [facility] [address] [place], [address] Calcium [Mass/Vol] 9.2 mg/dL Normal 7.6-11.0 [facility] Comment on above: Performed By: #### L 100.0100, L500.4050, L300.3900, L300.4310, L503.6005 #### [facility] [address] [place], [address] Chloride [Moles/Vol] 101 mmol/L Normal 98-108 [facility] Comment on above: Performed By: #### L 100.0100, L500.4050, L300.3900, L300.4310, L503.6005 #### [facility] [address] [place], [address] CO2 [Moles/Vol] 25.2 mmol/L Normal 21.0-32.0 [facility] Comment on above: Performed By: #### L 100.0100, L500.4050, L300.3900, L300.4310, L503.6005 #### [facility] [address] [place], [address] Creatinine [Mass/Vol] 0.84 mg/dL Normal 0.70-1.20 [facility] Comment on above: Performed By: #### L 100.0100, L500.4050, L300.3900, L300.4310, L503.6005 #### [facility] [address] [place], [address] ECRCL 163.90 ml/min Normal 50-250 [facility] Comment on above: Performed By: #### L 100.0100, L500.4050, L300.3900, L300.4310, L503.6005 #### [facility] [address] [place], [address] GAP 13 Normal 5-15 [facility] Comment on above: Performed By: #### L 100.0100, L500.4050, L300.3900, L300.4310, L503.6005 #### [facility] [address] [place], [address] GFR/1.73 sq M.predicted among non-blacks MDRD (S/P/Bld) [Vol rate/Area] 113 mL/min/{1.73_m2} Normal >60 [facility] Comment on above: Result Comment: mL/m in/1.73m2 CKD-EPI Creatinine Equation (2020) Performed By: #### L 100.0100, L500.4050, L300.3900, L300.4310, L503.6005 #### [facility] [address] [place], [address] Glucose [Mass/Vol] 141 mg/dL High 70-99 [facility] Comment on above: Performed By: #### L 100.0100, L500.4050, L300.3900, L300.4310, L503.6005 #### [facility] [address] [place], [address] Potassium [Moles/Vol] 3.1 mmol/L Low 3.3-5.1 [facility] Comment on above: Performed By: #### L 100.0100, L500.4050, L300.3900, L300.4310, L503.6005 #### [facility] [address] [place], [address] Sodium [Moles/Vol] 139 mmol/L Normal 133-145 [facility] Comment on above: Performed By: #### L 100.0100, L500.4050, L300.3900, L300.4310, L503.6005 #### [facility] [address] [place], [address] Urea nitrogen [Mass/Vol] 14 mg/dL Normal 4-19 [facility] Comment on above: Performed By: #### L 100.0100, L500.4050, L300.3900, L300.4310, L503.6005 #### [facility] [address] [place], [address] Blood manual differential co mment interpretation (narrative result)Ordered By: Obed Fish on 01-17-2025 Manual differential comment Abimael (Bld) [Interp] SCANNED [facility] CBC W/Diff, Automatedon 01-03 SMEAR COMMENT SCANNED Normal [facility] Comment on above: Performed By: #### L 100.0100, L500.4050, L300.3900, L300.4310, L503.6005 #### [facility] [address] [place], [address] Magnesiumon 01-17-2025 Magnesium [Mass/Vol] 2.5 mg/dL High 1.5-2.2 [facility] Comment on above: Performed By: #### L 100.0100, L500.4050, L300.3900, L300.4310, L503.6005 #### [facility] [address] [place], [address] Magnesium measurement (mass/ volume)Ordered By: Obed Fish on 01-17-2025 Magnesium (Unsp spec) [Mass/Vol] 2.5 mg/dL High 1.5-2.2 [facility] Phosphoruson 01-17-2025 Phosphate [Mass/Vol] 2.6 mg/dL Low 2.7-4.5 [facility] Comment on above: Performed By: #### L 100.0100, L500.4050, L300.3900, L300.4310, L503.6005 #### [facility] [address] [place], [address] Urine Cultureon 01-17-2025 URC Culture exhibits no growth. Normal [facility] Comment on above: Performed By: #### L 100.0100, L500.4050, L300.3900, L300.4310, L503.6005 #### [facility] [address] [place], [address] Abdomen/Pelvis W IV Cont ONL Yon 01-16-2025 Abdomen/Pelvis W IV Cont ONLY [facility] Imaging Services [address] [address] Abdomen/Pelvis W IV Cont ONLY MR#: [id number] Acct: [id number] Name: BARBIE FINK Rep #: [id number] : 1985 M 39 From: Frank thibodeaux MD PCP: Dr. Chris Mckeon MD Status: [facility] ER Study: Abdomen/Pelvis W IV Cont ONLY Date of Exam: Exam# [id number] Ordering Dr: German Chavarria DO PROCEDURE: ABDOMEN/PELVIS [...] be ruled out. Mild splenomegaly. Reading Location: [place] [address] CC: Dr. German Chavarria DO; Dr. Chris Mckeon MD Edger Liner: Signed Normal [facility] Absolute lymphocyte countOrd ered By: German Chavarria on 01-16-2025 Lymphocytes Auto (Unsp spec) [#/Vol] 1.03 10*3/uL 0.83-4.51 [facility] Absolute neutrophil countOrd ered By: German Chavarria on 01-16-2025 Neutrophils (Bld) [#/Vol] 16.4 10*3/uL High 2.0-7.7 [facility] Activated partial thrombopla stin time (aPTT) in platelet poor plasma by coagulation aOrdered By: German Chavarria on 01-16-2025 aPTT Coag (PPP) [Time] 39.3 s High 24.1-36.2 [facility] Anion gap in Serum or Plasma Ordered By: German Chaavrria on 01-16-2025 Anion gap [Moles/Vol] 16 mmol/L High 5-15 [facility] Automated lymphocyte count a s percentage of total leukocytesOrdered By: German Chavarria on 01-16-2025 Lymphocytes/100 WBC Auto (Unsp spec) 5.5 % Low 19-41 [facility] BUN/creatinine ratioOrdered By: German Chavarria on 01-16-2025 Urea nitrogen/Creatinine [Mass ratio] 12.8 mg/mg 10-20 [facility] Basophil percentageOrdered B y: German Chavarria on 01-16-2025 Basophils/100 WBC (Bld) 0.2 % 0-1 [facility] Bilirubin Test strip Ql (U)O rdered By: German Chavarria on 01-16-2025 Bilirubin Ql (U) Negative Negative [facility] Bilirubin, totalOrdered By: German Chavarria on 01-16-2025 Bilirubin [Mass/Vol] 1.97 mg/dL High 0.00-1.30 [facility] Blood cultureOrdered By: Miranda Chavarria on 01-16-2025 Bacteria identified Cx Nom (Bld) No growth in 5 days. [facility] Bacteria identified Cx Nom (Bld) No growth in 5 days. [facility] CBC W/Diff, Automatedon 01-03 Absolute Lymph 1.03 X10 3/uL Normal 0.83-4.51 [facility] Comment on above: Performed By: #### L 100.0100, L500.4050, L300.3900, L300.4310, L503.6005 #### [facility] [address] [place], [address] Absolute Neut 16.4 X10 3/uL High 2.0-7.7 [facility] Comment on above: Performed By: #### L 100.0100, L500.4050, L300.3900, L300.4310, L503.6005 #### [facility] [address] [place], [address] Basophils/100 WBC (Bld) 0.2 % Normal 0-1 [facility] Comment on above: Performed By: #### L 100.0100, L500.4050, L300.3900, L300.4310, L503.6005 #### [facility] [address] [place], [address] Eosinophils/100 WBC (Bld) 0.4 % Normal 0-5 [facility] Comment on above: Performed By: #### L 100.0100, L500.4050, L300.3900, L300.4310, L503.6005 #### [facility] [address] [place], [address] Erythrocyte distribution width (RBC) [Ratio] 13.7 % Normal 11.6-14.6 [facility] Comment on above: Performed By: #### L 100.0100, L500.4050, L300.3900, L300.4310, L503.6005 #### [facility] [address] [place], [address] Hematocrit (Bld) [Volume fraction] 29.8 % Low 40-54 [facility] Comment on above: Performed By: #### L 100.0100, L500.4050, L300.3900, L300.4310, L503.6005 #### [facility] [address] [place], [address] Hemoglobin (Bld) [Mass/Vol] 9.2 g/dL Low 13.0-16.5 [facility] Comment on above: Performed By: #### L 100.0100, L500.4050, L300.3900, L300.4310, L503.6005 #### [facility] [address] [place], [address] IG% 0.700 Normal 0.0-0.9 [facility] Comment on above: Result Comment: IG% - Immature Granulocytes (promyelocytes, myelocytes and metamyelocytes) > 1% indicates that a LEFT SHIFT is Present. Performed By: #### L 100.0100, L500.4050, L300.3900, L300.4310, L503.6005 #### [facility] [address] [place], [address] Lymphocytes/100 WBC (Bld) 5.5 % Low 19-41 [facility] Comment on above: Performed By: #### L 100.0100, L500.4050, L300.3900, L300.4310, L503.6005 #### [facility] [address] [place], [address] MCH (RBC) [Entitic mass] 23.1 pg Low 27.0-32.0 [facility] Comment on above: Performed By: #### L 100.0100, L500.4050, L300.3900, L300.4310, L503.6005 #### [facility] [address] [place], [address] MCHC (RBC) [Mass/Vol] 30.9 g/dL Low 32-36 [facility] Comment on above: Performed By: #### L 100.0100, L500.4050, L300.3900, L300.4310, L503.6005 #### [facility] [address] [place], [address] MCV (RBC) [Entitic vol] 74.9 fL Low 80-94 [facility] Comment on above: Performed By: #### L 100.0100, L500.4050, L300.3900, L300.4310, L503.6005 #### [facility] [address] [place], [address] Monocytes/100 WBC (Bld) 6.3 % Normal 0-10 [facility] Comment on above: Performed By: #### L 100.0100, L500.4050, L300.3900, L300.4310, L503.6005 #### [facility] [address] [place], [address] Neutrophils/100 WBC (Bld) 86.9 % High 47-70 [facility] Comment on above: Performed By: #### L 100.0100, L500.4050, L300.3900, L300.4310, L503.6005 #### [facility] [address] [place], [address] Nucleated RBC (Bld) [#/Vol] 0 10*3/uL Normal 0-5 [facility] Comment on above: Performed By: #### L 100.0100, L500.4050, L300.3900, L300.4310, L503.6005 #### [facility] [address] [place], [address] Platelet mean volume (Bld) [Entitic vol] 10.3 fL Normal 6.2-12.0 [facility] Comment on above: Performed By: #### L 100.0100, L500.4050, L300.3900, L300.4310, L503.6005 #### [facility] [address] [place], [address] Platelets (Bld) [#/Vol] 352 10*3/uL Normal 150-450 [facility] Comment on above: Performed By: #### L 100.0100, L500.4050, L300.3900, L300.4310, L503.6005 #### [facility] [address] [place], [address] RBC (Bld) [#/Vol] 3.98 10*6/uL Low 4.6-6.2 [facility] Comment on above: Performed By: #### L 100.0100, L500.4050, L300.3900, L300.4310, L503.6005 #### [facility] [address] [place], [address] RDW SD 36.9 fl Normal 35.1-43.9 [facility] Comment on above: Performed By: #### L 100.0100, L500.4050, L300.3900, L300.4310, L503.6005 #### [facility] [address] [place], [address] WBC (Bld) [#/Vol] 18.9 10*3/uL High 4.4-11.0 [facility] Comment on above: Performed By: #### L 100.0100, L500.4050, L300.3900, L300.4310, L503.6005 #### [facility] [address] [place], [address] CRPon 01-16-2025 C-REACTIVE PROT 188.00 mg/L High 0.0-3.0 [facility] Comment on above: Performed By: #### L 501.6710, L503.6005, L101.9900 #### [facility] [address] [place], [address] Carbon dioxide, total [Moles /volume] in Central venous bloodOrdered By: German Chavarria on 01-16-2025 CO2 [Moles/Vol] 24.7 mmol/L 21.0-32.0 [facility] Chest PA and Lateralon 01-16 Chest PA and Lateral [facility] Imaging [facility] [address] [place] [address] Chest PA and Lateral MR#: [id number] Acct: [id number] Name: BARBIE FINK Rep #: [id number] : 1985 M 39 From: Frank thibodeaux MD PCP: Dr. Chris Mckeon MD Status: [facility] ER Study: Chest PA and Lateral Date of Exam: 01/16/25 Exam# [id number] Ordering Dr: German Chavarria DO PROCEDURE: CHEST PA AND LATERAL 01/16/2025 REASON FOR EXAM: FEVER TECHNIQUE: CHEST PA AND LATERAL COMPARISON: None FINDINGS: Hardware: EKG electrodes are seen. Heart: The heart size is normal. Mediastinum: The mediastinal contour is unremarkable. Lungs: The lungs are clear. Bones: The bones are unremarkable. RAD/Chest PA and Lateral IMPRESSION: NO ACUTE FINDINGS. Reading Location: [place] [address] CC: Dr. German Chavarria DO; Dr. Chris Mckeon MD Edger Liner: Signed Normal [facility] Chloride assayOrdered By: Marco Chavarria on 01-16-2025 Chloride [Moles/Vol] 94 mmol/L Low 98-108 [facility] Comprehensive Metabolic Prof ilon 01-16-2025 Albumin [Mass/Vol] 3.3 g/dL Low 3.5-5.0 [facility] Comment on above: Performed By: #### L 100.0100, L500.4050, L300.3900, L300.4310, L503.6005 #### [facility] [address] [place], [address] Albumin/Globulin [Mass ratio] 0.9 {ratio} Normal 0.9-2.4 [facility] Comment on above: Performed By: #### L 100.0100, L500.4050, L300.3900, L300.4310, L503.6005 #### [facility] [address] [place], [address] ALK PHOS 147 U/L High 40-129 [facility] Comment on above: Performed By: #### L 100.0100, L500.4050, L300.3900, L300.4310, L503.6005 #### [facility] [address] [place], [address] ALT [Catalytic activity/Vol] 16 U/L Normal <=46 [facility] Comment on above: Performed By: #### L 100.0100, L500.4050, L300.3900, L300.4310, L503.6005 #### [facility] [address] [place], [address] AST [Catalytic activity/Vol] 26 U/L Normal <=37 [facility] Comment on above: Performed By: #### L 100.0100, L500.4050, L300.3900, L300.4310, L503.6005 #### [facility] [address] [place], [address] Bilirubin [Mass/Vol] 1.97 mg/dL High 0.00-1.30 [facility] Comment on above: Performed By: #### L 100.0100, L500.4050, L300.3900, L300.4310, L503.6005 #### [facility] [address] [place], [address] BUN/CRE 12.8 RATIO Normal 10-20 [facility] Comment on above: Performed By: #### L 100.0100, L500.4050, L300.3900, L300.4310, L503.6005 #### [facility] [address] [place], [address] Calcium [Mass/Vol] 8.7 mg/dL Normal 7.6-11.0 [facility] Comment on above: Performed By: #### L 100.0100, L500.4050, L300.3900, L300.4310, L503.6005 #### [facility] [address] [place], [address] Chloride [Moles/Vol] 94 mmol/L Low 98-108 [facility] Comment on above: Performed By: #### L 100.0100, L500.4050, L300.3900, L300.4310, L503.6005 #### [facility] [address] [place], [address] CO2 [Moles/Vol] 24.7 mmol/L Normal 21.0-32.0 [facility] Comment on above: Performed By: #### L 100.0100, L500.4050, L300.3900, L300.4310, L503.6005 #### [facility] [address] [place], [address] Creatinine [Mass/Vol] 1.50 mg/dL High 0.70-1.20 [facility] Comment on above: Performed By: #### L 100.0100, L500.4050, L300.3900, L300.4310, L503.6005 #### [facility] [address] [place], [address] ECRCL 91.72 ml/min Normal 50-250 [facility] Comment on above: Performed By: #### L 100.0100, L500.4050, L300.3900, L300.4310, L503.6005 #### [facility] [address] [place], [address] GAP 16 High 5-15 [facility] Comment on above: Performed By: #### L 100.0100, L500.4050, L300.3900, L300.4310, L503.6005 #### [facility] [address] [place], [address] GFR/1.73 sq M.predicted among non-blacks MDRD (S/P/Bld) [Vol rate/Area] 60 mL/min/{1.73_m2} Normal >60 [facility] Comment on above: Result Comment: mL/m in/1.73m2 CKD-EPI Creatinine Equation (2020) Performed By: #### L 100.0100, L500.4050, L300.3900, L300.4310, L503.6005 #### [facility] [address] [place], [address] Globulin (S) [Mass/Vol] 3.6 g/dL Normal 2.2-4.2 [facility] Comment on above: Performed By: #### L 100.0100, L500.4050, L300.3900, L300.4310, L503.6005 #### [facility] [address] [place], [address] Glucose [Mass/Vol] 176 mg/dL High 70-99 [facility] Comment on above: Performed By: #### L 100.0100, L500.4050, L300.3900, L300.4310, L503.6005 #### [facility] [address] [place], [address] Potassium [Moles/Vol] 3.0 mmol/L Low 3.3-5.1 [facility] Comment on above: Performed By: #### L 100.0100, L500.4050, L300.3900, L300.4310, L503.6005 #### [facility] [address] [place], [address] Sodium [Moles/Vol] 135 mmol/L Normal 133-145 [facility] Comment on above: Performed By: #### L 100.0100, L500.4050, L300.3900, L300.4310, L503.6005 #### [facility] [address] [place], [address] T PROT 6.9 g/dL Normal 5.9-8.4 [facility] Comment on above: Performed By: #### L 100.0100, L500.4050, L300.3900, L300.4310, L503.6005 #### [facility] [address] [place], [address] Urea nitrogen [Mass/Vol] 19 mg/dL Normal 4-19 [facility] Comment on above: Performed By: #### L 100.0100, L500.4050, L300.3900, L300.4310, L503.6005 #### [facility] [address] [place], [address] Emergency Department Summary on 01-16-2025 Emergency Department Summary [facility] Medical Records Department [address] [place] [address] Emergency Department Summary 01/16/25 MR#: [id number] Acct: [id number] Name: BARBIE FINK Rep #: [id number] : 1985 39 From: German Chavarria DO PCP: Dr. Chris Mckeon MD Status:DIS IN Location: MS3 [id number] HPI History of Present Illness Chief Complaint: Syncope Informant: patient Onset/Context/Timing Onset: Days Context: Gradual Onset Timing: Continuous Quality: Dull Location: Lower abdomen Worsened by: Nothing Relieved by: Passing gas Narrative Narrative: Patient presents with a near syncopal episode that occurred today. Patient states that he has been feeling hot and dizzy over the past couple days. Patient states he has been having some pain in his lower abdomen. Patient states it did get better after he was able to pass some gas. Patient states that this morning he felt dizzy and hot. Patient states he has some tinnitus in his ear. Patient states he felt like he was going to pass out. states patient nearly passed out but did not lose consciousness. Patient states she has been having a cough recently. Patient denies any sputum. Patient states he has been having some shortness of breath with this. [facility] Medical History Alcohol use History of [...] 40 mg PO QDAY #30 caps 12/13/24 Un known Rx release Skyrizi 600 mg IV .COMPLEX #10 mL 01/03/25 Unknown Rx mesalamine 1.2 gram tablet,delayed 2.4 g PO BID 01/16/25 Unknown Hi story release (Lialda) Allergy/AdvReac Type Severity Reaction Status Date / Time amoxicillin Allergy Intermediate Other Verified 01/16/25 06:21 cefaclor (From Ceclor) Allergy Intermediate Other Verified 12/13/24 15:07 Family History Father Hypertension Surgical History History of esophagogastroduodenoscopy (EGD) Hx of colonoscopy Hx of wisdom tooth extraction H/O inguinal hernia repair S/P orchiectomy Social History Smoking Status: Never smoker Smokeless tobacco user: chewing tobacco alcohol intake: current ROS ROS ED Constitutional Constitutional ED: Reports fever(s); Denies chills Eyes Eyes: Denies blurry vision or change in vision ENT ENT ED: Denies rhinorrhea or sore throat Cardiovascular Cardiovascular: Denies chest pain or palpitations Respiratory/Chest Respiratory/Chest: Reports cough and dyspnea; Denies sputum Gastrointestinal Gastrointestinal: Reports abdominal pain; Denies nausea or vomiting Genitourinary Genitourinary ED: Denies dysuria or hematuria Musculoskeletal Musculoskeletal: Denies back pain or neck pain Integumentary Denies abscess or rash Neurologic Neurologic: Denies headache(s) or weakness Allergic/Immunologic Allergic/Immunologic ED: Denies mouth swelling or urticaria EXAM Physical Exam Const Vital Signs: 01/16/25 06:22 01/16/25 07:20 01/16/25 08:00 Temperature 101.0 F H 98.1 F 99.4 F H Temperature Source Oral Oral Oral Pulse Rate 103 H 88 89 Pulse Rate [Lying] Pulse Rate [Sitting (for 1 minute prior to obtaining)] Pulse Rate [Standing (for 1 minute prior to obtaining)] Respiratory Rate 30 H 23 H 18 Blood Pressure 137/66 H 125/62 H 133/89 H Blood Pressure [Lying] Blood Pressure [Sitting (for 1 minute prior to obtaining)] Blood Pressure [Standing (for 1 minute prior to obtaining)] Blood Pressure Mean 89 83 103 Blood Pressure Mean [Lying] Blood Pressure Mean [Sitting (for 1 minute prior to obtaining)] Blood Pressure Mean [Standing (for 1 minute prior to obtaining)] Pulse Ox 97 97 97 Oxygen Delivery Method Room Air Room Air Room Air 01/16/25 08:46 01/16/25 09:00 Temperature 99.1 F Temperature Source Oral Pulse Rate 81 Pulse Rate [Lying] 79 Pulse Rate [Sitting (for 1 minute prior to obtaining)] 81 Pulse Rate [Standing (for 1 minute prior to obtaining)] 90 Respiratory Rate 16 Blood Pressure 130/73 H Blood Pressure [Lying] 122/65 H Blood Pressure [Sitting (for 1 minute prior to obtaining)] 129/74 H Blood Pressure [Standing (for 1 minute prior to obtaining)] 124/69 H Blood Pressure Mean 92 Blood Pressure Mean [Lying] (more content not included)... Normal [facility] Eosinophil percentageOrdered By: German Chavarria on 01-16-2025 Eosinophils/100 WBC (Bld) 0.4 % 0-5 [facility] Erythrocyte Sed Rateon 01-16 SED RATE 65 mm/hr High 0-20 [facility] Comment on above: Performed By: #### L 501.6710, L503.6005, L101.9900 #### [facility] [place], [address] Erythrocyte distribution wid th ratioOrdered By: German Chavarria on 01-16-2025 Erythrocyte distribution width (RBC) [Ratio] 13.7 % 11.6-14.6 [facility] Erythrocyte distribution wid th standard deviationOrdered By: German Chavarria on 01-16-2025 Erythrocyte distribution width (RBC) [Ratio] 36.9 fl 35.1-43.9 [facility] Erythrocyte sedimentation ra teOrdered By: Babar Hernández on 01-16-2025 ESR (Bld) [Velocity] 65 mm/h High 0-20 [facility] Glomerular filtration rate ( GFR) estimation/1.73 sq m using serum, plasma, or whole bOrdered By: German Chavarria on 01-16-2025 GFR/1.73 sq M.predicted among non-blacks MDRD (S/P/Bld) [Vol rate/Area] 60 mL/min/{1.73_m2} >60 [facility] Comment on above: mL/min/1.73m2 CKD-EP I Creatinine Equation (2020) H AND P Exam - [place] 01-16-2025 H&P Exam - Hospitalist [facility] Medical Records Department [address] [place] [address] H P Exam - Hospitalist 01/16/25 1251 MR#: [id number] Acct: [id number] Name: BARBIE FINK Rep #: [id number] : 1985 39 From: Obed Fish MD PCP: Dr. Chris Mckeon MD Status:ADM IN Location: [facility] [id number] HPI - General General Date of Admission: 01/16/25 HPI Narrative BARBIE FINK, is a 39 M who presents to the hospital with fevers and chills and a leukocytosis. He also had a episode of syncope or near syncope today. CT scan shows diffuse ileitis with no obvious signs of colitis currently though he had a colonoscopy several months ago that demonstrated significant Crohn's burden despite being on mesalamine. With his leukocytosis he was started on Cipro and Flagyl in the emergency room and blood cultures are pending. GI was able to order stool studies and blood cultures were obtained in the ER. He denies any diarrhea or melena. He endorses some left lower quadrant abdominal pain but nothing that he feels is significant and now that his fever is broken he says that he feels much better. ON LICENSE OF [facility] Medical History Alcohol use History of ulceration [...] 40 mg PO QDAY #30 caps 12/13/24 Un known Rx release Skyrizi 600 mg IV .COMPLEX #10 mL 01/03/25 Unknown Rx mesalamine 1.2 gram tablet,delayed 2.4 g PO BID 01/16/25 Unknown Hi story release (Lialda) Allergy/AdvReac Type Severity Reaction Status Date / Time amoxicillin Allergy Intermediate Other Verified 01/16/25 06:21 cefaclor (From Ceclor) Allergy Intermediate Other Verified 12/13/24 15:07 Family History Father Hypertension Surgical History History of esophagogastroduodenoscopy (EGD) Hx of colonoscopy Hx of wisdom tooth extraction H/O inguinal hernia repair S/P orchiectomy Social History Smoking Status: Never smoker Smokeless tobacco user: chewing tobacco alcohol intake: current ROS Constitutional Constitutional: Reports fever(s); Denies chills, fatigue or malaise Eyes Eyes: Denies blurry vision ENT HEENT: Denies headache(s) or nasal discharge Cardiovascular Cardiovascular: Denies chest pain, dyspnea on exertion or syncope Respiratory/Chest Respiratory/Chest: Denies cough, shortness of breath at rest or shortness of breath with exertion Gastrointestinal Gastrointestinal: Reports abdominal pain; Denies constipation, diarrhea, nausea or vomiting Genitourinary Genitourinary: Denies dysuria Neurologic Neurologic: Denies focal weakness, numbness or tremor(s) Psychiatric Psychiatric: Denies anxiety or depression Vital Signs Vital Signs Vital Signs: 01/16/25 06:22 01/16/25 07:20 01/16/25 08:00 Temperature 101.0 F H 98.1 F 99.4 F H Temperature Source Oral Oral Oral Pulse Rate 103 H 88 89 Pulse Rate [Lying] Pulse Rate [Sitting (for 1 minute prior to obtaining)] Pulse Rate [Standing (for 1 minute prior to obtaining)] Respiratory Rate 30 H 23 H 18 Blood Pressure 137/66 H 125/62 H 133/89 H Blood Pressure [Lying] Blood Pressure [Sitting (for 1 minute prior to obtaining)] Blood Pressure [Standing (for 1 minute prior to obtaining)] Blood Pressure Mean 89 83 103 Blood Pressure Mean [Lying] Blood Pressure Mean [Sitting (for 1 minute prior to obtaining)] Blood Pressure Mean [Standing (for 1 minute prior to obtaining)] Pulse Ox 97 97 97 Oxygen Delivery Method Room Air Room Air Room Air 01/16/25 08:46 01/16/25 09:00 01/16/25 10:44 Temperature 99.1 F 99.7 F H Temperature Source Oral Pulse Rate 81 88 Pulse Rate [Lying] 79 Pulse Rate [Sitting (for 1 minute prior to obtaining)] 81 Pulse Rate [Standing (for 1 minute prior to obtaining)] 90 Respiratory Rate 16 14 Blood Pressure 130/73 H 134/76 H Blood Pressure [Lying] 122/65 H Blood Pressure [Sitting (for 1 minute prior to obtaining)] 129/74 H Blood Pressure [Standing (for 1 minute prior to obtaining)] 124/69 H Blood Pressure Mean 92 95 Blood Pressure Mean [Lying] 84 Blood Pressure Mean [Sitting (for 1 minute prior to obtaining)] 92 Blood Pressure Mean [Standing (for 1 minute prior to obtaining)] 87 Pulse Ox 98 (more content not included)... Normal [facility] Hematocrit Auto (Bld) [Volum e fraction]Ordered By: German Chavarria on 01-16-2025 Hematocrit (Bld) [Volume fraction] 29.8 % Low 40-54 [facility] Hemoglobin measurementOrdere d By: German Chavarria on 01-16-2025 Hemoglobin (Bld) [Mass/Vol] 9.2 g/dL Low 13.0-16.5 [facility] Immature granulocytes/100 WB C Auto (Bld)Ordered By: German Chavarria on 01-16-2025 Immature granulocytes/100 WBC (Bld) 0.700 % 0.0-0.9 [facility] Comment on above: IG% - Immature Granu locytes (promyelocytes, myelocytes and metamyelocytes) > 1% indicates that a LEFT SHIFT is Present. International normalized rat io (INR) calculationOrdered By: German Chavarria on 01-16-2025 INR Coag (Bld) [Relative time] 1.2 {INR} [facility] Ketones Test strip Ql (U)Ord ered By: German Chavarria on 01-16-2025 Ketones Ql (U) Negative Negative [facility] - Chemistry and C hemistry - challengeOrdered By: German Chavarria on 01-16-2025 AST [Catalytic activity/Vol] 26 U/L <38 [facility] Lactic Acidon 01-16-2025 Lactate [Moles/Vol] 1.1 mmol/L Normal 0.0-2.0 [facility] Comment on above: Order Comment: Y Performed By: #### L 501.6710, L503.6005, L101.9900 #### [facility] [address] [place], [address] Lactate [Moles/Vol] 1.6 mmol/L Normal 0.0-2.0 [facility] Comment on above: Order Comment: Y Performed By: #### L 100.0100, L500.4050, L300.3900, L300.4310, L503.6005 #### [facility] [address] [place], [address] Lactic acid measurementOrder ed By: Babar Hernández on 01-16-2025 Lactate [Moles/Vol] 1.1 mmol/L 0.0-2.0 [facility] Lactic acid measurementOrder ed By: German Chavarria on 01-16-2025 Lactate [Moles/Vol] 1.6 mmol/L 0.0-2.0 [facility] MCV (mean corpuscular volume ) determinationOrdered By: German Chavarria on 01-16-2025 MCV (RBC) [Entitic vol] 74.9 fL Low 80-94 [facility] MR/CON.PCM.GIon 01-16-2025 MR/CON.PCM.GI [facility] Medical Records Department [address] [place] [address] Consultation - GI 01/16/25 1310 MR#: [id number] Acct: [id number] Name: BARBIE FINK Rep #: [id number] : 1985 39 From: Babar Hernández DO PCP: Dr. Chris Mckeon MD Status:ADM IN Location: [place] [address] HPI Consult Data Date of Consult: 01/16/25 HPI Narrative Reason for Consultation: Crohns disease HPI Narrative: BARBIE FINK, is a 39-year-old male with a history of Crohn's disease presenting with a fever, increased white blood cell count (WBC), and abdominal pain. He describes the pain as cramping and located in the lower right abdomen, which is a common location for pain in individuals with Crohn's, particularly those with ileitis and ileocolitis. He also reports diarrhea and a general feeling of being unwell. He denies any other symptoms at this time. The patient has been compliant with his Crohn's medications and hasn't made any recent dietary changes.??? He has been on 5-ASA drugs. He has not been on steroids. He was scheduled to be started on Skyrizi therapy. In the emergency room he was discovered to be afebrile with a temperature of 101.4. He denied any sick contacts. He recently underwent colonoscopy which show active ileitis and colitis. CT/Abdomen/Pelvis W IV Cont ONLY IMPRESSION: Circumferential wall thickening of several adjacent small bowel loops in the distal ileum with increased markings in the surrounding peritoneal fat. Mildly enlarged small lymph nodes in the deep mesenteric fat. Enteritis should be ruled out. Mild splenomegaly. He was started on ciprofloxacin and Flagyl in the ED and he was given 1 dose of Solu-Medrol 125 mg PFSH Medical History Alcohol use History of [...] 40 mg PO QDAY #30 caps 12/13/24 Un known Rx release Skyrizi 600 mg IV .COMPLEX #10 mL 01/03/25 Unknown Rx mesalamine 1.2 gram tablet,delayed 2.4 g PO BID 01/16/25 Unknown Hi story release (Lialda) Allergy/AdvReac Type Severity Reaction Status Date / Time amoxicillin Allergy Intermediate Other Verified 01/16/25 06:21 cefaclor (From [facility]) Allergy Intermediate Other Verified 12/13/24 15:07 Family History Father Hypertension Surgical History History [...] rectal bleeding, tenesmus, vomiting or weight changes Physical Exam Const alert, oriented x3, no apparent distress and healthy appearing General Appearance: cooperative GI normal to inspection, nondistended, normoactive bowel sounds, soft to palpation, non-tender and non- distended Percussion: normal to percussion Rectal Exam: deferred Lab / Micro Data 01/16/25 07:18 01/16/25 07:18 Labs: Laboratory Results - last 24 hr 01/16/25 07:18: WBC 18.9 H, RBC 3.98 L, Hgb 9.2 L, Hct 29.8 L, MCV 74.9 L, MCH 23.1 L, MCHC 30.9 L, RDW Std Deviation 36.9, RDW Coeff of Irwin 13.7, Plt Count 352, MPV 10.3, Immature Gran % (Auto) 0.700, Neut % (Auto) 86.9 H, Lymph % (Auto) 5.5 L, [place] % (Auto) 6.3, Eos % (Auto) 0.4, Baso % (Auto) 0.2, Absolute Neuts (auto) 16.4 H, Absolute Lymphs (auto) 1.03, Nucleated RBC % 0, ESR 65 H, PT 15.6 H, INR 1.2, APTT 39.3 H, Sodium 135, Potassium 3.0 L, Chloride 94 L, Carbon Dioxide 24.7, A nion Gap 16 H, BUN 19, Creatinine 1.50 H, Estim Creat Clear Calc 91.72, Est GFR (MDRD) Non-Af 60, BUN/Creatinine Ratio 12.8, Glucose 176 H, Lactic Acid 1.6, Calcium 8.7, Total Bilirubin 1.97 H, AST 26, ALT 16, Alkaline Phosphatase 147 H, C-React Prot Ext Range 188.00 H, T (more content not included)... Normal [facility] Mean corpuscular hemoglobin (MCH) determinationOrdered By: German Chavarria on 01-16-2025 MCH (RBC) [Entitic mass] 23.1 pg Low 27.0-32.0 [facility] Mean corpuscular hemoglobin concentration (MCHC) determinationOrdered By: German Chavarria on 01-16-2025 MCHC (RBC) [Mass/Vol] 30.9 g/dL Low 32-36 [facility] Mean platelet volume determi nationOrdered By: German Chavarria on 01-16-2025 Platelet mean volume (Bld) [Entitic vol] 10.3 fL 6.2-12.0 [facility] Microscopic analysis of urin e for red blood cells (RBC)Ordered By: German Chavarria on 01-16-2025 Microscopic analysis of urine for red blood cells (RBC) 0 SEEN /hpf 0-5 [facility] Monocyte percentageOrdered B y: German Chavarria on 01-16-2025 Monocytes/100 WBC (Bld) 6.3 % 0-10 [facility] Mucus LM Ql (Urine sed)Order ed By: German Chavarria on 01-16-2025 Mucus Ql (Urine sed) 0 SEEN /hpf [facility] Neutrophil percentageOrdered By: German Chavarria on 01-16-2025 Neutrophils/100 WBC (Bld) 86.9 % High 47-70 [facility] Nitrite Test strip Ql (U)Ord ered By: German Chavarria on 01-16-2025 Nitrite Ql (U) Negative Negative [facility] Nucleated red blood cell per centageOrdered By: German Chavarria on 01-16-2025 Nucleated RBC/100 WBC (Bld) [Ratio] 0 % 0-5 [facility] Partial Thromboplast Timeon 01-16-2025 aPTT Coag (Bld) [Time] 39.3 s High 24.1-36.2 [facility] Comment on above: Performed By: #### L 100.0100, L500.4050, L300.3900, L300.4310, L503.6005 #### [facility] [address] [place], [address] Platelet countOrdered By: Marco Chavarria on 01-16-2025 Platelets (Bld) [#/Vol] 352 10*3/uL 150-450 [facility] Potassium measurement (mass/ volume)Ordered By: German Chavarria on 01-16-2025 Potassium (Unsp spec) [Mass/Vol] 3.0 mmol/L Low 3.3-5.1 [facility] Protein Test strip Ql (U)Ord ered By: German Chavarria on 01-16-2025 Protein Ql (U) 15 mg/dl High Negative [facility] Prothrombin Time w/INRon INR Coag (PPP) [Relative time] 1.2 {INR} Normal [facility] Comment on above: Performed By: #### L 100.0100, L500.4050, L300.3900, L300.4310, L503.6005 #### [facility] [address] [place], [address] PT Coag (PPP) [Time] 15.6 s High 11.7-14.9 [facility] Comment on above: Performed By: #### L 100.0100, L500.4050, L300.3900, L300.4310, L503.6005 #### [facility] [address] [place], [address] Prothrombin timeOrdered By: German Chavarria on 01-16-2025 PT Coag (PPP) [Time] 15.6 s High 11.7-14.9 [facility] RBC Auto (Bld) [#/Vol]Ordere d By: German Chavarria on 01-16-2025 RBC (Bld) [#/Vol] 3.98 10*6/uL Low 4.6-6.2 [facility] Serum creatinine measurement (mass/volume)Ordered By: German Chavarria on 01-16-2025 Creatinine [Mass/Vol] 1.50 mg/dL High 0.70-1.20 [facility] Serum globulin measurementOr dered By: German Chavarria on 01-16-2025 Globulin (S) [Mass/Vol] 3.6 g/dL 2.2-4.2 [facility] Serum glucose measurement (m ass/volume)Ordered By: German Chavarria on 01-16-2025 Glucose [Mass/Vol] 176 mg/dL High 70-99 [facility] Serum or plasma C reactive p rotein measurement (mass/volume)Ordered By: Babar Hernández on 01-16-2025 CRP [Mass/Vol] 188.00 mg/L High 0.0-3.0 [facility] Serum or plasma alanine dillon otransferase (ALT) measurementOrdered By: German Chavarria on 01-16-2025 ALT [Catalytic activity/Vol] 16 U/L <47 [facility] Serum or plasma albumin luc urement (mass/volume)Ordered By: German Chavarria 01-16-2025 Albumin [Mass/Vol] 3.3 g/dL Low 3.5-5.0 [facility] Serum or plasma albumin/glob ulin mass ratioOrdered By: German Chavarria on 01-16-2025 Albumin/Globulin [Mass ratio] 0.9 {ratio} 0.9-2.4 [facility] Serum or plasma alkaline chun sphatase measurementOrdered By: German Chavarria 01-16-2025 ALP [Catalytic activity/Vol] 147 U/L High 40-129 [facility] Serum or plasma calcium luc urement (mass/volume)Ordered By: German Chavarria on 01-16-2025 Calcium [Mass/Vol] 8.7 mg/dL 7.6-11.0 [facility] Serum or plasma urea nitroge n measurement (mass/volume)Ordered By: German Chavarria on 01-16-2025 Urea nitrogen [Mass/Vol] 19 mg/dL 4-19 [facility] Sodium levelOrdered By: German Chavarria on 01-16-2025 Sodium [Moles/Vol] 135 mmol/L 133-145 [facility] Squamous epithelial cells de tection in urine sediment by light microscopyOrdered By: German Chavarria on 01-16-2025 Epithelial cells.squamous LM Ql (Urine sed) 0 SEEN /hpf 0-5 [facility] Total proteinOrdered By: Miranda Chavarria on 01-16-2025 Protein [Mass/Vol] 6.9 g/dL 5.9-8.4 [facility] Urinalysis, Completeon 01-16 BACTERIA 0 SEEN Normal None Seen [facility] Comment on above: Order Comment: CLEAN CATCH Performed By: #### L 100.0100, L500.4050, L300.3900, L300.4310, L503.6005 #### [facility] [address] [place], [address] EPI,SQUAMOUS 0 SEEN Normal 0-5 [facility] Comment on above: Order Comment: CLEAN CATCH Performed By: #### L 100.0100, L500.4050, L300.3900, L300.4310, L503.6005 #### [facility] [address] [place], [address] Mucus Ql (Urine sed) 0 SEEN Normal [facility] Comment on above: Order Comment: CLEAN CATCH Performed By: #### L 100.0100, L500.4050, L300.3900, L300.4310, L503.6005 #### [facility] [address] [place], [address] RBC 0 SEEN Normal [address] [place] [address] Comment on above: Order Comment: CLEAN CATCH Performed By: #### L 100.0100, L500.4050, L300.3900, L300.4310, L503.6005 #### [facility] [address] [place], [address] WBC 0 SEEN Normal 0-5 [facility] Comment on above: Order Comment: CLEAN CATCH Performed By: #### L 100.0100, L500.4050, L300.3900, L300.4310, L503.6005 #### [facility] [address] [place], [address] Urine clarityOrdered By: Miranda Chavarria on 01-16-2025 Clarity (U) Clear Clear [facility] Urine color determinationOrd ered By: German Chavarria on 01-16-2025 Color (U) Yellow Yellow [facility] Urine cultureOrdered By: Miranda Chavarria on 01-16-2025 Bacteria identified Cx Nom (U) Culture exhibits no growth. [facility] Urine glucose detectionOrder ed By: German Chavarria on 01-16-2025 Glucose Ql (U) Normal mg/dl Normal [facility] Urine leukocyte esterase det ection by dipstickOrdered By: German Chavarria on 01-16-2025 Leukocyte esterase Test strip Ql (U) Negative Negative [facility] Urine pHOrdered By: German carmona on 01-16-2025 pH (U) 6.0 [pH] 5.0 - 8.0 [facility] Urine sediment bacteria coun t by microscopy (number/high power field)Ordered By: German Chavarria on 01-16-2025 Bacteria LM.HPF (Urine sed) [#/Area] 0 /[HPF] None Seen [facility] Urine specific gravity measu rementOrdered By: German Chavarria on 01-16-2025 Specific gravity (U) [Rel density] 1.005 1.002-1.03 0 [facility] Urine urobilinogen measureme ntOrdered By: German Chavarria on 01-16-2025 Urobilinogen Ql (U) 1 mg/dl High Normal [facility] White blood cell (WBC) count Ordered By: German Chavarria on 01-16-2025 WBC (Bld) [#/Vol] 18.9 10*3/uL High 4.4-11.0 [facility] White blood cell countOrdere d By: German Halguy on 01-16-2025 White blood cell count 0 SEEN /hpf 0-5 [facility] Absolute lymphocyte countOrd ered By: Anne-Marie Fine on 12-13-2024 Lymphocytes Auto (Unsp spec) [#/Vol] 1.70 10*3/uL 0.83-4.51 [facility] Absolute neutrophil countOrd ered By: Anne-Marie Fine on 12-13-2024 Neutrophils (Bld) [#/Vol] 6.6 10*3/uL 2.0-7.7 [facility] Anion gap in Serum or Plasma Ordered By: Anne-Marie Fine on 12-13-2024 Anion gap [Moles/Vol] 12 mmol/L 5-15 [facility] Automated lymphocyte count a s percentage of total leukocytesOrdered By: Anne-Marie Fine on 12-13-2024 Lymphocytes/100 WBC Auto (Unsp spec) 18.8 % Low 19-41 [facility] BUN/creatinine ratioOrdered By: Anne-Marie Fine on 12-13-2024 Urea nitrogen/Creatinine [Mass ratio] 12.4 mg/mg 10-20 [facility] Basophil percentageOrdered B y: Anne-Marie Fine on 12-13-2024 Basophils/100 WBC (Bld) 0.2 % 0- [facility] Bilirubin, totalOrdered By: Anne-Marie Fine on 12-13-2024 Bilirubin [Mass/Vol] 0.41 mg/dL 0.00-1.30 [facility] CBC W/Diff, Automatedon 12-03 Absolute Lymph 1.70 X10 3/uL Normal 0.83-4.51 [facility] Comment on above: Performed By: #### L 100.0100, L500.4050, L300.3900, L300.4310, L503.6005 #### [facility] [address] [place], [place], [id number] Absolute Neut 6.6 X10 3/uL Normal 2.0-7.7 [facility] Comment on above: Performed By: #### L 100.0100, L500.4050, L300.3900, L300.4310, L503.6005 #### [facility] [address] [place], [address] Basophils/100 WBC (Bld) 0.2 % Normal 0-1 [facility] Comment on above: Performed By: #### L 100.0100, L500.4050, L300.3900, L300.4310, L503.6005 #### [facility] [address] [place], [address] Eosinophils/100 WBC (Bld) 1.7 % Normal 0-5 [facility] Comment on above: Performed By: #### L 100.0100, L500.4050, L300.3900, L300.4310, L503.6005 #### [facility] [address] [place], [address] Erythrocyte distribution width (RBC) [Ratio] 15.7 % High 11.6-14.6 [facility] Comment on above: Performed By: #### L 100.0100, L500.4050, L300.3900, L300.4310, L503.6005 #### [facility] [address] [place], [address] Hematocrit (Bld) [Volume fraction] 34.2 % Low 40-54 [facility] Comment on above: Performed By: #### L 100.0100, L500.4050, L300.3900, L300.4310, L503.6005 #### [facility] [address] [place], [address] Hemoglobin (Bld) [Mass/Vol] 10.4 g/dL Low 13.0-16.5 [facility] Comment on above: Performed By: #### L 100.0100, L500.4050, L300.3900, L300.4310, L503.6005 #### [facility] [address] [place], [address] IG% 0.200 Normal 0.0-0.9 [facility] Comment on above: Result Comment: IG% - Immature Granulocytes (promyelocytes, myelocytes and metamyelocytes) > 1% indicates that a LEFT SHIFT is Present. Performed By: #### L 100.0100, L500.4050, L300.3900, L300.4310, L503.6005 #### [facility] [address] [place], [address] Lymphocytes/100 WBC (Bld) 18.8 % Low 19-41 [facility] Comment on above: Performed By: #### L 100.0100, L500.4050, L300.3900, L300.4310, L503.6005 #### [facility] [address] [place], [address] MCH (RBC) [Entitic mass] 23.5 pg Low 27.0-32.0 [facility] Comment on above: Performed By: #### L 100.0100, L500.4050, L300.3900, L300.4310, L503.6005 #### [facility] [address] [place], [address] MCHC (RBC) [Mass/Vol] 30.4 g/dL Low 32-36 [facility] Comment on above: Performed By: #### L 100.0100, L500.4050, L300.3900, L300.4310, L503.6005 #### [facility] [address] [place], [address] MCV (RBC) [Entitic vol] 77.2 fL Low 80-94 [facility] Comment on above: Performed By: #### L 100.0100, L500.4050, L300.3900, L300.4310, L503.6005 #### [facility] [address] [place], [address] Monocytes/100 WBC (Bld) 6.7 % Normal 0-10 [facility] Comment on above: Performed By: #### L 100.0100, L500.4050, L300.3900, L300.4310, L503.6005 #### [facility] [address] [place], [address] Neutrophils/100 WBC (Bld) 72.4 % High 47-70 [facility] Comment on above: Performed By: #### L 100.0100, L500.4050, L300.3900, L300.4310, L503.6005 #### [facility] [address] [place], [address] Nucleated RBC (Bld) [#/Vol] 0 10*3/uL Normal 0-5 [facility] Comment on above: Performed By: #### L 100.0100, L500.4050, L300.3900, L300.4310, L503.6005 #### [facility] [address] [place], [address] Platelet mean volume (Bld) [Entitic vol] 10.3 fL Normal 6.2-12.0 [facility] Comment on above: Performed By: #### L 100.0100, L500.4050, L300.3900, L300.4310, L503.6005 #### [facility] [address] [place], [address] Platelets (Bld) [#/Vol] 320 10*3/uL Normal 150-450 [facility] Comment on above: Performed By: #### L 100.0100, L500.4050, L300.3900, L300.4310, L503.6005 #### [facility] [address] [place], [address] RBC (Bld) [#/Vol] 4.43 10*6/uL Low 4.6-6.2 [facility] Comment on above: Performed By: #### L 100.0100, L500.4050, L300.3900, L300.4310, L503.6005 #### [facility] [address] [place], [address] RDW SD 44.3 fl High 35.1-43.9 [facility] Comment on above: Performed By: #### L 100.0100, L500.4050, L300.3900, L300.4310, L503.6005 #### [facility] [address] [place], [address] WBC (Bld) [#/Vol] 9.1 10*3/uL Normal 4.4-11.0 [facility] Comment on above: Performed By: #### L 100.0100, L500.4050, L300.3900, L300.4310, L503.6005 #### [facility] [address] [place], [address] CRPon 12-13-2024 C-REACTIVE PROT 32.40 mg/L High 0.0-3.0 [facility] Comment on above: Performed By: #### L 100.0100, L500.4050, L300.3900, L300.4310, L503.6005 #### [facility] [address] [place], [address] Carbon dioxide, total [Moles /volume] in Central venous bloodOrdered By: Anne-Marie Fine on 12-13-2024 CO2 [Moles/Vol] 28.4 mmol/L 21.0-32.0 [facility] Chloride assayOrdered By: Radha Fine on 12-13-2024 Chloride [Moles/Vol] 100 mmol/L 98-108 [facility] Comprehensive Metabolic Prof ilon 12-13-2024 Albumin [Mass/Vol] 3.8 g/dL Normal 3.5-5.0 [facility] Comment on above: Performed By: #### L 100.0100, L500.4050, L300.3900, L300.4310, L503.6005 #### [facility] [address] [place], [address] Albumin/Globulin [Mass ratio] 1.1 {ratio} Normal 0.9-2.4 [facility] Comment on above: Performed By: #### L 100.0100, L500.4050, L300.3900, L300.4310, L503.6005 #### [facility] [address] [place], [address] ALK PHOS 97 U/L Normal 40-129 [facility] Comment on above: Performed By: #### L 100.0100, L500.4050, L300.3900, L300.4310, L503.6005 #### [facility] [address] [place], [address] ALT [Catalytic activity/Vol] 16 U/L Normal <=46 [facility] Comment on above: Performed By: #### L 100.0100, L500.4050, L300.3900, L300.4310, L503.6005 #### [facility] [address] [place], [address] AST [Catalytic activity/Vol] 18 U/L Normal <=37 [facility] Comment on above: Performed By: #### L 100.0100, L500.4050, L300.3900, L300.4310, L503.6005 #### [facility] [address] [place], [address] Bilirubin [Mass/Vol] 0.41 mg/dL Normal 0.00-1.30 [facility] Comment on above: Performed By: #### L 100.0100, L500.4050, L300.3900, L300.4310, L503.6005 #### [facility] [address] [place], [address] BUN/CRE 12.4 RATIO Normal 10-20 [facility] Comment on above: Performed By: #### L 100.0100, L500.4050, L300.3900, L300.4310, L503.6005 #### [facility] [address] [place], [address] Calcium [Mass/Vol] 9.0 mg/dL Normal 7.6-11.0 [facility] Comment on above: Performed By: #### L 100.0100, L500.4050, L300.3900, L300.4310, L503.6005 #### [facility] [address] [place], [address] Chloride [Moles/Vol] 100 mmol/L Normal 98-108 [facility] Comment on above: Performed By: #### L 100.0100, L500.4050, L300.3900, L300.4310, L503.6005 #### [facility] [address] [place], [address] CO2 [Moles/Vol] 28.4 mmol/L Normal 21.0-32.0 [facility] Comment on above: Performed By: #### L 100.0100, L500.4050, L300.3900, L300.4310, L503.6005 #### [facility] [address] [place], [address] Creatinine [Mass/Vol] 1.07 mg/dL Normal 0.70-1.20 [facility] Comment on above: Performed By: #### L 100.0100, L500.4050, L300.3900, L300.4310, L503.6005 #### [facility] [address] [place], [address] GAP 12 Normal 5-15 [facility] Comment on above: Performed By: #### L 100.0100, L500.4050, L300.3900, L300.4310, L503.6005 #### [facility] [address] [place], [address] GFR/1.73 sq M.predicted among non-blacks MDRD (S/P/Bld) [Vol rate/Area] 90 mL/min/{1.73_m2} Normal >60 [facility] Comment on above: Result Comment: mL/m in/1.73m2 CKD-EPI Creatinine Equation (2020) Performed By: #### L 100.0100, L500.4050, L300.3900, L300.4310, L503.6005 #### [facility] [address] [place], [address] Globulin (S) [Mass/Vol] 3.3 g/dL Normal 2.2-4.2 [facility] Comment on above: Performed By: #### L 100.0100, L500.4050, L300.3900, L300.4310, L503.6005 #### [facility] [address] [place], [address] Glucose [Mass/Vol] 87 mg/dL Normal 70-99 [facility] Comment on above: Performed By: #### L 100.0100, L500.4050, L300.3900, L300.4310, L503.6005 #### [facility] [address] [place], [address] Potassium [Moles/Vol] 3.4 mmol/L Normal 3.3-5.1 [facility] Comment on above: Performed By: #### L 100.0100, L500.4050, L300.3900, L300.4310, L503.6005 #### [facility] [address] [place], [address] Sodium [Moles/Vol] 140 mmol/L Normal 133-145 [facility] Comment on above: Performed By: #### L 100.0100, L500.4050, L300.3900, L300.4310, L503.6005 #### [facility] [address] [place], [address] T PROT 7.1 g/dL Normal 5.9-8.4 [facility] Comment on above: Performed By: #### L 100.0100, L500.4050, L300.3900, L300.4310, L503.6005 #### [facility] [address] [place], [address] Urea nitrogen [Mass/Vol] 13 mg/dL Normal 4-19 [facility] Comment on above: Performed By: #### L 100.0100, L500.4050, L300.3900, L300.4310, L503.6005 #### [facility] [address] [place], [address] Eosinophil percentageOrdered By: Anne-Marie Fine on 12-13-2024 Eosinophils/100 WBC (Bld) 1.7 % 0-5 [facility] Erythrocyte Sed Rateon 12-13 SED RATE 32 mm/hr High 0-20 [facility] Comment on above: Performed By: #### L 100.0100, L500.4050, L300.3900, L300.4310, L503.6005 #### [facility] [address] [place], [address] Erythrocyte distribution wid th ratioOrdered By: Anne-Marie Fine on 12-13-2024 Erythrocyte distribution width (RBC) [Ratio] 15.7 % High 11.6-14.6 [facility] Erythrocyte distribution wid th standard deviationOrdered By: Anne-Marie Fine on 12-13-2024 Erythrocyte distribution width (RBC) [Ratio] 44.3 fl High 35.1-43.9 [facility] Erythrocyte sedimentation ra teOrdered By: Anne-Marie Fine on 12-13-2024 ESR (Bld) [Velocity] 32 mm/h High 0-20 [facility] Gastroenterology Visit Repor ton 12-13-2024 Gastroenterology Visit Report [facility] [address] [place] [address] OFFICE VISIT Date of Service: 12/13/24 MR#: [id number] Acct: [id number] Name: BARBIE FINK Rep #: [id number] : 1985 Provider: GARRY Guerrero Age/Sex: 39/M Location: [facility] Status: Signed Intake Vital Signs 08/26/24 09:43 Height 6 ft 2 in Intake Visit Reasons: 3 M FU Chief Complaint: Crohns Allergies amoxicillin Allergy (Intermediate, Verified 12/13/24 15:07) Other cefaclor (From Ceclor) Allergy (Intermediate, Verified 12/13/24 15:07) Other Medications [...] last. Just here for a follow up. ON LICENSE OF [facility] Medical History Alcohol use History of ulceration [...] and glandular distortion; internal hemorrhoids. Last OV 2..25 Doing well with no flares. 2-3 bm per day. Colonoscopy 25: - Simple Endoscopic Score for Crohn's Disease: [...] cooperative, healthy appearing and comfortable Orientation: alert HENSD Head: normal to inspection Eyes General: appearance [...] disease compl (more content not included)... Normal [facility] Glomerular filtration rate ( GFR) estimation/1.73 sq m using serum, plasma, or whole bOrdered By: Anne-Marie Fine on 12-13-2024 GFR/1.73 sq M.predicted among non-blacks MDRD (S/P/Bld) [Vol rate/Area] 90 mL/min/{1.73_m2} >60 [facility] Comment on above: mL/min/1.73m2 CKD-EP I Creatinine Equation (2020) Hematocrit Auto (Bld) [Volum e fraction]Ordered By: Anne-Marie Fine on 12-13-2024 Hematocrit (Bld) [Volume fraction] 34.2 % Low 40-54 [facility] Hemoglobin measurementOrdere d By: Anne-Marie Fine on 12-13-2024 Hemoglobin (Bld) [Mass/Vol] 10.4 g/dL Low 13.0-16.5 [facility] Immature granulocytes/100 WB C Auto (Bld)Ordered By: Anne-Marie Fine on 12-13-2024 Immature granulocytes/100 WBC (Bld) 0.200 % 0.0-0.9 [facility] Comment on above: IG% - Immature Granu locytes (promyelocytes, myelocytes and metamyelocytes) > 1% indicates that a LEFT SHIFT is Present. Laboratory - Chemistry and C hemistry - challengeOrdered By: Anne-Marie Fine on 12-13-2024 AST [Catalytic activity/Vol] 18 U/L <38 [facility] MCV (mean corpuscular volume ) determinationOrdered By: Anne-Marie Fine on 12-13-2024 MCV (RBC) [Entitic vol] 77.2 fL Low 80-94 [facility] Mean corpuscular hemoglobin (MCH) determinationOrdered By: Anne-Marie Fine on 12-13-2024 MCH (RBC) [Entitic mass] 23.5 pg Low 27.0-32.0 [facility] Mean corpuscular hemoglobin concentration (MCHC) determinationOrdered By: Anne-Marie Fine on 12-13-2024 MCHC (RBC) [Mass/Vol] 30.4 g/dL Low 32-36 [facility] Mean platelet volume determi nationOrdered By: Anne-Marie Fine on 12-13-2024 Platelet mean volume (Bld) [Entitic vol] 10.3 fL 6.2-12.0 [facility] Monocyte percentageOrdered B y: Anne-Marie Fine on 12-13-2024 Monocytes/100 WBC (Bld) 6.7 % 0-10 [facility] Neutrophil percentageOrdered By: Anne-Marie Fine on 12-13-2024 Neutrophils/100 WBC (Bld) 72.4 % High 47-70 [facility] Nucleated red blood cell per centageOrdered By: Anne-Marie Fine on 12-13-2024 Nucleated RBC/100 WBC (Bld) [Ratio] 0 % 0-5 [facility] Platelet countOrdered By: Radha Fine on 12-13-2024 Platelets (Bld) [#/Vol] 320 10*3/uL 150-450 [facility] Potassium measurement (mass/ volume)Ordered By: Anne-Marie Fine on 12-13-2024 Potassium (Unsp spec) [Mass/Vol] 3.4 mmol/L 3.3-5.1 [facility] RBC Auto (Bld) [#/Vol]Ordere d By: Anne-Marie Fine on 12-13-2024 RBC (Bld) [#/Vol] 4.43 10*6/uL Low 4.6-6.2 [facility] Serum creatinine measurement (mass/volume)Ordered By: Anne-Marie Fine on 12-13-2024 Creatinine [Mass/Vol] 1.07 mg/dL 0.70-1.20 [facility] Serum globulin measurementOr dered By: Anne-Marie Fine on 12-13-2024 Globulin (S) [Mass/Vol] 3.3 g/dL 2.2-4.2 [facility] Serum glucose measurement (m ass/volume)Ordered By: Anne-Marie Fine on 12-13-2024 Glucose [Mass/Vol] 87 mg/dL 70-99 [facility] Serum or plasma C reactive p rotein measurement (mass/volume)Ordered By: Anne-Marie Fine on 12-13-2024 CRP [Mass/Vol] 32.40 mg/L High 0.0-3.0 [facility] Serum or plasma alanine dillon otransferase (ALT) measurementOrdered By: Anne-Marie Fine on 12-13-2024 ALT [Catalytic activity/Vol] 16 U/L <47 [facility] Serum or plasma albumin luc urement (mass/volume)Ordered By: Anne-Marie Fine on 12-13-2024 Albumin [Mass/Vol] 3.8 g/dL 3.5-5.0 [facility] Serum or plasma albumin/glob ulin mass ratioOrdered By: Anne-Marie Fine on 12-13-2024 Albumin/Globulin [Mass ratio] 1.1 {ratio} 0.9-2.4 [facility] Serum or plasma alkaline chun sphatase measurementOrdered By: Anne-Marie Fine on 12-13-2024 ALP [Catalytic activity/Vol] 97 U/L 40-129 [facility] Serum or plasma calcium luc urement (mass/volume)Ordered By: Anne-Marie Fine on 12-13-2024 Calcium [Mass/Vol] 9.0 mg/dL 7.6-11.0 [facility] Serum or plasma urea nitroge n measurement (mass/volume)Ordered By: Anne-Marie Fine on 12-13-2024 Urea nitrogen [Mass/Vol] 13 mg/dL 4-19 [facility] Sodium levelOrdered By: Carrie Fine on 12-13-2024 Sodium [Moles/Vol] 140 mmol/L 133-145 [facility] Total proteinOrdered By: Cici ballesteros Babatunde on 12-13-2024 Protein [Mass/Vol] 7.1 g/dL 5.9-8.4 [facility] White blood cell (WBC) count Ordered By: Anne-Mariejose m Fine on 12-13-2024 WBC (Bld) [#/Vol] 9.1 10*3/uL 4.4-11.0 [facility] CNOVon 09-23-2024 CNOV Office Visit (FAMPWS ) ALEKSBARBIE ([id number]) 1985 M Date Time Provider Department 09/23/24 6:00 PM [facility]AH [facility] During your visit today, we recorded the following information about you: Pulse Respiration Blood pressure Weight 102/minute 16/minute 118/78 131.5 kg Marah Montalvo APRN.MANAGER OCCUPATIONAL 09/23/2024 6:21 PM Signed Begin taking a generic loratadine (e.g., a [employer] brand equivalent) for your cough/allergy symptoms. Continue with your current medications: hydrochlorothiazide, lisinopril, mesalamine, Prilosec, multivitamins, and your probiotics as before. Your blood pressure medications (lisinopril and hydrochlorothiazide) have been refilled as a 90-day supply and will be sent to your [facility] pharmacy in [place]. Fasting blood work (CBC, CMP, and cholesterol panel) has been ordered. 10-12 hour fast (you can have water and black coffee). When cleaning your ears at home, avoid using Q-tips; use a washcloth instead. Recheck in 6 months. Marah Montalvo APRN.MANAGER OCCUPATIONAL 09/23/2024 7:48 PM Signed This is a [...] Grandfather leukemia Coronary Artery Disease Paternal Grandfather [place] at 53 Hypertension Paternal Grandfather Stroke Paternal [...] transcript) EX (more content not included)... Normal [facility] Gastroenterology Visit Repor ton 09-10-2024 Gastroenterology Visit Report [facility] [address] [place] [address] OFFICE VISIT Date of Service: 09/10/24 MR#: [id number] Acct: [id number] Name: BARBIE FINK Rep #: [id number] : 1985 Provider: GARRY Guerrero Age/Sex: 39/M [place] [facility]: Signed Intake Vital Signs 08/26/24 09:43 Height 6 ft 2 in Intake Visit Reasons: Test Result Chief Complaint: Crohns Allergies amoxicillin Allergy (Intermediate, Verified 08/26/24 09:39) Other cefaclor (From Ceclor) Allergy (Intermediate, Verified 08/26/24 09:39) Other Nurse's Note: OV 09.10.24 Pt here for f/u and reports he is feeling well. Pt continues omeprazole daily and states it is working well. ON LICENSE OF [facility] Medical History Alcohol use History of ulceration [...] Anne-Marie Peres (more content not included)... Normal [facility] Colonoscopy Reporton 025 Colonoscopy Report [facility] Medical Records Department [address] [place] [address] Colonoscopy Report MR#: [id number] Acct: [id number] Name: BARBIE FINK Rep #: [id number] : 1985 39 From: Babar Hernández DO PCP: Dr. Chris Mckeon MD [place] [facility] [place] Patient Name: Barbie Fink Procedure Date: 08/26/2024 10:41 AM Date of : 1985 Age: 39 Procedure: Colonoscopy Indications: Crohn's disease of the small bowel and colon Providers: Bbaar Hernández DO Medicines: Monitored Anesthesia Care Patient [...] GI office. Procedure Code(s): --- Professional --- 72152, Colonoscopy, flexible; diagnostic, including collection of specimen(s) by brushing or washing, when performed (separate procedure) CPT copyright 2021 [employer]. All rights reserved. The codes documented in this report are preliminary and upon auditing coder review may be revised to meet current compliance requirements. Babar Hernández DO 08/26/2024 11:14:51 AM This report has been signed electronically. Number of Addenda: 0 Note Initiated On: 08/26/2024 10:41 AM 08/26/24 1115 Jony (more content not included)... [facility] MR/POSTOP.ANEon 08-26-2024 MR/POSTOP.ANE [facility] Medical Records Department [address] [place] [address] Anesthesia Postop Eval I 08/26/24 1115 MR#: [id number] Acct: [id number] Name: BARBIE FINK Rep #: [id number] : 1985 39 From: Yousuf Armando PCP: Dr. Chris Mckeon MD Status:[facility] Y Race: C Location: [place] [address] Anesthesia: Postop Eval I Current Vital Signs [...] Postop Eval 1 completed: Yes 08/26/24 111 Date Yousuf Roberts Signature: Date CC: Signed [facility] MR/[id number] 08-26-2024 MR/POSTOPAN2 [facility] Medical Records Department [address] [facility] [place] [address] Anesthesia Postop Eval II 08/26/24 1352 MR#: [id number] Acct: [id number] Name: BARBIE FINK Rep #: [id number] : 1985 39 From: Maria L Rueda PCP: Dr. Chris Mckeon MD Status:[facility] Y Race: C Location: [place] Anesthesia Postop [...] L Roberts Signature: Date CC: Signed Normal [facility] Surgery Specimen Level Daniella 08-26-2024 Surgery Specimen Level IV -------- Patient Age/Sex Location Account Attending Physician -------- BARBIE FINK 39/M EN [id number] Babar Hernández DO -------- Specimen: [id number] Received: 08/27/24 Status: NIKA Felton Num: [id number] Spec Type: COLON BX Subm Dr: Babar [...] is totally submitted in one cassette. 08/27/2024 [facility]:[id number] -------- Patient Age/Sex Location Account Attending Physician -------- BARBIE FINK 39/M EN [id number] Babar Hernández DO -------- Signed (signature on file) Dr. Ivana Laguna MD 08/30/24 1747 -------- Normal [facility] Comment on above: Performed By: #### L 100.0100, L500.4050, L300.3900, L300.4310, L503.6005 #### [facility] [address] [place], [address] Gastroenterology Visit Repor ton 07-23-2024 Gastroenterology Visit Report [facility] Gastroenterology [address] [place] [address] OFFICE VISIT Date of Service: 07/23/24 MR#: [id number] Acct: [id number] Name: BARBIE FINK Rep #: [id number] : 1985 Provider: GARRY Guerrero Age/Sex: 39/M Location: [facility] Status: Signed Intake Intake Visit Reasons: 6 M FU Chief Complaint: Crohns Allergies amoxicillin Allergy (Intermediate, Verified 03/17/23 09:27) Other cefaclor (From Ceclor) Allergy (Intermediate, Verified 03/17/23 09:27) Other Have you fallen in the past year?: No Nurse's Note: OV 07.23.24 Pt here for f/u and reports heartburn after eating most meals. Has been trying OTC Prilosec and finds it helpful. ON LICENSE OF [facility] Medical History (Updated 03/17/23 @ 10:36 by [...] his report. (more content not included)... Normal [facility] Vital Signs Date Time Vital Sign Value Performing Clinician Clayton peralta 01-31-2025 16:13-0400 Body weight 126.1 kg Tamy Arreaga APRN.CNP Work Phone: [facility] 01-31-2025 16:13-0400 Diastolic blood pressure 72 mm[Hg] Tamy Arreaga APRN.CNP Work Phone: [facility] 01-31-2025 16:13-0400 Heart rate 87 /min Tamy Arreaga APRN.CNP Work Phone: [facility] 01-31-2025 16:13-0400 SaO2% (BldA) [Mass fraction] 97 % Tamy Arreaga APRN.CNP Work Phone: [facility] 01-31-2025 16:13-0400 Systolic blood pressure 116 mm[Hg] Tamy Arreaga APRN.CNP Work Phone: [phone] [place] [address] 01-18-2025 12:54-0400 Body temperature 98.3 [degF] Dr. Chris Mckeon MD Work Phone: [phone] [place] [address] 01-18-2025 12:54-0400 Diastolic blood pressure 75 mm[Hg] Dr. Chris Mckeon MD Work Phone: [phone] [address] [place] [address] 01-18-2025 12:54-0400 Heart rate 77 /min Dr. Chris Mckeon MD Work Phone: 8(110)653-668291 [place] [address] 01-18-2025 12:54-0400 Respiratory rate 16 /min Dr. Chris Mckeon MD Work Phone: 5(353)184-710691 [place] [address] 01-18-2025 12:54-0400 SaO2% (BldA) [Mass fraction] 100 % Dr. Chris Mckeon MD Work Phone: 0(485)673-853291 [place] [address] 01-18-2025 12:54-0400 Systolic blood pressure 132 mm[Hg] Dr. Chris Mckeon MD Work Phone: 9(977)523-999191 [place] [address] 01-16-2025 14:46-0400 Body height 187.[address] Chris Mckeon MD Work Phone: 7(526)593-967691 [place] [address] 01-16-2025 14:46-0400 Body weight 124.[address] Chris Mckeon MD Work Phone: 8(100)254-939691 [place] [address] 01-16-2025 10:50-0400 Body mass index (BMI) [Ratio] 35.2 kg/m2 Dr. Chris Mckeon MD Work Phone: 6(830)145-273991 [place] [address] 01-16-2025 10:44-0400 Body temperature 99.7 [degF] Dr. Chris Mckeon MD Work Phone: 4(192)988-683991 [place] [address] 01-16-2025 10:44-0400 Diastolic blood pressure 76 mm[Hg] Dr. Chris Mckeon MD Work Phone: 9(726)698-010591 [place] [address] 01-16-2025 10:44-0400 Heart rate 88 /min Dr. Chris Mckeon MD Work Phone: 5(332)614-333591 [place] [address] 01-16-2025 10:44-0400 Respiratory rate 14 /min Dr. Chris Mckeon MD Work Phone: 2(547)948-842691 [place] [address] 01-16-2025 10:44-0400 SaO2% (BldA) [Mass fraction] 97 % Dr. Chris Mckeon MD Work Phone: 3(158)835-236491 [place] [address] 01-16-2025 10:44-0400 Systolic blood pressure 134 mm[Hg] Dr. Chris Mckeon MD Work Phone: 9(831)709-176991 [place] [address] 01-16-2025 06:22-0400 Body height 185.[address] Chris Mckeon MD Work Phone: 7(877)342-350891 [place] [address] 01-16-2025 06:22-0400 Body mass index (BMI) [Ratio] 37.1 kg/m2 Dr. Chris Mckeon MD Work Phone: 5(397)080-607591 [place] [address] 01-16-2025 06:22-0400 Body weight 127.[address] Chris Mckeon MD Work Phone: 0(664)446-375491 [place] [address] 09-23-2024 17:49-0400 Body weight 131.54 kg Marah Montalvo CROSSTIE INSPECTOR.MANAGER OCCUPATIONAL Work Phone: [facility] 09-23-2024 17:49-0400 Diastolic blood pressure 78 mm[Hg] Marah Haagen CROSSTIE INSPECTOR.MANAGER OCCUPATIONAL Work Phone: [facility] 09-23-2024 17:49-0400 Heart rate 102 /min Marah Haagen CROSSTIE INSPECTOR.MANAGER OCCUPATIONAL Work Phone: [facility] 09-23-2024 17:49-0400 Respiratory rate 16 /min Marah Haagen CROSSTIE INSPECTOR.MANAGER OCCUPATIONAL Work Phone: [facility] 09-23-2024 17:49-0400 SaO2% (BldA) [Mass fraction] 97 % Marah Ellisonagen CROSSTIE INSPECTOR.MANAGER OCCUPATIONAL Work Phone: 0(021)847-904172 [place] [address] 09-23-2024 17:49-0400 Systolic blood pressure 118 mm[Hg] Marah Montalvo CROSSTIE INSPECTOR.MANAGER OCCUPATIONAL Work Phone: 3(837)126-548572 [place] [address] 08-26-2024 11:33-0400 Body temperature 97.8 [degF] Dr. Chris Mckeon MD Work Phone: 4(346)268-846691 [place] [address] 08-26-2024 11:33-0400 Diastolic blood pressure 69 mm[Hg] Dr. Chris Mckeon MD Work Phone: 3(367)418-775808 [place] [address] 08-26-2024 11:33-0400 Heart rate 66 /min Dr. Chris Mckeon MD Work Phone: 3(533)156-297708 [place] [address] 08-26-2024 11:33-0400 Respiratory rate 16 /min Dr. Chris Mckeon MD Work Phone: 5(932)071-878991 [place] [address] 08-26-2024 11:33-0400 SaO2% (BldA) [Mass fraction] 96 % Dr. Chris Mckeon MD Work Phone: 8(654)585-794691 [place] [address] 08-26-2024 11:33-0400 Systolic blood pressure 109 mm[Hg] Dr. Chris Mckeon MD Work Phone: 5(134)829-273208 [place] [address] 08-26-2024 09:43-0400 Body height 187.[address] Chris Mckeon MD Work Phone: 7(436)888-672791 [place] [address] 08-26-2024 09:43-0400 Body mass index (BMI) [Ratio] 37.3 kg/m2 Dr. Chris Mckeon MD Work Phone: 8(679)[phone] [place] [address] 08-26-2024 09:43-0400 Body weight 131.[address] Chris Mckeon MD Work Phone: 0(063)022-789108 [place] [address] 12-02-2022 08:53-0400 Body temperature 97 [degF] Marah Montalvo CROSSTIE INSPECTOR.MANAGER OCCUPATIONAL Work Phone: 9(319)942-073572 [place] [address] 12-02-2022 08:53-0400 Body weight 139.71 kg Marah Montalvo CROSSTIE INSPECTOR.MANAGER OCCUPATIONAL Work Phone: 2(435)755-346172 [place] [address] 12-02-2022 08:53-0400 Diastolic blood pressure 80 mm[Hg] Marah Haagen CROSSTIE INSPECTOR.MANAGER OCCUPATIONAL Work Phone: [facility] 12-02-2022 08:53-0400 Heart rate 76 /min Marah Haagen CROSSTIE INSPECTOR.MANAGER OCCUPATIONAL Work Phone: [facility] 12-02-2022 08:53-0400 Respiratory rate 16 /min Marah Haagen CROSSTIE INSPECTOR.MANAGER OCCUPATIONAL Work Phone: [facility] 12-02-2022 08:53-0400 Systolic blood pressure 120 mm[Hg] Marah Haagen CROSSTIE INSPECTOR.MANAGER OCCUPATIONAL Work Phone: [facility] Encounters Encounter Date Encounter Type Care Provider Facility Start: 02-14-2025 End: 02-14-2025 Patient encounter procedure Anne-Marie CASTAÑEDA -[facility] Work Phone: Start: 02-14-2025 End: 02-14-[address] Chris Mckeon MD Work Phone: -[facility] Start: 02-14-2025 End: 02-14-2025 ambulatory Anne-Marie Fine Facility:[facility] Start: 01-31-2025 End: 01-31-2025 Office outpatient visit 25 minutes Tamy Arreaga CROSSTIE INSPECTOR.MANAGER OCCUPATIONAL Work Phone: [facility] Comment on above: Crohn's disease of l arge intestine with other complication (HCC) (Primary Dx); Impaired fasting blood sugar; Primary hypertension Start: 01-31-2025 End: 01-31-2025 ambulatory SELF Facility:[facility] Start: 01-18-2025 Non-patient / Non-visit Dr. Rachel Fish MD -[facility] Work Phone: Start: 01-17-2025 Non-patient / Non-visit Dr. Rachel Fish MD -[facility] Work Phone: Start: 01-16-2025 Non-patient / Non-visit Babar Hill nd, DO -[facility] Start: 01-16-2025 ambulatory Obed Fish Facility:[facility] Start: 01-16-2025 End: 01-18-2025 Evaluation and management of inpatient Dr. Obed Fish MD -[facility] Work Phone: Start: 12-13-2024 End: 12-13-2024 Patient encounter procedure Anne-Marie CASTAÑEDA -[facility] Work Phone: Start: 12-13-2024 End: 12-13-[address] Chris Mckeon MD Work Phone: -[facility] Start: 12-13-2024 End: 12-13-2024 ambulatory Anne-Marie Fine Facility:[facility] Start: 09-23-2024 End: 09-23-2024 Patient encounter procedure Marah Montalvo APRN.CNP Work Phone: [facility] [place] Comment on above: Routine physical exa mination (Primary Dx); Essential hypertension; Elevated LDL cholesterol level; Crohn's disease without complication, unspecified gastrointestinal tract location (HCC); Gastro-esophageal reflux disease without esophagitis; Dry cough Start: 09-23-2024 End: 09-23-2024 ambulatory CHRIS MCKEON Facility:[facility] Start: 09-23-2024 End: 09-23-2024 Physical examination Marah Montalvo APRN.CNP Work Phone: [facility] Work Phone: Start: 09-10-2024 End: 09-10-2024 Patient encounter procedure Anne-Marie CASTAÑEDA [facility] Work Phone: Start: 09-10-2024 End: 09-10-2024 Refill Chris Mckeon MD Work Phone: [facility] Comment on above: Refill Request Start: 08-26-2024 Non-patient / Non-visit Babar Hill nd DO -[facility] Start: 08-26-2024 End: 08-26-2024 Admission to same day surgery center Babar Hernández DO -Endoscopy Work Phone: Start: 08-26-2024 End: 08-26-[address] Chris Mckeon MD Work Phone: [facility] Work Phone: Start: 07-23-2024 End: 07-23-2024 Patient encounter procedure Anne-Marie Atacecille [facility] Work Phone: Start: 07-23-2024 End: 07-23-2024 ambulatory Anne-Marie Atacecille Facility:[facility] Start: 01-18-2024 Refill Chris Mckeon MD Work Phone: [facility] Comment on above: Refill Request Start: 12-02-2022 End: 12-02-2022 Office outpatient visit 25 minutes Marah Montalvo APRN.CNP Work Phone: [facility] Comment on above: Essential hypertensi on (Primary Dx); Anxiety Start: 01-07-2022 Refill Chris Mckeon MD Work Phone: [facility] Comment on above: Refill Request Start: 04-30-2011 End: 01-25-2012 Patient encounter status Chris Mckeon MD Work Phone: [facility] Procedures Date Procedure Procedure Detail Performing Clinician Start: 02-14-2025 Hepatitis A virus an tibody, IgM type Dr. Chris Mckeon MD Work Phone: Comment on above: A negative anti-HAV IgM result suggests no recent orcurrent HAV infection. Start: 02-14-2025 Hepatitis B core ant ibody measurement, IgM type Dr. Chris Mckeon MD Work Phone: Start: 02-14-2025 Hepatitis C antibody measurement Dr. Chris Mckeon MD Work Phone: Start: 02-14-2025 In-vitro immunologic test Dr. Chris Mckeon MD Work Phone: Comment on above: QuantiFERON-TB Gold Plus is a qualitative indirect test forM tuberculosis infection (including disease) and isintended for use in conjunction with risk assessment,radiography, and other medical and diagnostic evaluations.The QuantiFERON-TB Gold Plus result is determined bysubtracting the Nil value from either TB antigen (Ag)value. The Mitogen tube serves as a control for the test. No response to M tub erculosis antigens detected.Infection with M tuberculosis is unlikely, but high riskindividuals should be considered for additional testing(ATS/IDSA/CDC Clinical Practice Guidelines, 2017). Thereference range is an Antigen minus Nil result of <0.35IU/mL.The specimen received for QuantiFERON testing was incubatedby the ordering institution. Specific procedures outlinedin our Directory of Services and in the package insert forthe QuantiFERON Gold (In Tube) test must be followed toenable for proper stimulation of cells for the productionof interferon gamma. Chemiluminescence immunoassaymethodology Start: 01-31-2025 Gluc bld gluc mntr d ev cleared fda spec home use Tamy Arreaga CROSSTIE INSPECTOR.MANAGER OCCUPATIONAL Work Phone: Start: 01-18-[address] Chris Mckeon MD Work Phone: Start: 01-18-2025 Total iron binding c apacity measurement Dr. Chris Mckeon MD Work Phone: Start: 01-17-2025 Serum inorganic phos phate measurement Dr. Chris Mckeon MD Work Phone: Start: 01-16-[address] Brandyn Mckeon MD Work Phone: Start: 01-16-[address] Brandyn Mckeon MD Work Phone: Start: 01-16-2025 Urnls dip stick/tabl et reagent [...] 3 - Risk 3-dose series) [facility] Start: 10-29-2027 Lipid panel Lipid Screening [facility] Start: 10-29-2027 LIPID SCREEN LIPID SCREEN [facility] Start: 01-31-2026 Annual PCP Team Professional Bondsman davida Disease Visit Annual PCP Team Chronic Disease Visit [facility] Start: 11-21-2025 LIPID SCREEN LIPID SCREEN [facility] Start: 09-23-2025 Annual PCP Team Professional Bondsman davida Disease Visit Annual PCP Team Chronic Disease Visit [facility] Start: 09-23-2025 BP Controlled (<130/80) BP Controlle d (<130/80) [facility] Start: 09-23-2025 Covid-19 Vaccine ( season) Covid-19 Vaccine () [facility] Comment on above: Postponed from 02/03 (Declined at this time) Start: 09-23-2025 [facility] Comment on above: Postponed from 02/17 (Declined at this time) Start: 09-23-2025 HIV screening HIV Screening [facility] Comment on above: Postponed from 02/17 (Declined at this time) Start: 03-22-2025 End: 03-22-2025 Patient encounter procedure 03/22/2025 9:20 AM EDT Office Visit [facility] [address] [place], [place] [id number] Chris Mckeon MD [address] [place] [address] 6 month follow up [facility] Comment on above: 6 month follow up Start: 02-03-2025 Influenza vaccination Influenza Vacc ine (#1) [facility] Start: 01-18-2025 [place] [facility] Start: 01-16-2025 Bacteria identified in Blood by Culture Blood Culture [facility] Start: 01-16-2025 Bacteria identified in Urine by Culture Urine Culture [facility] Start: 01-16-2025 Blood culture Blood Culture [facility] Start: 01-16-2025 Following clinical p athway protocol [facility] Start: 01-16-2025 Ambulation without limitation [facility] Start: 01-16-2025 Assessment of risk o f venous thromboembolism [facility] Start: 01-16-2025 Insertion of cathete r into peripheral vein [facility] Start: 01-16-2025 Providing care accor ding to standard [facility] Start: 01-16-2025 Referral to gastroenterology service [facility] Start: 01-16-2025 [facility] Start: 01-16-2025 Verification routine [facility] Start: 01-16-2025 Admission procedure [facility] Start: 01-16-2025 Clostridioides diffi cile DNA [Presence] in Unspecified specimen by RAMON with probe detection [facility] Start: 01-16-2025 Enteric precautions [facility] Start: 01-16-2025 Lactoferrin [Presenc e] in Stool by Immunoassay [facility] Start: 01-16-2025 Nucleic acid assay [facility] Start: 01-16-2025 Protein measurement [facility] Start: 01-16-2025 Hospital admission, emergency, from emergency room, medical nature [facility] Start: 01-16-2025 [facility] Start: 01-16-2025 [facility] Start: 01-16-2025 Patient referral to dietitian [facility] Start: 12-02-2024 Influenza vaccination Influenza Vacc ine (#1) [facility] Comment on above: Postponed from 02/03 (Declined at this time) Start: 09-23-2024 End: 09-23-2024 Patient encounter procedure 09/23/2024 6:00 PM EDT Office [facility] [place] [address] [place] [address] Marah Montalvo, CROSSTIE INSPECTOR.[facility] [address] [place], [place] [phone] medication refills/ physical [facility] Comment on above: medication refills/ physical Start: 09-23-2024 End: 12-23-2024 CBC W Auto Differential panel - Blood COMPLETE BLOOD COUNT AND DIFFERENTIAL Lab Routine Routine physical examination Expected: 09/23/2024, Expires: 12/23/2024 [facility] Comment on above: Expected: 09/23/2024 , Expires: 12/23/2024 Start: 09-23-2024 End: 12-23-2024 Comprehensive metabolic 2000 panel - Serum or Plasma COMPREHENSIVE METABOLIC PANEL Lab Routine Essential hypertension Expected: 09/23/2024, Expires: 12/23/2024 [facility] Comment on above: Expected: 09/23/2024 , Expires: 12/23/2024 Start: 09-23-2024 Depression Screening Depression Scre jodie [facility] Comment on above: Postponed from 02/17 (Declined at this time) Start: 09-23-2024 End: 12-23-2024 Lipid 1996 panel - Serum or Plasma LIPID PANEL, FASTING Lab Routine Routine physical examination Elevated LDL cholesterol level Expected: 09/23/2024, Expires: 12/23/2024 [facility] Work Phone: Comment on above: Expected: 09/23/2024 , Expires: 12/23/2024 Start: 08-26-2024 Colonoscopy flx dx w /collj spec when pfrmd DIAGNOSTIC COLONOSCOPY [facility] Start: 08-26-2024 Patient discharge [facility] Start: 06-12-2024 Annual PCP Team Professional Bondsman davida Disease Visit Annual PCP Team Chronic Disease Visit [facility] Start: 02-04-2024 Covid-19 Vaccine ( season) Covid-19 Vaccine ( season) [facility] Start: 02-04-2024 Influenza vaccination Influenza Vacc ine (#1) [facility] Start: 12-03-2023 ANNUAL PCP TEAM ENVIRONMENTAL CONSERVATION OFFICER DAVIDA DISEASE VISIT ANNUAL PCP TEAM CHRONIC DISEASE VISIT [facility] Start: 10-29-2023 COVID-19 VACCINE (#1) COVID-19 VACCI NE (#1) [facility] Comment on above: Postponed from 08/17 (Declined at this time) Start: 10-29-2023 HEPATITIS A (1 of 2 - Risk 2-dose series) HEPATITIS A (1 of 2 - Risk 2-dose series) [facility] Comment on above: Postponed from 02/17 (Declined at this time) Start: 10-29-2023 HEPATITIS C SCREENING HEPATITIS C [facility] Comment on above: Postponed from 02/17 (Declined at this time) Start: 10-29-2023 HIV SCREENING HIV SCREENING [facility] Comment on above: Postponed from 02/17 (Declined at this time) Start: 10-29-2023 MENINGOCOCCAL B: Con functional tester based on risk (1 of 4 - Increased Risk Bexsero 2-dose series) MENINGOCOCCAL B: Consider based on risk (1 of 4 - Increased Risk Bexsero 2-dose series) [facility] Comment on above: Postponed from 02/17 (Declined at this time) Start: 10-29-2023 MMR (1 of 2 - Risk 2 -dose series) MMR (1 of 2 - Risk 2-dose series) [facility] Comment on above: Postponed from 02/17 (Declined at this time) Start: 10-29-2023 Urine microalbumin profile DTAP,TDAP ,TD (1 - Tdap) [facility] Comment on above: Postponed from 02/17 (Declined at this time) Start: 02-03-2023 Covid-19 Vaccine ( season) Covid-19 Vaccine ( season) [facility] Start: 02-03-2023 Influenza vaccination INFLUENZ A (Season Ended) [facility] Start: 06-05-2022 DEPRESSION ASSESSMENT DEPRESSION ASS ESSMENT [facility] Start: 02-03-2022 Influenza vaccination INFLUENZA (#1) [facility] Start: 11-09-2021 ANNUAL PCP TEAM ENVIRONMENTAL CONSERVATION OFFICER DAVIDA DISEASE VISIT ANNUAL PCP TEAM CHRONIC DISEASE VISIT [facility] Start: 12-21-2016 Adult depression scr eening assessment DEPRESSION SCREENING [facility] Start: 02-17-2011 HPV Vaccine (1 - 3-d ose SCDM series) HPV Vaccine (1 - 3-dose SCDM series) [facility] Start: 02-17-2003 HEPATITIS B (1 of 3 - Risk 3-dose series) HEPATITIS B (1 of 3 - Risk 3-dose series) [facility] Start: 02-17-2003 Hepatitis B Vaccine (1 of 3 - 19+ 3-dose series) Hepatitis B Vaccine (1 of 3 - 19+ 3-dose series) [facility] Start: 02-17-2003 Urine microalbumin profile [facility] Start: 02-17-2002 BP CONTROLLED (<130/80) BP CONTROLLE D (<130/80) [facility] Start: 02-17-2002 Depression Screening Depression Scre ening [facility] Start: 02-17-2002 HEPATITIS C SCREENING HEPATITIS C [facility] Start: 02-17-2002 Hepatitis C screening Hepatitis C [facility] Start: 02-17-2002 HIV SCREENING HIV SCREENING [facility] Start: 02-17-2002 HIV screening HIV Screening [facility] Start: 02-17-2002 MMR (1 of 2 - Risk 2 -dose series) MMR (1 of 2 - Risk 2-dose series) [facility] Start: 02-17-1994 MENINGOCOCCAL B: Con functional tester based on risk (1 of 4 - Increased Risk Bexsero 2-dose series) MENINGOCOCCAL B: Consider based on risk (1 of 4 - Increased Risk Bexsero 2-dose series) [facility] Start: 02-17-1985 HEPATITIS A (1 of 2 - Risk 2-dose series) HEPATITIS A (1 of 2 - Risk 2-dose series) [facility] Start: 1984 COVID-19 VACCINE (#1) COVID-19 VACCI NE (#1) [facility] C reactive protein [Mass/volume] in Serum or Plasma [facility] C reactive protein [Mass/volume] in Serum or Plasma [facility] CBC W Auto Different ial panel - Blood [facility] CBC W Auto Different ial panel - Blood [facility] metabo lic 1999 panel - Serum or Plasma [facility] metabo lic 1999 panel - Serum or Plasma [facility] Erythrocyte sediment ation rate [facility] Erythrocyte sediment ation rate [facility] Lactic acid measurement [facility] Ova OR parasites identification [facility] Patient referral [facility] Work Phone: Urine culture [facility] Immunizations Immunization Date Immunization Notes Care Provider Osvaldo jones 06-23-2016 influenza virus vacc ine, unspecified formulation Chris Mckeon MD Work Phone: [facility] Payers Date Payer Category Payer Self-pay 2021 [employer] BLUE ACCE SS PPO [id number] 2021 Unknown RC SOLO ACCE SS PPO [id number] 2021-Present [phone] [place], [place] [address] PPO [id number] 2021 Unknown [id number] 2018 Unknown RC SOLO ACCE SS PPO [id number] 2018-Present [phone] [place] [address] PPO [id number] Unknown [id number] Unknown [id number] Unknown [id number] Unknown [id number] Unknown [id number] Unknown [id number] Unknown [id number] Unknown [id number] Unknown [id number] Unknown [id number] Unknown [id number] Unknown [id number] Unknown [id number] Unknown [id number] Social History Date Type Detail Facility Start: 04-30-2011 End: 01-18-2025 Tobacco smoking status NHIS Never smoked tobacco [facility] Work Phone: Start: 04-30-2011 End: 10-28-2022 Tobacco use and exposure User of smokeless tobacco [facility] Work Phone: History of tobacco use Chews Tobacco [facility] Work Phone: Start: 01-16-2021 End: 01-31-2025 Alcohol intake Current drinker of alcohol (finding) [facility] Start: 01-16-2021 End: 12-02-2022 Alcohol intake [facility] Start: 1985 Sex Assigned At Not on file C [facility] Start: 10-28-2022 Tobacco Comment Chewing tobacc o since age 24 y/o on a daily basis [facility] Start: 12-02-2022 End: 06-12-2023 Tobacco use panel [facility] Work Phone: Start: 05-06-2012 National Score (1-100), lower number is lower risk 65 [facility] Start: 08-21-2024 Tobacco smoking stat us NHIS Current some day smoker [facility] Start: 08-26-2024 Sex Male (finding) [facility] Start: 1985 Sex Assigned At Male [facility] Goals Date Patient Goal Desired Activity /State Functional Status Date Assessment Result Facility 01-18-2025 Functional status Activity Abili ty Independent [facility] Work Phone: 01-18-2025 Functional status Patient Activi ty Ambulates;Bathroom Privilege [facility] Work Phone: 12-15-2014 Are you deaf, or do you have serious difficulty hearing No 12/15/2014 6:31 PM Khushboo Vazquez LPN No [facility] 12-15-2014 Are you blind, or do you have serious difficulty seeing, even when wearing glasses No 12/15/2014 6:31 PM Khushboo Vazquez LPN No [facility] 12-15-2014 Do you have serious difficulty walking or climbing stairs No 12/15/2014 6:31 PM Khushboo Vazquez LPN No [facility] 12-15-2014 Do you have difficul ty dressing or bathing No 12/15/2014 6:31 PM Khushboo Vazquez LPN No [facility] 12-15-2014 Because of a physica l, mental, or emotional condition, do you have difficulty doing errands alone such as visiting a physician's office or shopping No 12/15/2014 6:31 PM Khushboo Vazquez LPN No [facility] Mental Status Date Assessment Result Facility 01-18-2025 Cognitive function Voice/Name [facility] Work Phone: 01-16-2025 Cognitive function Level Of Cons ciousness Awake;Alert;Appropriate;Fol lows Commands [facility] Work Phone: 08-26-2024 Cognitive function Touch/Shaking [facility] Work Phone: 12-15-2014 Because of a physica l, mental, or emotional condition, do you have serious difficulty concentrating, remembering, or making decisions No 12/15/2014 6:31 PM EDT Khushboo Holguin LPN No [facility] Clinical Notes 04-30-2011 to 01-31-2025 Patient InstructionsSuTamy ware APRN.CNP - 01/31/2025 4:18 PM EDT Note Date & Type Note Facility 01-31-2025 Instructions Tamy Arreaga APRN.CNP - 01/31/2025 4:40 PM EDT - Continue your 30-day prednisone course, taking your dose each morning at 8:00 AM for the remaining two weeks. If you miss the scheduled time, you may take it later in the day but be aware it could make it harder to fall asleep. - Expect possible steroid side effects, including increased appetite, sweating or clamminess, and trouble sleeping. - Finish your current lisinopril pills for cost effectiveness. Once they re gone, start losartan 50 mg once daily as prescribed to help resolve your dry cough. - Your blood sugar was checked today with a finger-stick to make sure the prednisone didn t raise it; no further testing was ordered at this time. - Glimepiride 2 mg daily until you see Dr. Mckeon documented in this encounter [facility] 01-31-2025 Note HNO ID: [id number] Author: TAMY ARREAGA APRN.CNP Service: ? Author Type: Nurse Practitioner Type: Progress Notes Filed: 01/31/2025 16:47 Note Text: This is a 39 year old male who presents today with: No chief complaint on file. HISTORY OF PRESENT ILLNESS: Barbie Fink is a 39 year old male. No chief complaint on file. Patient was seen at [facility] on January 16, 2025 and discharged on January 18, 2025 for exacerbation of his Crohn's disease and systemic inflammatory response syndrome. He did have microcytic anemia that resulted as iron deficiency. Patient presented with fever and chills and leukocytosis. He had an episode of syncope or near syncope today. CT shows diffuse ileitis with no obvious signs of colitis currently though he had a colonoscopy several months ago that demonstrated significant Crohn's burden despite being on mesalamine. With leukocytosis he was started on Cipro Flagyl in the emergency room and blood cultures are pending. GI was able to order stool studies and blood cultures were obtained in the emergency room. He denies diarrhea or melena. He endorses some left lower quadrant abdominal pain but nothing that he feels is significant and now his fever has broke and he feels much better. Crohn's exacerbation with terminal ileitis. White count was slightly elevated on admission and worsened because he had a dose of steroids in the emergency room. Today it is down to 13 and he is feeling much better. Blood cultures were negative and stool cultures and urine cultures were also negative. He discussed the case with gastroenterology who recommended continuing with antibiotics for 5 more days and start him on prednisone 40 mg daily for 30 days pending treatment initiation with Skyrizi or Tremfya. I discussed with him the plan and he was discharged today expressing understanding of the risk and benefits going home and would like to go home today. Essential hypertension, GERD and all chronic medical conditions which are complicating his care. Home medications continued where appropriate. White count 13.5, hemoglobin 8.3, hematocrit 27.3, platelet count 283 Sodium 143, potassium 3.4, BUN 17, creatinine 0.85, glucose 94 Mesalamine was discontinued and patient was given Skyrizi 600 mg IV complex. Needs to get blood work. He will get routine infusions at week 0, 4, and 8. The patient is a 39-year-old male with Crohn?s disease and hypertension, presenting for evaluation of a persistent dry cough and prednisone-related side effects. Crohn's Disease: - Recent hospitalization for Crohn's disease exacerbation. - Currently on a 30-day course of prednisone; fdc through the regimen. - Barbie missed a dose yesterday, resulting in feeling pretty bad last night. - Reports feeling clammy and sweaty and experiencing increased appetite. - Denies hematochezia. - Occasionally experiences fevers. - Nocturnal insomnia and restless legs since starting prednisone. - Denies nausea or emesis. - Preparing for a fair with his daughter, leading to irregular meals. Cough: - Dry cough, onset after recent hospitalization. - Similar cough occurred after a colonoscopy in June or July. - Denies productive cough, rhinorrhea, or sore throat. - Reports sinus pressure, attributing it to pollen allergies. - Describes cough as dry wheezy. - Barbie's comments that he sounds like he smoked a pack of cigarettes. - Denies pedal edema. Hypertension: - Currently taking lisinopril. PAST MEDICAL HISTORY: PAST MEDICAL HISTORY Diagnosis [...] [Cefaclor] MEDICATIONS Current Outpatient Medications Medication Sig predniSONE (DELTASONE) 20 mg tablet Take 40 mg by mouth once daily. omeprazole (PRILOSEC) 40 mg capsule hydroCHLOROthiazide 25 mg tablet Take 1 tablet by mouth once daily. lisinopril (ZESTRIL) 20 mg tablet Take 1 tablet by mouth once daily. multivit-min/vit C/herb no.124 (AIRBORNE GUMMY ORAL) Take by mouth. Mesalamine (LIALDA) 1.2 gram EC tablet take 2 tablets by mouth once daily for 8 WEEKS (Patient not taking: Reported on 01/31/2025) B.breve-L.acid-L.rham-S.thermo (PROBIOTIC) 3 billion cell chew Take by mouth. No current facility-administered medications for this visit. FAMILY HISTORY Problem Re (more content not included)... [facility] 01-31-2025 History of Present illness Narrative This is a 39 year old male who presents today with: No chief complaint on file. HISTORY OF PRESENT ILLNESS: Barbie Fink is a 39 year old male. No chief complaint on file. Patient was seen at [facility] on January 16, 2025 and discharged on January 18, 2025 for exacerbation of his Crohn's disease and systemic inflammatory response syndrome. He did have microcytic anemia that resulted as iron deficiency. Patient presented with fever and chills and leukocytosis. He had an episode of syncope or near syncope today. CT shows diffuse ileitis with no obvious signs of colitis currently though he had a colonoscopy several months ago that demonstrated significant Crohn's burden despite being on mesalamine. With leukocytosis he was started on Cipro Flagyl in the emergency room and blood cultures are pending. GI was able to order stool studies and blood cultures were obtained in the emergency room. He denies diarrhea or melena. He endorses some left lower quadrant abdominal pain but nothing that he feels is significant and now his fever has broke and he feels much better. Crohn's exacerbation with terminal ileitis. White count was slightly elevated on admission and worsened because he had a dose of steroids in the emergency room. Today it is down to 13 and he is feeling much better. Blood cultures were negative and stool cultures and urine cultures were also negative. He discussed the case with gastroenterology who recommended continuing with antibiotics for 5 more days and start him on prednisone 40 mg daily for 30 days pending treatment initiation with Skyrizi or Tremfya. I discussed with him the plan and he was discharged today expressing understanding of the risk and benefits going home and would like to go home today. Essential hypertension, GERD and all chronic medical conditions which are complicating his care. Home medications continued where appropriate. White count 13.5, hemoglobin 8.3, hematocrit 27.3, platelet count 283 Sodium 143, potassium 3.4, BUN 17, creatinine 0.85, glucose 94 Mesalamine was discontinued and patient was given Skyrizi 600 mg IV complex. Needs to get blood work. He will get routine infusions at week 0, 4, and 8. The patient is a 39-year-old male with Crohn s disease and hypertension, presenting for evaluation of a persistent dry cough and prednisone-related side effects. Crohn's Disease: - Recent hospitalization for Crohn's disease exacerbation. - Currently on a 30-day course of prednisone; fdc through the regimen. - Barbie missed a dose yesterday, resulting in feeling pretty bad last night. - Reports feeling clammy and sweaty and experiencing increased appetite. - Denies hematochezia. - Occasionally experiences fevers. - Nocturnal insomnia and restless legs since starting prednisone. - Denies nausea or emesis. - Preparing for a fair with his daughter, leading to irregular meals. Cough: - Dry cough, onset after recent hospitalization. - Similar cough occurred after a colonoscopy in June or July. - Denies productive cough, rhinorrhea, or sore throat. - Reports sinus pressure, attributing it to pollen allergies. - Describes cough as dry wheezy. - Barbie's comments that he sounds like he smoked a pack of cigarettes. - Denies pedal edema. Hypertension: - Currently taking lisinopril. PAST MEDICAL HISTORY: PAST MEDICAL HISTORY Diagnosis [...] [Cefaclor] MEDICATIONS Current Outpatient Medications Medication Sig predniSONE (DELTASONE) 20 mg tablet Take 40 mg by mouth once daily. omeprazole (PRILOSEC) 40 mg capsule hydroCHLOROthiazide 25 mg tablet Take 1 tablet by mouth once daily. lisinopril (ZESTRIL) 20 mg tablet Take 1 tablet by mouth once daily. multivit-min/vit C/herb no.124 (AIRBORNE GUMMY ORAL) Take by mouth. Mesalamine (LIALDA) 1.2 gram EC tablet take 2 tablets by mouth once daily for 8 WEEKS (Patient not taking: Reported on 01/31/2025) B.breve-L.acid-L.rham-S.thermo (PROBIOTIC) 3 billion cell chew Take by mouth. No current facility-administered medications for this visit. FAMILY HISTORY Problem Relation Age of Onset Hypertension Father Hypertension Maternal Grandmother Cancer Maternal Grandfather leukemia Coronary Artery Disease Paternal Grandfather [place] at 53 Hypertension Paternal Grandfather Stroke Paternal Grandmother other (dementia) Paternal Grandmother Asthma Paternal Uncle Asthma Paternal Aunt Hypertension Paternal Uncle Hypertension Paternal Aunt SOCIAL HISTORY[1] REVIEW OF SYSTEMS Constitutional: (+) diaphoresis, (+) intermittent fever Ears/Nose/Mouth/Throat: (+) sinus pressure, (-) sore throat, (-) rhinorrhea Cardiovascular: (-) peripheral edema Respiratory: (+) dry cough, (-) productive cough Gastrointestinal: (-) nausea, (-) vomiting Neurological: (+) restless legs, (-) headache Psychiatric: (+) insomnia EXAM: BP 116/72 Pulse 87 Wt 126.1 kg (278 lb) SpO2 97% PHYSICAL EXAM: GENERAL: NAD, alert and oriented. SKIN: Clammy, no rash or skin lesions. HEAD: Normocephalic. EYES: PERRLA, EOMI, conjunctiva clear. EARS: External ears normal, canals clear, TM's normal. NOSE/SINUSES: Nares normal. Septum midline. Mild sinus pressure noted. OROPHARYNX: Lips, mucosa, and tongue normal, good dentition. No oral lesions noted. NECK: Supple, no lymphadenopathy, normal thyroid, no carotid bruits. LUNGS: Clear to auscultation bilaterally, no wheezes/rhonchi/rales. HEART: Regular rate and rhythm, no murmurs. No ectopy. EXTREMITIES: Normal, no deformities, no skin discoloration, no edema. ABDOMEN: Soft, no tenderness. Bowel sounds normal. NEURO: Awake, alert and oriented x3, cranial nerves II-XII grossly intact, normal gait, no involuntary motions. LABS: Labs: - (Today) Ofbhn-tn-dvpg blood glucose Tests: - Colonoscopy ASSESSMENT/PLAN: 1. Crohn's disease of large intestine with other complication (HCC) (K50.118) - Currently on a 30-day course of prednisone, fdc completed; experiencing side effects including insomnia, restlessness, and diaphoresis. - Educated patient on the importance of consistent dosing and advised that if a dose is missed in the morning, it can be taken later in the day, though it may cause insomnia if taken close to bedtime. - Discussed common steroid side effects, including increased appetite and hyperglycemia. - Nctnw-ry-abdn blood glucose check ordered to monitor for steroid-induced hyperglycemia. 2. Impaired fasting blood sugar (R73.01) BSS 185 - glimepiride 2 mg daily started while pt. On prednisone 3. Primary hypertension (I10) - Chronic dry cough likely secondary to lisinopril. - Discontinue lisinopril; start losartan 50 mg daily. - Advised patient to use remaining lisinopril supply before transitioning to losartan for cost-effectiveness. Discussed treatment plan and patient voices understanding. Patient's questions answered appropriately. Medications and potential side effects were discussed and patient voices understanding. Return to the office as scheduled or as needed for worsening/no improvement. Tamy Arreaga APRN.CNP [1] Social History Tobacco Use Smoking status: Never Smokeless tobacco: Current Types: Chew Tobacco comments: Chewing tobacco since age 24 y/o on a daily basis Substance Use Topics Alcohol use: Yes Alcohol/week: 2.0 standard drinks of alcohol Types: 2 Cans of Beer (12oz) per week Comment: socially Drug use: No documented in this encounter [facility] 01-18-2025 Discharge summary Note Date/Time January 18, 2025 12:10pm [facility] Medical Records Department [address] [place] [address] Instructions for Home/Discharge Instructions 01/18/25 1205 MR#: [id number] Acct: [id number] Name: BARBIE FINK Rep #:[id number] : 1985 39 From: Obed velazquez MD PCP: Dr. Chris Mckeon MD Status:ADM I N Discharge Instructions DC O2, CPAP, BIPAP needs Home O2 Discharge instructions: No Dressing / Incision Discharge Activity: Return to Normal Activity Dressing / Incision Call your doctor if you observe: Fever of 101 or Higher, Shortness of breath, Dizziness, Fainting spells, Swelling in the ankles, Chest pain and Increased palpitations (irregular heartbeat) Follow Up Care Test Results: Test results from this visit will be discussed in further detail at your follow-up appointment, if applicable. Discharge Plan Admission Admit Date/Time: 01/16/25 10:35 Attending Provider: Obed Fish Primary Care Provider: Chris Mckeon Discharge Orders/Prescriptions Prescriptions: New prednisone 20 mg Tablet 40 mg PO BREAKFAST 30 Days Qty: 60 0RF ciprofloxacin HCl [Cipro] 500 mg tablet 500 mg PO BID Qty: 10 0RF metronidazole 500 mg tablet 500 mg PO TID 5 Days Qty: 15 0RF Continued hydrochlorothiazide 25 mg tablet 25 mg PO DAILY lisinopril 20 mg tablet 20 mg PO DAILY omeprazole 40 mg capsule,delayed release(DR/EC) 40 mg PO QDAY Qty: 30 5RF Skyrizi 600 mg IV .COMPLEX Qty: 10 0RF Patient Comments: needs to get blood work Rx Instructions: 600 mg intravenously week 0, 4, 8; 600 mg intravenously at week 0, 4, 8 for Crohn's Disease K50.90 Discontinued mesalamine [Lialda] 1.2 gram tablet,delayed release (DR/EC) 2.4 g PO BID Referrals / Follow Up: Babar Hernández DO [Med Staff - Active Staff] - Within 2 Weeks Chris Mckeon MD [Primary Care Provider] - Within 1 Week Disposition Disposition (needs filled in before D/C Order can be placed): Home, Self Care 01/18/25 1210<Electronically signed by Obed Fish MD>Obed Fish MD CC: Dr. Chris Mckeon MD ~ Signed [facility] Work Phone: [phone]) 972-740208-16-2025 Discharge summary [facility] Medical Records Department [address] [place] [address] Discharge Summary 01/18/25 1314 MR#: [id number] Acct: [id number] Name: BARBIE FINK Rep #:[id number] : 1985 39 From: Obed velazquez MD PCP: Dr. Chris Mckeon MD Status:ADM I N Location: [facility] [id number] Providers Date of Admission: 01/16/25 Primary Care Physician: Dr. Chris Mckeon MD Consultations 01/16/25 10:49 Consult: Gastroenterology Routine Consulting Provider: [facility] Reason for Consult: Crohns EMERGENT Consult: No MD Notified: Yes Date Notified: 01/16/25 Time Notified: 10:37 Method of Notification: ED Physician Initiated Reason For Visit: SIRS Diagnosis Discharge Diagnosis (1) Exacerbation of Crohn's disease: Status: Acute Code(s): K50.90 - Crohn's disease, unspecified, without complications (2) SIRS (systemic inflammatory response syndrome): Status: Acute Code(s): R65.10 - Systemic inflammatory response syndrome (SIRS) of non-infectious originwithout acute organdysfunction (3) Microcytic anemia: Status: Acute Code(s): D50.9 - Iron deficiency anemia, unspecified Medications at Discharge Home Medications hydrochlorothiazide 25 mg tablet 25 mg PO DAILY 11/09/22 lisinopril 20 mg tablet 20 mg PO DAILY 11/09/22 omeprazole 40 mg capsule,delayed release 40 mg PO QDAY #30 caps 12/13/24 Skyrizi 600 mg IV .COMPLEX #10 mL 01/03/25 ciprofloxacin HCl 500 mg tablet (Cipro) 500 mg PO BID #10 tabs 01/18/25 metronidazole 500 mg tablet 500 mg PO TID 5 days #15 tabs 01/18/25 prednisone 20 mg tablet 40 mg (2 x 20 mg) PO BREAKFAST 30 days #60 tabs 01/18/25 Hospital Course Operations None Procedures None Summary of Care Provided Minutes Spent on Discharge: 40 Hospital Course: Per HPI: BARBIE FINK, is a 39 M who presents to the hospital with fevers and chills and a leukocytosis. He also had a episode of syncope or near syncope today. CT scan shows diffuse ileitis with no obvious signs of colitis currentlythough he had a colonoscopy several months ago that demonstrated si gnificant Crohn's burden despite being on mesalamine. With his leukocytosis he was started on Ciproand Flagyl in the emergency room and blood cultures are pending. GI was able to order stool studiesand blood cultures were obtained inthe ER. He denies any diarrhea or melena. He endorses some left lower quadrantabdominal pain but nothing that he feels is significant and now that his fever is broken he says that he feels much better. Hospital Course: 1. Crohn's exacerbation with terminal ileitis?39-year-old male with history of Crohn's presents to the hospital with fevers and chills and near syncope. Whitecount was slightly elevated on admission which worsened because he got a dose ofsteroids in the ER. Today it is down to 13. He is feeling much better and blood cultures were negative as were stool cultures and urine cultures. I discussed thecase with gastroenterology who recommended continuing with antibiotics for 5 more days and will start him on prednisone 40 mg p.o. daily for the next 30 days pending treatment initiation with Skyrizior Tremfya. I discussed with him the plan for discharge today he expressed understanding of the risk and benefits of going home and would like to go home today. 2. Essential hypertension, GERD are all chronic medical conditions which complicate his care. His home medications were continued where appropriate Physical Exam Narrative General: Alert, Oriented x3, Cooperative, No apparent distress HEENT: Atraumatic, PERRLA, EOMI, Normocephalic Oral: Moist Mucosa Neck: Supple, No JVD Lungs: Diminished, Normal air movement, No rhonchi, No wheeze, No rales Cardiovascular: Regular rate, Regular Rhythm, Normal S1, Normal S2, No murmurs Abdomen: Soft, nontender, Non-Distended, No Hepato-splenomegaly Extremities: No edema, Capillary Refill Less than 3 Seconds Skin: No rashes, No breakdown Musculoskeletal: No Tenderness to Palpation of Joints or Extremities Neurological: No focal neurological deficits, moves all extremities Psych/Mental Status: Normal Affect, Appropriate Weight / BMI Weight Weight: 274 lb 7.996 oz Body Mass Index (BMI) 35.2 ABG / Lab / Microbiology Data 01/18/25 06:00 01/18/25 06:00 Laboratory: Laboratory Results - last 24 hr 01/18/25 06:00: WBC 13.5 H, RBC 3.62 L, Hgb 8.3 L, Hct 27.3 L, MCV 75.4 L, MCH 22.9 L, MCHC 30.4 L,RDW Std Deviation 37.0, RDW Coeff of Irwin 13.6, Plt Count 284, MPV 10.5, Immature Gran % (Auto) 0.600, Neut % (Auto) 82.4 H, Lymph % (Auto) 11.9 L, [place] % (Auto) 4.7, Eos % (Auto) 0.3, Baso % (Auto) 0.1, Absolute Neuts (auto) 11.1 H, Absolute Lymphs (auto) 1.61, Nucleated RBC % 0, Sodium 143,Potassium 3.4, Chloride 106, Carbon Dioxide 26.6, Anion Gap 11, BUN 17, Creatinine 0.85, Estim Creat Clear Calc 161.97, Est GFR (MDRD) Non-Af 113, BUN/Creatinine Ratio 19.6, Glucose 94, Calcium 8.7, Iron 40 L, TIBC 188 L, Iron Saturation 21.3, Unsaturated IBC 148 L, Ferritin 152 Microbiology: Microbiology 01/16/25 08:12 Blood Culture (Wb) - Anticubital Right Blood Culture - Preliminary No growth in 48 hours. 01/16/25 07:18 Blood Culture (Wb) - Anticubital Right Blood Culture - Preliminary No growth in 48 hours. 01/16/25 08:54 Urine, Clean Catch Urine Culture - Final Culture exhibits no growth. D/C Instructions Call your doctor if you observe: Fever of 101 or Higher, Shortness of breath, Dizziness, Fainting spells, Swelling in the ankles, Chest pain and Increased palpitations (irregular heartbeat) DC O2, CPAP, BIPAP Needs Home O2 Discharge instructions: No Meaningful Use Info Meaningful Use Meaningful Use Diagnoses (Choose all that apply): None applicable Discharge Plan Admission Admit Date/Time: 01/16/25 10:35 Primary Reason for Your Visit: SIRS Attending Provider: Obed Fish Primary Care Provider: Chris Mckeon Discharge Orders/Prescriptions Prescriptions: New prednisone 20 mg Tablet 40 mg PO BREAKFAST 30 Days Qty: 60 0RF ciprofloxacin HCl [Cipro] 500 mg tablet 500 mg PO BID Qty: 10 0RF metronidazole 500 mg tablet 500 mg PO TID 5 Days Qty: 15 0RF Continued hydrochlorothiazide 25 mg tablet 25 mg PO DAILY lisinopril 20 mg tablet 20 mg PO DAILY omeprazole 40 mg capsule,delayed release(DR/EC) 40 mg PO QDAY Qty: 30 5RF Skyrizi 600 mg IV .COMPLEX Qty: 10 0RF Patient Comments: needs to get blood work Rx Instructions: 600 mg intravenously week 0, 4, 8; 600 mg intravenously at week 0, 4, 8 for Crohn's Disease K50.90 Discontinued mesalamine [Lialda] 1.2 gram tablet,delayed release (DR/EC) 2.4 g PO BID Referrals / Follow Up: Babar Hernández DO [Med Staff - Active Staff] - Within 2 Weeks Chris Mckeon MD [Primary Care Provider] - Within 1 Week Disposition Disposition (needs filled in before D/C Order can be placed): Home, Self Care Charges/Coding Visit Charges Inpatient E&M: 49934 Disch Hosp >30min 01/18/25 1319 Cosigner Signature (if applicable): CC: Dr. Obed Fish MD; Dr. Chris Mckeon MD~ Signed [facility]08-16-2025 [facility] Medical Records Department [address] [place] [address] Discharge Summary 01/18/25 1314 MR#: [id number] Acct: [id number] Name: BARBIE FINK Rep #: [id number] : 1985 39 From: Obed Fish MD PCP: Dr. Chris Mckeon MD Status:ADM IN [id number] Prov[facility] Date of Admission: 01/16/25 Primary Care Physician: Dr. Chris Mckeon MD Consultations 01/16/25 10:49 Consult: Gastroenterology Routine Consulting Provider: [facility] Reason for Consult: Crohns EMERGENT Consult: No MD Notified: Yes Date Notified: 01/16/25 Time Notified: 10:37 Method of Notification: ED Physician Initiated Reason For Visit: SIRS Diagnosis Discharge Diagnosis (1) Exacerbation of Crohn's disease: Status: Acute Code(s): K50.90 - Crohn's disease, unspecified, without complications (2) SIRS (systemic inflammatory response syndrome): Status: Acute Code(s): R65.10 - Systemic inflammatory response syndrome (SIRS) of non-infectious origin without acute organ dysfunction (3) Microcytic anemia: Status: Acute Code(s): D50.9 - Iron deficiency anemia, unspecified Medications at Discharge Home Medications hydrochlorothiazide 25 mg tablet 25 mg PO DAILY 11/09/22 lisinopril 20 mg tablet 20 mg PO DAILY 11/09/22 omeprazole 40 mg capsule,delayed release 40 mg PO QDAY #30 caps 12/13/24 Skyrizi 600 mg IV .COMPLEX #10 mL 01/03/25 ciprofloxacin HCl 500 mg tablet (Cipro) 500 mg PO BID #10 tabs 01/18/25 metronidazole 500 mg tablet 500 mg PO TID 5 days #15 tabs 01/18/25 prednisone 20 mg tablet 40 mg (2 x 20 mg) PO BREAKFAST 30 days #60 tabs 01/18/25 Hospital Course Operations None Procedures None Summary of Care Provided Minutes Spent on Discharge: 40 Hospital Course: Per HPI: BARBIE ROOT, is a 39 M who presents to the hospital with fevers and chills and a leukocytosis. He also had a episode of syncope or near syncope today. CT scan shows diffuse ileitis with no obvious signs of colitis currently though he had a colonoscopy several months ago that demonstrated significant Crohn's burden despite being on mesalamine. With his leukocytosis he was started on Cipro and Flagyl in the emergency room and blood cultures are pending. GI was able to order stool studies and blood cultures were obtained in the ER. He denies any diarrhea or melena. He endorses some left lower quadrant abdominal pain but nothing that he feels is significant and now that his fever is broken he says that he feels much better. Hospital Course: 1. Crohn's exacerbation with terminal ileitis???39-year-old male with history of Crohn's presents to the hospital with fevers and chills and near syncope. White count was slightly elevated on admission which worsened because he got a dose of steroids in the ER. Today it is down to 13. He is feeling much better and blood cultures were negative as were stool cultures and urine cultures. I discussed the case with gastroenterology who recommended continuing with antibiotics for 5 more days and will start him on prednisone 40 mg p.o. daily for the next 30 days pending treatment initiation with Skyrizi or Tremfya. I discussed with him the plan for discharge today he expressed understanding of the risk and benefits of going home and would like to go home today. 2. Essential hypertension, GERD are all chronic medical conditions which complicate his care. His home medications were continued where appropriate Physical Exam Narrative General: Alert, Oriented x3, Cooperative, No apparent distress HEENT: Atraumatic, PERRLA, EOMI, Normocephalic Oral: Moist Mucosa Neck: Supple, No JVD Lungs: Diminished, Normal air movement, No rhonchi, No wheeze, No rales Cardiovascular: Regular rate, Regular Rhythm, Normal S1, Normal S2, No murmurs Abdomen: Soft, nontender, Non-Distended, No Hepato-splenomegaly Extremities: No edema, Capillary Refill Less than 3 Seconds Skin: No rashes, No breakdown Musculoskeletal: No Tenderness to Palpation of Joints or Extremities Neurological: No focal neurological deficits, moves all extremities Psych/Mental Status: Normal Affect, Appropriate Weight / BMI Weight Weight: 274 lb 7.996 oz Body Mass Index (BMI) 35.2 ABG / Lab / Microbiology Data 01/18/25 06:00 01/18/25 06:00 Laboratory: Laboratory Results - last 24 hr 01/18/25 06:00: WBC 13.5 H, RBC 3.62 L, Hgb 8.3 L, Hct 27.3 L, MCV 75.4 L, MCH 22.9 L, MCHC 30.4 L, RDW Std Deviation 37.0, RDW Coeff of Irwin 13.6, Plt Count 284, MPV 10.5, Immature Gran % (Auto) 0.600, Neut % (Auto) 82.4 H, Lymph % (Auto) 11.9 L, Freeborn % (Auto) 4.7, Eos % (Auto) 0.3, Baso % (Auto) 0.1, Absolute Neuts (auto) 11.1 H, Absolute Lymphs (auto) 1.61, Nucleated RBC % 0, Sodium 143, Potassium 3.4, Chloride 106, Carbon Dioxide 26.6, Anion Gap 11, BUN 17, Creatinine 0 (more content not included)...[facility]08-16-2025 Progress note [facility] Medical Records Department [address] [place] [address] Progress Note 01/18/25 1243 MR#: [id number] Acct: [id number] Name: BARBIE FINK Rep #:[id number] : 1985 39 From: [facility] Friend PCP: Dr. Chris Mckeon MD Status:ADM I N Location: [place] [address] Progress Note Patient has been able to tolerate a diet. He is feeling a lot better. He has been afebrile for the last 24 hours. Physical Exam Narrative General: Alert, Oriented x3, Cooperative, No apparent distress HEENT: Atraumatic, PERRLA, EOMI, Normocephalic Oral: Moist Mucosa Neck: Supple, No JVD Lungs: Diminished, Normal air movement, No rhonchi, No wheeze, No rales Cardiovascular: Regular rate, Regular Rhythm, Normal S1, Normal S2, No murmurs Abdomen: Soft, nontender, Non-Distended, No Hepato-splenomegaly Extremities: No edema, Capillary Refill Less than 3 Seconds Skin: No rashes, No breakdown Musculoskeletal: No Tenderness to Palpation of Joints or Extremities Neurological: No focal neurological deficits, moves all extremities Psych/Mental Status: Normal Affect, Appropriate Assessment & Plan Assessment/Plan (1) Exacerbation of Crohn's disease: (2) SIRS (systemic inflammatory response syndrome): (3) Microcytic anemia: PLAN: This patient is experiencing a Crohn's disease flare-up, potentially complicated by an infection, given the combination of fever, increased WBC, and abdominal pain. While fever can be a symptomof Crohn's itself, a high-grade fever may indicate a complicating infection. The location of the abdominal pain in the right lower quadrant suggests possible involvement of the ileum or ileocecal region, common sites for Crohn's disease inflammation.? * Crohn's disease flare-up:?The patient's history of Crohn's disease and current symptoms are consistent with a flare. * Intra-abdominal abscess:?This is not seen with imaging and it is not consistent with his current symptoms. However an abscess is a pus-filled pocket that can develop due to Crohn's inflammation, and it can cause fever, abdominal pain, and an elevated WBC. * Fistula:?A fistula is an abnormal connection that can form between different parts of the intestines or between the intestine and other organs, or the skin. It can lead to infection and pain. He isalso about this) however he does have significant lymphadenopathy and fat stranding. * Bowel obstruction:?This complication occurs when inflammation or scar tissue narrows the bowel, leading to blockage. Abdominal pain, nausea, and vomiting may be present Continue antibiotics without steroids and she continues to have pain but is afebrile, they can start up steroids tomorrow. 01/18/2025-patient is doing better clinically. His white blood cell count is down from 24,000-16,000. He seems to be responding well to antibiotic therapy. I also suspect that this is mostly inflammatory reaction from severe Crohn's exacerbation. He has not shown any signs of stricturing. He would need MR enterography to rule out fistulizing disease. We discussed possible treatment therapies in the future. He likely will need Skyrizi or Tremfya therapy. He isokay with going on steroids at this time and antibiotic therapy. If he continues to do well patient can be discharged to home with early follow-up in office. Visit Charges Inpatient E&M: 96365 Subs Hosp L3 01/18/25 1245 Babar Crainignmarco Signature (if applicable): CC: ~ Signed [facility]08-16-2025 Discharge summary [facility] Medical Records Department [address] [place] [address] Instructions for Home/Discharge Instructions 01/18/25 1205 MR#: [id number] Acct: [id number] Name: BARBIE FINK Rep #:[id number] : 1985 39 From: Obed velazquez MD PCP: Dr. Chris Mckeon MD Status:ADM I N Discharge Instructions DC O2, CPAP, BIPAP needs Home O2 Discharge instructions: No Dressing / Incision Discharge Activity: Return to Normal Activity Dressing / Incision Call your doctor if you observe: Fever of 101 or Higher, Shortness of breath, Dizziness, Fainting spells, Swelling in the ankles, Chest pain and Increased palpitations (irregular heartbeat) Follow Up Care Test Results: Test results from this visit will be discussed in further detail at your follow- up appointment, if applicable. Discharge Plan Admission Admit Date/Time: 01/16/25 10:35 Attending Provider: Obed Fish Primary Care Provider: Chris Mckeon Discharge Orders/Prescriptions Prescriptions: New prednisone 20 mg Tablet 40 mg PO BREAKFAST 30 Days Qty: 60 0RF ciprofloxacin HCl [Cipro] 500 mg tablet 500 mg PO BID Qty: 10 0RF metronidazole 500 mg tablet 500 mg PO TID 5 Days Qty: 15 0RF Continued hydrochlorothiazide 25 mg tablet 25 mg PO DAILY lisinopril 20 mg tablet 20 mg PO DAILY omeprazole 40 mg capsule,delayed release(DR/EC) 40 mg PO QDAY Qty: 30 5RF Skyrizi 600 mg IV .COMPLEX Qty: 10 0RF Patient Comments: needs to get blood work Rx Instructions: 600 mg intravenously week 0, 4, 8; 600 mg intravenously at week 0, 4, 8 for Crohn's Disease K50.90 Discontinued mesalamine [Lialda] 1.2 gram tablet,delayed release (DR/EC) 2.4 g PO BID Referrals / Follow Up: Babar Hernández DO [Med Staff - Active Staff] - Within 2 Weeks Chris Mckeon MD [Primary Care Provider] - Within 1 Week Disposition Disposition (needs filled in before D/C Order can be placed): Home, Self Care 01/18/25 1210Obed Fish MD CC: Dr. Chris Mckeon MD ~ Signed [facility]08-15-2025 Progress note Author Obed Fish [facility] Note Date/Time January 17, 2025 11 :08am [facility] Medical Records Department [address] [place] [address] Progress Note - Hospitalist 01/17/25 1106 MR#: [id number] Acct: [id number] Name: BARBIE FINK Rep #:[id number] : 1985 39 From: Obed velazquez MD PCP: Dr. Chris Mckeon MD Status:ADM I N Location: [place] [address] Subjective Subjective Feels much better today than he did yesterday. Has not had a bowel movement yetso unlikely to have any type of infectious etiology in his intestines. Urine cultures no growth and blood cultures are still pending Objective Data Objective Data Vital Signs: Vital Signs Temp Pulse Resp BP Pulse Ox O2 Del Method 97.5 F L 90 18 119/78 97 Room Air 01/17/25 08:07 01/17/25 08:09 01/17/25 08:07 01/17/25 08:07 01/17/25 08:07 01/17/25 08:07 Oxygen Delivery Method Room Air Weight: 274 lb 7.996 oz Body Mass Index (BMI) 35.2 Intake & Output: Intake and Output for Last 24 Hours 01/16/25 01/17/25 01/18/25 03:59 03:59 03:59 Intake Total 4250 / 4250 1300 / 1300 Balance 4250 / 4250 1300 / 1300 Lab / Micro Data 01/17/25 05:53 01/17/25 05:53 Labs: Laboratory Results - last 24 hr 01/16/25 07:18: ESR 65 H, C-React Prot Ext Range 188.00 H 01/16/25 12:45: Lactic Acid 1.1 01/17/25 05:53: WBC 24.1 H, RBC 4.05 L, Hgb 9.5 L, Hct 30.4 L, MCV 75.1 L, MCH 23.5 L, MCHC 31.3 L, RDW Std Deviation 36.2, RDW Coeff of Irwin 13.4, Plt Count 338, MPV 10.0, Immature Gran % (Auto) 0.900, Neut % (Auto) 93.6 H, Lymph % (Auto) 3.4 L, Freeborn % (Auto) 2.0, Eos % (Auto) 0.0, Baso % (Auto) 0.1, Absolute Neuts (auto) 22.5 H, Absolute Lymphs (auto) 0.81 L, Nucleated RBC % 0, Differential Comment SCANNED, Sodium 139, Potassium 3.1 L, Chloride 101, Carbon Dioxide 25.2, Anion Gap 13, BUN 14, Creatinine 0.84, Estim Creat Clear Calc 163.90, Est GFR (MDRD) Non-Af 113, BUN/Creatinine Ratio 16.9, Glucose 141 H, Calcium 9.2, Phosphorus 2.6 L, Magnesium 2.5 H Micro: Microbiology 01/16/25 08:54 Urine, Clean Catch Urine Culture - Preliminary Culture exhibits no growth. Physical Exam Narrative General: Alert, Oriented x3, Cooperative, No apparent distress HEENT: Atraumatic, PERRLA, EOMI, Normocephalic Oral: Moist Mucosa Neck: Supple, No JVD Lungs: Diminished, Normal air movement, No rhonchi, No wheeze, No rales Cardiovascular: Regular rate, Regular Rhythm, Normal S1, Normal S2, No murmurs Abdomen: Soft, nontender, Non-Distended, No Hepato-splenomegaly Extremities: No edema, Capillary Refill Less than 3 Seconds Skin: No rashes, No breakdown Musculoskeletal: No Tenderness to Palpation of Joints or Extremities Neurological: No focal neurological deficits, moves all extremities Psych/Mental Status: Normal Affect, Appropriate Assessment & Plan Assessment/Plan (1) Exacerbation of Crohn's disease: PLAN: Plan 1. Ileitis in the setting of a Crohn's flare/hypokalemia ? Appreciate GIs assistance ? Continue with antibiotics ? Has not had a bowel movement for stool cultures, blood cultures are pending and urine cultures negative ? He did receive dose of steroids in the ER, will hold off of continuous steroids until culture data is obtained and negative ? Will likely need steroids on discharge pending outpatient follow-up with gastroenterology to start Skyrizi as it appears that he has failed mesalamine ? Order potassium replacement 2. Essential HTN ? Blood pressures are stable ? Will monitor and add as needed's if necessary ? Currently will hold his hydrochlorothiazide and lisinopril as he does have a slight creatinine elevation that does not quite meet the threshold for an NIURKA 3. GERD ? Stable ? Continue with Protonix DVT: Lovenox Charges/Coding Visit Charges Inpatient E&M: 05692 Subs Hosp L2 01/17/25 1108 <Electronically signed by Obed Fish MD> Cosigner Signature (if applicable): CC: ~ Signed [facility] Work Phone: 1(307) 641-323608-15-2025 Progress note [facility] Medical Records Department [address] [place] [address] Progress Note - Hospitalist 01/17/25 1106 MR#: [id number] Acct: [id number] Name: BARBIE FINK Rep #:[id number] : 1985 39 From: Obed velazquez MD PCP: Dr. Chris Mckeon MD Status:ADM I N Location: [place] [address] Subjective Subjective Feels much better today than he did yesterday. Has not had a bowel movement yetso unlikely to have any type of infectious etiology in his intestines. Urine cultures no growth and blood cultures are still pending Objective Data Objective Data Vital Signs: Vital Signs Temp Pulse Resp BP Pulse Ox O2 Del Method 97.5 F L 90 18 119/78 97 Room Air 01/17/25 08:07 01/17/25 08:09 01/17/25 08:07 01/17/25 08:07 01/17/25 08:07 01/17/25 08:07 Oxygen Delivery Method Room Air Weight: 274 lb 7.996 oz Body Mass Index (BMI) 35.2 Intake & Output: Intake and Output for Last 24 Hours 01/16/25 01/17/25 01/18/25 03:59 03:59 03:59 Intake Total 4250 / 4250 1300 / 1300 Balance 4250 / 4250 1300 / 1300 Lab / Micro Data 01/17/25 05:53 01/17/25 05:53 Labs: Laboratory Results - last 24 hr 01/16/25 07:18: ESR 65 H, C-React Prot Ext Range 188.00 H 01/16/25 12:45: Lactic Acid 1.1 01/17/25 05:53: WBC 24.1 H, RBC 4.05 L, Hgb 9.5 L, Hct 30.4 L, MCV 75.1 L, MCH 23.5 L, MCHC 31.3 L,RDW Std Deviation 36.2, RDW Coeff of Irwin 13.4, Plt Count 338, MPV 10.0, Immature Gran % (Auto) 0.900, Neut % (Auto) 93.6 H, Lymph % (Auto) 3.4 L, Freeborn % (Auto) 2.0, Eos % (Auto) 0.0, Baso % (Auto) 0.1, Absolute Neuts (auto) 22.5 H, Absolute Lymphs (auto) 0.81 L, Nucleated RBC % 0, Differential Comment SCANNED, Sodium 139, Potassium 3.1 L, Chloride 101, Carbon Dioxide 25.2, Anion Gap 13, BUN 14, Creatinine 0.84, Estim Creat Clear Calc 163.90, Est GFR (MDRD) Non-Af 113, BUN/Creatinine Ratio 16.9,Glucose 141 H, Calcium 9.2, Phosphorus 2.6 L, Magnesium 2.5 H Micro: Microbiology 01/16/25 08:54 Urine, Clean Catch Urine Culture - Preliminary Culture exhibits no growth. Physical Exam Narrative General: Alert, Oriented x3, Cooperative, No apparent distress HEENT: Atraumatic, PERRLA, EOMI, Normocephalic Oral: Moist Mucosa Neck: Supple, No JVD Lungs: Diminished, Normal air movement, No rhonchi, No wheeze, No rales Cardiovascular: Regular rate, Regular Rhythm, Normal S1, Normal S2, No murmurs Abdomen: Soft, nontender, Non-Distended, No Hepato-splenomegaly Extremities: No edema, Capillary Refill Less than 3 Seconds Skin: No rashes, No breakdown Musculoskeletal: No Tenderness to Palpation of Joints or Extremities Neurological: No focal neurological deficits, moves all extremities Psych/Mental Status: Normal Affect, Appropriate Assessment & Plan Assessment/Plan (1) Exacerbation of Crohn's disease: PLAN: Plan 1. Ileitis in the setting of a Crohn's flare/hypokalemia ? Appreciate GIs assistance ? Continue with antibiotics ? Has not had a bowel movement for stool cultures, blood cultures are pending and urine cultures negative ? He did receive dose of steroids in the ER, will hold off of continuous steroids until culture data is obtained and negative ? Will likely need steroids on discharge pending outpatient follow-up with gastroenterology to start Skyrizi as it appears that he has failed mesalamine ? Order potassium replacement 2. Essential HTN ? Blood pressures are stable ? Will monitor and add as needed's if necessary ? Currently will hold his hydrochlorothiazide and lisinopril as he does have a slight creatinine elevation that does not quite meet the threshold for an NIURKA 3. GERD ? Stable ? Continue with Protonix DVT: Lovenox Charges/Coding Visit Charges Inpatient E&M: 00745 Subs Hosp L2 01/17/25 1108 Cosigner Signature (if applicable): CC: ~ Signed [facility]08-14-2025 Consult note Author Babar Hernádnez [facility] Note Date/Time January 16, 2025 5: 14pm [facility] Medical Records Department [address] [place] [address] Consultation - GI 01/16/25 1310 MR#: [id number] Acct: [id number] Name: BARBIE FINK Rep #:[id number] : 1985 39 From: Babar Hernández DO PCP: Dr. Chris Mckeon MD Status:ADM I N Location: [place] [address] HPI Consult Data Date of Consult: 01/16/25 HPI Narrative Reason for Consultation: Crohns disease HPI Narrative: BARBIE FINK, is a 39-year-old male with a history of Crohn's disease presentingwith a fever, increased white blood cell count (WBC), and abdominal pain. He describes the pain as cramping and located in the lower right abdomen, which is a common location for pain in individuals with Crohn's, particularly those with ileitis and ileocolitis. He also reports diarrhea and a general feeling of beingunwell. He denies any other symptoms at this time. The patient has been compliant with his Crohn's medications and hasn't made any recent dietary changes.? He has been on 5-ASA drugs. He has not been on steroids. He was scheduled to be started on Skyrizi therapy. In the emergency room he was discovered to be afebrile with a temperature of 101.4. He denied any sick contacts. He recently underwent colonoscopy which show active ileitis and colitis. CT/Abdomen/Pelvis W IV Cont ONLY IMPRESSION: Circumferential wall thickening of several adjacent small bowel loops in the distal ileum with increased markings in the surrounding peritoneal fat. Mildly enlarged small lymph nodes in the deep mesenteric fat. Enteritis should be ruled out. Mild splenomegaly. He was started on ciprofloxacin and Flagyl in the ED and he was given 1 dose of Solu-Medrol 125 mg PFS Medical History Alcohol use History of ulceration Gastric reflux Chewing tobacco dependence HTN (hypertension) PLEVA (pityriasis lichenoides et varioliformis acuta) Diminished hearing Anxiety Crohn disease Home Medications ?Medication ?Instructions ?Recorded ?Last Taken ?Type hydrochlorothiazide 25 mg tablet 25 mg PO DAILY Unknown History lisinopril 20 mg tablet 20 mg PO DAILY 11/09/2208/04 History omeprazole 40 mg capsule,delayed 40 mg PO QDAY #30 cap s 12/13/24 Unknown Rx release Skyrizi 600 mg IV .COMPLEX #10 mL Unknown Rx mesalamine 1.2 gram tablet,delayed 2.4 g PO BID Unknown History release (Lialda) Allergy/AdvReac Type Severity Reaction Status Date / Time amoxicillin Allergy Intermediate Other Verified 01/16/25 06:21 cefaclor (From Ceclor) Allergy Intermediate Other Verified 12/13/24 15:07 Family History Father Hypertension Surgical History History [...] diarrhea, dyspepsia, dysphagia, early satiety, excessive flatus, fecalincontinence, heartburn, hematemesis, hematochezia, hemorrhoids, loose stools, melena, nausea, odynophagia, rectal bleeding, tenesmus, vomiting or weight changes Physical Exam Const alert, oriented x3, no apparent distress and healthy appearing General Appearance: cooperative GI normal to inspection, nondistended, normoactive bowel sounds, soft to palpation,non-tender and non-distended Percussion: normal to percussion Rectal Exam: deferred Lab / Micro Data 01/16/25 07:18 01/16/25 07:18 Labs: Laboratory Results - last 24 hr 01/16/25 07:18: WBC 18.9 H, RBC 3.98 L, Hgb 9.2 L, Hct 29.8 L, MCV 74.9 L, MCH 23.1 L, MCHC 30.9 L, RDW Std Deviation 36.9, RDW Coeff of Irwin 13.7, Plt Count 352, MPV 10.3, Immature Gran % (Auto) 0.700, Neut % (Auto) 86.9 H, Lymph % (Auto) 5.5 L, Freeborn % (Auto) 6.3, Eos % (Auto) 0.4, Baso % (Auto) 0.2, Absolute Neuts (auto) 16.4 H, Absolute Lymphs (auto) 1.03, Nucleated RBC % 0, ESR 65 H, PT 15.6 H, INR 1.2, APTT 39.3 H, Sodium 135, Potassium 3.0 L, Chloride 94 L, Carbon Dioxide 24.7, Anion Gap 16 H, BUN 19, Creatinine 1.50 H, Estim Creat Clear Calc 91.72, Est GFR (MDRD) Non- Af 60, BUN/Creatinine Ratio 12.8, Glucose 176 H, Lactic Acid 1.6, Calcium 8.7, Total Bilirubin 1.97 H, AST 26, ALT 16, Alkaline Phosphatase 147 H, C-React Prot Ext Range 188.00 H, Total Protein 6.9, Albumin 3.3 L, Globulin 3.6, Albumin/Globulin Ratio 0.9 01/16/25 08:54: Urine Color Yellow, Urine Clarity Clear, Urine pH 6.0, Ur Specific [place] 1.005, Urine Protein 15 H, Urine Glucose (UA) Normal, Urine Ketones Negative, Urine Occult Blood Negative, Urine Nitrite Negative, Urine Bilirubin Negative, Urine Urobilinogen 1 H, Ur Leukocyte Esterase Negative, Urine RBC 0 SEEN, Urine WBC 0 SEEN, Ur Squamous Epith Cells 0 SEEN, Urine Bacteria 0 SEEN, Urine Mucus 0 SEEN Imaging Radiology Impression Abdomen/Pelvis CT 01/16/25 06:54 IMPRESSION: Circumferential wall thickening of several adjacent small bowel loops in the distal ileum with increased markings in the surrounding peritoneal fat. Mildly enlarged small lymph nodes in the deep mesenteric fat. Enteritis should be ruled out. Mild splenomegaly. Reading Location: [facility] Chest X-Ray 01/16/25 07:05 IMPRESSION: NO ACUTE FINDINGS. Reading Location: [facility] Assessment & Plan Assessment/Plan (1) Exacerbation of Crohn's disease: (2) SIRS (systemic inflammatory response syndrome): (3) Microcytic anemia: PLAN: This patient is experiencing a Crohn's disease flare-up, potentially complicated by an infection, given the combination of fever, increased WBC, and abdominal pain. While fever can be a symptom of Crohn's itself, a high-grade fever may indicate a complicating infection. The location of the abdominal pain in the right lower quadrant suggests possible involvement of the ileum or ileocecal region, common sites for Crohn's disease inflammation.? * Crohn's disease flare-up:?The patient's history of Crohn's disease and current symptoms are consistent with a flare. * Intra-abdominal abscess:?This is not seen with imaging and it is not consistent with his current symptoms. However an abscess is a pus-filled pocket that can develop due to Crohn's inflammation, and it can cause fever, abdominal pain, and an elevated WBC. * Fistula:?A fistula is an abnormal connection that can form between different parts of the intestines or between the intestine and other organs, or the skin. It can lead to infection and pain. He is also about this) however he does have significant lymphadenopathy and fat stranding. * Bowel obstruction:?This complication occurs when inflammation or scar tissue narrows the bowel, leading to blockage. Abdominal pain, nausea, and vomiting may be present Continue antibiotics without steroids and she continues to have pain but is afebrile, they can start up steroids tomorrow. Charges/Coding Visit Charges Inpatient E&M: 97768 Init Hosp L3 01/16/25 1714 <Electronically signed by Babar Hernández DO> Cosigner Signature (if applicable): CC: Dr. Chris Mckeon MD~ Signed [facility] Work Phone: [phone]) [phone] Consult note [facility] Medical Records Department [address] [place] [address] Consultation - GI 01/16/25 1310 MR#: [id number] Acct: [id number] Name: BARBIE FINK Rep #:[id number] : 1985 39 From: Babar Hernández DO PCP: Dr. Chris Mckeon MD Status:ADM I N Location: [facility]-2 HPI Consult Data Date of Consult: 01/16/25 HPI Narrative Reason for Consultation: Crohns disease HPI Narrative: BARBIE FINK, is a 39-year-old male with a history of Crohn's disease presentingwith a fever, increased white blood cell count (WBC), and abdominal pain. He describes the pain as cramping and locatedin the lower right abdomen, which is a common location for pain in individuals with Crohn's, particularly those with ileitis and ileocolitis. He also reports diarrhea and a general feeling of beingunwell. He denies any other symptoms at this time. The patient has been compliant with his Crohn's medications and hasn't made any recent dietary changes.? He has been on 5-ASA drugs. He has not been onsteroids. He was scheduled to be started on Skyrizi therapy. In the emergency room he was discovered to be afebrile with a temperature of 101.4. He denied any sick contacts. He recently underwent colonoscopy which show active ileitis and colitis. CT/Abdomen/Pelvis W IV Cont ONLY IMPRESSION: Circumferential wall thickening of several adjacent small bowel loops in the distal ileum with increased markings in the surrounding peritoneal fat. Mildly enlarged small lymph nodes in the deep mesenteric fat. Enteritisshould be ruled out. Mild splenomegaly. He was started on ciprofloxacin and Flagyl in the ED and he was given 1 dose of Solu-Medrol 125 mg PFSH Medical History Alcohol use History of ulceration Gastric reflux Chewing tobacco dependence HTN (hypertension) PLEVA (pityriasis lichenoides et varioliformis acuta) Diminished hearing Anxiety Crohn disease Home Medications ?Medication ?Instructions ?Recorded ?Last Taken ?Type hydrochlorothiazide 25 mg tablet 25 mg PO DAILY Unknown History lisinopril 20 mg tablet 20 mg PO DAILY 11/09/2208/04 History omeprazole 40 mg capsule,delayed 40 mg PO QDAY #30 cap s 12/13/24 Unknown Rx release Skyrizi 600 mg IV .COMPLEX #10 mL Unknown Rx mesalamine 1.2 gram tablet,delayed 2.4 g PO BID Unknown History release (Lialda) Allergy/AdvReac Type Severity Reaction Status Date / Time amoxicillin Allergy Intermediate Other Verified 01/16/25 06:21 cefaclor (From Ceclor) Allergy Intermediate Other Verified 12/13/24 15:07 Family History Father Hypertension Surgical History History [...] cramping, diarrhea, dyspepsia, dysphagia, earlysatiety, excessive flatus, fecalincontinence, heartburn, hematemesis, hematochezia, hemorrhoids, loose stools, melena, nausea, odynophagia, rectal bleeding, tenesmus, vomiting or weight changes Physical Exam Const alert, oriented x3, no apparent distress and healthy appearing General Appearance: cooperative GI normal to inspection, nondistended, normoactive bowel sounds, soft to palpation,non-tender and non-distended Percussion: normal to percussion Rectal Exam: deferred Lab / Micro Data 01/16/25 07:18 01/16/25 07:18 Labs: Laboratory Results - last 24 hr 01/16/25 07:18: WBC 18.9 H, RBC 3.98 L, Hgb 9.2 L, Hct 29.8 L, MCV 74.9 L, MCH 23.1 L, MCHC 30.9 L,RDW Std Deviation 36.9, RDW Coeff of Irwin 13.7, Plt Count 352, MPV 10.3, Immature Gran % (Auto) 0.700, Neut % (Auto) 86.9 H, Lymph % (Auto) 5.5 L, Free[place] % (Auto) 6.3, Eos % (Auto) 0.4, Baso % (Auto) 0.2, Absolute Neuts (auto) 16.4 H, Absolute Lymphs (auto) 1.03, Nucleated RBC % 0, ESR 65 H, PT 15.6 H, INR 1.2, APTT 39.3 H, Sodium 135, Potassium 3.0 L, Chloride 94 L, Carbon Dioxide 24.7, Anion Gap 16 H, BUN 19, Creatinine 1.50 H, Estim Creat Clear Calc 91.72, Est GFR (MDRD) Non-Af 60, BUN/Creatinine Ratio 12.8, Glucose 176 H, Lactic Acid 1.6, Calcium 8.7, Total Bilirubin 1.97 H, AST 26, ALT 16, A lkaline Phosphatase 147 H, C-React Prot Ext Range 188.00 H, Total Protein 6.9, Albumin 3.3 L, Globulin 3.6, Albumin/Globulin Ratio 0.9 01/16/25 08:54: Urine Color Yellow, Urine Clarity Clear, Urine pH 6.0, Ur Specific [place] 1.005, Urine Protein 15 H, Urine Glucose (UA) Normal, Urine Ketones Negative, Urine Occult Blood Negative, Urine Nitrite Negative, Urine Bilirubin Negative, Urine Urobilinogen 1 H, Ur Leukocyte Esterase Negative, Urine RBC 0 SEEN, Urine WBC 0 SEEN, Ur Squamous Epith Cells 0 SEEN, Urine Bacteria 0 SEEN, Urine Mucus 0 SEEN Imaging Radiology Impression Abdomen/Pelvis CT 01/16/25 06:54 IMPRESSION: Circumferential wall thickening of several adjacent small bowel loops in the distal ileum with increased markings in the surrounding peritoneal fat. Mildly enlarged small lymph nodes in the deep mesenteric fat. Enteritisshould be ruled out. Mild splenomegaly. Reading Location: [facility] Chest X-Ray 01/16/25 07:05 IMPRESSION: NO ACUTE FINDINGS. Reading Location: [facility] Assessment & Plan Assessment/Plan (1) Exacerbation of Crohn's disease: (2) SIRS (systemic inflammatory response syndrome): (3) Microcytic anemia: PLAN: This patient is experiencing a Crohn's disease flare-up, potentially complicated by an infection, given the combination of fever, increased WBC, and abdominal pain. While fever can be a symptomof Crohn's itself, a high-grade fever may indicate a complicating infection. The location of the abdominal pain in the right lower quadrant suggests possible involvement of the ileum or ileocecal region, common sites for Crohn's disease inflammation.? * Crohn's disease flare-up:?The patient's history of Crohn's disease and current symptoms are consistent with a flare. * Intra-abdominal abscess:?This is not seen with imaging and it is not consistent with his current symptoms. However an abscess is a pus-filled pocket that can develop due to Crohn's inflammation, and it can cause fever, abdominal pain, and an elevated WBC. * Fistula:?A fistula is an abnormal connection that can form between different parts of the intestines or between the intestine and other organs, or the skin. It can lead to infection and pain. He isalso about this) however he does have significant lymphadenopathy and fat stranding. * Bowel obstruction:?This complication occurs when inflammation or scar tissue narrows the bowel, leading to blockage. Abdominal pain, nausea, and vomiting may be present Continue antibiotics without steroids and she continues to have pain but is afebrile, they can start up steroids tomorrow. Charges/Coding Visit Charges Inpatient E&M: 66825 Init Hosp L3 01/16/25 1714 Cosigner Signature (if applicable): CC: Dr. Chris Mckeon MD~ Signed [facility]08-14-2025 History and physical note Author Obed Fish [facility] Note Date/Time January 16, 2025 2: 05pm [facility] Medical Records Department [address] [place] [address] H&P Exam - Hospitalist 01/16/25 1251 MR#: [id number] Acct: [id number] Name: BARBIE FINK Rep #:[id number] : 1985 39 From: Obed velazquez MD PCP: Dr. Chris Mckeon MD Status:ADM I N Location: [facility] [place] [id number] HPI - General General Date of Admission: 01/16/25 HPI Narrative BARBIE FINK, is a 39 M who presents to the hospital with fevers and chills and a leukocytosis. He also had a episode of syncope or near syncope today. CT scan shows diffuse ileitis with no obvious signs of colitis currently though he had a colonoscopy several months ago that demonstrated significant Crohn's burden despite being on mesalamine. With his leukocytosis he was started on Cipro and Flagyl in the emergency room and blood cultures are pending. GI was able to order stool studies and blood cultures were obtained in the ER. He denies any diarrhea or melena. He endorses some left lower quadrant abdominal pain but nothing that he feels is significant and now that his fever is broken he says that he feels much better. ON LICENSE OF [facility] Medical History Alcohol use History of ulceration Gastric reflux Chewing tobacco dependence HTN (hypertension) PLEVA (pityriasis lichenoides et varioliformis acuta) Diminished hearing Anxiety Crohn disease Home Medications ?Medication ?Instructions ?Recorded ?Last Taken ?Type hydrochlorothiazide 25 mg tablet 25 mg PO DAILY Unknown History lisinopril 20 mg tablet 20 mg PO DAILY 11/09/2208/04 History omeprazole 40 mg capsule,delayed 40 mg PO QDAY #30 cap s 12/13/24 Unknown Rx release Skyrizi 600 mg IV .COMPLEX #10 mL Unknown Rx mesalamine 1.2 gram tablet,delayed 2.4 g PO BID Unknown History release (Lialda) Allergy/AdvReac Type Severity Reaction Status Date / Time amoxicillin Allergy Intermediate Other Verified 01/16/25 06:21 cefaclor (From [facility]) Allergy Intermediate Other Verified 12/13/24 15:07 Family History Father Hypertension Surgical History History of esophagogastroduodenoscopy (EGD) Hx of colonoscopy Hx of wisdom tooth extraction H/O inguinal hernia repair S/P orchiectomy Social History Smoking Status: Never smoker Smokeless tobacco user: chewing tobacco alcohol intake: current ROS Constitutional Constitutional: Reports fever(s); Denies chills, fatigue or malaise Eyes Eyes: Denies blurry vision ENT HEENT: Denies headache(s) or nasal discharge Cardiovascular Cardiovascular: Denies chest pain, dyspnea on exertion or syncope Respiratory/Chest Respiratory/Chest: Denies cough, shortness of breath at rest or shortness of breath with exertion Gastrointestinal Gastrointestinal: Reports abdominal pain; Denies constipation, diarrhea, nausea or vomiting Genitourinary Genitourinary: Denies dysuria Neurologic Neurologic: Denies focal weakness, numbness or tremor(s) Psychiatric Psychiatric: Denies anxiety or depression Vital Signs Vital Signs Vital Signs: 01/16/25 06:22 01/16/25 07:20 01/16/25 08:00 Temperature 101.0 F H 98.1 F 99.4 F H Temperature Source Oral Oral Oral Pulse Rate 103 H 88 89 Pulse Rate [Lying] Pulse Rate [Sitting (for 1 minute prior to obtaining)] Pulse Rate [Standing (for 1 minute prior to obtaining)] Respiratory Rate 30 H 23 H 18 Blood Pressure 137/66 H 125/62 H 133/89 H Blood Pressure [Lying] Blood Pressure [Sitting (for 1 minute prior to obtaining)] Blood Pressure [Standing (for 1 minute prior to obtaining)] Blood Pressure Mean 89 83 103 Blood Pressure Mean [Lying] Blood Pressure Mean [Sitting (for 1 minute prior to obtaining)] Blood Pressure Mean [Standing (for 1 minute prior to obtaining)] Pulse Ox 97 97 97 Oxygen Delivery Method Room Air Room Air Room Air 01/16/25 08:46 01/16/25 09:00 01/16/25 10:44 Temperature 99.1 F 99.7 F H Temperature Source Oral Pulse Rate 81 88 Pulse Rate [Lying] 79 Pulse Rate [Sitting (for 1 minute prior to obtaining)] 81 Pulse Rate [Standing (for 1 minute prior to obtaining)] 90 Respiratory Rate 16 14 Blood Pressure 130/73 H 134/76 H Blood Pressure [Lying] 122/65 H Blood Pressure [Sitting (for 1 minute prior to obtaining)] 129/74 H Blood Pressure [Standing (for 1 minute prior to obtaining)] 124/69 H Blood Pressure Mean 92 95 Blood Pressure Mean [Lying] 84 Blood Pressure Mean [Sitting (for 1 minute prior to obtaining)] 92 Blood Pressure Mean [Standing (for 1 minute prior to obtaining)] 87 Pulse Ox 98 97 Oxygen Delivery Method Room Air 01/16/25 10:50 Temperature Temperature Source Pulse Rate Pulse Rate [Lying] Pulse Rate [Sitting (for 1 minute prior to obtaining)] Pulse Rate [Standing (for 1 minute prior to obtaining)] Respiratory Rate Blood Pressure Blood Pressure [Lying] Blood Pressure [Sitting (for 1 minute prior to obtaining)] Blood Pressure [Standing (for 1 minute prior to obtaining)] Blood Pressure Mean Blood Pressure Mean [Lying] Blood Pressure Mean [Sitting (for 1 minute prior to obtaining)] Blood Pressure Mean [Standing (for 1 minute prior to obtaining)] Pulse Ox Oxygen Delivery Method Room Air Weight Weight: 274 lb 8 oz Body Mass Index (BMI) 35.2 Physical Exam Narrative General: Alert, Oriented x3, Cooperative, No apparent distress HEENT: Atraumatic, PERRLA, EOMI, Normocephalic Oral: Moist Mucosa Neck: Supple, No JVD Lungs: Diminished, Normal air movement, No rhonchi, No wheeze, No rales Cardiovascular: Regular rate, Regular Rhythm, Normal S1, Normal S2, No murmurs Abdomen: Soft, mildly tender to palpation left lower quadrant, Non-Distended, NoHepato-splenomegaly Extremities: No edema, Capillary Refill Less than 3 Seconds Skin: No rashes, No breakdown Musculoskeletal: No Tenderness to Palpation of Joints or Extremities Neurological: No focal neurological deficits, moves all extremities Psych/Mental Status: Normal Affect, Appropriate Results Lab / Micro Data 01/16/25 07:18 01/16/25 07:18 Labs: Laboratory Results - last 24 hr 01/16/25 07:18: WBC 18.9 H, RBC 3.98 L, Hgb 9.2 L, Hct 29.8 L, MCV 74.9 L, MCH 23.1 L, MCHC 30.9 L, RDW Std Deviation 36.9, RDW Coeff of Irwin 13.7, Plt Count 352, MPV 10.3, Immature Gran % (Auto) 0.700, Neut % (Auto) 86.9 H, Lymph % (Auto) 5.5 L, Free[place] % (Auto) 6.3, Eos % (Auto) 0.4, Baso % (Auto) 0.2, Absolute Neuts (auto) 16.4 H, Absolute Lymphs (auto) 1.03, Nucleated RBC % 0, ESR 65 H, PT 15.6 H, INR 1.2, APTT 39.3 H, Sodium 135, Potassium 3.0 L, Chloride 94 L, Carbon Dioxide 24.7, Anion Gap 16 H, BUN 19, Creatinine 1.50 H, Estim Creat Clear Calc 91.72, Est GFR (MDRD) Non- Af 60, BUN/Creatinine Ratio 12.8, Glucose 176 H, Lactic Acid 1.6, Calcium 8.7, Total Bilirubin 1.97 H, AST 26, ALT 16, Alkaline Phosphatase 147 H, Total Protein 6.9, Albumin 3.3 L, Globulin 3.6, Albumin/Globulin Ratio 0.9 01/16/25 08:54: Urine Color Yellow, Urine Clarity Clear, Urine pH 6.0, Ur Specific [place] 1.005, Urine Protein 15 H, Urine Glucose (UA) Normal, Urine Ketones Negative, Urine Occult Blood Negative, Urine Nitrite Negative, Urine Bilirubin Negative, Urine Urobilinogen 1 H, Ur Leukocyte Esterase Negative, Urine RBC 0 SEEN, Urine WBC 0 SEEN, Ur Squamous Epith Cells 0 SEEN, Urine Bacteria 0 SEEN, Urine Mucus 0 SEEN Imaging Radiology Impression Abdomen/Pelvis CT 01/16/25 06:54 IMPRESSION: Circumferential wall thickening of several adjacent small bowel loops in the distal ileum with increased markings in the surrounding peritoneal fat. Mildly enlarged small lymph nodes in the deep mesenteric fat. Enteritis should be ruled out. Mild splenomegaly. Reading Location: [facility] Chest X-Ray 01/16/25 07:05 IMPRESSION: NO ACUTE FINDINGS. Reading Location: [facility] Assessment & Plan Assessment/Plan (1) Exacerbation of Crohn's disease: PLAN: Plan 1. Ileitis in the setting of a Crohn's flare/hypokalemia ? Appreciate GIs assistance ? Continue with antibiotics ? Stool cultures and blood cultures are pending ? He did receive dose of steroids in the ER, will hold off of continuous steroids until culture data is obtained and negative ? Will likely need steroids on discharge pending outpatient follow-up with gastroenterology to start Skyrizi as it appears that he has failed mesalamine ? Will recheck his potassium in the morning along with magnesium and phosphorus 2. Essential HTN ? Blood pressures are stable ? Will monitor and add as needed's if necessary ? Currently will hold his hydrochlorothiazide and lisinopril as he does have a slight creatinine elevation that does not quite meet the threshold for an NIURKA 3. GERD ? Stable ? Continue with Protonix DVT: Lovenox 75 minutes was spent on direct patient care, including documentation as well as chart review and collaboration with colleagues Charges/Coding Visit Charges Inpatient E&M: 97617 Init Hosp L3 01/16/25 1405 <Electronically signed by Obed Fish MD> Cosigner Signature (if applicable): CC: Dr. Obed Fish MD; Dr. Chris Mckeon MD~ Signed [facility] Work Phone: [phone]) 729-369908-14-2025 History and physical note [facility] Medical Records Department [address] [place] [address] H&P Exam - Hospitalist 01/16/25 1251 MR#: [id number] Acct: [id number] Name: BARBIE FINK Rep #:[id number] : 1985 39 From: Obed velazquez MD PCP: Dr. Chris Mckeon MD Status:ADM I N Location: [facility] [id number] HPI - General General Date of Admission: 01/16/25 HPI Narrative BARBIE FINK, is a 39 M who presents to the hospital with fevers and chills and a leukocytosis. He also had a episode of syncope or near syncope today. CT scan shows diffuse ileitis with no obvious signs of colitis currently though he had a colonoscopy several months ago that demonstrated significant Crohn's burden despite being on mesalamine. With his leukocytosis he was started on Cipro and Flagyl in the emergency room and blood cultures are pending. GI was able to order stool studies and blood cultures were obtained in the ER. He denies any diarrhea or melena. He endorses some left lower quadrant abdominal pain but nothing that he feels is significant and now that his fever is broken he says that he feels much better. ON LICENSE OF [facility] Medical History Alcohol use History of ulceration Gastric reflux Chewing tobacco dependence HTN (hypertension) PLEVA (pityriasis lichenoides et varioliformis acuta) Diminished hearing Anxiety Crohn disease Home Medications ?Medication ?Instructions ?Recorded ?Last Taken ?Type hydrochlorothiazide 25 mg tablet 25 mg PO DAILY Unknown History lisinopril 20 mg tablet 20 mg PO DAILY 11/09/2208/04 History omeprazole 40 mg capsule,delayed 40 mg PO QDAY #30 cap s 12/13/24 Unknown Rx release Skyrizi 600 mg IV .COMPLEX #10 mL Unknown Rx mesalamine 1.2 gram tablet,delayed 2.4 g PO BID Unknown History release (Lialda) Allergy/AdvReac Type Severity Reaction Status Date / Time amoxicillin Allergy Intermediate Other Verified 01/16/25 06:21 cefaclor (From Ceclor) Allergy Intermediate Other Verified 12/13/24 15:07 Family History Father Hypertension Surgical History History of esophagogastroduodenoscopy (EGD) Hx of colonoscopy Hx of wisdom tooth extraction H/O inguinal hernia repair S/P orchiectomy Social History Smoking Status: Never smoker Smokeless tobacco user: chewing tobacco alcohol intake: current ROS Constitutional Constitutional: Reports fever(s); Denies chills, fatigue or malaise Eyes Eyes: Denies blurry vision ENT HEENT: Denies headache(s) or nasal discharge Cardiovascular Cardiovascular: Denies chest pain, dyspnea on exertion or syncope Respiratory/Chest Respiratory/Chest: Denies cough, shortness of breath at rest or shortness of breath with exertion Gastrointestinal Gastrointestinal: Reports abdominal pain; Denies constipation, diarrhea, nausea or vomiting Genitourinary Genitourinary: Denies dysuria Neurologic Neurologic: Denies focal weakness, numbness or tremor(s) Psychiatric Psychiatric: Denies anxiety or depression Vital Signs Vital Signs Vital Signs: 01/16/25 06:22 01/16/25 07:20 01/16/25 08:00 Temperature 101.0 F H 98.1 F 99.4 F H Temperature Source Oral Oral Oral Pulse Rate 103 H 88 89 Pulse Rate [Lying] Pulse Rate [Sitting (for 1 minute prior to obtaining)] Pulse Rate [Standing (for 1 minute prior to obtaining)] Respiratory Rate 30 H 23 H 18 Blood Pressure 137/66 H 125/62 H 133/89 H Blood Pressure [Lying] Blood Pressure [Sitting (for 1 minute prior to obtaining)] Blood Pressure [Standing (for 1 minute prior to obtaining)] Blood Pressure Mean 89 83 103 Blood Pressure Mean [Lying] Blood Pressure Mean [Sitting (for 1 minute prior to obtaining)] Blood Pressure Mean [Standing (for 1 minute prior to obtaining)] Pulse Ox 97 97 97 Oxygen Delivery Method Room Air Room Air Room Air 01/16/25 08:46 01/16/25 09:00 01/16/25 10:44 Temperature 99.1 F 99.7 F H Temperature Source Oral Pulse Rate 81 88 Pulse Rate [Lying] 79 Pulse Rate [Sitting (for 1 minute prior to obtaining)] 81 Pulse Rate [Standing (for 1 minute prior to obtaining)] 90 Respiratory Rate 16 14 Blood Pressure 130/73 H 134/76 H Blood Pressure [Lying] 122/65 H Blood Pressure [Sitting (for 1 minute prior to obtaining)] 129/74 H Blood Pressure [Standing (for 1 minute prior to obtaining)] 124/69 H Blood Pressure Mean 92 95 Blood Pressure Mean [Lying] 84 Blood Pressure Mean [Sitting (for 1 minute prior to obtaining)] 92 Blood Pressure Mean [Standing (for 1 minute prior to obtaining)] 87 Pulse Ox 98 97 Oxygen Delivery Method Room Air 01/16/25 10:50 Temperature Temperature Source Pulse Rate Pulse Rate [Lying] Pulse Rate [Sitting (for 1 minute prior to obtaining)] Pulse Rate [Standing (for 1 minute prior to obtaining)] Respiratory Rate Blood Pressure Blood Pressure [Lying] Blood Pressure [Sitting (for 1 minute prior to obtaining)] Blood Pressure [Standing (for 1 minute prior to obtaining)] Blood Pressure Mean Blood Pressure Mean [Lying] Blood Pressure Mean [Sitting (for 1 minute prior to obtaining)] Blood Pressure Mean [Standing (for 1 minute prior to obtaining)] Pulse Ox Oxygen Delivery Method Room Air Weight Weight: 274 lb 8 oz Body Mass Index (BMI) 35.2 Physical Exam Narrative General: Alert, Oriented x3, Cooperative, No apparent distress HEENT: Atraumatic, PERRLA, EOMI, Normocephalic Oral: Moist Mucosa Neck: Supple, No JVD Lungs: Diminished, Normal air movement, No rhonchi, No wheeze, No rales Cardiovascular: Regular rate, Regular Rhythm, Normal S1, Normal S2, No murmurs Abdomen: Soft, mildly tender to palpation left lower quadrant, Non-Distended, NoHepato-splenomegaly Extremities: No edema, Capillary Refill Less than 3 Seconds Skin: No rashes, No breakdown Musculoskeletal: No Tenderness to Palpation of Joints or Extremities Neurological: No focal neurological deficits, moves all extremities Psych/Mental Status: Normal Affect, Appropriate Results Lab / Micro Data 01/16/25 07:18 01/16/25 07:18 Labs: Laboratory Results - last 24 hr 01/16/25 07:18: WBC 18.9 H, RBC 3.98 L, Hgb 9.2 L, Hct 29.8 L, MCV 74.9 L, MCH 23.1 L, MCHC 30.9 L,RDW Std Deviation 36.9, RDW Coeff of [place]win 13.7, Plt Count 352, MPV 10.3, Immature Gran % (Auto) 0.700, Neut % (Auto) 86.9 H, Lymph % (Auto) 5.5 L, [place] % (Auto) 6.3, Eos % (Auto) 0.4, Baso % (Auto) 0.2, Absolute Neuts (auto) 16.4 H, Absolute Lymphs (auto) 1.03, Nucleated RBC % 0, ESR 65 H, PT 15.6 H, INR 1.2, APTT 39.3 H, Sodium 135, Potassium 3.0 L, Chloride 94 L, Carbon Dioxide 24.7, Anion Gap 16 H, BUN 19, Creatinine 1.50 H, Estim Creat Clear Calc 91.72, Est GFR (MDRD) Non-Af 60, BUN/Creatinine Ratio 12.8, Glucose 176 H, Lactic Acid 1.6, Calcium 8.7, Total Bilirubin 1.97 H, AST 26, ALT 16, A lkaline Phosphatase 147 H, Total Protein 6.9, Albumin 3.3 L, Globulin 3.6, Albumin/Globulin Ratio 0.9 01/16/25 08:54: Urine Color Yellow, Urine Clarity Clear, Urine pH 6.0, Ur Specific [place] 1.005, Urine Protein 15 H, Urine Glucose (UA) Normal, Urine Ketones Negative, Urine Occult Blood Negative, Urine Nitrite Negative, Urine Bilirubin Negative, Urine Urobilinogen 1 H, Ur Leukocyte Esterase Negative, Urine RBC 0 SEEN, Urine WBC 0 SEEN, Ur Squamous Epith Cells 0 SEEN, Urine Bacteria 0 SEEN, Urine Mucus 0 SEEN Imaging Radiology Impression Abdomen/Pelvis CT 01/16/25 06:54 IMPRESSION: Circumferential wall thickening of several adjacent small bowel loops in the distal ileum with increased markings in the surrounding peritoneal fat. Mildly enlarged small lymph nodes in the deep mesenteric fat. Enteritisshould be ruled out. Mild splenomegaly. Reading Location: [facility] Chest X-Ray 01/16/25 07:05 IMPRESSION: NO ACUTE FINDINGS. Reading Location: [facility] Assessment & Plan Assessment/Plan (1) Exacerbation of Crohn's disease: PLAN: Plan 1. Ileitis in the setting of a Crohn's flare/hypokalemia ? Appreciate GIs assistance ? Continue with antibiotics ? Stool cultures and blood cultures are pending ? He did receive dose of steroids in the ER, will hold off of continuous steroids until culture data is obtained and negative ? Will likely need steroids on discharge pending outpatient follow-up with gastroenterology to start Skyrizi as it appears that he has failed mesalamine ? Will recheck his potassium in the morning along with magnesium and phosphorus 2. Essential HTN ? Blood pressures are stable ? Will monitor and add as needed's if necessary ? Currently will hold his hydrochlorothiazide and lisinopril as he does have a slight creatinine elevation that does not quite meet the threshold for an NIURKA 3. GERD ? Stable ? Continue with Protonix DVT: Lovenox 75 minutes was spent on direct patient care, including documentation as well as chart review and collaboration with colleagues Charges/Coding Visit Charges Inpatient E&M: 17177 Init Hosp L3 01/16/25 1405 Cosigner Signature (if applicable): CC: Dr. Obed Fish MD; Dr. Chris Mckeon MD~ Signed [facility]08-14-2025 Radiology Diagnostic study note [facility] Imaging Services [address] [place] [address] [id number] Chest PA and Lateral MR#: [id number] Acct: [id number] Name: BARBIE FINK Rep #: [id number] : 1985 M 39 From: Javon Casillas MD PCP: Dr. Chris Mckeon MD Status: REG E R Study:Chest PA and Lateral Date of Exam: 01/16/25 Exam# [id number] Ordering Dr: German Chavarria DO PROCEDURE: CHEST PA AND LATERAL 01/16/2025 REASON FOR EXAM: FEVER TECHNIQUE: CHEST PA AND LATERAL COMPARISON: None FINDINGS: Hardware: EKG electrodes are seen. Heart: The heart size is normal. Mediastinum: The mediastinal contour is unremarkable. Lungs: The lungs are clear. Bones: The bones are unremarkable. RAD/Chest PA and Lateral IMPRESSION: NO ACUTE FINDINGS. Reading Location: [place] [address] CC: Dr. German Chavarria DO; Dr. Chris Mckeon MD ~ Edger Liner: Signed [facility]08-14-2025 Radiology Diagnostic study note [facility] Imaging Services [address] [place] [address] Abdomen/Pelvis W IV Cont ONLY MR#: [id number] Acct: [id number] Name: BARBIE FINK Rep #: [id number] : 1985 M 39 From: Javon Casillas MD PCP: Dr. Chris Mckeon MD Status: REG E R Study:Abdomen/Pelvis W IV Cont ONLY Date of E xam: 01/16/25 Exam# [id number] Ordering Dr: German Chavarria DO PROCEDURE: ABDOMEN/PELVIS [...] lymph nodes in the deep mesenteric fat. Enteritisshould be ruled out. Mild splenomegaly. Reading Location: [facility] CC: Dr. German Chavarria DO; Dr. Chris Mckeon MD ~ Edger Liner: Signed [facility]07-11-2025 Evaluation note* Diagnosis Onset Date Resolution Status Admit Date Crohn disease acute December 13, 2024 2:59pm [facility] Work Phone: 1(530) 849-435907-11-2025 Evaluation note* Diagnosis Onset Date Resolution Status Admit Date Crohn disease acute December 13, 2024 2:59pm Exacerbation of Crohn's disease acut e January 16, 2025 10:35am Microcytic anemia acute January 16, 2025 10:35am SIRS (systemic inflammatory response syndrome) acute January 16, 2025 10:35am [facility] Work Phone: 1(214) 167-370407-11-2025 Evaluation note* Diagnosis Onset Date Resolution Status Admit Date Crohn disease acute December 13, 2024 2:59pm Exacerbation of Crohn's disease acute January 16 10:35am Microcytic anemia acute January 16, 2025 10:35am SIRS (systemic inflammatory response syndrome) acute January 16, 2025 10:35am Crohn disease acute February 032024 3:08pm Exacerbation of Crohn's disease acute February 14, 2025 3:08pm [facility] Work Phone: [phone] NoteHNO ID: [id number] Author: MARAH MONTALVO APRN.MANAGER OCCUPATIONAL Service: ? Author Type: Nurse Practitioner Type: [...] Grandfather leukemia Coronary Artery Disease Paternal Grandfather [place] at 53 Hypertension Paternal Grandfather Stroke Paternal [...] discoloration, clubbing or cyanosis. (more content not included)...[facility]04-21-2025 History of Present illness Narrative* Marah Montalvo APRN.MANAGER OCCUPATIONAL - 09/23/2024 7:13 PM EDT This is [...] Grandfather leukemia Coronary Artery Disease Paternal Grandfather [place] at 53 Hypertension Paternal Grandfather Stroke Paternal [...] hydrochlorothiazide, 90-day supply with refills, sent to [facility] pharmacy. 3. Elevated LDL cholesterol level [...] needed for worsening/no improvement. Marah Montalvo APRN.SNOW Recording using [employer] software for draft documentation of the visit was discussed with the patient/authorized telephone sales representative; all questions welcomed and answered. Patient/authorized telephone sales representative agreed to proceed documented in this encounterMer[facility]04-21-2025 Instructions* Patient Instructions* Marah Montalvo APRN.CNP - 09/23/2024 6:21 PM EDT Begin taking a generic loratadine (e.g., a [employer] brand equivalent) for your cough/allergy symptoms. Continue with your current medications: hydrochlorothiazide, lisinopril, mesalamine, Prilosec, multivitamins, and your probiotics as before. Your blood pressure medications (lisinopril and hydrochlorothiazide) have been refilled as a 90-daysupply and will be sent to your [facility] pharmacy in [place]. Fasting blood work (CBC, CMP, and cholesterol panel) has been ordered. 10-12 hour fast (you can have water and black coffee). When cleaning your ears at home, avoid using Q-tips; use a washcloth instead. Recheck in 6 months. documented in this encounterMer[facility]04-08-2025 Telephone encounter Note * Telephone Encounter - Tony Stephens LPN - 09/10/2024 4:50 PM EDT Last rx(s) written 01/18/24 #30 with 0 refills. Per pharm dispense report, med has not been filled in the last 4 months. [facility]04-08-2025 Miscellaneous Notes* Telephone Encounter - Tony tSephens LPN - 09/10/2024 4:50 PM EDT Last [...] 4:38 PM documented in this encounterMer[facility]04-08-2025 Telephone encounter Note * Telephone Encounter [...] September 10, 2024 4:38 PM [facility]03-24[facility]25 Consult note Author Roberto Carlos Rascon [facility] Note Date/Time August 26, 2024 10: 09am [facility] Medical Records Department [address] [place] [address] Pre-Anesthesia Evaluation 08/26/24 1002 MR#: [id number] Acct: [id number] Name: BARBIE FINK Rep #:[id number] : 1985 39 From: Roberto Carlos Rascon MD PCP: Dr. 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 Female No 08/21/24 09:56 HX of Motion [...] 08/26/24 09:43 Respiratory Assessment Respiratory Assessment - 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: Respiratory Tract Infection Hx - 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 Hx Respiratory Tract Infection No 08/21/24 09:56 STOP Sleep Apnea STOP Sleep Apnea - 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: STOP Sleep Apnea - 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 Hx Hypertension Yes: CONTROLLED ON MED 08/21/24 [...] Tobacco Use History Tobacco Use History - 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: Tobacco Use History - 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 Tobacco Use Smoking Status Current some day smoker 08/21/24 09:56 Hx Tobacco Use Yes 08/21/24 09:56 Years Smoking Packs Smoked per Day Smoking Cessation Date was within the last 15 years Hx Smoking Cessation Date Hx Smoking Cessation Counseling Hematologic Medial History Hematologic Hx - 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: 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 Hx of Blood Transfusion No 08/21/24 09:56 [...] confused, unrespo /Reproduction History /Reproductive History - 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: /Reproductive Hx- 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 Hx Now Gestational Age (in weeks): EDC: [...] MD Cosigner Signature: Date CC: ~ Signed [facility] Work Phone: 1([phone]) 978-397103-24-2025 History and physical note Author Babar Hernández [facility] Note Date/Time August 26, 2024 9:5 0am [facility] Medical Records Department [address] [place] [address] History & Physical Exam 08/26/24 0947 MR#: [id number] Acct: [id number] Name: BARBIE FINK Rep #:[id number] : 1985 39 From: Babar Hernández DO PCP: Dr. Chris Mckeon MD Status:REG S DC Location: [place] [address] HPI - General General Date of Admission: [...] hx of MR enterography Biochemical work up 24; hgb L 11.2, ESR 33 H, iron [...] a colonoscopy coming up in August 2024. ON LICENSE OF [facility] Medical History Alcohol use History of ulceration [...] Chris Mckeon MD; Babar Hernández DO~ Signed [facility] Work Phone: 1(766) 854-572103-24-2025 Evaluation note* Diagnosis Onset Date Resolution Status Admit Date Crohn disease acute August 26, 2024 9:21am Crohn disease acute September 10, 2024 4:02pm Crohn disease acute December 13, 2024 2:59pm [facility] Work Phone: [phone]) 604-400603-24-2025 Consult note [facility] Medical Records Department [address] [place] [address] Anesthesia Postop Eval I 08/26/241114 MR#: [id number] Acct: [id number] Name: BARBIE FINK Rep #:[id number] : 1985 39 From: Yousuf Armando PCP: Dr. Chris Mckeon MD Status:REG S DC Y Race: C Location: [place] [address] Anesthesia: Postop Eval I Current Vital Signs [...] Postop Eval 1 completed: Yes 08/26/24 111 > Date _ Yousuf Roberts Signature: Date CC: ~ Signed [facility]03-24-2025 Procedure note [facility] Medical Records Department [address] [place] [address] Colonoscopy Report MR#: [id number] Acct: [id number] Name: BARBIE FINK Rep #:[id number] : 1985 39 From: Babar Hernández DO [...] GI office. Procedure Code(s): --- Professional --- 26782, Colonoscopy, flexible; diagnostic, including collection of specimen(s) by brushing or washing, when performed (separate procedure) CPT copyright 2021 [employer]. All rights reserved. The codes documented in this report are preliminary and upon auditing coder review may be revised to meet current compliance requirements. Babar Hernández DO 08/26/2024 11:14:51 AM This report has been signed electronically. Number of Addenda: 0 Note Initiated On: 08/26/2024 10:41 AM 08/26/24 111 Date _ Babar Duarte Signature: Date (if indicated) CC: Dr. Chris Mckeon MD; Babar Hernández DO ~ Date Dictated: 08/26/24 1041 Date Transcribed: Edger Liner: RF Signed [facility]03-24-2025 Procedure note [facility] Medical Records Department [address] [facility] [place] [address] Operative Report - CC Letter MR#: [id number] Acct: [id number] Name: BARBIE FINK Rep #:[id number] : 1985 39 From: Babar Hernández DO PCP: Dr. Chris Mckeon MD Status:REG S DC 08/26/2024 Chris Mckeon Re : Colonoscopy procedure for Barbie Fink Dear Get This procedure was performed on Monday, August [...] CC: Dr. Chris Mckeon MD; Babar Friend, ~ Date Dictated: 08/26/24 1041 Date Transcribed: Edger Liner: MIKEY Signed [facility]03-24-2025 Consult note [facility] Medical Records Department [address] [place] [address] Pre-Anesthesia Evaluation 08/26/24 1002 MR#: [id number] Acct: [id number] Name: BARBIE FINK Rep #:[id number] : 1985 39 From: Roberto Carlos Rascon MD PCP: Dr. 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 Female No 08/21/24 09:56 HX of Motion [...] 08/26/24 09:43 Respiratory Assessment Respiratory Assessment - 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: Respiratory Tract Infection Hx - 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 Hx Respiratory Tract Infection No 08/21/24 09:56 STOP Sleep Apnea STOP Sleep Apnea - 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: STOP Sleep Apnea - 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 Hx Hypertension Yes: CONTROLLED ON MED 08/21/24 [...] Tobacco Use History Tobacco Use History - 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: Tobacco Use History - 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 Tobacco Use Smoking Status Current some day smoker 08/21/24 09:56 Hx Tobacco Use Yes 08/21/24 09:56 Years Smoking Packs Smoked per Day Smoking Cessation Date was within the last 15 years Hx Smoking Cessation Date Hx Smoking Cessation Counseling Hematologic Medial History Hematologic Hx - 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: 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 Hx of Blood Transfusion No 08/21/24 09:56 [...] confused, unrespo /Reproduction History /Reproductive History - 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 Chris Mckeon MD Status:REG S DC Location: [place] [address] HPI - General General Date of Admission: [...] hasa colonoscopy coming up in August 2024. ON LICENSE OF [facility] Medical History Alcohol use History of ulceration [...] Chris Mckeon MD; Babar Hernández DO~ Signed [facility]03-24-2025 [facility] Medical Records Department [address] [place] [address] History Physical Exam 08/26/24 0947 MR#: [id number] Acct: [id number] Name: BARBIE FINK Rep #: [id number] : 1985 39 From: Babar Hernández DO PCP: Dr. Chris Mckeon MD Status:[facility] Location: [place] [address] HPI - General General Date of Admission: [...] a colonoscopy coming up in August 2024. ON LICENSE OF [facility] Medical History Alcohol use History of ulceration [...] Following this, will co (more content not included)...[facility]2025 Evaluation note* Diagnosis Onset Date Resolution Status Admit Date Crohn disease acute July 232024 3:44pm Crohn disease acute August 26, 2024 9:21am [facility] Work Phone: [phone]) 807-553608-15-2024 Telephone encounter Note* Telephone Encounter - Tamy [...] once daily. Tamy Arreaga APRN.CNP [facility]08-15-2024 Miscellaneous Notes* Telephone Encounter - Tamy [...] 1:45 PM documented in this encounterMer[facility]08-15-2024 Telephone encounter Note * Telephone Encounter [...] January 18, 2024 1:45 PM [facility]06-30-2023 Instructions* Patient Instructions* Marah Montalvo APRN.CNP - 12/02/2022 9:15 AM EDT Continue the same medications. Recheck in 6 months. documented in this encounterMer[facility]06-30-2023 History of Present illness Narrative* Marah [...] Grandfather leukemia Coronary Artery Disease Paternal Grandfather [place] at 53 Hypertension Paternal Grandfather Stroke Paternal [...] Montalvo APRN.CNP documented in this encounterMercy [facility]08-05-2022 Miscellaneous Notes* Telephone Encounter - Evangelina [...] Marisol Mcdermott documented in this encounterMercy [facility]11-26-2011 History of Past illness Narrative* Problem Noted Date Resolved Date Routine general medical exam ination at a health care facility 04/30/2011 01/25/2012 Overview: 04/30/2011, establish care Fertility testing 07/30/2009 01/25/2012 documented as of this encounter (statuses as of 01/07/2022) [facility] History of Past illness Narrative* Problem Noted Date Resolved Date Routine general medical exam ination at a health care facility 04/30/2011 01/25/2012 Overview: 04/30/2011, establish care Fertility testing 07/30/2009 01/25/2012 documented as of this encounter (statuses as of 12/03/2022) [facility] note Author Yousuf Armando [facility] Note Date/Time August 26, 2024 11: 16am [facility] Medical Records Department [address] [place] [address] Anesthesia Postop Eval I 08/26/24 1115 MR#: [id number] Acct: [id number] Name: BARBIE FINK Rep #:[id number] : 1985 39 From: Yousuf Armando PCP: Dr. Chris Mckeon MD Status:REG S DC Y Race: C Location: [place] [address] Anesthesia: Postop Eval I Current Vital Signs [...] Yousuf Roberts Signature: Date CC: ~ Signed [facility] Work Phone: Discharge summary Author Obed Fish [facility] Note Date/Time January 18, 2025 1: 19pm [facility] Medical Records Department [address] [place] [address] Discharge Summary 01/18/25 1314 MR#: [id number] Acct: [id number] Name: BARBIE FINK Rep #:[id number] : 1985 39 From: Obed velazquez MD PCP: Dr. Chris Mckeon MD Status:ADM I N Location: [place] [address] Providers Date of Admission: 01/16/25 Primary Care Physician: Dr. Chris Mckeon MD Consultations 01/16/25 10:49 Consult: Gastroenterology Routine Consulting Provider: [facility] Reason for Consult: Crohns EMERGENT Consult: No MD Notified: Yes Date Notified: 01/16/25 Time Notified: 10:37 Method of Notification: ED Physician Initiated Reason For Visit: SIRS Diagnosis Discharge Diagnosis (1) Exacerbation of Crohn's disease: Status: Acute Code(s): K50.90 - Crohn's disease, unspecified, without complications (2) SIRS (systemic inflammatory response syndrome): Status: Acute Code(s): R65.10 - Systemic inflammatory response syndrome (SIRS) of non-infectious originwithout acute organ dysfunction (3) Microcytic anemia: Status: Acute Code(s): D50.9 - Iron deficiency anemia, unspecified Medications at Discharge Home Medications hydrochlorothiazide 25 mg tablet 25 mg PO DAILY 11/09/22 lisinopril 20 mg tablet 20 mg PO DAILY 11/09/22 omeprazole 40 mg capsule,delayed release 40 mg PO QDAY #30 caps 12/13/24 Skyrizi 600 mg IV .COMPLEX #10 mL 01/03/25 ciprofloxacin HCl 500 mg tablet (Cipro) 500 mg PO BID #10 tabs 01/18/25 metronidazole 500 mg tablet 500 mg PO TID 5 days #15 tabs 01/18/25 prednisone 20 mg tablet 40 mg (2 x 20 mg) PO BREAKFAST 30 days #60 tabs 01/18/25 Hospital Course Operations None Procedures None Summary of Care Provided Minutes Spent on Discharge: 40 Hospital Course: Per HPI: BARBIE FINK, is a 39 M who presents to the hospital with fevers and chills and a leukocytosis. He also had a episode of syncope or near syncope today. CT scan shows diffuse ileitis with no obvious signs of colitis currentlythough he had a colonoscopy several months ago that demonstrated significant Crohn's burden despite being on mesalamine. With his leukocytosis he was started on Cipro and Flagyl in the emergency room and blood cultures are pending. GI was able to order stool studies and blood cultures were obtained inthe ER. He denies any diarrhea or melena. He endorses some left lower quadrantabdominal pain but nothing that he feels is significant and now that his fever is broken he says that he feels much better. Hospital Course: 1. Crohn's exacerbation with terminal ileitis?39-year-old male with history of Crohn's presents to the hospital with fevers and chills and near syncope. Whitecount was slightly elevated on admission which worsened because he got a dose ofsteroids in the ER. Today it is down to 13. He is feeling much better and blood cultures were negative as were stool cultures and urine cultures. I discussed the case with gastroenterology who recommended continuing with antibiotics for 5 more days and will start him on prednisone 40 mg p.o. daily for the next 30 days pending treatment initiation with Leonardyrjoe or Tremfya. I discussed with him the plan for discharge today he expressed understanding of the risk and benefits of going home and would like to go home today. 2. Essential hypertension, GERD are all chronic medical conditions which complicate his care. His home medications were continued where appropriate Physical Exam Narrative General: Alert, Oriented x3, Cooperative, No apparent distress HEENT: Atraumatic, PERRLA, EOMI, Normocephalic Oral: Moist Mucosa Neck: Supple, No JVD Lungs: Diminished, Normal air movement, No rhonchi, No wheeze, No rales Cardiovascular: Regular rate, Regular Rhythm, Normal S1, Normal S2, No murmurs Abdomen: Soft, nontender, Non-Distended, No Hepato-splenomegaly Extremities: No edema, Capillary Refill Less than 3 Seconds Skin: No rashes, No breakdown Musculoskeletal: No Tenderness to Palpation of Joints or Extremities Neurological: No focal neurological deficits, moves all extremities Psych/Mental Status: Normal Affect, Appropriate Weight / BMI Weight Weight: 274 lb 7.996 oz Body Mass Index (BMI) 35.2 ABG / Lab / Microbiology Data 01/18/25 06:00 01/18/25 06:00 Laboratory: Laboratory Results - last 24 hr 01/18/25 06:00: WBC 13.5 H, RBC 3.62 L, Hgb 8.3 L, Hct 27.3 L, MCV 75.4 L, MCH 22.9 L, MCHC 30.4 L, RDW Std Deviation 37.0, RDW Coeff of Irwin 13.6, Plt Count 284, MPV 10.5, Immature Gran % (Auto) 0.600, Neut % (Auto) 82.4 H, Lymph % (Auto) 11.9 L, Freeborn % (Auto) 4.7, Eos % (Auto) 0.3, Baso % (Auto) 0.1, Absolute Neuts (auto) 11.1 H, Absolute Lymphs (auto) 1.61, Nucleated RBC % 0, Sodium 143,Potassium 3.4, Chloride 106, Carbon Dioxide 26.6, Anion Gap 11, BUN 17, Creatinine 0.85, Estim Creat Clear Calc 161.97, Est GFR (MDRD) Non-Af 113, BUN/Creatinine Ratio 19.6, Glucose 94, Calcium 8.7, Iron 40 L, TIBC 188 L, Iron Saturation 21.3, Unsaturated IBC 148 L, Ferritin 152 Microbiology: Microbiology 01/16/25 08:12 Blood Culture (Wb) - Anticubital Right Blood Culture - Preliminary No growth in 48 hours. 01/16/25 07:18 Blood Culture (Wb) - Anticubital Right Blood Culture - Preliminary No growth in 48 hours. 01/16/25 08:54 Urine, Clean Catch Urine Culture - Final Culture exhibits no growth. D/C Instructions Call your doctor if you observe: Fever of 101 or Higher, Shortness of breath, Dizziness, Fainting spells, Swelling in the ankles, Chest pain and Increased palpitations (irregular heartbeat) DC O2, CPAP, BIPAP Needs Home O2 Discharge instructions: No Meaningful Use Info Meaningful Use Meaningful Use Diagnoses (Choose all that apply): None applicable Discharge Plan Admission Admit Date/Time: 01/16/25 10:35 Primary Reason for Your Visit: SIRS Attending Provider: Obed Fish Primary Care Provider: Chris Mckeon Discharge Orders/Prescriptions Prescriptions: New prednisone 20 mg Tablet 40 mg PO BREAKFAST 30 Days Qty: 60 0RF ciprofloxacin HCl [Cipro] 500 mg tablet 500 mg PO BID Qty: 10 0RF metronidazole 500 mg tablet 500 mg PO TID 5 Days Qty: 15 0RF Continued hydrochlorothiazide 25 mg tablet 25 mg PO DAILY lisinopril 20 mg tablet 20 mg PO DAILY omeprazole 40 mg capsule,delayed release(DR/EC) 40 mg PO QDAY Qty: 30 5RF Skyrizi 600 mg IV .COMPLEX Qty: 10 0RF Patient Comments: needs to get blood work Rx Instructions: 600 mg intravenously week 0, 4, 8; 600 mg intravenously at week 0, 4, 8 for Crohn's Disease K50.90 Discontinued mesalamine [Lialda] 1.2 gram tablet,delayed release (DR/EC) 2.4 g PO BID Referrals / Follow Up: Babar Hernández DO [Med Staff - Active Staff] - Within 2 Weeks Chris Mckeon MD [Primary Care Provider] - Within 1 Week Disposition Disposition (needs filled in before D/C Order can be placed): Home, Self Care Charges/Coding Visit Charges Inpatient E&M: 83913 Disch Hosp >30min 01/18/25 1319 <Electronically signed by Obed Fish MD> Cosigner Signature (if applicable): CC: Dr. Obed Fish MD; Dr. Chris Mckeon MD~ Signed [facility] Work Phone: Evaluation note* Diagnosis Essential hypertension Unspecified essential hypertension Anxiety Anxiety state, unspecified documented [facility] this encounter [facility] [place] [facility]* Diagnosis Essential hypertension- Primary Unspecified essential hypertension Anxiety Anxiety state, unspecified documented in this encounter [facility] [place] [facility]* Diagnosis Essential hypertension Unspecified essential hypertension documented in this encounter [facility] [place] [facility]* Diagnosis Essential hypertension Unspecified essential hypertension documented in this encounter [facility] [place] [facility]* Diagnosis Routine physical examination- Primary Routine general medical examination at a health care facility Essential hypertension Unspecified essential hypertension Elevated LDL cholesterol level Pure hypercholesterolemia Crohn's disease without complication, unspecified gastrointestinal tract location (HCC) Gastro-esophageal reflux disease without esophagitis Esophageal reflux Dry cough Cough documented in this encounter [facility] [place] [facility]* Diagnosis Crohn's disease of large intestine with other complication (HCC)- Primary Impaired fasting blood sugar Impaired fasting glucose Primary hypertension Unspecified essential hypertension documented in this encounter [facility] Author Babar Hernández [facility] Note Date/Time January 18, 2025 12 :45pm [facility] Medical Records Department [address] [place] [address] Progress Note 01/18/25 1243 MR#: [id number] Acct: [id number] Name: BARBIE FINK Rep #:[id number] : 1985 39 From: Babar Friend DO PCP: Dr. Chris Mckeon MD Status:ADM I N Location: NE3 [id number] Progress Note Patient has been able to tolerate a diet. He is feeling a lot better. He has been afebrile for the last 24 hours. Physical Exam Narrative General: Alert, Oriented x3, Cooperative, No apparent distress HEENT: Atraumatic, PERRLA, EOMI, Normocephalic Oral: Moist Mucosa Neck: Supple, No JVD Lungs: Diminished, Normal air movement, No rhonchi, No wheeze, No rales Cardiovascular: Regular rate, Regular Rhythm, Normal S1, Normal S2, No murmurs Abdomen: Soft, nontender, Non-Distended, No Hepato-splenomegaly Extremities: No edema, Capillary Refill Less than 3 Seconds Skin: No rashes, No breakdown Musculoskeletal: No Tenderness to Palpation of Joints or Extremities Neurological: No focal neurological deficits, moves all extremities Psych/Mental Status: Normal Affect, Appropriate Assessment & Plan Assessment/Plan (1) Exacerbation of Crohn's disease: (2) SIRS (systemic inflammatory response syndrome): (3) Microcytic anemia: PLAN: This patient is experiencing a Crohn's disease flare-up, potentially complicated by an infection, given the combination of fever, increased WBC, and abdominal pain. While fever can be a symptom of Crohn's itself, a high-grade fever may indicate a complicating infection. The location of the abdominal pain in the right lower quadrant suggests possible involvement of the ileum or ileocecal region, common sites for Crohn's disease inflammation.? * Crohn's disease flare-up:?The patient's history of Crohn's disease and current symptoms are consistent with a flare. * Intra-abdominal abscess:?This is not seen with imaging and it is not consistent with his current symptoms. However an abscess is a pus-filled pocket that can develop due to Crohn's inflammation, and it can cause fever, abdominal pain, and an elevated WBC. * Fistula:?A fistula is an abnormal connection that can form between different parts of the intestines or between the intestine and other organs, or the skin. It can lead to infection and pain. He is also about this) however he does have significant lymphadenopathy and fat stranding. * Bowel obstruction:?This complication occurs when inflammation or scar tissue narrows the bowel, leading to blockage. Abdominal pain, nausea, and vomiting may be present Continue antibiotics without steroids and she continues to have pain but is afebrile, they can start up steroids tomorrow. 01/18/2025-patient is doing better clinically. His white blood cell count is down from 24,000-16,000. He seems to be responding well to antibiotic therapy. I also suspect that this is mostly inflammatory reaction from severe Crohn's exacerbation. He has not shown any signs of stricturing. He would need MR enterography to rule out fistulizing disease. We discussed possible treatment therapies in the future. He likely will need Skyrizi or Tremfya therapy. He isokay with going on steroids at this time and antibiotic therapy. If he continues to do well patient can be discharged to home with early follow-up in office. Visit Charges Inpatient E&M: 10887 Subs Hosp L3 01/18/25 1245 <Electronically signed by Babar Hernández DO> Babar Duarte Signature (if applicable): CC: ~ Signed [facility] Work Phone: Reason for referral (narrative)No reason for referral information availableWMiddletown Hospital Work Phone: Chief Complaint and Reason [...] 2024 2:59 pm Chief Complaint Admit Date 3 M FU December 13, 2024 2:59 pm INT LAB ORDERS December 13, 2024 3:27 pm SIRS January 16, 2025 10 :35am SIRS January 16, 2025 12 :51pm SIRS January 16, 2025 1: 10pm SIRS January 17, 2025 11 :06am SIRS January 18, 2025 12 :43pm SIRS January 18, 2025 1: 14pm Reason for Visit Admit Date Crohn disease December 13, 2024 2:59 pm Exacerbation of Crohn's disease January 032024 10:35am Microcytic anemia January 16, 2025 10 :35am SIRS (systemic inflammatory response syn drome) January 16, 2025 10:35am Chief Complaint Admit Date 3 M FU December 13, 2024 2:59 pm INT LAB ORDERS December 13, 2024 3:27 pm SIRS January 16, 2025 10 :35am SIRS January 16, 2025 12 :51pm SIRS January 16, 2025 1: 10pm SIRS January 17, 2025 11 :06am SIRS January 18, 2025 12 :43pm SIRS January 18, 2025 1: 14pm [facility] February 14, 2025 3:08pm Reason for Visit Admit Date Crohn disease December 13, 2024 2:59 pm Exacerbation of Crohn's disease January 032024 10:35am Microcytic anemia January 16, 2025 10 :35am SIRS (systemic inflammatory response syn drome) January 16, 2025 10:35am Crohn disease February 14, 2025 3:08pm Exacerbation of Crohn's disease [facility] 2024 3:08pm Advance Directives Advance Directive Response Recorded Date/ Time Living Will Yes August 21, 2024 9:56am Do you have a Healthcare Power of Sheet Metal Erector? Yes August 21, 2024 9:56am Name of Medical Power of Sheet Metal Erector KATINA ALEKS August 21, 2024 9:56am Advance Directive Response Recorded Date/ Time Do you have a Healthcare Power of Sheet Metal Erector? Yes January 16, 2025 6:21am Name of Medical Power of Sheet Metal Erector January 16, 2025 6:21am Advance Directive Response Recorded Date/ Time Do you have a Healthcare Power of Sheet Metal Erector? Yes January 16, 2025 10:50am Name of Medical Power of Sheet Metal Erector January 16, 2025 6:21am Summary Purpose Family [...] any alcohol or drug abuse patient.[facility] the event this information is protected by the Federal Confidentiality of Alcohol and Drug Abuse Patient Records regulations: The Federal rules restrict any use of the information to criminally investigate or prosecute any alcohol or drug abuse patient.[facility] Hospital[facility] the event this information is protected by the Federal Confidentiality of Alcohol and Drug Abuse Patient Records regulations: The Federal rules restrict any use of the information to criminally investigate or prosecute any alcohol or drug abuse patient.[facility] HospitalIn the event this information is protected by the Federal Confidentiality of Alcohol and Drug Abuse Patient Records regulations: The Federal rules restrict any use of the information to criminally investigate or prosecute any alcohol or drug abuse patient.[facility] HospitalIn the event this information is protected by the Federal Confidentiality of Alcohol and Drug Abuse Patient Records regulations: The Federal rules restrict any use of the information to criminally investigate or prosecute any alcohol or drug abuse patient.[facility] HospitalIn the event this information is protected by the Federal Confidentiality of Alcohol and Drug Abuse Patient Records regulations: The Federal rules restrict any use of the information to criminally investigate or prosecute any alcohol or drug abuse patient.[facility] Reason for Visit (unrecogniz ed section and content) Reason Onset Date Comments Refill Request 01/07/2022 Reason Comments Follow Up 1 month Reason Onset Date Comments Refill Request 01/18/2024 Reason Onset Date Comments Refill Request 09/10/2024 Reason Comments Yearly Exam Care Teams (unrecognized sec tion and content) 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 Examiner Relationship Specialty Start Date End Date Chris Mckeon MD [address] [place], [place] [id number] PCP - General Family Practice 04/10/13 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 Examiner Relationship Specialty Start Date End Date Chris Mckeon MD [address] [place], [place] [id number] PCP - General Family Medicine 04/10/13 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 Examiner Relationship Specialty Start Date End Date Chris Mckeon MD [address] [place], [place] [id number] PCP - General Family Medicine 04/10/13 Team [...] Provider Active St art: August 26, 2024 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 Examiner Relationship Specialty Start Date End Date Chris Mckeon MD [address] [place], [place] [id number] PCP - General Family Medicine 04/10/13 Marah Montalvo APRN.MANAGER OCCUPATIONAL [address] [facility] [place] [address] [facility] 05/13/24 Tamy Arreaga APRN.MANAGER OCCUPATIONAL [address] [facility] [place] [address] [facility] 05/13/24 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 Examiner Relationship Specialty Start Date End Date Chris Mckeon MD [address] [facility], [place] [id number] PCP - General Family Medicine 04/10/13 Marah Montlavo APRN.MANAGER OCCUPATIONAL [address] [facility] [place] [address] [facility] 05/13/24 Tamy Arreaga APRN.MANAGER OCCUPATIONAL [address] [facility], [place] [id number] [facility] 05/13/24 Team Status: Active Member Role/Relationship [...] Attending Provider Active Start: January 16, 2025 Team Status: Inactive Member Role/Relationship Status Dates Dr. Chris Mckeon MD Primary Care Provider Active Start: January 16, 2025 End: January 18, 2025 Dr. German Chavarria DO Emergency Provider Active Start: January 16, 2025 End: January 18, 2025 Dr. Obed Fish MD Admit Provider Active Start: January 16, 2025 End: January 18, 2025 Dr. Obed Fish MD Attending Provider Active Start: January 16, 2025 End: January 18, 2025 Team Status: Active Member Role/Relationship Status Dates Dr. Chris Mckeon MD Primary Care Provider Active Start: January 16, 2025 Dr. German Chavarria DO Emergency Provider Active Start: January 16, 2025 Dr. Obed Fish MD Admit Provider Active Start: January 16, 2025 Dr. Obed Fish MD Attending Provider Active Start: January 16, 2025 Dr. Obed Fish MD Other Provider Active Start: January 16, 2025 Team Status: Active Member Role/Relationship Status Dates Dr. Chris Mckeon MD Primary Care Provider Active Start: January 16, 2025 Dr. German Chavarria DO Emergency Provider Active Start: January 16, 2025 Dr. Obed Fihs MD Admit Provider Active Start: January 16, 2025 Dr. Obed Fish MD Other Provider Active Start: January 16, 2025 Dr. Babar Hernández DO Attending Provider Active Start: January 16, 2025 Team Status: Active Member Role/Relationship Status Dates Dr. Chris Mckeon MD Primary Care Provider Active Start: January 17, 2025 Dr. German Chavarria DO Emergency Provider Active Start: January 17, 2025 Dr. Obed Fish MD Admit Provider Active Start: January 17, 2025 Dr. Obed Fish MD Attending Provider Active Start: January 17, 2025 Dr. Obed Fish MD Other Provider Active Start: January 17, 2025 Team Status: Active Member Role/Relationship Status Dates Dr. Chris Mkceon MD Primary Care Provider Active Start: January 18, 2025 Dr. German Chavarria DO Emergency Provider Active Start: January 18, 2025 Dr. Obed Fish MD Admit Provider Active Start: January 18, 2025 Dr. Obed Fish MD Other Provider Active Start: January 18, 2025 Dr. Babar Hernández DO Attending Provider Active Start: January 18, 2025 Team Status: Active Member Role/Relationship Status Dates Dr. Chris Mckeon MD Primary Care Provider Active Start: January 18, 2025 Dr. German Chavarria DO Emergency Provider Active Start: January 18, 2025 Dr. Obed Fish MD Admit Provider Active Start: January 18, 2025 Dr. Obed Fish MD Attending Provider Active Start: January 18, 2025 Dr. Obed Fish MD Other Provider Active Start: January 18, 2025 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 Examiner Relationship Specialty Start Date End Date Chris Mckeon MD [address] [place] [address] PCP - General Family Medicine 04/10/13 Marah Montalvo, CROSSTIE INSPECTOR.MANAGER OCCUPATIONAL [address] [place] [address] [facility]24 Tamy Arreaga, CROSSTIE INSPECTOR.MANAGER OCCUPATIONAL [address] [place] [address] [facility] 05/13/24 Team Status: Active Member Role/Relationship Status Dates Dr. Chris Mckeon MD Primary Care Provider Active Start: January 16, 2025 Dr. German Chavarria DO Emergency Provider Active Start: January 16, 2025 Dr. Obed Fish MD Admit Provider Active Start: January 16, 2025 Dr. Obed Fish MD Referring Provider Active Start: January 16, 2025 Dr. Obed Fish MD Other Provider Active Start: January 16, 2025 Dr. Babar Hernández DO Attending Provider Active Start: January 16, 2025 Team Status: Active Member Role/Relationship Status Dates Dr. Chris Mckeon MD Primary Care Provider Active Start: January 18, 2025 Dr. German Chavarria DO Emergency Provider Active Start: January 18, 2025 Dr. Obed Fish MD Admit Provider Active Start: January 18, 2025 Dr. Obed Fish MD Referring Provider Active Start: January 18, 2025 Dr. Obed Fish MD Other Provider Active Start: January 18, 2025 Dr. Babar Hernández DO Attending Provider Active Start: January 18, 2025 Team Status: Inactive Member Role/Relationship Status Dates Dr. Chris Mckeon MD Primary Care Provider Active Start: February 14, 2025 End: February 14, 2025 Dr. Chris Mckeon MD Referring Provider Active Start: February 14, 2025 End: February 14, 2025 GARRY Guerrero Attending Provider Active Start: February 14, 2025 End: February 14, 2025 Team Status: Active Member Role/Relationship Status Dates Dr. Chris Mckeon MD Primary care physician Active Team Status: Inactive Member Role/Relationship Status Dates Dr. Chris Mckeon MD Primary care physician Active Start: December 13, 2024 End: December 13, 2024 Dr. Chris Mckeon MD Referring Provider Active Start: December 13, 2024 End: December 13, 2024 GARRY Guerrero Attending physician Active Start: December 13, 2024 End: December 13, 2024 Team Status: Inactive Member Role/Relationship Status Dates Dr. Chris Mckeon MD Primary care physician Active Start: December 13, 2024 End: December 13, 2024 GARRY Guerrero Attending physician Active Start: December 13, 2024 End: December 13, 2024 GARRY Guerrero Referring Provider Active Start: December 13, 2024 End: December 13, 2024 Team Status: Inactive Member Role/Relationship Status Dates Dr. Chris Mckeon MD Primary care physician Active Start: January 16, 2025 End: January 18, 2025 Dr. German Chavarria DO Emergency Departm ent Physician Active Start: January 16, 2025 End: January 18, 2025 Dr. Obed Fish MD Admitting physician Active Start: January 16, 2025 End: January 18, 2025 Dr. Obed Fish MD Attending physician Active Start: January 16, 2025 End: January 18, 2025 Team Status: Active Member Role/Relationship Status Dates Dr. Chris Mckeon MD Primary care physician Active Start: January 16, 2025 Dr. German Chavarria DO Emergency Departm ent Physician Active Start: January 16, 2025 Dr. Obed Fish MD Admitting physician Active Start: January 16, 2025 Dr. Obed Fish MD Attending physician Active Start: January 16, 2025 Dr. Obed Fish MD Nurse Practitioner Active Start: January 16, 2025 Team Status: Active Member Role/Relationship Status Dates Dr. Chris Mckeon MD Primary care physician Active Start: January 16, 2025 Dr. German Chavarria DO Emergency Departm ent Physician Active Start: January 16, 2025 Dr. Obed Fish MD Admitting physician Active Start: January 16, 2025 Dr. Obed Fish MD Referring Provider Active Start: January 16, 2025 Dr. Obed Fish MD Nurse Practitioner Active Start: January 16, 2025 Dr. Babar Hernández DO Attending physician Active Start: January 16, 2025 Team Status: Active Member Role/Relationship Status Dates Dr. Chris Mckeon MD Primary care physician Active Start: January 17, 2025 Dr. German Chavarria DO Emergency Departm ent Physician Active Start: January 17, 2025 Dr. Obed Fish MD Admitting physician Active Start: January 17, 2025 Dr. Obed Fish MD Attending physician Active Start: January 17, 2025 Dr. Obed Fish MD Nurse Practitioner Active Start: January 17, 2025 Team Status: Active Member Role/Relationship Status Dates Dr. Chris Mckeon MD Primary care physician Active Start: January 18, 2025 Dr. German Chavarria DO Emergency Departm ent Physician Active Start: January 18, 2025 Dr. Obed Fish MD Admitting physician Active Start: January 18, 2025 Dr. Obed Fish MD Referring Provider Active Start: January 18, 2025 Dr. Obed Fish MD Nurse Practitioner Active Start: January 18, 2025 Dr. Babar Hernández DO Attending physician Active Start: January 18, 2025 Team Status: Active Member Role/Relationship Status Dates Dr. Chris Mckeon MD Primary care physician Active Start: January 18, 2025 Dr. German Chavarria DO Emergency Departm ent Physician Active Start: January 18, 2025 Dr. Obed Fish MD Admitting physician Active Start: January 18, 2025 Dr. Obed Fish MD Attending physician Active Start: January 18, 2025 Dr. Obed Fish MD Nurse Practitioner Active Start: January 18, 2025 Team Status: Inactive Member Role/Relationship Status Dates Dr. Chris Mckeon MD Primary care physician Active Start: February 14, 2025 End: February 14, 2025 Dr. Chris Mckeon MD Referring Provider Active Start: February 14, 2025 End: February 14, 2025 GARRY Guerrero Attending physician Active Start: February 14, 2025 End: February 14, 2025 Team Status: Inactive Member Role/Relationship Status Dates Dr. Chris Mckeon MD Primary care physician Active Start: February 14, 2025 End: February 14, 2025 GARRY Guerrero Attending physician Active Start: February 14, 2025 End: February 14, 2025 GARRY Guerrero Referring Provider Active Start: February 14, 2025 End: February 14, 2025 Goals (unrecognized section and content) Goals may be documented in a n alternate section (unrecognized sect ion and content) No Status Records FoundNo Status Records Found INFORMATION SOURCE (unrecogn ized section and content) DATE CREATED AUTHOR 02/02/2025 [facility] DATE CREATED AUTHOR 'S THAOIZ ATION 02/22/2025 [facility] FOR RECORDS PERTAINING TO PATIENTS WHO [...] BE BASED ON THE PRIMARY CLINICAL RECORDS. [facility] [employer] [facility]. provides no warranty or guarantee of the accuracy or completeness of information in this document.
[2025-05-16 16:56] LABS: Hematocrit 37.5 % (40-54); Hemoglobin 11.3 g/dL (13.0-16.5); Immature Granulocytes Count 0.030 X10^3/uL (0.0-0.0); Mean Corp Hgb Conc 30.1 g/dL (32-36); Mean Corpuscular Volume 78.5 fL (80-94); Mean Platelet Vol. 10.8 fl (6.2-12.0); NRBC Flagged by Analyzer 0 % (0-5); Platelet Count 317 K/mm3 (150-450); RBC Distribution Width CV 14.1 % (11.6-14.6); RBC Distribution Width SD 40.1 fl (35.1-43.9); Red Blood Count 4.78 M/mm3 (4.6-6.2); White Blood Count 8.4 K/mm3 (4.4-11.0)
[2025-05-16 17:52] LABS: AST(SGOT) 20 U/L (<=37); Alanine Aminotransfer ALT/SGPT 17 U/L (<=46); Albumin, Serum 4.3 g/dL (3.5-5.0); Alkaline Phosphatase 84 U/L (40-129); Anion Gap 11 (5-15); BUN 10 mg/dL (4-19); BUN/Creat Ratio 9.4 RATIO (10-20); Calcium,Total 9.5 mg/dL (7.6-11.0); Carbon Dioxide 28.7 mmol/L (21.0-32.0); Chloride 100 mmol/L (98-108); Globulin 3.3 g/dL (2.2-4.2); Glucose 108 mg/dL (70-99); Potassium 3.6 mmol/L (3.3-5.1)
[2025-05-16 17:53] LABS: CRP < 3.00 mg/L (0.0-3.0)
== END | disposition home or self-care (01) ==
LOC: LAB 15:47
PROVIDERS: PCP Family Medicine; Referring Provider Student in an Organized Health Care Education/Training Program; Visit Provider Student in an Organized Health Care Education/Training Program
DX: K50.811 Crohn's disease of both small and large intestine with rectal bleeding (principal)
CPT/HCPCS: 36415; 80053; 85025; 86140